=== PATIENT | female | born 1960 | race Caucasian/White ===

== ENCOUNTER 2016-09-07 12:30 | Observation (INO) | payer SELFPAY ==
[~2016-09-07] VITALS: Ht 170.2 cm; Wt 120.0 kg
[2016-09-07 12:31] VITALS: BP 150/74; PULSE 71; RESP 21; TEMP 97.9; O2SAT 95
--- NOTE | 2016-09-07 12:47 | PD ---
Physical Exam Time Seen by Provider: 12:46 Narrative 55yo F c/o running out of insulin 2 weeks ago. Nausea x 2 days. Has not checked sugars since ran out of insulin. BSG in triage 543. Patient seen in triage. VS reviewed. Patient awaiting bed placement. Data Data Last Documented VS Vital Signs Date Time Temp Pulse Resp B/P Pulse Ox O2 Delivery O2 Flow Rate FiO2 09/07/16 12:31 97.9 71 21 150/74 95 MDM Supervised Visit with TRINA: Sarai Uribe Sep 07, 2016 12:47
[2016-09-07] MEDS ORDERED: SODIUM CHLOR 0.9% 1000 ML INJ 1,000 ML IV ONE ×2 (14:09→14:39)
[2016-09-07 14:10] VITALS: RESP 18; O2SAT 98
--- NOTE | 2016-09-07 14:11 | PD ---
HPI Chief Complaint: Diabetic Time Seen by Provider: 14:11 Travel History International Travel<30 days: No Contact w/Intl Traveler<30days: No Traveled to known affect area: No History of Present Illness HPI 55-year-old female presents to the emergency department for evaluation of dizziness and nausea that started approximately 2-3 days ago. She denies any syncope. She states she feels lightheaded. She denies vomiting. Patient reports history of type 2 diabetes, history of [place] with bypass surgery, hyperlipidemia, neuropathy. She states that she takes Humalog and Lantus insulin and has been out for 2 weeks. She states she moved here from [place] approximately 1 month ago and does not have insurance has not followed up with her primary care physician. Patient denies any fevers or chills. She reports some mild shortness of breath, when she is sitting in her brawl pushes on her abdomen. She denies any chest pain. No abdominal pain. No vomiting, constipation, diarrhea. PFSH Past Medical History Cardiac Catheterization: Yes (2016) Cardiovascular Problems: Yes ([place], CABG) High Cholesterol: Yes Diabetes: Yes (TYPE 2 ) Patient Takes Glucophage: No Diminished Hearing: No Endocrine: Yes Thyroid Disease: Yes Tetanus Vaccination: > 5 Years Influenza Vaccination: Yes ?: Not : 4 Past Surgical History Cardiac Surgery: Yes (bypass ) Section: Yes (c- section x 4 ) Cholecystectomy: Yes Coronary Stent: Yes Tonsillectomy: Yes Social History Alcohol Use: Yes (ocassionally) Tobacco Use: No (pt quit 20 years ago) Substance Use: No Allergies-Medications (Allergen,Severity, Reaction): Coded Allergies: Penicillin (Verified Allergy, Severe, hives, 09/07/16) Dilaudid (Verified Adverse Reaction, Unknown, vomiting, 09/07/16) Reported Meds & Prescriptions Reported Meds & Active Scripts Active Reported Acidophilus Probiotic (Probiotic Product) 1 Tab Tab 1 Tab PO TID Ferrous Sulfate DR (Ferrous Sulfate) 325 Mg Tabdr 325 Mg PO BID Vitamin D3 400 (Cholecalciferol) 400 Unit Cap 400 Units PO HS Calcium (Calcium Carbonate) 600 Mg Tab 600 Mg PO BID Fish Oil 1000 mg ([place]-3 Fatty Acids) 1 Cap Cap 2,000 Mg PO HS Hm Cinnamon (Cinnamon) 500 Mg Cap Unknown Dose PO HS Lasix (Furosemide) 20 Mg Tab 10 Mg PO DAILY Atenolol 25 Mg Tab 25 Mg PO BID Aspirin DR (Aspirin) 81 Mg Tabdr 81 Mg PO HS Plavix (Clopidogrel Bisulfate) 75 Mg Tab 75 Mg PO HS Levothyroxine (Levothyroxine Sodium) 75 Mcg Tab 75 Mcg PO DAILY Levothyroxine (Levothyroxine Sodium) 200 Mcg Tab 200 Mcg PO DAILY Biotin 5 Mg Tab 5 Mg PO HS Zocor (Simvastatin) 40 Mg Tab 40 Mg PO HS Humalog Inj (Insulin Human Lispro) 1,000 Unit/10 Ml Vial 30 Units SQ TIDAC Lantus Inj (Insulin Glargine) 1,000 Unit/10 Ml Vial 80 Units SQ HS Gabapentin 600 Mg Tab 600 Mg PO TID Review of Systems Except as stated in HPI: all other systems reviewed are Neg Physical Exam Narrative GENERAL: Well-nourished, well-developed female patient, afebrile. SKIN: Focused skin assessment warm/dry. HEAD: Normocephalic. Atraumatic. EYES: No scleral icterus. No injection or drainage. NECK: Supple, trachea midline. No JVD or lymphadenopathy. CARDIOVASCULAR: Regular rate and rhythm without murmurs, gallops, or rubs. RESPIRATORY: Breath sounds equal bilaterally. No accessory muscle use. Lungs sounds are clear to auscultation. GASTROINTESTINAL: Abdomen soft and nondistended. Patient has epigastric tenderness to palpation. MUSCULOSKELETAL: No cyanosis, or edema. BACK: Nontender without obvious deformity. No CVA tenderness. Data Data Last Documented VS Vital Signs Date Time Temp Pulse Resp B/P Pulse Ox O2 Delivery O2 Flow Rate FiO2 09/07/16 16:02 97.8 62 17 112/59 98 Room Air Orders Electrocardiogram (09/07/16 14:09) Complete Blood Count With Diff (09/07/16 14:09) Comprehensive Metabolic Panel (09/07/16 14:09) Magnesium (Mg) (09/07/16 14:09) Beta Hydroxybutyrate (Acetone) (09/07/16 14:09) Urinalysis - C+S If Indicated (09/07/16 14:09) Chest, Single Ap (09/07/16 14:09) Ecg Monitoring (09/07/16 14:09) Iv Access Insert/Monitor (09/07/16 14:09) Oximetry (09/07/16 14:09) Sodium Chlor 0.9% 1000 Ml Inj (Ns 1000 M (09/07/16 14:09) Sodium Chlor 0.9% 1000 Ml Inj (Ns 1000 M (09/07/16 14:39) Sodium Chloride 0.9% Flush (Ns Flush) (09/07/16 14:15) Troponin I (09/07/16 14:09) Lipase (09/07/16 14:09) Creatine Kinase (Cpk) (09/07/16 14:09) Blood Gas Venous (Vbg) (09/07/16 14:09) Prothrombin Time / Inr (Pt) (09/07/16 14:13) Act Partial Throm Time (Ptt) (09/07/16 14:13) Urine Culture (09/07/16 14:00) Insulin Human Regular Inj (Novolin R Inj (09/07/16 16:15) Diet 1800 Ada Cons Carb (09/07/16 Dinner) Diet Heart Healthy (09/07/16 Dinner) Vital Signs (Adult) JOE.Q4H (09/07/16 16:24) Blood Glucose Goal (Criteria) (09/07/16 16:24) Hypoglycemia 70 Mg/Dl Or < (09/07/16 16:24) Notify Dr: Other (09/07/16 16:24) Dextrose 50% In Leticia (Vial) Inj (D50w (Vi (09/07/16 16:30) Glucagon Inj (Glucagon Inj) (09/07/16 16:30) Insulin Aspart Supplemtl Scale (Novolog (09/07/16 21:00) Sodium Chlor 0.9% 1000 Ml Inj (Ns 1000 M (09/07/16 16:30) Basic Metabolic Panel (Bmp) (09/08/16 06:00) Aspirin Ec (Ecotrin Ec) (09/07/16 21:00) Atenolol (Tenormin) (09/07/16 21:00) Clopidogrel (Plavix) (09/07/16 21:00) Gabapentin (Neurontin) (09/07/16 18:00) Levothyroxine (Synthroid) (09/08/16 06:00) Levothyroxine (Synthroid) (09/08/16 06:00) Pravastatin (Pravachol) (09/07/16 21:00) Admit Order (Ed Use Only) (09/07/16 16:27) Troponin I (09/07/16 20:00) Troponin I (09/08/16 02:00) Insulin Detemir Inj (Levemir Inj) (09/07/16 21:00) Labs Laboratory Tests Test 09/07/16 09/07/16 09/07/16 14:00 14:10 14:20 Urine Color YELLOW Urine Turbidity HAZY Urine pH 6.0 Urine Specific [place] 1.033 Urine Protein 100 mg/dL Urine Glucose (UA) 1000 mg/dL Urine Ketones TRACE mg/dL Urine Occult Blood SMALL Urine Nitrite NEG Urine Bilirubin NEG Urine Urobilinogen LESS THAN 2.0 MG/DL Urine Leukocyte Esterase MOD Urine RBC 9 /hpf Urine WBC 6 /hpf Urine Squamous Epithelial 2 /hpf Cells Urine Bacteria MOD /hpf Urine Hyaline Casts 2 /lpf Microscopic Urinalysis Comment CULTURE INDICATED White Blood Count 8.2 TH/MM3 Red Blood Count 4.62 MIL/MM3 Hemoglobin 14.8 GM/DL Hematocrit 43.0 % Mean Corpuscular Volume 93.1 FL Mean Corpuscular Hemoglobin 32.1 PG Mean Corpuscular Hemoglobin 34.5 % Concent Red Cell Distribution Width 13.5 % Platelet Count 203 TH/MM3 Mean Platelet Volume 7.8 FL Neutrophils (%) (Auto) 67.2 % Lymphocytes (%) (Auto) 24.1 % Monocytes (%) (Auto) 6.1 % Eosinophils (%) (Auto) 2.0 % Basophils (%) (Auto) 0.6 % Neutrophils # (Auto) 5.5 TH/MM3 Lymphocytes # (Auto) 2.0 TH/MM3 Monocytes # (Auto) 0.5 TH/MM3 Eosinophils # (Auto) 0.2 TH/MM3 Basophils # (Auto) 0.0 TH/MM3 CBC Comment DIFF FINAL Differential Comment Prothrombin Time 12.5 SEC Prothromb Time International 1.1 RATIO Ratio Activated Partial 28.0 SEC Thromboplast Time Sodium Level 128 MEQ/L Potassium Level 5.0 MEQ/L Chloride Level 94 MEQ/L Carbon Dioxide Level 18.8 MEQ/L Anion Gap 15 MEQ/L Blood Urea Nitrogen 25 MG/DL Creatinine 1.65 MG/DL Estimat Glomerular Filtration 32 ML/MIN Rate Random Glucose 511 MG/DL Calcium Level 9.6 MG/DL Magnesium Level 1.7 MG/DL Total Bilirubin 0.7 MG/DL Aspartate Amino Transf 135 U/L (AST/SGOT) Alanine Aminotransferase 121 U/L (ALT/SGPT) Alkaline Phosphatase 92 U/L Total Creatine Kinase 170 U/L Troponin I LESS THAN 0.02 NG/ML Total Protein 7.6 GM/DL Albumin 3.3 GM/DL Lipase 149 U/L B-Hydroxybutyrate 0.34 MMOL/L Blood Gas Puncture Site I.V. Blood Gas Patient Temperature 98.6 Venous Blood pH 7.47 Venous Blood Partial Pressure 32 mmHg CO2 Venous Blood Partial Pressure 38 mmHg O2 Venous Blood HCO3 23 mmol/L Venous Blood Oxygen Saturation 72 % Venous Blood Oxygen Content 13.7 Vol % Venous Blood Base Excess -0.5 mmol/L Oxygen Delivery Device ROOM AIR Blood Gas Inspired Oxygen 21 % [facility] Medical Decision Making Medical Screen Exam Complete: Yes Emergency Medical Condition: Yes Medical Record Reviewed: Yes Interpretation(s) Last Impressions Chest X-Ray 09/07/16 1409 Signed Impressions: Service Date/Time: Wednesday, September 07, 2016 14:48 - CONCLUSION: Compensated cardiomegaly without significant failure otherwise negative Jermaine Gutierres MD FACR Differential Diagnosis Hyperglycemia versus DKA versus electrolyte abnormality versus dehydration versus pancreatitis versus UTI versus ACS Narrative Course 55-year-old female presents to the emergency department for evaluation of dizziness and nausea for 2 weeks. She quit taking her insulin 2 weeks ago. EKG , CBC, CMP, magnesium, CK, troponin, PTT, PTT/INR, beta hydroxybutyrate, VBG, chest x-ray are ordered and pending. Patient given normal saline 1 L IV bolus 2. EKG shows sinus rhythm, no acute ST changes. CBC is unremarkable. CMP shows hyponatremia 128, BUN 25, creatinine 0.65, glucose 511, AST 135, ALT 121. Magnesium is 1.7. CK is 170. Troponin is less than 0.02. PTT is 28.0. PT/ INR is 12.5/1.1. Beta hydroxybutyrate is 0.34. UA shows moderate leukocyte esterase, 6 WBC, moderate bacteria. VBG shows pH 7.47, CO2 32. Chest x-ray shows Compensated cardiomegaly without significant failure otherwise negative. Patient is given 25 units regular insulin subcutaneous. Spoke to Dr. Candelaria who accepted admission to trend cardiac enzymes. The patient was discharged in stable condition with instructions, including return instructions and follow up instructions. Diagnosis Primary Impression: Poorly controlled diabetes mellitus Additional Impressions: Dizziness Coronary artery disease Qualified Code: I25.10 - Coronary artery disease involving [place] heart, angina presence unspecified, unspecified vessel or lesion type Admitting Information Admitting Physician Requests: Janeen Barbour Sep 07, 2016 14:11
[2016-09-07] MEDS ORDERED: SODIUM CHLORIDE 0.9% FLUSH 10 ML FLUSH IVF PRN (14:15)
[2016-09-07 14:30] LABS: BLOOD GAS VENOUS BASE EXCESS -0.5 mmol/L (-2-2); BLOOD GAS VENOUS HCO3 23 mmol/L (22-26); BLOOD GAS VENOUS O2 CONTENT 13.7 Vol % (9.0-17.0); BLOOD GAS VENOUS O2 HGB SAT 72 % (70-76); BLOOD GAS VENOUS PCO2 32 mmHg (44-48); BLOOD GAS VENOUS PO2 38 mmHg (35-40); BLOOD GAS VENOUS pH 7.47 (7.360-7.400); CRITICAL VALUE NO; DRAW SITE I.V.; FIO2 21 %; OXYGEN DEVICE ROOM AIR; STAT YES; TEMP CORR TO 98.6
[2016-09-07 14:58] LABS: AUTOMATED NEUTROPHIL # 5.5 TH/MM3 (1.8-7.7); BASOPHIL % 0.6 % (0.0-2.0); EOSINOPHIL # 0.2 TH/MM3 (0-0.4); HEMO FLAGS DIFF FINAL; LYMPH % 24.1 % (9.0-44.0); MEAN CELL VOLUME 93.1 FL (80.0-100.0); MEAN CORPUSCULAR HEMOGLOBIN 32.1 PG (27.0-34.0); MEAN CORPUSCULAR HGB CONC 34.5 % (32.0-36.0); MONO % 6.1 % (0.0-8.0); NEUT % 67.2 % (16.0-70.0); PLATELET COUNT 203 TH/MM3 (150-450); RED BLOOD COUNT 4.62 MIL/MM3 (4.00-5.30); RED CELL DISTRIBUTION WIDTH 13.5 % (11.6-17.2); WHITE BLOOD COUNT 8.2 TH/MM3 (4.0-11.0)
[2016-09-07 15:09] LABS: BACTERIA, URINE MOD /hpf; BLOOD, URINE SMALL (NEG); COMMENT (UR) CULTURE INDICATED; CULTURE IF INDICATED CULTURE INDICATED; GLUCOSE,URINE 1000 mg/dL (NEG); HYALINE CAST, URINE 2 /lpf (RARE); KETONE, URINE TRACE mg/dL (NEG); NITRITE,URINE NEG (NEG); SQUAMOUS EPITHELIAL CELL URINE 2 /hpf (0-5); URINE COLOR YELLOW (YELLW/STRAW)
[2016-09-07 15:20] LABS: ALKALINE PHOSPHATASE 92 U/L (45-117); ANION GAP 15 MEQ/L (5-15); BETA-HYDROXYBUTYRATE 0.34 MMOL/L (0.00-0.39); BICARBONATE 18.8 MEQ/L (21.0-32.0); BLOOD UREA NITROGEN 25 MG/DL (7-18); CHLORIDE 94 MEQ/L (98-107); CREATINE KINASE 170 U/L (26-192); GLOMERULAR FILTRATION RATE 32 ML/MIN (>89); MAGNESIUM 1.7 MG/DL (1.5-2.5); SODIUM (NA) 128 MEQ/L (136-145); TOTAL BILIRUBIN ADULT 0.7 MG/DL (0.2-1.0)
[2016-09-07] MEDS ORDERED: GABA600T PO (15:35)
[2016-09-07] MEDS ORDERED: LANTUS2P SQ (15:35)
[2016-09-07] MEDS ORDERED: HUMALOG SQ (15:35)
[2016-09-07] MEDS ORDERED: ZOCO40TA PO (15:36)
[2016-09-07] MEDS ORDERED: BIOT5TAB PO (15:36)
[2016-09-07 15:40] LABS: INTERNATIONAL NORMALIZED RATIO 1.1 RATIO; PROTHROMBIN TIME - PATIENT 12.5 SEC (9.8-11.6)
[2016-09-07 16:02] VITALS: BP 112/59; PULSE 62; RESP 17; TEMP 97.8; O2SAT 98
[2016-09-07] MEDS ORDERED: ASPI81TA5 PO (16:05)
[2016-09-07] MEDS ORDERED: PLAV75TA29 PO (16:05)
[2016-09-07] MEDS ORDERED: LEVO75TA3 PO (16:05)
[2016-09-07] MEDS ORDERED: LEVO200T4 PO (16:05)
[2016-09-07] MEDS ORDERED: CALC600T25 PO (16:10)
[2016-09-07] MEDS ORDERED: CINN500C12 PO (16:10)
[2016-09-07] MEDS ORDERED: FURO1TAB62 PO (16:10)
[2016-09-07] MEDS ORDERED: FISH100020 PO (16:10)
[2016-09-07] MEDS ORDERED: D400400C PO (16:10)
[2016-09-07] MEDS ORDERED: ATEN25TA PO (16:10)
[2016-09-07] MEDS ORDERED: FERR325T2 PO (16:12)
[2016-09-07] MEDS ORDERED: PROB1TAB4 PO (16:12)
[2016-09-07] MEDS ORDERED: INSULIN HUMAN REGULAR 1,000 UNITS/10 ML VIAL SQ ONE (16:15)
--- NOTE | 2016-09-07 16:17 | RADRPT ---
EXAM DATE/TIME: 09/07/2016 14:48 [facility] COMPARISON: No previous studies available for comparison. INDICATIONS : Shortness of breath. MEDICAL HISTORY : Diabetes mellitus type II. SURGICAL HISTORY : CABG. Coronary artery stent. ENCOUNTER: Initial ACUITY: 1 day PAIN SCORE: 0/10 LOCATION: chest FINDINGS: The lungs are clear. The heart is minimally enlarged. The pulmonary vascularity is normal. There is n o evidence for infiltrate or failure. Sternal wires from previous bypass are noted. Degenerative changes are present about both shoulders. CONCLUSION: Compensated cardiomegaly without significant failure otherwise negative Jermaine Gutierres MD FACR on September 07, 2016 at 16:14 Board Certified Radiologist. This report was verified electronically.
[2016-09-07] MEDS ORDERED: GLUCAGON 1 MG/ML VIAL OTHER PRN (16:30)
[2016-09-07] MEDS ORDERED: DEXTROSE 50% IN WATER 50 ML VIAL(D50) IV PRN (16:30)
[2016-09-07 16:34] LABS: ALT (GPT) 121 U/L (10-53); AST (GOT) 135 U/L (15-37)
--- NOTE | 2016-09-07 17:06 | PD ---
Physical Exam Narrative GENERAL: Well-nourished, well-developed patient. SKIN: Warm and dry. HEAD: Normocephalic and atraumatic. EYES: No injection or drainage. ENT: No nasal drainage noted. NECK: Supple, trachea midline. CARDIOVASCULAR: Regular rate and rhythm RESPIRATORY: No increased effort. No accessory muscle use. GASTROINTESTINAL: Abdomen soft, tender epigastric area, nondistended. NEUROLOGICAL: Awake and alert. Motor and sensory grossly within normal limits. Normal speech. Data Data Last Documented VS Vital Signs Date Time Temp Pulse Resp B/P Pulse Ox O2 Delivery O2 Flow Rate FiO2 09/07/16 16:02 97.8 62 17 112/59 98 Room Air Orders Electrocardiogram (09/07/16 14:09) Complete Blood Count With Diff (09/07/16 14:09) Comprehensive Metabolic Panel (09/07/16 14:09) Magnesium (Mg) (09/07/16 14:09) Beta Hydroxybutyrate (Acetone) (09/07/16 14:09) Urinalysis - C+S If Indicated (09/07/16 14:09) Chest, Single Ap (09/07/16 14:09) Ecg Monitoring (09/07/16 14:09) Iv Access Insert/Monitor (09/07/16 14:09) Oximetry (09/07/16 14:09) Sodium Chlor 0.9% 1000 Ml Inj (Ns 1000 M (09/07/16 14:09) Sodium Chlor 0.9% 1000 Ml Inj (Ns 1000 M (09/07/16 14:39) Sodium Chloride 0.9% Flush (Ns Flush) (09/07/16 14:15) Troponin I (09/07/16 14:09) Lipase (09/07/16 14:09) Creatine Kinase (Cpk) (09/07/16 14:09) Blood Gas Venous (Vbg) (09/07/16 14:09) Prothrombin Time / Inr (Pt) (09/07/16 14:13) Act Partial Throm Time (Ptt) (09/07/16 14:13) Urine Culture (09/07/16 14:00) Insulin Human Regular Inj (Novolin R Inj (09/07/16 16:15) Diet 1800 Ada Cons Carb (09/07/16 Dinner) Diet Heart Healthy (09/07/16 Dinner) Vital Signs (Adult) JOE.Q4H (09/07/16 16:24) Blood Glucose Goal (Criteria) (09/07/16 16:24) Hypoglycemia 70 Mg/Dl Or < (09/07/16 16:24) Notify Dr: Other (09/07/16 16:24) Dextrose 50% In Leticia (Vial) Inj (D50w (Vi (09/07/16 16:30) Glucagon Inj (Glucagon Inj) (09/07/16 16:30) Insulin Aspart Supplemtl Scale (Novolog (09/07/16 21:00) Sodium Chlor 0.9% 1000 Ml Inj (Ns 1000 M (09/07/16 16:30) Basic Metabolic Panel (Bmp) (09/08/16 06:00) Hemoglobin (Hgb) A1c (09/07/16 16:24) Aspirin Ec (Ecotrin Ec) (09/07/16 21:00) Atenolol (Tenormin) (09/07/16 21:00) Clopidogrel (Plavix) (09/07/16 21:00) Gabapentin (Neurontin) (09/07/16 18:00) Insulin Glargine Inj (Lantus Inj) (09/07/16 21:00) Levothyroxine (Synthroid) (09/08/16 09:00) Levothyroxine (Synthroid) (09/08/16 09:00) (Nf) Simvastatin (Zocor) (09/07/16 21:00) Admit Order (Ed Use Only) (09/07/16 16:27) Troponin I (09/07/16 20:00) Troponin I (09/08/16 02:00) Labs Laboratory Tests Test 09/07/16 09/07/16 09/07/16 14:00 14:10 14:20 Urine Color YELLOW Urine Turbidity HAZY Urine pH 6.0 Urine Specific [place] 1.033 Urine Protein 100 mg/dL Urine Glucose (UA) 1000 mg/dL Urine Ketones TRACE mg/dL Urine Occult Blood SMALL Urine Nitrite NEG Urine Bilirubin NEG Urine Urobilinogen LESS THAN 2.0 MG/DL Urine Leukocyte Esterase MOD Urine RBC 9 /hpf Urine WBC 6 /hpf Urine Squamous Epithelial 2 /hpf Cells Urine Bacteria MOD /hpf Urine Hyaline Casts 2 /lpf Microscopic Urinalysis Comment CULTURE INDICATED White Blood Count 8.2 TH/MM3 Red Blood Count 4.62 MIL/MM3 Hemoglobin 14.8 GM/DL Hematocrit 43.0 % Mean Corpuscular Volume 93.1 FL Mean Corpuscular Hemoglobin 32.1 PG Mean Corpuscular Hemoglobin 34.5 % Concent Red Cell Distribution Width 13.5 % Platelet Count 203 TH/MM3 Mean Platelet Volume 7.8 FL Neutrophils (%) (Auto) 67.2 % Lymphocytes (%) (Auto) 24.1 % Monocytes (%) (Auto) 6.1 % Eosinophils (%) (Auto) 2.0 % Basophils (%) (Auto) 0.6 % Neutrophils # (Auto) 5.5 TH/MM3 Lymphocytes # (Auto) 2.0 TH/MM3 Monocytes # (Auto) 0.5 TH/MM3 Eosinophils # (Auto) 0.2 TH/MM3 Basophils # (Auto) 0.0 TH/MM3 CBC Comment DIFF FINAL Differential Comment Prothrombin Time 12.5 SEC Prothromb Time International 1.1 RATIO Ratio Activated Partial 28.0 SEC Thromboplast Time Sodium Level 128 MEQ/L Potassium Level 5.0 MEQ/L Chloride Level 94 MEQ/L Carbon Dioxide Level 18.8 MEQ/L Anion Gap 15 MEQ/L Blood Urea Nitrogen 25 MG/DL Creatinine 1.65 MG/DL Estimat Glomerular Filtration 32 ML/MIN Rate Random Glucose 511 MG/DL Calcium Level 9.6 MG/DL Magnesium Level 1.7 MG/DL Total Bilirubin 0.7 MG/DL Aspartate Amino Transf 135 U/L (AST/SGOT) Alanine Aminotransferase 121 U/L (ALT/SGPT) Alkaline Phosphatase 92 U/L Total Creatine Kinase 170 U/L Troponin I LESS THAN 0.02 NG/ML Total Protein 7.6 GM/DL Albumin 3.3 GM/DL Lipase 149 U/L B-Hydroxybutyrate 0.34 MMOL/L Blood Gas Puncture Site I.V. Blood Gas Patient Temperature 98.6 Venous Blood pH 7.47 Venous Blood Partial Pressure 32 mmHg CO2 Venous Blood Partial Pressure 38 mmHg O2 Venous Blood HCO3 23 mmol/L Venous Blood Oxygen Saturation 72 % Venous Blood Oxygen Content 13.7 Vol % Venous Blood Base Excess -0.5 mmol/L Oxygen Delivery Device ROOM AIR Blood Gas Inspired Oxygen 21 % MDM Supervised Visit with TRINA: Yes Interpretation(s) CBC & BMP Diagram 09/07/16 14:10 Last 24 hours Impressions Chest X-Ray 8/2/17 1409 Signed Impressions: Service Date/Time: Wednesday, September 07, 2016 14:48 - CONCLUSION: Compensated cardiomegaly without significant failure otherwise negative Jermaine Gutierres MD FACR Narrative Course I, Dr. alfaro, have reviewed the advance practice practitioner's documentation and am in agreement, met with the patient face to face, made the diagnosis, and the medical decision making was done by me. *My assessment and Findings: 55 y/o female presents with nausea, dizziness and general ill feeling. Patient notes in July of this year she had stents placed in [place]. She states she has not been able to fill her insulin but has been taking her Plavix and knows the importance of this. Her initial testing is negative but given her significant cardiac history we'll place in the hospital for further monitoring and glucose control Diagnosis Primary Impression: Dizziness Additional Impressions: Poorly controlled diabetes mellitus Coronary artery disease Qualified Code: I25.10 - Coronary artery disease involving [place] heart, angina presence unspecified, unspecified vessel or lesion type Jyoti Alfaro MD Sep 07, 2016 17:06
[2016-09-07] MEDS: GABAPENTIN 300 MG CAP PO SCH (17:16)
[2016-09-07] MEDS: SODIUM CHLOR 0.9% 1000 ML INJ 1,000 ML IV SCH (17:16)
--- NOTE | 2016-09-07 17:51 | HHI.HP ---
[facility] No Primary Care Physician Admission Diagnosis hyperglycemia, dizziness, nausea Diagnoses: Chief Complaint: nausea, dizziness Travel History International Travel<30 Days: No Contact w/Intl Traveler <30 Da: No Traveled to Known Affected Are: No History of Present Illness Written by Kamini Fox, acting as scribe for Dr. Candelaria on 09/07/16 at 17: 25. Patient is a 55 year ol Female with PMHX of DM2, [place] s/p CABG, neuropathy, hypothyroidism who came in to the hospital for evaluation of dizziness and severe nausea. Patient states that she has not been feeling well for the past few days, c/o dizziness, and lightheadedness. She also states she has severe nausea and over all not feeling well. Patient reports she just moved to the area from [place] about a month ago. States she run out of her insulin Lantus and humolog supply. She was last seen bey her Seismic Observer about 6 months ago. Her last HgA1C was in July about results was about 10 or 11. States she has checked her BG and usually with medications she would be in 180s- 200's. She has lost weight when she moved here. Last she checked her BG it was in the 300's. She also states that she has been battling with urinary urgency and frequency, dysuria about 1 week. She started taking AZO and drinking cranberry juice and states she has some relief. Also complaints of mid abdominal pain, intermittent, increase with palpation, relieve with rest. Otherwise denies chest pain, palpitations, headaches. Denies fevers, chills, diarrhea, constipation, abdominal cramping. Denies hematuria. Review of Systems Except as stated in HPI: all other systems reviewed are Neg Past Family Social History Past Medical History DM2 Mi 2008 HLD Neuropathy Hypothyroidism HTN Past Surgical History CABG in 2008 C Section x4 Cholecystectomy Stent placement x2 2017 Cardiac Cath Tonsillectomy Reported Medications Reported Meds & Active Scripts Active Reported Acidophilus Probiotic (Probiotic Product) 1 Tab Tab 1 Tab PO TID Ferrous Sulfate DR (Ferrous Sulfate) 325 Mg Tabdr 325 Mg PO BID Vitamin D3 400 (Cholecalciferol) 400 Unit Cap 400 Units PO HS Calcium (Calcium Carbonate) 600 Mg Tab 600 Mg PO BID Fish Oil 1000 mg ([place]-3 Fatty Acids) 1 Cap Cap 2,000 Mg PO HS Hm Cinnamon (Cinnamon) 500 Mg Cap Unknown Dose PO HS Lasix (Furosemide) 20 Mg Tab 10 Mg PO DAILY Atenolol 25 Mg Tab 25 Mg PO BID Aspirin DR (Aspirin) 81 Mg Tabdr 81 Mg PO HS Plavix (Clopidogrel Bisulfate) 75 Mg Tab 75 Mg PO HS Levothyroxine (Levothyroxine Sodium) 75 Mcg Tab 75 Mcg PO DAILY Levothyroxine (Levothyroxine Sodium) 200 Mcg Tab 200 Mcg PO DAILY Biotin 5 Mg Tab 5 Mg PO HS Zocor (Simvastatin) 40 Mg Tab 40 Mg PO HS Humalog Inj (Insulin Human Lispro) 1,000 Unit/10 Ml Vial 30 Units SQ TIDAC Lantus Inj (Insulin Glargine) 1,000 Unit/10 Ml Vial 80 Units SQ HS Gabapentin 600 Mg Tab 600 Mg PO TID Allergies: Coded Allergies: Penicillin (Verified Allergy, Severe, hives, 09/07/16) Dilaudid (Verified Adverse Reaction, Unknown, vomiting, 09/07/16) Active Ordered Medications Current Medications Medications (Trade) Dose Ordered Sig/Guillaume Route Start Time Stop Time Status Last Admin (NS Flush) 2 ml UNSCH PRN IVF 09/07/16 14:15 09/07/16 14:28 (D50w (Vial) Inj) 50 ml UNSCH PRN IV 09/07/16 16:30 Glucagon 1 mg 1 mg UNSCH PRN OTHER 09/07/16 16:30 (NS 1000 ml Inj) 1,000 ml @ 125 mls/hr Q8H IV 09/07/16 16:30 09/07/16 17:16 (Ecotrin Ec) 81 mg HS PO 09/07/16 21:00 (Tenormin) 25 mg BID PO 09/07/16 21:00 (Plavix) 75 mg HS PO 09/07/16 21:00 (Neurontin) 600 mg TID PO 09/07/16 18:00 09/07/16 17:16 (Levemir Inj) 80 units HS SQ 09/07/16 21:00 (Synthroid) 75 mcg DAILY@06 PO 09/08/16 06:00 (Synthroid) 200 mcg DAILY@06 PO 09/08/16 06:00 (Pravachol) 80 mg HS PO 09/07/16 21:00 Non-Formulary Medication 30 units TIDAC SQ 09/08/16 08:00 UNV Family History Sister has Juvenile DM Social History Occasional Alcohol use Former smoker, quit 20 years ago (1996) Denies Illicit drug use Physical Exam Vital Signs Vital Signs Date Time Temp Pulse Resp B/P Pulse Ox O2 Delivery O2 Flow Rate FiO2 09/07/16 16:02 97.8 62 17 112/59 98 Room Air 09/07/16 14:10 18 98 Room Air 09/07/16 13:51 72 17 96 Room Air 09/07/16 12:31 97.9 71 21 150/74 95 Physical Exam GENERAL: This is an obese, well-developed patient, in no apparent distress. SKIN: No rashes, ecchymoses or lesions. Cool and dry. HEAD: Normocephalic. EYES: Pupils equal round and reactive. Extraocular motions intact. No scleral icterus. No injection or drainage. ENT: Nose without bleeding. Throat with mild erythema. Uvula midline. Airway patent. NECK: Trachea midline. Supple. CARDIOVASCULAR: Regular rate and rhythm without murmurs, gallops, or rubs. RESPIRATORY: Clear to auscultation. Breath sounds equal bilaterally. No wheezes , rales, or rhonchi. GASTROINTESTINAL: Abdomen soft, protuberant, mid epigastric region mild tenderness to palpate. BS Active x4. MUSCULOSKELETAL: Extremities without clubbing, cyanosis, or edema. NEUROLOGICAL: Awake and alert. Oriented to person, place, time. Motor and sensory grossly within normal limits. Normal speech. Laboratory Laboratory Tests Test 09/07/16 09/07/16 09/07/16 14:00 14:10 14:20 Urine Color YELLOW Urine Turbidity HAZY Urine pH 6.0 Urine Specific [place] 1.033 Urine Protein 100 Urine Glucose (UA) 1000 Urine Ketones TRACE Urine Occult Blood SMALL Urine Nitrite NEG Urine Bilirubin NEG Urine Urobilinogen LESS THAN 2.0 Urine Leukocyte Esterase MOD Urine RBC 9 Urine WBC 6 Urine Squamous Epithelial 2 Cells Urine Bacteria MOD Urine Hyaline Casts 2 Microscopic Urinalysis Comment CULTURE INDICATED White Blood Count 8.2 Red Blood Count 4.62 Hemoglobin 14.8 Hematocrit 43.0 Mean Corpuscular Volume 93.1 Mean Corpuscular Hemoglobin 32.1 Mean Corpuscular Hemoglobin 34.5 Concent Red Cell Distribution Width 13.5 Platelet Count 203 Mean Platelet Volume 7.8 Neutrophils (%) (Auto) 67.2 Lymphocytes (%) (Auto) 24.1 Monocytes (%) (Auto) 6.1 Eosinophils (%) (Auto) 2.0 Basophils (%) (Auto) 0.6 Neutrophils # (Auto) 5.5 Lymphocytes # (Auto) 2.0 Monocytes # (Auto) 0.5 Eosinophils # (Auto) 0.2 Basophils # (Auto) 0.0 CBC Comment DIFF FINAL Differential Comment Prothrombin Time 12.5 Prothromb Time International 1.1 Ratio Activated Partial 28.0 Thromboplast Time Sodium Level 128 Potassium Level 5.0 Chloride Level 94 Carbon Dioxide Level 18.8 Anion Gap 15 Blood Urea Nitrogen 25 Creatinine 1.65 Estimat Glomerular Filtration 32 Rate Random Glucose 511 Calcium Level 9.6 Magnesium Level 1.7 Total Bilirubin 0.7 Aspartate Amino Transf 135 (AST/SGOT) Alanine Aminotransferase 121 (ALT/SGPT) Alkaline Phosphatase 92 Total Creatine Kinase 170 Troponin I LESS THAN 0.02 Total Protein 7.6 Albumin 3.3 Lipase 149 B-Hydroxybutyrate 0.34 Blood Gas Puncture Site I.V. Blood Gas Patient Temperature 98.6 Venous Blood pH 7.47 Venous Blood Partial Pressure 32 CO2 Venous Blood Partial Pressure 38 O2 Venous Blood HCO3 23 Venous Blood Oxygen Saturation 72 Venous Blood Oxygen Content 13.7 Venous Blood Base Excess -0.5 Oxygen Delivery Device ROOM AIR Blood Gas Inspired Oxygen 21 Date/Time Procedure Status Source Growth 09/07/16 14:00 Urine Culture Received Urine Random Urine Pending Result Diagram: 09/07/16 1410 09/07/16 1410 Imaging Last Impressions Chest X-Ray 09/07/16 1409 Signed Impressions: Service Date/Time: Wednesday, September 07, 2016 14:48 - CONCLUSION: Compensated cardiomegaly without significant failure otherwise negative Jermaine Gutierres MD FACR Assessment and Plan Problem List: (1) Coronary artery disease ICD Code: I25.10 Status: Acute (2) Uncontrolled type 2 diabetes mellitus ICD Code: E11.65 Status: Acute Assessment and Plan Patient is a 55 year ol Female with PMHX of DM2, [place] s/p CABG, neuropathy, hypothyroidism who came in to the hospital for evaluation of dizziness and severe nausea. DM2, uncontrolled- due to noncompliance Nausea, lightheadedness neuropathy - Patient reports just recently moved in the area. No PCP secondary to no insurance coverage. Reports she has not had her insulin medications for 2 weeks. - Restart previous medications Lantus 80units QHS, Humalog 30units before meals - Monitor Accu checks - Check Hemoglobin A1C - Glucose 500, Urine glucose 1000, Trace urine ketones - Anion gap 15, Beta-hydroxybutyrate 0.34 - Patient received Insulin Regular 25 unit dose - Check labs in AM - Discuss with patient importance of PCP follow up and medication compliance. Will consult case management for PCP referral and patient assistance. Verbalized understanding. - [facility]er to [facility]. 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 I, Dr.Mohammadreza Candelaria, personally performed the physical exam , reviewed the clinical data and discussed the findings and the plan with the patient. Code Status Full Code Discussed Condition With Patient, Nursing, ED attending Problem Qualifiers (1) Coronary artery disease: Qualified Code: I25.10 - Coronary artery disease involving [place] heart, angina presence unspecified, unspecified vessel or lesion type (2) Uncontrolled type 2 diabetes mellitus: Qualified Code: E11.65 - Uncontrolled type 2 diabetes mellitus with hyperglycemia, with long-term current use of insulin Kamini Barrow Sep 07, 2016 17:51 Deondre Candelaria MD Sep 07, 2016 18:07
[2016-09-07] MEDS: cefTRIAXone INJ 1,000 MG in SODIUM CHLORIDE 0.9% INJ 100 ML IV SCH (18:10)
[2016-09-07 18:11] VITALS: BP 118/67; PULSE 69; RESP 17; TEMP 97.8; O2SAT 99
[2016-09-07] MEDS ORDERED: BUSP15TA PO (19:39)
[2016-09-07] MEDS ORDERED: ZOLO50TA PO (19:39)
[2016-09-07 19:43] VITALS: BP 106/58; PULSE 69; RESP 17; TEMP 97.3; O2SAT 97
[2016-09-07] MEDS ORDERED: busPIRone HCL 10 MG TAB PO ONE (20:45)
[2016-09-07] MEDS: SERTRALINE HCL 50 MG TAB PO SCH (21:00)
[2016-09-07] MEDS: INSULIN ASPART SUPPLEMENTAL SCALE SQ SCH (21:00)
[2016-09-07] MEDS: ASPIRIN EC 81 MG TABEC PO SCH (21:00)
[2016-09-07] MEDS ORDERED: INSULIN DETEMIR 100 UNITS/ML VIAL SQ SCH (21:00)
[2016-09-07] MEDS: PRAVASTATIN SOD 80 MG TAB PO SCH (21:00)
[2016-09-07] MEDS: ATENOLOL 25 MG TAB PO SCH (21:00)
[2016-09-07] MEDS: CLOPIDOGREL 75 MG TAB PO SCH (21:00)
[2016-09-07 22:17] LABS: HEMOGLOBIN A1a 1.2 %; HEMOGLOBIN A1b 1.2 %; HEMOGLOBIN Ao 73.2 %; HEMOGLOBIN LA1C 3.7 %
[2016-09-07 23:51] VITALS: BP 116/66; PULSE 68; RESP 17; TEMP 97.9; O2SAT 95
[2016-09-08] MEDS: SODIUM CHLOR 0.9% 1000 ML INJ 1,000 ML IV SCH ×2 (00:30→11:48)
[2016-09-08 03:58] VITALS: BP 122/74; PULSE 62; RESP 16; TEMP 97.9; O2SAT 99
[2016-09-08 03:59] LABS: ANION GAP 11 MEQ/L (5-15); BICARBONATE 22.7 MEQ/L (21.0-32.0); BLOOD UREA NITROGEN 21 MG/DL (7-18); CHLORIDE 104 MEQ/L (98-107); GLOMERULAR FILTRATION RATE 45 ML/MIN (>89); POTASSIUM 3.7 MEQ/L (3.5-5.1); SODIUM (NA) 138 MEQ/L (136-145)
[2016-09-08] MEDS: LEVOTHYROXINE SODIUM 200 MCG TAB PO SCH (06:11)
[2016-09-08] MEDS: LEVOTHYROXINE SODIUM 75 MCG TAB PO SCH (06:12)
[2016-09-08] MEDS: INSULIN ASPART SUPPLEMENTAL SCALE SQ SCH ×4 (06:15→22:02)
[2016-09-08] MEDS ORDERED: INSULIN ASPART 1,000 UNITS/10 ML VIAL SQ SCH ×3 (08:00→17:00)
[2016-09-08 08:01] VITALS: BP_SYST 128; BP_SYST 131; BP_SYST 135; BP_DIAS 65; BP_DIAS 69; BP_DIAS 74; PULSE 65; RESP 17; TEMP 97.7; O2SAT 95
[2016-09-08] MEDS: busPIRone HCL 5 MG TAB PO SCH ×3 (09:22→17:31)
[2016-09-08] MEDS: GABAPENTIN 300 MG CAP PO SCH ×3 (09:22→17:31)
[2016-09-08] MEDS: SERTRALINE HCL 50 MG TAB PO SCH ×2 (09:22→21:49)
[2016-09-08] MEDS: ATENOLOL 25 MG TAB PO SCH ×2 (09:22→21:50)
--- NOTE | 2016-09-08 10:26 | HHI.PR ---
Subjective Remarks Follow-up for hyperglycemia. The patient reports that nausea and dizziness have resolved. She's been tolerating diet. She denies any vomiting. She reports that she had dysuria and urinary frequency recently, but dysuria resolved after she started taking cranberry juice and AZO. Urinary frequency persisted until overnight, and now it is improved. She had previously been following with industrial sales representative over 6 months ago, but she has lost her insurance since then. She states that her blood glucose was normally [id number] on her current outpatient regimen of Lantus and Humalog. Objective Vitals Vital Signs Date Time Temp Pulse Resp B/P Pulse Ox O2 Delivery O2 Flow Rate FiO2 09/08/16 08:01 97.7 65 17 135/74 95 128/69 131/65 09/08/16 03:58 97.9 62 16 122/74 99 09/07/16 23:51 97.9 68 17 116/66 95 09/07/16 19:43 97.3 69 17 106/58 97 09/07/16 18:11 97.8 69 17 118/67 99 Room Air 09/07/16 16:02 97.8 62 17 112/59 98 Room Air 09/07/16 14:10 18 98 Room Air 09/07/16 13:51 72 17 96 Room Air 09/07/16 12:31 97.9 71 21 150/74 95 I/O 09/07/16 09/07/16 09/07/16 09/08/16 09/08/16 09/08/16 07:00 15:00 23:00 07:00 15:00 23:00 Intake Total 200 ml Balance 200 ml Intake Oral 200 ml # Voids 1 1 # Bowel Movements 0 Result Diagram: 09/07/16 1410 09/08/16 0321 Imaging Last Impressions Chest X-Ray 09/07/16 1409 Signed Impressions: Service Date/Time: Wednesday, September 07, 2016 14:48 - CONCLUSION: Compensated cardiomegaly without significant failure otherwise negative Jermaine Gutierres MD FACR Objective Remarks GENERAL: Well-developed well-nourished morbidly obese. In no acute distress. SKIN: Warm and dry. No lesions noted. HEENT: Normocephalic. Pupils equal and round. Mucous membranes pink and moist. CARDIOVASCULAR: Regular rate and rhythm. No murmur appreciated. RESPIRATORY: No accessory muscle use. Clear to auscultation. Breath sounds equal bilaterally. GASTROINTESTINAL: Abdomen soft, mild epigastric TTP, nondistended. Bowel sounds x4. MUSCULOSKELETAL: No obvious deformities. No clubbing or cyanosis. No edema. NEUROLOGICAL: Awake and alert. No focal neurological deficits. Moves upper and lower extremities spontaneously. Normal speech. PSYCHIATRIC: Appropriate mood and affect; insight and judgment normal. A/P Problem List: (1) Coronary artery disease ICD Code: I25.10 Status: Chronic (2) Uncontrolled type 2 diabetes mellitus ICD Code: E11.65 Status: Acute Assessment and Plan Patient is a 55 year ol Female with PMHX of DM2, [place] s/p CABG, neuropathy, hypothyroidism who came in to the hospital for evaluation of dizziness and severe nausea. DM2, uncontrolled with hyperglycemia - due to noncompliance, has been out of home insulin 2 weeks Nausea, lightheadedness - improved with treatment of hyperglycemia neuropathy Reviewed: On admission random glucose 511, anion gap 15, bicarbonate 18.8, venous blood gas pH 7.47, beta hydroxybutyrate within normal limits. Anion gap has closed and bicarbonate has returned to normal limits. Hemoglobin A1c 12.8. UA with glucosuria, proteinuria, ketonuria. Troponins within normal limits. Non-orthostatic. - Restared previous regimen with Levemir 80units QHS, Humalog 30units before meals - Monitor Accu checks and adjust regimen as indicated - Additional SSI coverage if needed - Consult case management, assistance with outpatient follow-up - Continue Gabapentin for neuropathy Urinary Tract Infection: UA with evidence of UTI. Recent complaints of dysuria and urinary frequency. - Ceftriaxone IV - Follow up urine culture HTN/CAD/CABG/HLD: Chronic, stable. - Continue with ASA, Plavix - Continue with Atenolol, Pravastatin - Monitor BP trend SHARA: Patient reported her last kidney function number was within normal range, no previous labs for comparison. Creatinine 1.65 admission, improved to 1.24 overnight with IVF. Likely secondary to hyperglycemia/dehydration. - Avoid nephrotoxins - IVF for hydration Hypothyroidism: Chronic. - Continue with levothyroxine Epigastric tenderness/GERD: - Start Pepcid DVT Prop SCDs Discharge Planning Discharge disposition pending further improvement in blood glucose control. Possible discharge later today vs tomorrow depending on blood glucose control. Problem Qualifiers (1) Coronary artery disease: Qualified Code: I25.10 - Coronary artery disease involving [place] heart, angina presence unspecified, unspecified vessel or lesion type (2) Uncontrolled type 2 diabetes mellitus: Qualified Code: E11.65 - Uncontrolled type 2 diabetes mellitus with hyperglycemia, with long-term current use of insulin Luis Nelson Sep 08, 2016 10:25
[2016-09-08] MEDS ORDERED: PILL SPLITTER OTHER PRN (10:30)
[2016-09-08 11:36] VITALS: BP 119/66; PULSE 65; RESP 23; TEMP 98.3; O2SAT 94
[2016-09-08] MEDS: FAMOTIDINE 20 MG TAB PO SCH ×2 (12:03→21:49)
--- NOTE | 2016-09-08 15:04 | EKG ---
Date Performed: 09/07/2016 Time Performed: 15:33:27 PTAGE: 55 years EKG: Sinus rhythm WITH FIRST DEGREE AV BLOCK ST DEVIATION AND MODERATE T-WAVE ABNORMALITY, CONSIDER ANTEROLATERAL ISCH EMIA ABNORMAL ECG NO PREVIOUS TRACING DOCTOR: Marium Duncan Interpretating Date/Time 09/08/2016 15:04:10
--- NOTE | 2016-09-08 15:05 | EKG ---
Date Performed: 09/07/2016 Time Performed: 20:58:54 PTAGE: 55 years EKG: Sinus rhythm WITH FIRST DEGREE AV BLOCK ST DEVIATION AND MODERATE T-WAVE ABNORMALITY, CONSIDER ANTEROLATERAL ISCH EMIA ABNORMAL ECG PREVIOUS TRACING 09/07/2016 15.33.27 Since previous tracing, no significant change noted DOCTOR: Marium Duncan Interpretating Date/Time 09/08/2016 15:04:43
--- NOTE | 2016-09-08 15:05 | EKG ---
Date Performed: 09/08/2016 Time Performed: 02:21:16 PTAGE: 55 years EKG: Sinus rhythm WITH FIRST DEGREE AV BLOCK ST DEVIATION AND MODERATE T-WAVE ABNORMALITY, CONSIDER ANTEROLATERAL ISCH EMIA ABNORMAL ECG PREVIOUS TRACING : 09/07/2016 20.58 Since previous tracing, no significant change noted DOCTOR: Marium Duncan Interpretating Date/Time 09/08/2016 15:04:55
[2016-09-08 15:55] VITALS: BP 105/65; PULSE 64; RESP 20; TEMP 98.6; O2SAT 95
[2016-09-08] MEDS: cefTRIAXone INJ 1,000 MG in SODIUM CHLORIDE 0.9% INJ 100 ML IV SCH (17:32)
[2016-09-08] MEDS: INSULIN ASPART 1,000 UNITS/10 ML VIAL SQ SCH (18:00)
[2016-09-08] MEDS ORDERED: INSULIN DETEMIR 100 UNITS/ML VIAL SQ SCH (21:00)
[2016-09-08 21:12] VITALS: BP_SYST 103; BP_SYST 110; BP_DIAS 51; BP_DIAS 58; BP_DIAS 64; PULSE 66; RESP 19; TEMP 98.2; O2SAT 94
[2016-09-08] MEDS: ASPIRIN EC 81 MG TABEC PO SCH (21:49)
[2016-09-08] MEDS: PRAVASTATIN SOD 80 MG TAB PO SCH (21:50)
[2016-09-08] MEDS: CLOPIDOGREL 75 MG TAB PO SCH (21:50)
[2016-09-08 23:42] VITALS: BP 126/65; PULSE 62; RESP 17; TEMP 98.3; O2SAT 93
[2016-09-09] MEDS: SODIUM CHLOR 0.9% 1000 ML INJ 1,000 ML IV SCH ×2 (00:30→08:12)
[2016-09-09 03:16] VITALS: BP 125/70; PULSE 60; RESP 17; TEMP 97.6; O2SAT 94
[2016-09-09] MEDS: LEVOTHYROXINE SODIUM 200 MCG TAB PO SCH (06:21)
[2016-09-09] MEDS: LEVOTHYROXINE SODIUM 75 MCG TAB PO SCH (06:21)
[2016-09-09] MEDS: INSULIN ASPART SUPPLEMENTAL SCALE SQ SCH (07:27)
--- NOTE | 2016-09-09 07:48 | HHI.PR ---
Subjective Remarks Follow-up for hyperglycemia. The patient's blood glucose is much better controlled overnight. She denies any nausea, vomiting, abdominal pain. Objective Vitals Vital Signs Date Time Temp Pulse Resp B/P Pulse Ox O2 Delivery O2 Flow Rate FiO2 09/09/16 03:16 97.6 60 17 125/70 94 09/08/16 23:42 98.3 62 17 126/65 93 09/08/16 21:12 98.2 66 19 103/51 94 103/58 110/64 09/08/16 15:55 98.6 64 20 105/65 95 09/08/16 11:36 98.3 65 23 119/66 94 09/08/16 08:01 97.7 65 17 135/74 95 128/69 131/65 I/O 09/08/16 09/08/16 09/08/16 09/09/16 09/09/16 09/09/16 07:00 15:00 23:00 07:00 15:00 23:00 Intake Total 200 ml 500 ml Balance 200 ml 500 ml Intake Oral 200 ml IV Total 500 ml # Voids 1 1 # Bowel Movements 1 Result Diagram: 09/07/16 1410 09/08/16 0321 Imaging Last Impressions Chest X-Ray 09/07/16 1409 Signed Impressions: Service Date/Time: Wednesday, September 07, 2016 14:48 - CONCLUSION: Compensated cardiomegaly without significant failure otherwise negative Jermaine Gutierres MD FACR Objective Remarks GENERAL: Well-developed well-nourished morbidly obese. In no acute distress. SKIN: Warm and dry. No lesions noted. HEENT: Normocephalic. Pupils equal and round. Mucous membranes pink and moist. CARDIOVASCULAR: Regular rate and rhythm. No murmur appreciated. RESPIRATORY: No accessory muscle use. Clear to auscultation. Breath sounds equal bilaterally. GASTROINTESTINAL: Abdomen soft, nontender, nondistended. Bowel sounds x4. MUSCULOSKELETAL: No obvious deformities. No clubbing or cyanosis. No edema. NEUROLOGICAL: Awake and alert. No focal neurological deficits. Moves upper and lower extremities spontaneously. Normal speech. PSYCHIATRIC: Appropriate mood and affect; insight and judgment normal. A/P Problem List: (1) Coronary artery disease ICD Code: I25.10 Status: Chronic (2) Uncontrolled type 2 diabetes mellitus ICD Code: E11.65 Status: Acute Assessment and Plan Patient is a 55 year ol Female with PMHX of DM2, [place] s/p CABG, neuropathy, hypothyroidism who came in to the hospital for evaluation of dizziness and severe nausea. DM2, uncontrolled with hyperglycemia - due to noncompliance, has been out of home insulin 2 weeks Nausea, lightheadedness - improved with treatment of hyperglycemia neuropathy Reviewed: On admission random glucose 511, anion gap 15, bicarbonate 18.8, venous blood gas pH 7.47, beta hydroxybutyrate within normal limits. Anion gap has closed and bicarbonate has returned to normal limits. Hemoglobin A1c 12.8. UA with glucosuria, proteinuria, ketonuria. Troponins within normal limits. Non-orthostatic. - Adjusted previous home regimen, now on Levemir 45 units twice a day, NovoLog 35 units three times a day, much better blood glucose control overnight. - Monitor Accu checks. Additional SSI coverage if needed - Consult case management, assistance with outpatient follow-up - Continue Gabapentin for neuropathy Urinary Tract Infection: UA with evidence of UTI. Recent complaints of dysuria and urinary frequency. - Received Ceftriaxone IV, urine culture with no growth today, complete course of Cipro. HTN/CAD/CABG/HLD: Chronic, stable. - Continue with ASA, Plavix - Continue with Atenolol, Pravastatin - Monitor BP trend SHARA: Patient reported her last kidney function number was within normal range, no previous labs for comparison. Creatinine 1.65 admission, improved to 1.24 overnight with IVF. Likely secondary to hyperglycemia/dehydration. - Creatinine improved with IV hydration Hypothyroidism: Chronic. - Continue with levothyroxine Epigastric tenderness/GERD: - Started Pepcid, tenderness improved DVT Prop SCDs Discharge Planning Case management to assist with filling insulin prescriptions prior to discharge Discharge patient to home Condition on discharge: Improved Heart healthy diabetic Diet as tolerated Regular activity Rx written: Levemir, NovoLog, Cipro, Pepcid Follow-up with primary care physician Problem Qualifiers (1) Coronary artery disease: Qualified Code: I25.10 - Coronary artery disease involving [place] heart, angina presence unspecified, unspecified vessel or lesion type (2) Uncontrolled type 2 diabetes mellitus: Qualified Code: E11.65 - Uncontrolled type 2 diabetes mellitus with hyperglycemia, with long-term current use of insulin Luis Nelson Sep 09, 2016 07:48
[2016-09-09] MEDS ORDERED: CIPR250T52 PO (07:55)
[2016-09-09] MEDS ORDERED: FAMO20TA2 PO (07:55)
[2016-09-09] MEDS ORDERED: LEVEMIR SQ (07:55)
[2016-09-09] MEDS ORDERED: NOVOLOGP2 SQ (07:55)
[2016-09-09] MEDS: INSULIN ASPART 1,000 UNITS/10 ML VIAL SQ SCH (08:11)
[2016-09-09 08:44] VITALS: BP_SYST 112; BP_SYST 143; BP_SYST 155; BP_DIAS 70; BP_DIAS 74; BP_DIAS 75; PULSE 58; RESP 18; TEMP 97.6; O2SAT 96
== END 2016-09-09 11:02 | disposition home or self-care (01) ==
LOC: NEPC 12:30 → NEDA 16:29 → NEPGCP 18:24
PROVIDERS: ADMIT Hospitalist; ATTEND Hospitalist
DX: E11.65 Type 2 diabetes mellitus with hyperglycemia (principal); I25.10 Atherosclerotic heart disease of native coronary artery without angina pectoris; I25.2 Old myocardial infarction; K21.9 Gastro-esophageal reflux disease without esophagitis; E78.5 Hyperlipidemia, unspecified; E11.40 Type 2 diabetes mellitus with diabetic neuropathy, unspecified; E11.22 Type 2 diabetes mellitus with diabetic chronic kidney disease; N39.0 Urinary tract infection, site not specified; N17.9 Acute kidney failure, unspecified; E78.00 Pure hypercholesterolemia, unspecified; I44.0 Atrioventricular block, first degree; I12.9 Hypertensive chronic kidney disease with stage 1 through stage 4 chronic kidney disease, or unspecified chronic kidney disease; N18.9 Chronic kidney disease, unspecified; E86.0 Dehydration; I51.7 Cardiomegaly; E87.1 Hypo-osmolality and hyponatremia; E03.9 Hypothyroidism, unspecified; Z95.1 Presence of aortocoronary bypass graft; Z87.891 Personal history of nicotine dependence; Z79.4 Long term (current) use of insulin; Z91.19 Patient's noncompliance with other medical treatment and regimen; Z79.82 Long term (current) use of aspirin; Z95.5 Presence of coronary angioplasty implant and graft; Z79.899 Other long term (current) drug therapy
CPT/HCPCS: 71010; 80048; 80053; 81001; 82010; 82550; 82805; 82948; 83036; 83690; 83735; 84484; 85025; 85610; 85730; 87086; 93005; 96361; 96365; 96372; 99285; G0378; J0696; J1815; J7030

== ENCOUNTER 2017-04-29 17:56 | Emergency (ER) | payer SELFPAY ==
[~2017-04-29] VITALS: Ht 170.2 cm; Wt 128.0 kg
[~2017-04-29 17:56] MED LIST: ATEN25TA PO; BIOT5TAB PO; BUSP15TA PO; CALC600T5 PO; CINN1CAP PO; CIPR250T52 PO; D400400C PO; ECASA81 PO; FAMO20TA2 PO; FERR325T2 PO; FISH100020 PO; FURO1TAB62 PO; GABA600T PO; LEVEMIR SQ; LEVO200T4 PO; LEVO75TA3 PO; NOVOLOGP2 SQ; PLAV75TA29 PO; PROB1TAB4 PO; ZOCO40TA PO; ZOLO50TA PO
[2017-04-29 18:42] VITALS: BP 96/56; PULSE 76; RESP 18; TEMP 98.9; O2SAT 96
[2017-04-29 19:32] LABS: AUTOMATED NEUTROPHIL # 8.1 TH/MM3 (1.8-7.7); BASOPHIL % 0.5 % (0.0-2.0); EOSINOPHIL # 0.2 TH/MM3 (0-0.4); HEMATOCRIT 37.9 % (35.0-46.0); HEMOGLOBIN 13.7 GM/DL (11.6-15.3); LYMPH % 15.5 % (9.0-44.0); LYMPHOCYTE # 1.6 TH/MM3 (1.0-4.8); MEAN CELL VOLUME 98.7 FL (80.0-100.0); MEAN CORPUSCULAR HEMOGLOBIN 35.8 PG (27.0-34.0); MEAN PLATELET VOLUME 8.2 FL (7.0-11.0); MONO % 5.5 % (0.0-8.0); MONOCYTE # 0.6 TH/MM3 (0-0.9); NEUT % 76.5 % (16.0-70.0); PLATELET COUNT 188 TH/MM3 (150-450); RED BLOOD COUNT 3.84 MIL/MM3 (4.00-5.30); RED CELL DISTRIBUTION WIDTH 13.3 % (11.6-17.2); WHITE BLOOD COUNT 10.5 TH/MM3 (4.0-11.0)
[2017-04-29 19:34] LABS: MEAN CORPUSCULAR HGB CONC 36.2 % (32.0-36.0)
[2017-04-29 19:55] LABS: ALT (GPT) 66 U/L (10-53)
[2017-04-29 19:58] LABS: ALKALINE PHOSPHATASE 71 U/L (45-117); TOTAL BILIRUBIN ADULT 0.7 MG/DL (0.2-1.0); TOTAL PROTEIN 7.6 GM/DL (6.4-8.2)
[2017-04-29 19:59] LABS: ALBUMIN 3.9 GM/DL (3.4-5.0); AST (GOT) 82 U/L (15-37); BICARBONATE 26.2 MEQ/L (21.0-32.0); BLOOD UREA NITROGEN 19 MG/DL (7-18); CHLORIDE 98 MEQ/L (98-107); CREATININE 2.06 MG/DL (0.50-1.00); GLOMERULAR FILTRATION RATE 25 ML/MIN (>89); GLUCOSE,RANDOM 329 MG/DL (74-106); SODIUM (NA) 136 MEQ/L (136-145)
[2017-04-29 20:59] VITALS: BP 105/52; PULSE 74; RESP 20; O2SAT 95
[2017-04-29] MEDS ORDERED: SODIUM CHLOR 0.9% 1000 ML INJ 1,000 ML IV ONE (21:00)
[2017-04-29] MEDS ORDERED: ACETAMINOPHEN 325 MG TAB PO ONE (21:00)
--- NOTE | 2017-04-29 21:03 | PD ---
HPI Chief Complaint: Complaint Time Seen by Provider: 20:52 Travel History International Travel<30 days: No Contact w/Intl Traveler<30days: No Traveled to known affect area: No History of Present Illness HPI The patient is a 56-year-old female who presents emergency department for symptoms of 2 weeks' duration. The patient complains of dysuria, frequency, and urgency of 2 weeks duration. She now complains of bilateral lower mid back pain. She does have a history of previous UTIs. The patient does have a history of diabetes, is currently out of her short acting insulin, and "forgot" to take her insulin the last 2 nights. The patient states she recently started a new job and has had increasing fatigue. The patient states she has been seen a physician at the local clinic, but does not have health insurance, has not followed up with a physician in the last 2 weeks. She has been taking [id number] Azo and drinking cranberry juice. She denies any fever, sats intermittent chills. She does complain of nausea without any vomiting, diarrhea, abdominal pain. Symptoms are moderate. PFSH Past Medical History Hx Anticoagulant Therapy: Yes (PLAVIX AND ASA) Asthma: Yes Blood Disorders: No Anxiety: Yes Depression: Yes Heart Rhythm Problems: No Cancer: No Cardiac Catheterization: Yes (2016) Cardiovascular Problems: Yes (PR, CABG) High Cholesterol: Yes Chemotherapy: No Chest Pain: Yes Congestive Heart Failure: Yes COPD: No Diabetes: Yes (TYPE 2 ) Patient Takes Glucophage: No Diminished Hearing: No Endocrine: Yes Gastrointestinal Disorders: Yes (HEARTBURN- USES OTC MEDS) Genitourinary: Yes (FREQUENCY, URGENCY) Hypertension: Yes (ONLY DURING ) Immune Disorder: No Implanted Vascular Access Dvce: Yes Musculoskeletal: Yes (L ANKLE TENDON TEAR) Neurologic: Yes (SZ A CHILD ) Psychiatric: Yes Reproductive: No Respiratory: Yes Radiation Therapy: No Sleep Apnea: No Thyroid Disease: Yes : 4 Past Surgical History Body Medical Devices: STENTS Cardiac Surgery: Yes (double bypass ) Section: Yes (c- section x 4 ) Cholecystectomy: Yes Coronary Stent: Yes Tonsillectomy: Yes Other Surgery: Yes (T & A, C-SECTIONS X 4, BYPASS, GB, CARDIAC CATH, STENTS) Social History Alcohol Use: Yes (ocassionally) Tobacco Use: No (pt quit 20 years ago) Substance Use: No Allergies-Medications (Allergen,Severity, Reaction): Coded Allergies: penicillin G (Unverified Allergy, Severe, hives, 04/29/17) hydromorphone (Unverified Adverse Reaction, Unknown, vomiting, 04/29/17) Reported Meds & Prescriptions Reported Meds & Active Scripts Active Novolog Inj (Insulin Aspart) 1,000 Unit/10 Ml Vial 0 SQ DIRECTED Sliding Scale as directed. Cipro (Ciprofloxacin HCl) 250 Mg Tab 250 Mg PO BID 7 Days Famotidine 20 Mg Tab 10 Mg PO BID Levemir Inj (Insulin Detemir) 1,000 unit/ 10 ML Vial 45 Units SQ BID 30 Days Novolog Inj (Insulin Aspart) 1,000 Unit/10 Ml Vial 35 Units SQ TIDAC 30 Days Reported Buspirone (Buspirone HCl) 15 Mg Tab 15 Mg PO TID Zoloft (Sertraline HCl) 50 Mg Tab 50 Mg PO BID Acidophilus Probiotic (Probiotic Product) 1 Tab Tab 1 Tab PO TID Ferrous Sulfate DR (Ferrous Sulfate) 325 Mg Tabdr 325 Mg PO BID Vitamin D3 400 (Cholecalciferol) 400 Unit Cap 400 Units PO HS Calcium (Calcium Carbonate) 600 Mg Tab 600 Mg PO BID Fish Oil 1000 mg ([place]-3 Fatty Acids) 1 Cap Cap 2,000 Mg PO HS Hm Cinnamon (Cinnamon) 500 Mg Cap Unknown Dose PO HS Lasix (Furosemide) 20 Mg Tab 10 Mg PO DAILY Atenolol 25 Mg Tab 25 Mg PO BID Aspirin DR (Aspirin) 81 Mg Tabdr 81 Mg PO HS Plavix (Clopidogrel Bisulfate) 75 Mg Tab 75 Mg PO HS Levothyroxine (Levothyroxine Sodium) 75 Mcg Tab 75 Mcg PO DAILY Levothyroxine (Levothyroxine Sodium) 200 Mcg Tab 200 Mcg PO DAILY Biotin 5 Mg Tab 5 Mg PO HS Zocor (Simvastatin) 40 Mg Tab 40 Mg PO HS Gabapentin 600 Mg Tab 600 Mg PO TID Review of Systems Except as stated in HPI: all other systems reviewed are Neg General / Constitutional: Positive: Chills, No: Fever Cardiovascular: No: Chest Pain or Discomfort Respiratory: No: Shortness of Breath Gastrointestinal: Positive: Nausea, No: Vomiting, Diarrhea, Abdominal Pain Genitourinary: Positive: Urgency, Frequency, Dysuria Musculoskeletal: Positive: Weakness Neurologic: Positive: Weakness Physical Exam Narrative GENERAL: Awake, alert, 56 year-old female who appears her stated age and is in no acute respiratory distress. SKIN: Focused skin assessment warm/dry. HEAD: Atraumatic. Normocephalic. EYES: Pupils equal and round. No scleral icterus. No injection or drainage. ENT: No nasal bleeding or discharge. Mucous membranes pink and moist. Hirsutism noted over the face. NECK: Trachea midline. No JVD. CARDIOVASCULAR: Regular rate and rhythm. No murmur appreciated. RESPIRATORY: No accessory muscle use. Clear to auscultation. Breath sounds equal bilaterally. GASTROINTESTINAL: Abdomen soft, morbidly obese, no rebound tenderness, guarding , rigidity. Back: No CVA tenderness. MUSCULOSKELETAL: No obvious deformities. No clubbing. No cyanosis. No edema. NEUROLOGICAL: Awake and alert. No obvious cranial nerve deficits. Motor grossly within normal limits. Normal speech. PSYCHIATRIC: Appropriate mood and affect; insight and judgment normal. Data Data Last Documented VS Vital Signs Date Time Temp Pulse Resp B/P (MAP) Pulse Ox O2 Delivery O2 Flow Rate FiO2 04/30/17 06:46 04/30/17 03:00 70 18 98 Room Air 04/29/17 18:42 98.9 Orders Orders Complete Blood Count With Diff (04/29/17 18:45) Comprehensive Metabolic Panel (04/29/17 18:45) Urinalysis - C+S If Indicated (04/29/17 18:45) Lactic Acid Sepsis Protocol (04/29/17 18:45) Sodium Chlor 0.9% 1000 Ml Inj (Ns 1000 M (04/29/17 21:00) Acetaminophen (Tylenol) (04/29/17 21:00) Ondansetron Inj (Zofran Inj) (04/29/17 21:15) Urine Culture (04/29/17 22:00) Ciprofloxacin 400 Mg Premix (Cipro 400 M (04/29/17 23:00) Insulin Aspart Inj (Novolog Inj) (04/30/17 00:00) Sodium Chlorid 0.9% 500 Ml Inj (Ns 500 M (04/30/17 00:00) Sodium Chlorid 0.9% 500 Ml Inj (Ns 500 M (04/30/17 02:45) Insulin Human Regular Inj (Novolin R Inj (04/30/17 02:45) Ed Discharge Order (04/30/17 04:44) Labs Laboratory Tests Test 04/29/17 19:00 04/29/17 22:00 White Blood Count 10.5 TH/MM3 Red Blood Count 3.84 MIL/MM3 Hemoglobin 13.7 GM/DL Hematocrit 37.9 % Mean Corpuscular Volume 98.7 FL Mean Corpuscular Hemoglobin 35.8 PG Mean Corpuscular Hemoglobin Concent 36.2 % Red Cell Distribution Width 13.3 % Platelet Count 188 TH/MM3 Mean Platelet Volume 8.2 FL Neutrophils (%) (Auto) 76.5 % Lymphocytes (%) (Auto) 15.5 % Monocytes (%) (Auto) 5.5 % Eosinophils (%) (Auto) 2.0 % Basophils (%) (Auto) 0.5 % Neutrophils # (Auto) 8.1 TH/MM3 Lymphocytes # (Auto) 1.6 TH/MM3 Monocytes # (Auto) 0.6 TH/MM3 Eosinophils # (Auto) 0.2 TH/MM3 Basophils # (Auto) 0.0 TH/MM3 CBC Comment DIFF FINAL Differential Comment Blood Urea Nitrogen 19 MG/DL Creatinine 2.06 MG/DL Random Glucose 329 MG/DL Total Protein 7.6 GM/DL Albumin 3.9 GM/DL Calcium Level 10.0 MG/DL Alkaline Phosphatase 71 U/L Aspartate Amino Transf (AST/SGOT) 82 U/L Alanine Aminotransferase (ALT/SGPT) 66 U/L Total Bilirubin 0.7 MG/DL Sodium Level 136 MEQ/L Potassium Level 3.6 MEQ/L Chloride Level 98 MEQ/L Carbon Dioxide Level 26.2 MEQ/L Anion Gap 12 MEQ/L Estimat Glomerular Filtration Rate 25 ML/MIN Lactic Acid Level 1.9 mmol/L Urine Color DARK-BROWN Urine Turbidity CLOUDY Urine pH 6.0 Urine Specific [place] 1.027 Urine Protein GREATER THAN 600 mg/dL Urine Glucose (UA) 150 mg/dL Urine Ketones NEG mg/dL Urine Occult Blood MOD Urine Nitrite POS Urine Bilirubin NEG Urine Urobilinogen 4.0 MG/DL Urine Leukocyte Esterase LARGE Urine RBC 35 /hpf Urine WBC /hpf Urine WBC Clumps OCC Urine Squamous Epithelial Cells 1 /hpf Urine Bacteria FEW /hpf Urine Hyaline Casts 27 /lpf Urine Mucus FEW /lpf Microscopic Urinalysis Comment CULTURE INDICATED MDM Medical Decision Making Medical Screen Exam Complete: Yes Emergency Medical Condition: Yes Medical Record Reviewed: Yes Interpretation(s) Laboratory Tests Test 3/24/18 19:00 04/29/17 22:00 White Blood Count 10.5 TH/MM3 Red Blood Count 3.84 MIL/MM3 Hemoglobin 13.7 GM/DL Hematocrit 37.9 % Mean Corpuscular Volume 98.7 FL Mean Corpuscular Hemoglobin 35.8 PG Mean Corpuscular Hemoglobin Concent 36.2 % Red Cell Distribution Width 13.3 % Platelet Count 188 TH/MM3 Mean Platelet Volume 8.2 FL Neutrophils (%) (Auto) 76.5 % Lymphocytes (%) (Auto) 15.5 % Monocytes (%) (Auto) 5.5 % Eosinophils (%) (Auto) 2.0 % Basophils (%) (Auto) 0.5 % Neutrophils # (Auto) 8.1 TH/MM3 Lymphocytes # (Auto) 1.6 TH/MM3 Monocytes # (Auto) 0.6 TH/MM3 Eosinophils # (Auto) 0.2 TH/MM3 Basophils # (Auto) 0.0 TH/MM3 CBC Comment DIFF FINAL Differential Comment Blood Urea Nitrogen 19 MG/DL Creatinine 2.06 MG/DL Random Glucose 329 MG/DL Total Protein 7.6 GM/DL Albumin 3.9 GM/DL Calcium Level 10.0 MG/DL Alkaline Phosphatase 71 U/L Aspartate Amino Transf (AST/SGOT) 82 U/L Alanine Aminotransferase (ALT/SGPT) 66 U/L Total Bilirubin 0.7 MG/DL Sodium Level 136 MEQ/L Potassium Level 3.6 MEQ/L Chloride Level 98 MEQ/L Carbon Dioxide Level 26.2 MEQ/L Anion Gap 12 MEQ/L Estimat Glomerular Filtration Rate 25 ML/MIN Lactic Acid Level 1.9 mmol/L Urine Color DARK-BROWN Urine Turbidity CLOUDY Urine pH 6.0 Urine Specific [place] 1.027 Urine Protein GREATER THAN 600 mg/dL Urine Glucose (UA) 150 mg/dL Urine Ketones NEG mg/dL Urine Occult Blood MOD Urine Nitrite POS Urine Bilirubin NEG Urine Urobilinogen 4.0 MG/DL Urine Leukocyte Esterase LARGE Urine RBC 35 /hpf Urine WBC /hpf Urine WBC Clumps OCC Urine Squamous Epithelial Cells 1 /hpf Urine Bacteria FEW /hpf Urine Hyaline Casts 27 /lpf Urine Mucus FEW /lpf Microscopic Urinalysis Comment CULTURE INDICATED Differential Diagnosis Differential diagnosis includes UTI, pyelonephritis, hyperglycemia, DKA, dehydration, will try to abnormality, deconditioning. Narrative Course IV was established, labs are drawn and sent, and the patient was placed on cardiac catheterization technician monitoring and continuous pulse oximetry monitoring. UA was sent to lab. White count is normal. Lactic acid is normal. 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 Patient's UA is positive for UTI, the patient was administered Cipro 400 mg intravenously. The patient is advised to monitor her blood sugars closely, take her insulin as directed, to follow-up with her primary physician. The patient was then administered insulin 6 units intravenously, repeat blood sugar at 4 AM was 265. We will contact case management to obtain the patient a ride home. She is advised to monitor blood sugars closely and follow-up with her primary physician. Diagnosis Primary Impression: UTI (urinary tract infection) Qualified Codes: N30.01 - Acute cystitis with hematuria Additional Impression: Poorly controlled diabetes mellitus Patient Instructions: General Instructions Additional Instructions: Take your insulin as previously directed. Follow-up with your primary physician. Cipro as directed. Monitor blood sugars. Med/Other Pt SpecificInfo: Prescription(s) given Scripts Insulin Aspart Inj (Novolog Inj) 1,000 Unit/10 Ml Vial 0 SQ DIRECTED for Blood Sugar Management, #10 ML 0 Refills Sliding Scale as directed. Prov: Saman Rousseau MD 04/29/17 Ciprofloxacin (Cipro) 250 Mg Tab 250 MG PO BID for Infection for 7 Days, #14 TAB 0 Refills Prov: Saman Rousseau MD 04/29/17 Disposition: DISCHARGE HOME Condition: Stable Saman Rousseau MD Apr 29, 2017 21:03
[2017-04-29] MEDS ORDERED: ONDANSETRON HCL 4 MG/2 ML VIAL IV PUSH ONE (21:15)
[2017-04-29 22:44] LABS: BACTERIA, URINE FEW /hpf; BLOOD, URINE MOD (NEG); GLUCOSE,URINE 150 mg/dL (NEG); HYALINE CAST, URINE 27 /lpf (RARE); KETONE, URINE NEG (NEG); MUCUS URINE FEW /lpf (OCC); NITRITE,URINE POS (NEG); SQUAMOUS EPITHELIAL CELL URINE 1 /hpf (0-5); URINE LEUKOCYTE ESTERASE LARGE (NEG); WHITE BLOOD CELL CLUMPS OCC
[2017-04-29 22:45] LABS: URINE COLOR DARK-BROWN (YELLW/STRAW)
[2017-04-29 22:48] LABS: BILIRUBIN, URINE NEG (NEG)
[2017-04-29] MEDS ORDERED: CIPROFLOXACIN 400 MG PREMIX 200 ML IV ONE (23:00)
[2017-04-29] MEDS ORDERED: NOVOLOGP2 SQ (23:51)
[2017-04-29] MEDS ORDERED: CIPR250T52 PO (23:51)
[2017-04-30] MEDS ORDERED: INSULIN ASPART 1,000 UNITS/10 ML VIAL SQ ONE
[2017-04-30] MEDS ORDERED: SODIUM CHLORID 0.9% 500 ML INJ 500 ML IV ONE ×2 (02:45)
[2017-04-30] MEDS ORDERED: INSULIN HUMAN REGULAR 1,000 UNITS/10 ML VIAL IV PUSH ONE (02:45)
[2017-04-30 03:00] VITALS: BP 108/51; PULSE 70; RESP 18; O2SAT 98
== END 2017-04-30 07:12 | disposition home or self-care (01) ==
LOC: NEPE 17:56
DX: N30.01 Acute cystitis with hematuria (principal); B96.89 Other specified bacterial agents as the cause of diseases classified elsewhere; E11.65 Type 2 diabetes mellitus with hyperglycemia; I25.2 Old myocardial infarction; I50.9 Heart failure, unspecified; J45.909 Unspecified asthma, uncomplicated; E78.00 Pure hypercholesterolemia, unspecified; F32.9 Major depressive disorder, single episode, unspecified; Z87.440 Personal history of urinary (tract) infections; Z87.891 Personal history of nicotine dependence; Z95.1 Presence of aortocoronary bypass graft; Z95.5 Presence of coronary angioplasty implant and graft; Z88.0 Allergy status to penicillin; Z88.5 Allergy status to narcotic agent; Z79.4 Long term (current) use of insulin; Z79.899 Other long term (current) drug therapy
CPT/HCPCS: 80053; 81001; 83605; 85025; 87077; 87086; 87186; 96361; 96365; 96372; 96375; 99284; J0744; J1815; J2405; J7030; J7040

== ENCOUNTER 2017-05-13 11:34 | Emergency (ER) | payer SELFPAY ==
[~2017-05-13] VITALS: Ht 170.2 cm; Wt 125.0 kg
[2017-05-13 11:51] VITALS: BP 135/79; PULSE 75; RESP 17; TEMP 98; O2SAT 96
[2017-05-13 13:00] LABS: BACTERIA, URINE RARE /hpf; BILIRUBIN, URINE NEG (NEG); BLOOD, URINE MOD (NEG); GLUCOSE,URINE 1000 mg/dL (NEG); HYALINE CAST, URINE 11 /lpf (RARE); KETONE, URINE 10 mg/dL (NEG); MUCUS URINE FEW /lpf (OCC); NITRITE,URINE NEG (NEG); PH, URINE 6.5 (5.0-8.5); SQUAMOUS EPITHELIAL CELL URINE 2 /hpf (0-5); URINE COLOR YELLOW (YELLW/STRAW); URINE LEUKOCYTE ESTERASE TRACE (NEG)
[2017-05-13] MEDS ORDERED: BACT800T5 PO (13:07)
[2017-05-13] MEDS ORDERED: PHEN0.4T PO (13:07)
[2017-05-13] MEDS ORDERED: LIDOCAINE HCL 1% 50 ML VIAL IM ONE (13:15)
--- NOTE | 2017-05-13 13:17 | PD ---
HPI Chief Complaint: Complaint Time Seen by Provider: 11:57 Travel History International Travel<30 days: No Contact w/Intl Traveler<30days: No Traveled to known affect area: No History of Present Illness HPI 56-year-old female presents to the emergency department with complaint of continued burning on urination, urinary urgency, urinary frequency since she was seen her last and treated for urinary tract infection. She said she took the entire course of antibiotics she was prescribed and her symptoms faded away but came back quickly. Denies hematuria. Denies fever, vomiting, abdominal pain. Reports nausea. Denies back pain. Has been taking Azo for symptom management. Is looking for a new primary care provider. Allergies to penicillin and Dilaudid. History of insulin-dependent diabetes, hypothyroidism , MS with double bypass and stents and takes Plavix. Has no other medical complaints. No other modifying factors or associated signs and symptoms. PFSH Past Medical History Hx Anticoagulant Therapy: Yes (PLAVIX AND ASA) Asthma: Yes Blood Disorders: No Anxiety: Yes Depression: Yes Heart Rhythm Problems: No Cancer: No Cardiac Catheterization: Yes (2016) Cardiovascular Problems: Yes (MS, CABG) High Cholesterol: Yes Chemotherapy: No Chest Pain: Yes Congestive Heart Failure: Yes COPD: No Diabetes: Yes (TYPE 2 ) Patient Takes Glucophage: No Diminished Hearing: No Endocrine: Yes Gastrointestinal Disorders: Yes (HEARTBURN- USES OTC MEDS) Genitourinary: Yes (FREQUENCY, URGENCY) Hypertension: Yes (ONLY DURING ) Immune Disorder: No Implanted Vascular Access Dvce: Yes Musculoskeletal: Yes (L ANKLE TENDON TEAR) Neurologic: Yes (SZ A CHILD ) Psychiatric: Yes Reproductive: No Respiratory: Yes Radiation Therapy: No Sleep Apnea: No Thyroid Disease: Yes : 4 Past Surgical History Body Medical Devices: STENTS Cardiac Surgery: Yes (double bypass ) Section: Yes (c- section x 4 ) Cholecystectomy: Yes Coronary Stent: Yes Tonsillectomy: Yes Other Surgery: Yes (T & A, C-SECTIONS X 4, BYPASS, GB, CARDIAC CATH, STENTS) Social History Alcohol Use: Yes (ocassionally) Tobacco Use: No (pt quit 20 years ago) Substance Use: No Allergies-Medications (Allergen,Severity, Reaction): Coded Allergies: penicillin G (Unverified Allergy, Severe, hives, 04/29/17) hydromorphone (Unverified Adverse Reaction, Unknown, vomiting, 3/24/18) Reported Meds & Prescriptions Reported Meds & Active Scripts Active Pyridium (Phenazopyridine HCl) 100 Mg Tab 100 Mg PO Q8H PRN 3 Days Bactrim DS (Sulfamethoxazole-Trimethoprim) 800-160 Mg Tab 1 Tab PO BID 7 Days Novolog Inj (Insulin Aspart) 1,000 Unit/10 Ml Vial 0 SQ DIRECTED Sliding Scale as directed. Cipro (Ciprofloxacin HCl) 250 Mg Tab 250 Mg PO BID 7 Days Famotidine 20 Mg Tab 10 Mg PO BID Levemir Inj (Insulin Detemir) 1,000 unit/ 10 ML Vial 45 Units SQ BID 30 Days Novolog Inj (Insulin Aspart) 1,000 Unit/10 Ml Vial 35 Units SQ TIDAC 30 Days Reported Buspirone (Buspirone HCl) 15 Mg Tab 15 Mg PO TID Zoloft (Sertraline HCl) 50 Mg Tab 50 Mg PO BID Acidophilus Probiotic (Probiotic Product) 1 Tab Tab 1 Tab PO TID Ferrous Sulfate DR (Ferrous Sulfate) 325 Mg Tabdr 325 Mg PO BID Vitamin D3 400 (Cholecalciferol) 400 Unit Cap 400 Units PO HS Calcium (Calcium Carbonate) 600 Mg Tab 600 Mg PO BID Fish Oil 1000 mg ([place]-3 Fatty Acids) 1 Cap Cap 2,000 Mg PO HS Hm Cinnamon (Cinnamon) 500 Mg Cap Unknown Dose PO HS Lasix (Furosemide) 20 Mg Tab 10 Mg PO DAILY Atenolol 25 Mg Tab 25 Mg PO BID Aspirin DR (Aspirin) 81 Mg Tabdr 81 Mg PO HS Plavix (Clopidogrel Bisulfate) 75 Mg Tab 75 Mg PO HS Levothyroxine (Levothyroxine Sodium) 75 Mcg Tab 75 Mcg PO DAILY Levothyroxine (Levothyroxine Sodium) 200 Mcg Tab 200 Mcg PO DAILY Biotin 5 Mg Tab 5 Mg PO HS Zocor (Simvastatin) 40 Mg Tab 40 Mg PO HS Gabapentin 600 Mg Tab 600 Mg PO TID Review of Systems Except as stated in HPI: all other systems reviewed are Neg Physical Exam Narrative GENERAL: Well-nourished, well-developed female patient, in no acute distress; afebrile, nontoxic-appearing SKIN: Warm and dry. No rash. HEAD: Atraumatic. Normocephalic. EYES: Pupils equal and round. No scleral icterus. No injection or drainage. ENT: Mucosa pink and moist. NECK: Trachea midline. CARDIOVASCULAR: Regular rate. RESPIRATORY: No accessory muscle use. GASTROINTESTINAL: Abdomen soft, non-tender, nondistended. Hepatic and splenic margins not palpable. Bowel sounds are active 4 quadrants. Bladder nontender and nondistended. MUSCULOSKELETAL: No obvious deformities. No clubbing. No cyanosis. No edema. BACK: Left CVA tenderness NEUROLOGICAL: Awake and alert. Oriented 3. No obvious cranial nerve deficits. Motor grossly within normal limits. Normal speech. Moves all extremities. 5/5 strength to all extremities. PSYCHIATRIC: Appropriate mood and affect; insight and judgment normal. Data Data Last Documented VS Vital Signs Date Time Temp Pulse Resp B/P (MAP) Pulse Ox O2 Delivery O2 Flow Rate FiO2 05/13/17 11:51 98.0 75 17 135/79 (97) 96 Orders Orders Urinalysis - C+S If Indicated (05/13/17 11:58) Urine Culture (05/13/17 12:34) Lidocaine 1% Inj (50 Ml) (Xylocaine 1% I (05/13/17 13:15) Ceftriaxone Inj (Rocephin Inj) (05/13/17 13:15) Ed Discharge Order (05/13/17 13:17) Lidocaine Pf 1% Inj (Xylocaine-Mpf 1% In (05/13/17 14:00) Labs Laboratory Tests Test 05/13/17 12:34 Urine Color YELLOW Urine Turbidity HAZY Urine pH 6.5 Urine Specific [place] 1.027 Urine Protein GREATER THAN 600 mg/dL Urine Glucose (UA) 1000 mg/dL Urine Ketones 10 mg/dL Urine Occult Blood MOD Urine Nitrite NEG Urine Bilirubin NEG Urine Urobilinogen 2.0 MG/DL Urine Leukocyte Esterase TRACE Urine RBC 15 /hpf Urine WBC 59 /hpf Urine Squamous Epithelial Cells 2 /hpf Urine Bacteria RARE /hpf Urine Hyaline Casts 11 /lpf Urine Mucus FEW /lpf Microscopic Urinalysis Comment CULTURE INDICATED MDM Medical Decision Making Medical Screen Exam Complete: Yes Emergency Medical Condition: Yes Medical Record Reviewed: Yes Differential Diagnosis UTI, cystitis, pyelonephritis Narrative Course 56-year-old female seen here April 29 and treated with Cipro for UTI. I reviewed the microbiology and Cipro was susceptible. Patient returns with continued urinary symptoms. Urinalysis ordered. 1310: Urinalysis with signs of infection. Reflex to culture. There is noted glucose in the urine. The patient says she does not check her blood sugars and when she does they tend to run high and she reports being noncompliant with her insulin. I instructed the patient to followup with PCP for diabetic and blood sugar management. Patient has left-sided CVA tenderness on exam. Rocephin 1 g IM administered in the ER. Bactrim, Pyridium prescribed for home. Instructed patient to follow-up with urology as needed. I offered the patient pain medication and she declined. Instructed patient to follow up with primary care provider. Patient verbalizes understanding and agreement with treatment plan. Patient is medically cleared and stable for discharge. Discussed reasons to return to the emergency department. Patient agrees with treatment plan. The patients vital signs are stable and the patient is stable for outpatient follow- up and treatment. Patient discharged home, stable and in no acute distress. Diagnosis Primary Impression: UTI (urinary tract infection) Qualified Codes: N39.0 - Urinary tract infection, site not specified; R31.9 - Hematuria, unspecified Referrals: Primary Care Physician Urologist Patient Instructions: General Instructions, Urinary Tract Infection in Women ( ED) Additional Instructions: Take antibiotics as prescribed and complete full course Take Pyridium for bladder spasms: Pyridium will turn your urine bright orange Drink plenty of fluids Maintain good personal hygiene Follow-up with primary care provider Return to the emergency department immediately with worsening of symptoms Med/Other Pt SpecificInfo: Prescription(s) given Scripts Phenazopyridine (Pyridium) 100 Mg Tab 100 MG PO Q8H Y for DYSURIA for 3 Days, #9 TAB 0 Refills Prov: Sarai Solomon 05/13/17 Sulfamethoxazole-Trimethoprim (Bactrim DS) 800-160 Mg Tab 1 TAB PO BID for Infection for 7 Days, #14 TAB 0 Refills Prov: Sarai Solomon 05/13/17 Disposition: 01 DISCHARGE HOME Condition: Stable Sarai Solomon May 13, 2017 13:17
[2017-05-13] MEDS ORDERED: LIDOCAINE HCL 1% PF 10 ML VIAL OTHER ONE (14:00)
== END 2017-05-13 14:50 | disposition home or self-care (01) ==
LOC: NEPD 11:34
DX: N39.0 Urinary tract infection, site not specified (principal); R11.0 Nausea; E11.9 Type 2 diabetes mellitus without complications; E03.9 Hypothyroidism, unspecified; I25.2 Old myocardial infarction; I11.0 Hypertensive heart disease with heart failure; I50.9 Heart failure, unspecified; J45.909 Unspecified asthma, uncomplicated; Z91.14 Patient's other noncompliance with medication regimen
CPT/HCPCS: 81001; 87086; 96372; 99283; J0696

== ENCOUNTER 2017-05-21 11:25 | Inpatient (IN) | payer SELFPAY ==
[~2017-05-21] VITALS: Ht 170.2 cm; Wt 102.1 kg
[~2017-05-21 11:25] MED LIST changes: +BACT800T5 PO; +PHEN0.4T PO
[2017-05-21 11:44] VITALS: BP 129/63; PULSE 72; RESP 18; TEMP 98.6; O2SAT 96
[2017-05-21] MEDS ORDERED: SODIUM CHLOR 0.9% 1000 ML INJ 1,000 ML IV SCH (13:45)
[2017-05-21] MEDS ORDERED: ONDANSETRON HCL 4 MG/2 ML VIAL IVP ONE (13:45)
[2017-05-21 14:05] LABS: AUTOMATED NEUTROPHIL # 5.6 TH/MM3 (1.8-7.7); BASOPHIL # 0.1 TH/MM3 (0-0.2); BASOPHIL % 0.7 % (0.0-2.0); EOSINOPHIL # 0.2 TH/MM3 (0-0.4); EOSINOPHIL % 1.9 % (0.0-4.0); HEMOGLOBIN 15.3 GM/DL (11.6-15.3); LYMPHOCYTE # 1.7 TH/MM3 (1.0-4.8); MEAN CELL VOLUME 97.9 FL (80.0-100.0); MEAN CORPUSCULAR HGB CONC 34.7 % (32.0-36.0); MEAN PLATELET VOLUME 7.9 FL (7.0-11.0); MONO % 4.4 % (0.0-8.0); MONOCYTE # 0.3 TH/MM3 (0-0.9); PLATELET COUNT 255 TH/MM3 (150-450); RED BLOOD COUNT 4.49 MIL/MM3 (4.00-5.30); RED CELL DISTRIBUTION WIDTH 13.5 % (11.6-17.2); WHITE BLOOD COUNT 7.8 TH/MM3 (4.0-11.0)
[2017-05-21 14:21] LABS: PROTHROMBIN TIME - PATIENT 10.6 SEC (9.8-11.6)
[2017-05-21 14:26] LABS: ALBUMIN 4.2 GM/DL (3.4-5.0); ALT (GPT) 59 U/L (10-53); AST (GOT) 89 U/L (15-37); BICARBONATE 27.4 MEQ/L (21.0-32.0); BLOOD UREA NITROGEN 22 MG/DL (7-18); CALCIUM 10.1 MG/DL (8.5-10.1); CHLORIDE 98 MEQ/L (98-107); GLOMERULAR FILTRATION RATE 22 ML/MIN (>89); GLUCOSE,RANDOM 222 MG/DL (74-106); MAGNESIUM 1.8 MG/DL (1.5-2.5); SODIUM (NA) 135 MEQ/L (136-145)
--- NOTE | 2017-05-21 14:42 | RADRPT ---
EXAM DATE/TIME: 05/21/2017 13:57 [facility] COMPARISON: CHEST SINGLE AP, September 07, 2016, 14:48. INDICATIONS : Chest pain MEDICAL HISTORY : Diabetes mellitus type II. SURGICAL HISTORY : CABG. Coronary artery stent ENCOUNTER: Initial ACUITY: 2 weeks PAIN SCORE: 3/10 LOCATION: Bilateral chest FINDINGS: A single view of the chest demonstrates the lungs to be symmetrically aerated without evidence of mas s, infiltrate or effusion. The cardiomediastinal contours are unremarkable. Sternotomy wires. CONCLUSION: No acute disease. Gurvinder Frazier MD on May 21, 2017 at 14:39 Board Certified Radiologist. This report was verified electronically.
[2017-05-21 14:44] LABS: ALKALINE PHOSPHATASE 75 U/L (45-117); TOTAL BILIRUBIN ADULT 0.7 MG/DL (0.2-1.0); TOTAL PROTEIN 8.5 GM/DL (6.4-8.2); TROPONIN I LESS THAN 0.02 NG/ML (0.02-0.05)
--- NOTE | 2017-05-21 14:58 | RADRPT ---
EXAM DATE/TIME: 05/21/2017 14:36 [facility] COMPARISON: CHEST SINGLE AP, May 21, 2017, 13:57. INDICATIONS : Lower abdomen pain for one week. ORAL CONTRAST: No oral contrast ingested. RADIATION DOSE: 21.52 CTDIvol (mGy) ; Combined studies MEDICAL HISTORY : Congestive heart failure. diabetes SURGICAL HISTORY : Cholecystectomy. ENCOUNTER: Initial ACUITY: 1 week PAIN SCALE: 8/10 LOCATION: Bilateral lower quadrant TECHNIQUE: Volumetric scanning of the abdomen and pelvis was performed. Using automated exposure control and ad justment of the mA and/or kV according to patient size, radiation dose was kept as low as reasonably achievable to obtain optimal diagnostic quality images. DICOM format image data is available electro nically for review and comparison. FINDINGS: LOWER LUNGS: Mild probable atelectasis in the lung bases. LIVER: Homogeneous density without lesion. There is no dilation of the biliary tree. Gallbladder surgically absent.. SPLEEN: Normal size without lesion. PANCREAS: Within normal limits. KIDNEYS: Normal in size and shape. There is no mass, stone, or hydronephrosis. ADRENAL GLANDS: Within normal limits. VASCULAR: There is no aortic aneurysm. BOWEL/MESENTERY: The stomach, small bowel, and colon demonstrate no acute abnormality. There is no free intraperitone al air or fluid. ABDOMINAL WALL: Within normal limits. RETROPERITONEUM: There is no lymphadenopathy. BLADDER: No wall thickening or mass. REPRODUCTIVE: Within normal limits. INGUINAL: There is no lymphadenopathy or hernia. MUSCULOSKELETAL: Within normal limits for patient age. CONCLUSION: No acute CT findings in the abdomen or pelvis. Gurvinder Frazier MD on May 21, 2017 at 14:53 Board Certified Radiologist. This report was verified electronically.
[2017-05-21] MEDS ORDERED: LEVOTHYROXINE SODIUM 200 MCG TAB PO ONE (15:00)
--- NOTE | 2017-05-21 15:21 | PD ---
HPI Chief Complaint: General Weakness Time Seen by Provider: 13:45 Travel History International Travel<30 days: No Contact w/Intl Traveler<30days: No Traveled to known affect area: No History of Present Illness HPI 56-year-old female that presents to the ED for evaluation of possible UTI and weakness to her legs. Per patient she has had this for about a month now. She has been here twice and per patient her symptoms are not improving. She has a history of hypothyroidism as well as diabetes type 1 and a history of heart disease in the past. She states that she has been having trouble urinating and she has been having left-sided abdominal pain as well as currently she has been more incontinent. Per patient she has had about 5 falls for the past 2 months and every time she fell she develops pain. She denies hitting her head recently but she states that the first fall about 2 months ago she did her head. Per patient her pain is minimal as 3 out of 10. She has also been having chest discomfort that comes and goes. Per patient comes with cough and when she stops coughing then the symptoms improve. She has not been able to see her primary care doctor for this. She has been put on 2 rounds of antibiotics with no improvement. She continues to have symptoms. Per patient she is also been noticing for the for the past 2 weeks she is becoming more weak and tired. The patient lives alone and she is concerned because she continues to fall. She denies any nausea or vomiting. No diarrhea or bowel movement issues at this time. No increased swelling. PFSH Past Medical History Hx Anticoagulant Therapy: Yes (PLAVIX AND ASA) Asthma: Yes Blood Disorders: No Anxiety: Yes Depression: Yes Heart Rhythm Problems: No Cancer: No Cardiac Catheterization: Yes (2016) Cardiovascular Problems: Yes (BYPASS, 2 STENTS) High Cholesterol: Yes Chemotherapy: No Chest Pain: Yes Congestive Heart Failure: Yes COPD: No Diabetes: Yes Patient Takes Glucophage: No Diminished Hearing: No Endocrine: Yes Gastrointestinal Disorders: Yes (HEARTBURN- USES OTC MEDS) Genitourinary: Yes (FREQUENCY, URGENCY) Hypertension: Yes (ONLY DURING ) Immune Disorder: No Implanted Vascular Access Dvce: Yes Musculoskeletal: Yes (L ANKLE TENDON TEAR) Neurologic: Yes (SZ A CHILD ) Psychiatric: Yes Reproductive: No Respiratory: Yes Radiation Therapy: No Sleep Apnea: No Thyroid Disease: Yes : 4 Past Surgical History Body Medical Devices: STENTS Cardiac Surgery: Yes (double bypass ) Section: Yes (c- section x 4 ) Cholecystectomy: Yes Coronary Stent: Yes Tonsillectomy: Yes Other Surgery: Yes (T & A, C-SECTIONS X 4, BYPASS, GB, CARDIAC CATH, STENTS) Social History Alcohol Use: Yes (ocassionally) Tobacco Use: No (pt quit 20 years ago) Substance Use: No Allergies-Medications (Allergen,Severity, Reaction): Coded Allergies: penicillin G (Unverified Allergy, Severe, hives, 04/29/17) hydromorphone (Unverified Adverse Reaction, Unknown, vomiting, 04/29/17) Reported Meds & Prescriptions Reported Meds & Active Scripts Active Famotidine 20 Mg Tab 10 Mg PO BID Reported Basaglar Kwikpen (Insulin Glargine) 100 Unit/Ml Pen 30 Units SQ BID IN THE AM & HS Novolin R Inj (Insulin Human Regular) 1,000 Unit/10 Ml Vial 0 SQ DIRECTED Sliding Scale As Directed. Buspirone (Buspirone HCl) 15 Mg Tab 15 Mg PO TID Zoloft (Sertraline HCl) 50 Mg Tab 50 Mg PO BID Acidophilus Probiotic (Probiotic Product) 1 Tab Tab 1 Tab PO TID Ferrous Sulfate DR (Ferrous Sulfate) 325 Mg Tabdr 325 Mg PO BID Vitamin D3 400 (Cholecalciferol) 400 Unit Cap 400 Units PO HS Calcium (Calcium Carbonate) 600 Mg Tab 600 Mg PO BID Fish Oil 1000 mg ([place]-3 Fatty Acids) 1 Cap Cap 2,000 Mg PO HS Hm Cinnamon (Cinnamon) Unknown Strength Cap 1 Cap PO HS Lasix (Furosemide) 20 Mg Tab 10 Mg PO DAILY Atenolol 25 Mg Tab 25 Mg PO BID Aspirin DR (Aspirin) 81 Mg Tabdr 81 Mg PO HS Plavix (Clopidogrel Bisulfate) 75 Mg Tab 75 Mg PO HS Levothyroxine (Levothyroxine Sodium) 75 Mcg Tab 275 Mcg PO DAILY Take 1 tablet (75mcg) with 200mcg tablet for a total dose of 275mcg Levothyroxine (Levothyroxine Sodium) 200 Mcg Tab 275 Mcg PO DAILY Take 1 tablet (200mcg) with 75mcg tablet for a total dose of 275mcg Biotin 5 Mg Tab 5 Mg PO HS Zocor (Simvastatin) 40 Mg Tab 40 Mg PO HS Gabapentin 600 Mg Tab 600 Mg PO TID Review of Systems Except as stated in HPI: all other systems reviewed are Neg Physical Exam Narrative GENERAL: SKIN: Warm and dry. HEAD: Atraumatic. Normocephalic. EYES: Pupils equal and round. No scleral icterus. No injection or drainage. ENT: No nasal bleeding or discharge. Mucous membranes pink and moist. Tongue is midline. No uvula deviation. NECK: Trachea midline. No JVD. CARDIOVASCULAR: Regular rate and rhythm. No murmurs, S3, S4. RESPIRATORY: No accessory muscle use. Clear to auscultation. Breath sounds equal bilaterally. GASTROINTESTINAL: Abdomen soft, non-tender, nondistended. Hepatic and splenic margins not palpable. MUSCULOSKELETAL: Extremities without clubbing, cyanosis, or edema. No obvious deformities. Full range of motion of the upper and lower extremities bilaterally. 2+ pulses bilaterally. NEUROLOGICAL: Awake and alert. No obvious cranial nerve deficits. Motor grossly within normal limits. Five out of 5 muscle strength in the arms and legs. Normal speech. PSYCHIATRIC: Appropriate mood and affect; insight and judgment normal. Data Data Last Documented VS Vital Signs Date Time Temp Pulse Resp B/P (MAP) Pulse Ox O2 Delivery O2 Flow Rate FiO2 05/21/17 15:48 68 18 138/75 (96) 95 Nasal Cannula 2.00 05/21/17 11:44 98.6 Orders Orders Electrocardiogram (05/21/17 13:45) Complete Blood Count With Diff (05/21/17 13:45) Comprehensive Metabolic Panel (05/21/17 13:45) Ckmb (Isoenzyme) Profile (05/21/17 13:45) Troponin I (05/21/17 13:45) Prothrombin Time / Inr (Pt) (05/21/17 13:45) Act Partial Throm Time (Ptt) (05/21/17 13:45) Blood Culture (05/21/17 13:45) Lipase (05/21/17 13:45) Urinalysis - C+S If Indicated (05/21/17 13:45) Magnesium (Mg) (05/21/17 13:45) Thyroid Stimulating Hormone (05/21/17 13:45) Chest, Single Ap (05/21/17 13:45) Ct Abd/Pel W/O Iv Contrast (05/21/17 13:45) Iv Access Insert/Monitor (05/21/17 13:45) Ecg Monitoring (05/21/17 13:45) Oximetry (05/21/17 13:45) Ondansetron Inj (Zofran Inj) (05/21/17 13:45) Sodium Chlor 0.9% 1000 Ml Inj (Ns 1000 M (05/21/17 13:45) Lactic Acid Sepsis Protocol (05/21/17 13:45) CKMB (05/21/17 13:55) CKMB% (05/21/17 13:55) Levothyroxine (Synthroid) (05/21/17 15:00) Cath For Specimen (05/21/17 15:11) Admit Order (Ed Use Only) (05/21/17 15:58) Labs Laboratory Tests Test 05/21/17 13:55 05/21/17 14:26 05/21/17 15:12 White Blood Count 7.8 TH/MM3 Red Blood Count 4.49 MIL/MM3 Hemoglobin 15.3 GM/DL Hematocrit 44.0 % Mean Corpuscular Volume 97.9 FL Mean Corpuscular Hemoglobin 34.0 PG Mean Corpuscular Hemoglobin Concent 34.7 % Red Cell Distribution Width 13.5 % Platelet Count 255 TH/MM3 Mean Platelet Volume 7.9 FL Neutrophils (%) (Auto) 71.0 % Lymphocytes (%) (Auto) 22.0 % Monocytes (%) (Auto) 4.4 % Eosinophils (%) (Auto) 1.9 % Basophils (%) (Auto) 0.7 % Neutrophils # (Auto) 5.6 TH/MM3 Lymphocytes # (Auto) 1.7 TH/MM3 Monocytes # (Auto) 0.3 TH/MM3 Eosinophils # (Auto) 0.2 TH/MM3 Basophils # (Auto) 0.1 TH/MM3 CBC Comment DIFF FINAL Differential Comment Prothrombin Time 10.6 SEC Prothromb Time International Ratio 1.0 RATIO Activated Partial Thromboplast Time 21.1 SEC Blood Urea Nitrogen 22 MG/DL Creatinine 2.30 MG/DL Random Glucose 222 MG/DL Total Protein 8.5 GM/DL Albumin 4.2 GM/DL Calcium Level 10.1 MG/DL Magnesium Level 1.8 MG/DL Alkaline Phosphatase 75 U/L Aspartate Amino Transf (AST/SGOT) 89 U/L Alanine Aminotransferase (ALT/SGPT) 59 U/L Total Bilirubin 0.7 MG/DL Sodium Level 135 MEQ/L Potassium Level 4.3 MEQ/L Chloride Level 98 MEQ/L Carbon Dioxide Level 27.4 MEQ/L Anion Gap 10 MEQ/L Estimat Glomerular Filtration Rate 22 ML/MIN Total Creatine Kinase 902 U/L Creatine Kinase MB 20.3 NG/ML Creatine Kinase MB % 2.3 % Troponin I LESS THAN 0.02 NG/ML Lipase 495 U/L Thyroid Stimulating Hormone 3rd Gen GREATER THAN 100.000 uIU/ML Lactic Acid Level 1.3 mmol/L Urine Color YELLOW Urine Turbidity CLEAR Urine pH 6.5 Urine Specific [place] 1.020 Urine Protein GREATER THAN 600 mg/dL Urine Glucose (UA) TRACE mg/dL Urine Ketones NEG mg/dL Urine Occult Blood SMALL Urine Nitrite NEG Urine Bilirubin NEG Urine Urobilinogen LESS THAN 2.0 MG/DL Urine Leukocyte Esterase NEG Urine RBC 8 /hpf Urine WBC 6 /hpf Urine Squamous Epithelial Cells 6 /hpf Urine Bacteria FEW /hpf Urine Hyaline Casts 2 /lpf Urine Mucus FEW /lpf Microscopic Urinalysis Comment CULT NOT INDICATED MDM Medical Decision Making Medical Screen Exam Complete: Yes Emergency Medical Condition: Yes Medical Record Reviewed: Yes Interpretation(s) CBC & BMP Diagram 05/21/17 13:55 Total Protein 8.5 H, Albumin 4.2, Calcium Level 10.1, Magnesium Level 1.8, Alkaline Phosphatase 75, Aspartate Amino Transf (AST/SGOT) 89 H, Alanine Aminotransferase (ALT/SGPT) 59 H, Total Bilirubin 0.7 Last Impressions Chest X-Ray 05/21/17 1345 Signed Impressions: Service Date/Time: Sunday, May 21, 2017 13:57 - CONCLUSION: No acute disease. Gurvinder Frazier MD Abdomen/Pelvis CT 05/21/17 1345 Signed Impressions: Service Date/Time: Sunday, May 21, 2017 14:36 - CONCLUSION: No acute CT findings in the abdomen or pelvis. Gurvinder Frazier MD UA negative TSH very high in the 100s troponin and CKMB negative Differential Diagnosis Chest pain versus ACS versus weakness versus UTI versus thyroid disease versus electrolyte abnormality versus sepsis Narrative Course 56-year-old female presents to the ED for evaluation of weakness and possible UTI. Patient was properly examined and was found to have signs and symptoms of unclear etiology. Appears to be urinary related. Labs and imaging order. Labs and imaging show what appears to be severe hypothyroidism and patient likely not taking her medications. To be symptomatic. Admission for further evaluate this. This discussed with the residents who agree with admission. 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
[2017-05-21 15:36] LABS: BACTERIA, URINE FEW /hpf; BILIRUBIN, URINE NEG (NEG); BLOOD, URINE SMALL (NEG); GLUCOSE,URINE TRACE mg/dL (NEG); HYALINE CAST, URINE 2 /lpf (RARE); KETONE, URINE NEG (NEG); MUCUS URINE FEW /lpf (OCC); NITRITE,URINE NEG (NEG); PH, URINE 6.5 (5.0-8.5); SQUAMOUS EPITHELIAL CELL URINE 6 /hpf (0-5); URINE COLOR YELLOW (YELLW/STRAW); URINE LEUKOCYTE ESTERASE NEG (NEG)
[2017-05-21 15:48] VITALS: BP 138/75; PULSE 68; RESP 18; O2SAT 95
[2017-05-21] MEDS ORDERED: INSU1INJ18 SQ (15:51)
[2017-05-21] MEDS ORDERED: NOVORP2 SQ (15:51)
--- NOTE | 2017-05-21 16:26 | HHI.HP ---
[facility] Service Family Medicine Primary Care Physician No Primary Care Physician Admission Diagnosis severe symptomatic hypothyroidism, weakness Diagnoses: International Travel<30 Days: No Contact w/Intl Traveler<30days: No Known Affected Area: No History of Present Illness The patient is a pleasant 56 year old woman being evaluated in the ED due to urinary complaints and multiple falls over the past 2-3 months. She states she had an episode of urinary incontinence earlier today that prompted her to call 911. Her mobility at home over the past several months has significantly decreased where she states she was not able to get up off her cough at home with this episode of urinary incontinence so she had to call 911 for help. She also cannot ambulate at home and uses a rolling chair to scoot around at home. She currently does not live with anyone apart from her dog. She has neighbors that sometimes help her out. She reports at least 5 falls over the past 2-3 months; she states the first fall about 2 months ago she did hit her head. She denies head trauma with her falls after that. She reports her more recent falls she tripped on the sidewalk , she was still able to ambulate at this point, and a more recent fall where her dog was running too fast and pulled her down. She endorses dysuria. Denies fevers or chills. She endorses back pain, she has a history of this and is unsure if that may have significantly worsened recently. She denies headache currently, no vision changes, denies abdominal pain. She reports some chest discomfort primarily when coughing sometimes in the afternoon. She otherwise denies having chest pain and currently is without chest pain. She admits to not having taken her thyroid medication over the past couple months since she has been out of this medication and has not asked for a refill from her PCP. She states she was about to move back up [place] so did not bother finding a new PCP or specialists down here. She states she had previously been taking levothyroxine 275 mcg po daily. She does endorse brief periods of confusion occurring a few times over the past several weeks; denies confusion at this time. (Eagle Hammond MD R2) Review of Systems Constitutional: DENIES: Fever, Chills Eyes: DENIES: Blurred vision, Diplopia Respiratory: DENIES: Cough, Wheezing, Sputum production, Shortness of breath Cardiovascular: DENIES: Chest pain, Palpitations Gastrointestinal: DENIES: Abdominal pain, Constipation, Diarrhea, Nausea, Vomiting Genitourinary: COMPLAINS OF: Urinary incontinence, Dysuria Integumentary: COMPLAINS OF: Rash Neurologic: COMPLAINS OF: Abnormal gait, Localized weakness (Eagle Hammond MD R2) Past Family Social History Past Medical History AR 2009 DM HLD Neuropathy Hypothyroidism HTN Past Surgical History CABG in 2009 C Section x4 Cholecystectomy Stent placement x2 2017 Cardiac Cath Tonsillectomy (Eagle Hammond MD R2) Allergies: Coded Allergies: penicillin G (Unverified Allergy, Severe, hives, 04/29/17) hydromorphone (Unverified Adverse Reaction, Unknown, vomiting, 04/29/17) Family History Sister: , juvenile DM Father: unknown Mother: heart issues, at age 53 Social History Lives alone with her dog Etoh: occasional Previous smoker, quit 20 years ago (~1996) Denies illicit drug use (Eagle Hammond MD R2) Physical Exam Vital Signs Vital Signs Date Time Temp Pulse Resp B/P (MAP) Pulse Ox O2 Delivery O2 Flow Rate FiO2 05/21/17 15:48 68 18 138/75 (96) 95 Nasal Cannula 2.00 05/21/17 15:48 18 95 Nasal Cannula 2.00 05/21/17 11:44 98.6 72 18 129/63 (85) 96 Physical Exam GENERAL: NAD, lying comfortably in bed NEURO: AOx3. Normal speech. 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 Loss of strength of lower extremities. SKIN: Warm and dry. Significant erythema and scaling along skin fold in the inguinal region. HEAD: Normocephalic. Atraumatic. EYES: EOMI. No scleral icterus. No injection or drainage. ENT: No nasal drainage. Moist mucous membranes. No oral ulcers or lesions. NECK: Supple, trachea midline. No JVD. No thyromegaly or nodules palpable. CARDIOVASCULAR: Regular rate and rhythm without murmurs, gallops, or rubs. Peripheral pulses 2+. RESPIRATORY: Breath sounds clear to auscultation and equal bilaterally, without wheezes, rales, or rhonchi. No accessory muscle use. GASTROINTESTINAL: Abdomen soft, non-tender, nondistended, normal BS. No organomegaly or masses appreciated. No guarding. EXTREMITIES: Very trace pretibial lower extremity edema. Laboratory Laboratory Tests Test 05/21/17 13:55 05/21/17 14:26 05/21/17 15:12 White Blood Count 7.8 Red Blood Count 4.49 Hemoglobin 15.3 Hematocrit 44.0 Mean Corpuscular Volume 97.9 Mean Corpuscular Hemoglobin 34.0 Mean Corpuscular Hemoglobin Concent 34.7 Red Cell Distribution Width 13.5 Platelet Count 255 Mean Platelet Volume 7.9 Neutrophils (%) (Auto) 71.0 Lymphocytes (%) (Auto) 22.0 Monocytes (%) (Auto) 4.4 Eosinophils (%) (Auto) 1.9 Basophils (%) (Auto) 0.7 Neutrophils # (Auto) 5.6 Lymphocytes # (Auto) 1.7 Monocytes # (Auto) 0.3 Eosinophils # (Auto) 0.2 Basophils # (Auto) 0.1 CBC Comment DIFF FINAL Differential Comment Prothrombin Time 10.6 Prothromb Time International Ratio 1.0 Activated Partial Thromboplast Time 21.1 Blood Urea Nitrogen 22 Creatinine 2.30 Random Glucose 222 Total Protein 8.5 Albumin 4.2 Calcium Level 10.1 Magnesium Level 1.8 Alkaline Phosphatase 75 Aspartate Amino Transf (AST/SGOT) 89 Alanine Aminotransferase (ALT/SGPT) 59 Total Bilirubin 0.7 Sodium Level 135 Potassium Level 4.3 Chloride Level 98 Carbon Dioxide Level 27.4 Anion Gap 10 Estimat Glomerular Filtration Rate 22 Total Creatine Kinase 902 Creatine Kinase MB 20.3 Creatine Kinase MB % 2.3 Troponin I LESS THAN 0.02 Lipase 495 Thyroid Stimulating Hormone 3rd Gen GREATER THAN 100.000 Lactic Acid Level 1.3 Urine Color YELLOW Urine Turbidity CLEAR Urine pH 6.5 Urine Specific Almo 1.020 Urine Protein GREATER THAN 600 Urine Glucose (UA) TRACE Urine Ketones NEG Urine Occult Blood SMALL Urine Nitrite NEG Urine Bilirubin NEG Urine Urobilinogen LESS THAN 2.0 Urine Leukocyte Esterase NEG Urine RBC 8 Urine WBC 6 Urine Squamous Epithelial Cells 6 Urine Bacteria FEW Urine Hyaline Casts 2 Urine Mucus FEW Microscopic Urinalysis Comment CULT NOT INDICATED Date/Time Source Procedure Growth Status 05/21/17 14:21 Blood Peripheral Aerobic Blood Culture Pending Received 05/21/17 14:21 Blood Peripheral Anaerobic Blood Culture Pending Received (Eagle Hammond MD R2) Result Diagram: 05/21/17 1355 05/21/17 1355 Imaging Last 72 hours Impressions Chest X-Ray 05/21/17 1345 Signed Impressions: Service Date/Time: Sunday, May 21, 2017 13:57 - CONCLUSION: No acute disease. Gurvinder Frazier MD Abdomen/Pelvis CT 05/21/17 1345 Signed Impressions: Service Date/Time: Sunday, May 21, 2017 14:36 - CONCLUSION: No acute CT findings in the abdomen or pelvis. Gurvinder Frazier MD (Eagle Hammond MD R2) Caprini VTE Risk Assessment Caprini VTE Risk Assessment: Mod/High Risk (score >= 2) Caprini Risk Assessment Model Point Value = 1 Point Value = 2 Point Value = 3 Point Value = 5 Age 41-60 Minor surgery BMI > 25 kg/m2 Swollen legs Varicose veins or History of unexplained or recurrent spontaneous Oral contraceptives or hormone replacement Sepsis (< 1 month) Serious lung disease, including pneumonia (< 1 month) Abnormal pulmonary function Acute myocardial infarction Congestive heart failure (< 1 month) History of inflammatory bowel disease Medical patient at bed rest Age 61-74 Arthroscopic surgery Major open surgery (> 45 min) Laparoscopic surgery (> 45 min) Malignancy Confined to bed (> 72 hours) Immobilizing plaster cast Central venous access Age >= 75 History of VTE Family history of VTE Factor V Leiden Prothrombin [id number] Lupus anticoagulant Anticardiolipin antibodies Elevated serum homocysteine Heparin-induced thrombocytopenia Other congenital or acquired thrombophilia Stroke (< 1 month) Elective arthroplasty Hip, pelvis, or leg fracture Acute spinal cord injury (< 1 month) Prophylaxis Regimen Total Risk Factor Score Risk Level Prophylaxis Regimen 0-1 Low Early ambulation 2 Moderate Order ONE of the following: *Sequential Compression Device (SCD) *Heparin 5000 units SQ BID 3-4 Higher Order ONE of the following medications: *Heparin 5000 units SQ TID *Enoxaparin/Lovenox 40 mg SQ daily (WT < 150 kg, CrCl > 30 mL/min) *Enoxaparin/Lovenox 30 mg SQ daily (WT < 150 kg, CrCl > 10-29 mL/min) *Enoxaparin/Lovenox 30 mg SQ BID (WT < 150 kg, CrCl > 30 mL/min) AND/OR *Sequential Compression Device (SCD) 5 or more Highest Order ONE of the following medications: *Heparin 5000 units SQ TID (Preferred with Epidurals) *Enoxaparin/Lovenox 40 mg SQ daily (WT < 150 kg, CrCl > 30 mL/min) *Enoxaparin/Lovenox 30 mg SQ daily (WT < 150 kg, CrCl > 10-29 mL/min) *Enoxaparin/Lovenox 30 mg SQ BID (WT < 150 kg, CrCl > 30 mL/min) AND *Sequential Compression Device (SCD) (Eagle Hammond MD R2) Assessment and Plan Assessment and Plan 56 year old female being admitted due to urinary incontinence, frequent falls at home, significant physical deconditioning, acute kidney injury, dehydration, and significantly elevated TSH with many of her recent medical problems likely related to her severe and uncontrolled hypothyroidism. Code Status Full code Discussed Condition With Dr. Beverley Manzanares (Eagle Hammond MD R2) Attending Attestation Patient seen and examined. Case reviewed and discussed with the resident team. Agree with plan of care as discussed with me and documented in the resident note. agree with hydration, PT and following labs to be sure her renal fxn, etc improves (Betty Lowery MD) Problem List: (1) Severe hypothyroidism ICD Codes: E03.8 - Other specified hypothyroidism Status: Acute Plan: TSH on admission greater than 100 Patient has not been taking her levothyroxine T4 supplementation over the past several months due to being out of this medication Patient does not appear to have myxedema coma at this time She has been given levothyroxine 200 mcg in the ED Will continue with levothyroxine 25 mcg once daily given her history of CAD (2) Dehydration ICD Codes: E86.0 - Dehydration Status: Acute Plan: CK on admission found to be 902, may be due to dehydration or contributed by myopathy due to hypothyroidism Ur specific gravity of 1.020 Start NS at 165 cc/hr Monitor I/Os and renal function (3) Urinary incontinence in female ICD Codes: R32 - Unspecified urinary incontinence Status: Acute Plan: Abdomen/pelvis CT without any acute findings Consider etiology due to detrusor overactivity causing urgency incontinence, UTI , NPH, medication adverse effect, constipation Vaginal atrophy may be contributing to her incontinence Obtain a renal and bladder ultrasound (4) Weakness ICD Codes: R53.1 - Weakness Status: Acute Plan: The patient may have significant myopathy due to her severe hypothyroidism causing her weakness Consult PT for activity Patient will need rehab or SNF placement on discharge once medically stable (5) Acute kidney injury ICD Codes: N17.9 - Acute kidney failure, unspecified Status: Acute Plan: Likely prerenal due to intravascular volume depletion from dehydration Baseline Cr may be around 1.2 IVF hydration as above Monitor I/Os and renal function Avoid nephrotoxins and further IV contrast if able Renal and bladder ultrasound as above (6) Diabetes mellitus ICD Codes: E11.9 - Type 2 diabetes mellitus without complications Status: Chronic Plan: Hold home insulin glargine Start levemir 10 units bid Accuchecks ACHS Low-dose ISS (7) Hypertension ICD Codes: I10 - Essential (primary) hypertension Status: Chronic Plan: Continue to monitor vitals q4h (8) Hyperlipidemia ICD Codes: E78.5 - Hyperlipidemia, unspecified Status: Chronic Plan: Hold home simvastatin (9) Elevated liver enzymes ICD Codes: R74.8 - Abnormal levels of other serum enzymes Status: Acute Plan: AST 89, ALT 59 Abdomen/pelvis CT per radiology read noting liver with homogeneous density without lesions Continue to trend (10) Elevated lipase ICD Codes: R74.8 - Abnormal levels of other serum enzymes Status: Acute Plan: Lipase 495 on admission May be elevated due to renal failure, pancreatitis although low suspicion at this time Pancreas noted on ct abd/pelvis to be within normal limits Continue to monitor abdominal exam (11) Candidal intertrigo ICD Codes: B37.2 - Candidiasis of skin and nail Status: Acute Plan: Apply clotrimazole 1% cream topically to affected areas twice daily Consider addition of low-potency topical steroid for symptomatic relief Add a topical drying agent as a preventive measure after treatment (12) Nutrition, metabolism, and development symptoms ICD Codes: R63.8 - Other symptoms and signs concerning food and fluid intake Status: Acute Plan: Fluids: NS at 165 cc/hr Electrolytes: Na 135, continue to monitor Nutrition: 1800 ADA GI ppx: Protonix 40 mg po daily DVT ppx: Heparin 5,000 units sq q12h Depression: continue home zoloft (Eagle Hammond MD R2) Physician Certification 2 Midnight Certification Type: Admission for Inpatient Services Order for Inpatient Services The services are ordered in accordance with Medicare regulations or non- Medicare payer requirements, as applicable. In the case of services not specified as inpatient-only, they are appropriately provided as inpatient services in accordance with the 2-midnight benchmark. Estimated LOS (days): 2 days is the estimated time the patient will need to remain in the hospital, assuming treatment plan goals are met and no additional complications. 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
[2017-05-21] MEDS ORDERED: NALOXONE HCL 0.4 MG/ML AMP IV PUSH PRN ×2 (17:30→23:30)
[2017-05-21] MEDS ORDERED: SODIUM CHLORIDE 0.9% FLUSH 10 ML FLUSH IV FLUSH PRN (17:30)
[2017-05-21] MEDS ORDERED: ACETAMINOPHEN 325 MG TAB PO PRN (17:30)
[2017-05-21] MEDS ORDERED: BISACODYL 10 MG SUPP RECTAL PRN (17:30)
[2017-05-21] MEDS ORDERED: LACTULOSE SYRUP 20 GM/30 ML CUP PO PRN (17:30)
[2017-05-21 18:01] VITALS: BP 132/69; PULSE 70; RESP 18; O2SAT 95
[2017-05-21] MEDS ORDERED: FLUCONAZOLE 100 MG TAB PO ONE (18:30)
[2017-05-21 20:00] VITALS: BP 132/67; PULSE 65; RESP 20; TEMP 98.2; O2SAT 94
[2017-05-21] MEDS: SODIUM CHLORIDE 0.9% FLUSH 10 ML FLUSH IV FLUSH SCH (21:00)
[2017-05-21] MEDS: ATENOLOL 25 MG TAB PO SCH (21:47)
[2017-05-21] MEDS: CALCIUM CARBONATE 500 MG CHEWABLE TAB PO SCH (21:47)
[2017-05-21] MEDS: CHOLECALCIFEROL (VIT D3) 400 UNIT TAB PO SCH (21:48)
[2017-05-21] MEDS: SERTRALINE HCL 50 MG TAB PO SCH (21:49)
[2017-05-21] MEDS: ASPIRIN EC 81 MG TABEC PO SCH (21:49)
[2017-05-21] MEDS: FERROUS SULFATE 325 MG (65 MG ELEMENTAL IRON) TAB PO SCH (21:49)
[2017-05-21] MEDS: DOCUSATE SODIUM 50 MG/SENNA 8.6 MG TAB PO SCH (21:49)
[2017-05-21] MEDS: CLOPIDOGREL 75 MG TAB PO SCH (21:50)
[2017-05-21] MEDS: HEPARIN SODIUM - SQ 10,000 UNITS/ML VIAL SQ SCH (21:50)
[2017-05-21] MEDS: INSULIN DETEMIR 100 UNITS/ML VIAL SQ SCH (21:51)
[2017-05-21] MEDS: INSULIN ASPART SUPPLEMENTAL SCALE SQ SCH (21:51)
[2017-05-21] MEDS: SODIUM CHLOR 0.9% 1000 ML INJ 1,000 ML IV SCH ×2 (21:52→22:03)
[2017-05-21] MEDS: CLOTRIMAZOLE 1% CREAM 15 GM TOPICAL SCH (21:54)
[2017-05-21] MEDS ORDERED: MORPHINE SULFATE 4 MG/ML INJ IV PUSH PRN (23:30)
[2017-05-21] MEDS: ACETAMINOPHEN/HYDROcodone 325 MG/10 MG TAB PO PRN (23:46)
[2017-05-21 23:58] VITALS: PULSE 60
[2017-05-22] VITALS (10 sets, daily range): BP systolic 102–130; BP diastolic 60–71; PULSE 54–67; RESP 20; TEMP 97.2–98.2; O2SAT 91–95
[2017-05-22] MEDS: SODIUM CHLOR 0.9% 1000 ML INJ 1,000 ML IV SCH ×3 (01:17→22:22)
[2017-05-22] MEDS: LEVOTHYROXINE SODIUM 25 MCG TAB PO SCH (05:02)
[2017-05-22] MEDS: ONDANSETRON HCL 4 MG/2 ML VIAL IVP PRN ×2 (05:45→12:55)
[2017-05-22] MEDS: ACETAMINOPHEN/HYDROcodone 325 MG/10 MG TAB PO PRN (06:24)
[2017-05-22] MEDS ORDERED: INFLUENZA VIRUS VACCINE (QUADRIVALENT) 0.5 ML SYR IM ONE (09:00)
[2017-05-22] MEDS: INSULIN DETEMIR 100 UNITS/ML VIAL SQ SCH ×2 (09:00→22:44)
[2017-05-22] MEDS: busPIRone HCL 5 MG TAB PO SCH ×3 (09:13→17:20)
[2017-05-22] MEDS: ATENOLOL 25 MG TAB PO SCH ×2 (09:13→22:18)
[2017-05-22] MEDS: CALCIUM CARBONATE 500 MG CHEWABLE TAB PO SCH ×2 (09:13→22:18)
[2017-05-22] MEDS: DOCUSATE SODIUM 50 MG/SENNA 8.6 MG TAB PO SCH ×2 (09:14→22:19)
[2017-05-22] MEDS: FERROUS SULFATE 325 MG (65 MG ELEMENTAL IRON) TAB PO SCH ×2 (09:14→22:18)
[2017-05-22] MEDS: PANTOPRAZOLE SOD 40 MG DELAYED RELEASE TAB PO SCH (09:14)
[2017-05-22] MEDS: SERTRALINE HCL 50 MG TAB PO SCH ×2 (09:14→22:18)
[2017-05-22] MEDS: INSULIN ASPART SUPPLEMENTAL SCALE SQ SCH ×4 (09:15→22:45)
[2017-05-22] MEDS: HEPARIN SODIUM - SQ 10,000 UNITS/ML VIAL SQ SCH ×2 (09:16→22:21)
[2017-05-22] MEDS: SODIUM CHLORIDE 0.9% FLUSH 10 ML FLUSH IV FLUSH SCH ×2 (09:16→22:23)
[2017-05-22 10:13] LABS: AUTOMATED NEUTROPHIL # 5.2 TH/MM3 (1.8-7.7); BASOPHIL # 0.1 TH/MM3 (0-0.2); BASOPHIL % 1.1 % (0.0-2.0); EOSINOPHIL # 0.3 TH/MM3 (0-0.4); EOSINOPHIL % 3.2 % (0.0-4.0); HEMATOCRIT 42.7 % (35.0-46.0); HEMOGLOBIN 14.6 GM/DL (11.6-15.3); LYMPH % 26.2 % (9.0-44.0); LYMPHOCYTE # 2.1 TH/MM3 (1.0-4.8); MEAN CELL VOLUME 100.4 FL (80.0-100.0); MEAN CORPUSCULAR HEMOGLOBIN 34.3 PG (27.0-34.0); MEAN CORPUSCULAR HGB CONC 34.1 % (32.0-36.0); MEAN PLATELET VOLUME 8.2 FL (7.0-11.0); MONO % 5.3 % (0.0-8.0); MONOCYTE # 0.4 TH/MM3 (0-0.9); NEUT % 64.2 % (16.0-70.0); PLATELET COUNT 199 TH/MM3 (150-450); RED BLOOD COUNT 4.25 MIL/MM3 (4.00-5.30); RED CELL DISTRIBUTION WIDTH 13.2 % (11.6-17.2); WHITE BLOOD COUNT 8.1 TH/MM3 (4.0-11.0)
[2017-05-22 10:22] LABS: ALBUMIN 3.4 GM/DL (3.4-5.0); ALKALINE PHOSPHATASE 63 U/L (45-117); ALT (GPT) 58 U/L (10-53); AST (GOT) 101 U/L (15-37); BICARBONATE 21.9 MEQ/L (21.0-32.0); BLOOD UREA NITROGEN 19 MG/DL (7-18); CALCIUM 9.5 MG/DL (8.5-10.1); CHLORIDE 104 MEQ/L (98-107); CREATININE 1.93 MG/DL (0.50-1.00); GLOMERULAR FILTRATION RATE 27 ML/MIN (>89); GLUCOSE,RANDOM 173 MG/DL (74-106); SODIUM (NA) 134 MEQ/L (136-145); TOTAL BILIRUBIN ADULT 0.6 MG/DL (0.2-1.0); TOTAL PROTEIN 7.5 GM/DL (6.4-8.2)
--- NOTE | 2017-05-22 10:30 | EKG ---
Date Performed: 05/21/2017 Time Performed: 15:23:30 PTAGE: 56 years EKG: Sinus rhythm WITH FIRST DEGREE AV BLOCK ST DEVIATION AND MODERATE T-WAVE ABNORMALITY, CONSIDER LATERAL ISCHEMIA A BNORMAL ECG Since the PREVIOUS TRACING , no significant change noted PREVIOUS TRACIN09/08/2016 02.21 DOCTOR: Juanito Almonte Interpretating Date/Time 05/22/2017 10:28:45
[2017-05-22] MEDS: CLOTRIMAZOLE 1% CREAM 15 GM TOPICAL SCH ×2 (11:53→22:45)
--- NOTE | 2017-05-22 12:09 | HHI.HP ---
[facility] Service Family Medicine Primary Care Physician No Primary Care Physician Admission Diagnosis severe symptomatic hypothyroidism, weakness Diagnoses: (1) Severe hypothyroidism Diagnosis: Principal (2) Dehydration Diagnosis: Principal (3) Urinary incontinence in female Diagnosis: Principal (4) Weakness Diagnosis: Principal (5) Acute kidney injury Diagnosis: Principal (6) Diabetes mellitus Diagnosis: Principal (7) Hypertension Diagnosis: Principal (8) Hyperlipidemia Diagnosis: Principal (9) Elevated liver enzymes Diagnosis: Principal (10) Elevated lipase Diagnosis: Principal (11) Candidal intertrigo Diagnosis: Principal (12) Nutrition, metabolism, and development symptoms Diagnosis: Principal International Travel<30 Days: No Contact w/Intl Traveler<30days: No Known Affected Area: No History of Present Illness Ms Vuong is a pleasant 56 year old woman evaluated in the ED due to urinary complaints and multiple falls over the past 2-3 months. She states she had an episode of urinary incontinence earlier that prompted her to call 911. Her mobility at home over the past several months has significantly decreased where she states she was not able to get up off her couch at home with this episode of urinary incontinence so she had to call 911 for help. She also cannot ambulate at home and uses a rolling chair to scoot around at home. She currently does not live with anyone apart from her dog. She has neighbors that sometimes help her out. She reports at least 5 falls over the past 2-3 months; she states the first fall about 2 months ago she did hit her head. She denies head trauma with her falls after that. She reports her more recent falls she tripped on the sidewalk , she was still able to ambulate at this point, and a more recent fall where her dog was running too fast and pulled her down. She endorses dysuria. Denies fevers or chills. She endorses back pain, she has a history of this and is unsure if that may have significantly worsened recently. She denies headache currently, no vision changes, denies abdominal pain. She reports some chest discomfort primarily when coughing sometimes in the afternoon. She otherwise denies having chest pain and currently is without chest pain. She admits to not having taken her thyroid medication over the past couple months since she has been out of this medication and has not obtained a refill from her PCP. She states [place] so did not bother finding a new PCP or specialists down here. She states she had previously been taking levothyroxine 275 mcg po daily but has not taken any meds in 2 months at least. She does endorse brief periods of confusion occurring a few times over the past several weeks; denies confusion at this time. This am she reports being excessively fatigued. she also complained about low back pain worsened by her multiple falls. she has had at least one episode of bowel incontinence probably because she could not make it to the bathroom in time as well as urinary incontinence. she has not been checking any glucoses at home for quite some time either. Review of Systems Other Constitutional: DENIES: Fever, Chills Eyes: DENIES: Blurred vision, Diplopia Respiratory: DENIES: Cough, Wheezing, Sputum production, Shortness of breath Cardiovascular: DENIES: Chest pain, Palpitations Gastrointestinal: DENIES: Abdominal pain, Constipation, Diarrhea, Nausea, Vomiting Genitourinary: COMPLAINS OF: Urinary incontinence, Dysuria Integumentary: COMPLAINS OF: Rash Neurologic: COMPLAINS OF: Abnormal gait, Localized weakness Past Family Social History Past Medical History DE 2009 DM HLD Neuropathy Hypothyroidism HTN Past Surgical History CABG in 2008 C Section x4 Cholecystectomy Stent placement x2 2017 Cardiac Cath Tonsillectomy Allergies: Coded Allergies: penicillin G (Unverified Allergy, Severe, hives, 04/29/17) hydromorphone (Unverified Adverse Reaction, Unknown, vomiting, 04/29/17) Family History Sister: , juvenile DM Father: unknown Mother: heart issues, at age 53 Social History Lives alone with her dog Etoh: occasional Previous smoker, quit 20 years ago (~1996) Denies illicit drug use plans on moving back to [place] with her son and his girlfriend driving her June 03 Physical Exam Vital Signs Vital Signs Date Time Temp Pulse Resp B/P (MAP) Pulse Ox O2 Delivery O2 Flow Rate FiO2 05/22/17 08:25 91 Nasal Cannula 2.00 05/22/17 08:00 97.7 56 20 119/71 (87) 92 05/22/17 04:10 67 05/22/17 04:00 98.2 57 20 122/68 (86) 95 05/22/17 00:58 95 Nasal Cannula 1.50 05/22/17 00:00 98.2 65 20 121/68 (85) 95 05/21/17 23:58 60 05/21/17 20:30 Nasal Cannula 2.00 05/21/17 20:00 98.2 65 20 132/67 (88) 94 05/21/17 18:01 70 18 132/69 (90) 95 Nasal Cannula 2.00 05/21/17 15:48 68 18 138/75 (96) 95 Nasal Cannula 2.00 05/21/17 15:48 18 95 Nasal Cannula 2.00 Physical Exam GENERAL: NAD, lying comfortably in bed. appears chronically ill NEURO: AOx3. Normal speech. 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 Loss of strength of lower extremities. difficult to get reflexes of lower extremities SKIN: Warm and very dry. Significant erythema and scaling along skin folds in the inguinal region. HEAD: Normocephalic. Atraumatic. EYES: EOMI. No scleral icterus. No injection or drainage. ENT: No nasal drainage. Moist mucous membranes. No oral ulcers or lesions. NECK: Supple, trachea midline. No JVD. No thyromegaly or nodules palpable. CARDIOVASCULAR: Regular rate and rhythm without murmurs, gallops, or rubs. Peripheral pulses 2+. RESPIRATORY: Breath sounds clear to auscultation and equal bilaterally, without wheezes, rales, or rhonchi. No accessory muscle use. GASTROINTESTINAL: Abdomen soft, non-tender, nondistended, normal BS. No organomegaly or masses appreciated. No guarding. EXTREMITIES: Very trace pretibial lower extremity edema. Laboratory Laboratory Tests Test 05/21/17 13:55 05/21/17 14:26 05/21/17 15:12 05/22/17 08:35 White Blood Count 7.8 8.1 Red Blood Count 4.49 4.25 Hemoglobin 15.3 14.6 Hematocrit 44.0 42.7 Mean Corpuscular Volume 97.9 100.4 Mean Corpuscular Hemoglobin 34.0 34.3 Mean Corpuscular Hemoglobin Concent 34.7 34.1 Red Cell Distribution Width 13.5 13.2 Platelet Count 255 199 Mean Platelet Volume 7.9 8.2 Neutrophils (%) (Auto) 71.0 64.2 Lymphocytes (%) (Auto) 22.0 26.2 Monocytes (%) (Auto) 4.4 5.3 Eosinophils (%) (Auto) 1.9 3.2 Basophils (%) (Auto) 0.7 1.1 Neutrophils # (Auto) 5.6 5.2 Lymphocytes # (Auto) 1.7 2.1 Monocytes # (Auto) 0.3 0.4 Eosinophils # (Auto) 0.2 0.3 Basophils # (Auto) 0.1 0.1 CBC Comment DIFF FINAL DIFF FINAL Differential Comment Prothrombin Time 10.6 Prothromb Time International Ratio 1.0 Activated Partial Thromboplast Time 21.1 Blood Urea Nitrogen 22 19 Creatinine 2.30 1.93 Random Glucose 222 173 Total Protein 8.5 7.5 Albumin 4.2 3.4 Calcium Level 10.1 9.5 Magnesium Level 1.8 Alkaline Phosphatase 75 63 Aspartate Amino Transf (AST/SGOT) 89 101 Alanine Aminotransferase (ALT/SGPT) 59 58 Total Bilirubin 0.7 0.6 Sodium Level 135 134 Potassium Level 4.3 4.9 Chloride Level 98 104 Carbon Dioxide Level 27.4 21.9 Anion Gap 10 8 Estimat Glomerular Filtration Rate 22 27 Total Creatine Kinase 902 Creatine Kinase MB 20.3 Creatine Kinase MB % 2.3 Troponin I LESS THAN 0.02 Lipase 495 Thyroid Stimulating Hormone 3rd Gen GREATER THAN 100.000 Lactic Acid Level 1.3 Urine Color YELLOW Urine Turbidity CLEAR Urine pH 6.5 Urine Specific [place] 1.020 Urine Protein GREATER THAN 600 Urine Glucose (UA) TRACE Urine Ketones NEG Urine Occult Blood SMALL Urine Nitrite NEG Urine Bilirubin NEG Urine Urobilinogen LESS THAN 2.0 Urine Leukocyte Esterase NEG Urine RBC 8 Urine WBC 6 Urine Squamous Epithelial Cells 6 Urine Bacteria FEW Urine Hyaline Casts 2 Urine Mucus FEW Microscopic Urinalysis Comment CULT NOT INDICATED Date/Time Source Procedure Growth Status 05/21/17 14:21 Blood Peripheral Aerobic Blood Culture - Preliminary NO GROWTH IN 1 DAY Resulted 05/21/17 14:21 Blood Peripheral Anaerobic Blood Culture - Preliminary NO GROWTH IN 1 DAY Resulted Result Diagram: 05/22/17 0835 05/22/17 0835 Imaging Last 72 hours Impressions Chest X-Ray 05/21/17 1345 Signed Impressions: Service Date/Time: Sunday, May 21, 2017 13:57 - CONCLUSION: No acute disease. Gurvinder Frazier MD Abdomen/Pelvis CT 05/21/17 1345 Signed Impressions: Service Date/Time: Sunday, May 21, 2017 14:36 - CONCLUSION: No acute CT findings in the abdomen or pelvis. MD Jaiden Rosarioi VTE Risk Assessment Caprini VTE Risk Assessment: Mod/High Risk (score >= 2) Caprini Risk Assessment Model Point Value = 1 Point Value = 2 Point Value = 3 Point Value = 5 Age 41-60 Minor surgery BMI > 25 kg/m2 Swollen legs Varicose veins or History of unexplained or recurrent spontaneous Oral contraceptives or hormone replacement Sepsis (< 1 month) Serious lung disease, including pneumonia (< 1 month) Abnormal pulmonary function Acute myocardial infarction Congestive heart failure (< 1 month) History of inflammatory bowel disease Medical patient at bed rest Age 61-74 Arthroscopic surgery Major open surgery (> 45 min) Laparoscopic surgery (> 45 min) Malignancy Confined to bed (> 72 hours) Immobilizing plaster cast Central venous access Age >= 75 History of VTE Family history of VTE Factor V Leiden Prothrombin [id number] Lupus anticoagulant Anticardiolipin antibodies Elevated serum homocysteine Heparin-induced thrombocytopenia Other congenital or acquired thrombophilia Stroke (< 1 month) Elective arthroplasty Hip, pelvis, or leg fracture Acute spinal cord injury (< 1 month) Prophylaxis Regimen Total Risk Factor Score Risk Level Prophylaxis Regimen 0-1 Low Early ambulation 2 Moderate Order ONE of the following: *Sequential Compression Device (SCD) *Heparin 5000 units SQ BID 3-4 Higher Order ONE of the following medications: *Heparin 5000 units SQ TID *Enoxaparin/Lovenox 40 mg SQ daily (WT < 150 kg, CrCl > 30 mL/min) *Enoxaparin/Lovenox 30 mg SQ daily (WT < 150 kg, CrCl > 10-29 mL/min) *Enoxaparin/Lovenox 30 mg SQ BID (WT < 150 kg, CrCl > 30 mL/min) AND/OR *Sequential Compression Device (SCD) 5 or more Highest Order ONE of the following medications: *Heparin 5000 units SQ TID (Preferred with Epidurals) *Enoxaparin/Lovenox 40 mg SQ daily (WT < 150 kg, CrCl > 30 mL/min) *Enoxaparin/Lovenox 30 mg SQ daily (WT < 150 kg, CrCl > 10-29 mL/min) *Enoxaparin/Lovenox 30 mg SQ BID (WT < 150 kg, CrCl > 30 mL/min) AND *Sequential Compression Device (SCD) Assessment and Plan Assessment and Plan 56 year old female being admitted due to urinary incontinence, frequent falls at home, significant physical deconditioning, acute kidney injury, dehydration, and significantly elevated TSH with many of her recent medical problems likely related to her severe and uncontrolled hypothyroidism. Problem List: (1) Severe hypothyroidism ICD Codes: E03.8 - Other specified hypothyroidism Status: Acute Plan: TSH on admission greater than 100 Patient has not been taking her levothyroxine T4 supplementation over the past several months due to being out of this medication Patient does not appear to have myxedema coma at this time She has been given levothyroxine 400 mcg in the ED Will continue with levothyroxine 25 mcg once daily given her history of CAD. will need to have this gradually increased over time (2) Dehydration ICD Codes: E86.0 - Dehydration Status: Acute Plan: CK on admission found to be 902, may be due to dehydration or contributed by myopathy due to hypothyroidism Ur specific gravity of 1.020 Start NS at 165 cc/hr Monitor I/Os and renal function (3) Urinary incontinence in female ICD Codes: R32 - Unspecified urinary incontinence Status: Acute Plan: Abdomen/pelvis CT without any acute findings Consider etiology due to detrusor overactivity causing urgency incontinence, UTI , NPH, medication adverse effect, constipation Vaginal atrophy may be contributing to her incontinence Obtain a renal and bladder ultrasound will also consider evaluation of lumbar spine as she may have some injury from her falls vs some preexisting compression (4) Weakness ICD Codes: R53.1 - Weakness Status: Acute Plan: The patient may have significant myopathy due to her severe hypothyroidism causing her weakness Consult PT for activity Patient will need rehab or SNF placement on discharge once medically stable (5) Acute kidney injury ICD Codes: N17.9 - Acute kidney failure, unspecified Status: Acute Plan: Likely prerenal due to intravascular volume depletion from dehydration Baseline Cr may be around 1.2 IVF hydration as above Monitor I/Os and renal function Avoid nephrotoxins and further IV contrast if able Renal and bladder ultrasound as above improved from admission (6) Diabetes mellitus ICD Codes: E11.9 - Type 2 diabetes mellitus without complications Status: Chronic Plan: Hold home insulin glargine Start levemir 10 units bid, will adjust as needed. she reported taking no short acting insulin at home for months only long acting Accuchecks ACHS Low-dose ISS (7) Hypertension ICD Codes: I10 - Essential (primary) hypertension Status: Chronic Plan: Continue to monitor vitals q4h (8) Hyperlipidemia ICD Codes: E78.5 - Hyperlipidemia, unspecified Status: Chronic Plan: Hold home simvastatin (9) Elevated liver enzymes ICD Codes: R74.8 - Abnormal levels of other serum enzymes Status: Acute Plan: AST 89, ALT 59 Abdomen/pelvis CT per radiology read noting liver with homogeneous density without lesions Continue to trend unsure why these are elevated. if they do not improve will work up further (10) Elevated lipase ICD Codes: R74.8 - Abnormal levels of other serum enzymes Status: Acute Plan: Lipase 495 on admission May be elevated due to renal failure, pancreatitis although low suspicion at this time Pancreas noted on ct abd/pelvis to be within normal limits Continue to monitor abdominal exam (11) Candidal intertrigo ICD Codes: B37.2 - Candidiasis of skin and nail Status: Acute Plan: Apply clotrimazole 1% cream topically to affected areas twice daily Consider addition of low-potency topical steroid for symptomatic relief Add a topical drying agent as a preventive measure after treatment (12) Nutrition, metabolism, and development symptoms ICD Codes: R63.8 - Other symptoms and signs concerning food and fluid intake Status: Acute Plan: Fluids: NS at 165 cc/hr Electrolytes: Na 135, continue to monitor Nutrition: 1800 ADA GI ppx: Protonix 40 mg po daily DVT ppx: Heparin 5,000 units sq q12h Depression: continue home zoloft Problem Qualifiers (1) Diabetes mellitus: Qualified Codes: E11.42 - Type 2 diabetes mellitus with diabetic polyneuropathy ; 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
--- NOTE | 2017-05-22 20:32 | RADRPT ---
EXAM DATE/TIME: 05/21/2017 14:36 [facility] COMPARISON: No previous studies available for comparison. INDICATIONS : Back pain RADIATION DOSE: CTDIvol (mGy) ; Reconstructed from previous dataset, no dose MEDICAL HISTORY : Cardiovascular disease. Hypertension. Diabetes SURGICAL HISTORY : Cholecystectomy. ENCOUNTER: Initial ACUITY: 1 day PAIN SCALE: 8/10 LOCATION: [facility] TECHNIQUE: Volumetric scanning of the lumbar spine was performed. Multiplanar reconstructions in the sagittal, coronal and oblique axial planes were performed. Using automated exposure control and adjustment of the mA and/or kV according to patient size, radiation dose was kept as low as reasonably achievable t o obtain optimal diagnostic quality images. DICOM format image data is available electronically for review and comparison. FINDINGS: VERTEBRAE: Normal vertebral body height. ALIGNMENT: There is minimal anterior subluxation of L4 on L5. T11-T12 : There is a moderate central disc protrusion with accompanying osteophytes causing a moderate impressi on on the thecal sac. T12-L1: The thecal sac has a normal diameter. No evidence of disc bulge or protrusion. The neural foramina are patent bilaterally. L1-L2: There is minimal diffuse disc bulge without significant stenosis. The neural foramina are patent bila terally. L2-L3: There is minimal diffuse disc bulge without significant stenosis. The neural foramina are patent bila terally. There is mild facet hypertrophy. L3-L4: The thecal sac has a normal diameter. No evidence of disc bulge or protrusion. The neural foramina are patent bilaterally. There is mild facet hypertrophy. L4-L5: Again noted is the mild anterior subluxation of L4 on L5 in the order of 3-4 mm. This is thought to b e secondary to facet hypertrophy. Pars defects are not present. There is mild diffuse disc bulge. The re is severe facet versus fistula in the left. The facet hypertrophy causes narrowing of the transver se dimension of the thecal sac especially on the right. Overall there is moderate narrowing of the th ecal sac. There is mild narrowing of the left neural foramina. The right neural foramen is patent. L5-S1: There is moderate diffuse disc bulge and osteophytic ridging. There is moderate facet hypertrophy. Th joyce changes lead to mild narrowing of the thecal sac. The neural foramina are patent bilaterally. CONCLUSION: 1. Moderate stenosis at the L4-L5 level caused by combination of anterior subluxation/spondylolisthes is, disc bulge, and severe facet hypertrophy. 2. Moderate stenosis at the T11-T12 level by a central disc protrusion with osteophytes. 3. Moderate disc bulge and mild stenosis at the L5-S1 level. 4. Minimal bulging at the L1-L2 and L2-L3 levels. 1. Gurvinder Steinberg MD on May 22, 2017 at 20:21 Board Certified Radiologist. This report was verified electronically.
[2017-05-22] MEDS: ASPIRIN EC 81 MG TABEC PO SCH (22:18)
[2017-05-22] MEDS: CLOPIDOGREL 75 MG TAB PO SCH (22:19)
[2017-05-22 22:26] LABS: HEMOGLOBIN A1C 12.5 % (4.3-6.0)
--- NOTE | 2017-05-22 22:32 | RADRPT ---
EXAM DATE/TIME: 05/21/2017 18:12 [facility] COMPARISON: No previous studies available for comparison. INDICATIONS : Increased BUN and Creatinine. MEDICAL HISTORY : Myocardial infarction. Hypercholesterolemia. Hypertension. Diabetes. Neuropathy. Hypothyroidism. SURGICAL HISTORY : CABG. section. Cholecystectomy. Cardiac Stent Placement. Tonsillectomy. ENCOUNTER: Initial ACUITY: 1 day PAIN SCORE: 0/10 LOCATION: Bilateral flank MEASUREMENTS: RIGHT KIDNEY: 12.1 x 5.8 x 4.5 cm LEFT KIDNEY: 11.5 x 5.8 x 5.7 cm FINDINGS: RIGHT KIDNEY: Renal cortex is normal in thickness and echotexture. No hydronephrosis, stone, or mass. LEFT KIDNEY: Renal cortex is normal in thickness and echotexture. No hydronephrosis, stone, or mass. BLADDER: Within normal limits given the degree of distension. CONCLUSION: No acute disease. Gurvinder Steinberg MD on May 22, 2017 at 22:29 Board Certified Radiologist. This report was verified electronically.
[2017-05-22] MEDS: CHOLECALCIFEROL (VIT D3) 400 UNIT TAB PO SCH (22:38)
[2017-05-22] MEDS: ACETAMINOPHEN/HYDROcodone 325 MG/5 MG TAB PO PRN (22:38)
[2017-05-23] VITALS (11 sets, daily range): BP systolic 102–144; BP diastolic 56–82; PULSE 52–56; RESP 18–20; TEMP 97.4–97.7; O2SAT 92–96
[2017-05-23] MEDS: SODIUM CHLOR 0.9% 1000 ML INJ 1,000 ML IV SCH ×2 (05:22→20:45)
[2017-05-23] MEDS: LEVOTHYROXINE SODIUM 25 MCG TAB PO SCH (05:22)
[2017-05-23] MEDS: ACETAMINOPHEN/HYDROcodone 325 MG/5 MG TAB PO PRN ×2 (05:24→23:39)
[2017-05-23] MEDS: INSULIN ASPART SUPPLEMENTAL SCALE SQ SCH ×4 (08:00→20:53)
[2017-05-23 08:06] LABS: AUTOMATED NEUTROPHIL # 5.6 TH/MM3 (1.8-7.7); BASOPHIL # 0.1 TH/MM3 (0-0.2); EOSINOPHIL # 0.3 TH/MM3 (0-0.4); EOSINOPHIL % 3.7 % (0.0-4.0); HEMATOCRIT 45.1 % (35.0-46.0); HEMOGLOBIN 15.4 GM/DL (11.6-15.3); LYMPH % 27.4 % (9.0-44.0); LYMPHOCYTE # 2.5 TH/MM3 (1.0-4.8); MEAN CELL VOLUME 100.6 FL (80.0-100.0); MEAN CORPUSCULAR HEMOGLOBIN 34.2 PG (27.0-34.0); MEAN PLATELET VOLUME 8.2 FL (7.0-11.0); MONO % 5.6 % (0.0-8.0); MONOCYTE # 0.5 TH/MM3 (0-0.9); NEUT % 62.3 % (16.0-70.0); PLATELET COUNT 199 TH/MM3 (150-450); RED BLOOD COUNT 4.49 MIL/MM3 (4.00-5.30); RED CELL DISTRIBUTION WIDTH 13.3 % (11.6-17.2)
[2017-05-23 08:13] LABS: ALBUMIN 3.3 GM/DL (3.4-5.0); ALKALINE PHOSPHATASE 67 U/L (45-117); ALT (GPT) 61 U/L (10-53); AST (GOT) 91 U/L (15-37); BICARBONATE 19.3 MEQ/L (21.0-32.0); BLOOD UREA NITROGEN 19 MG/DL (7-18); CALCIUM 9.7 MG/DL (8.5-10.1); CHLORIDE 105 MEQ/L (98-107); CREATININE 1.76 MG/DL (0.50-1.00); GLOMERULAR FILTRATION RATE 30 ML/MIN (>89); GLUCOSE,RANDOM 141 MG/DL (74-106); SODIUM (NA) 135 MEQ/L (136-145); TOTAL BILIRUBIN ADULT 0.5 MG/DL (0.2-1.0); TOTAL PROTEIN 7.2 GM/DL (6.4-8.2)
[2017-05-23] MEDS: INSULIN DETEMIR 100 UNITS/ML VIAL SQ SCH ×2 (09:00→20:52)
[2017-05-23] MEDS: CLOTRIMAZOLE 1% CREAM 15 GM TOPICAL SCH ×2 (09:00→20:47)
[2017-05-23] MEDS: DOCUSATE SODIUM 50 MG/SENNA 8.6 MG TAB PO SCH ×2 (09:01→20:46)
[2017-05-23] MEDS: busPIRone HCL 5 MG TAB PO SCH ×3 (09:01→18:38)
[2017-05-23] MEDS: CALCIUM CARBONATE 500 MG CHEWABLE TAB PO SCH ×2 (09:01→20:46)
[2017-05-23] MEDS: PANTOPRAZOLE SOD 40 MG DELAYED RELEASE TAB PO SCH (09:01)
[2017-05-23] MEDS: FERROUS SULFATE 325 MG (65 MG ELEMENTAL IRON) TAB PO SCH ×2 (09:01→20:46)
[2017-05-23] MEDS: SERTRALINE HCL 50 MG TAB PO SCH ×2 (09:01→20:46)
[2017-05-23] MEDS: HEPARIN SODIUM - SQ 10,000 UNITS/ML VIAL SQ SCH ×2 (09:02→20:46)
[2017-05-23] MEDS: ATENOLOL 25 MG TAB PO SCH ×2 (09:06→20:46)
--- NOTE | 2017-05-23 10:09 | HHI.FPPN ---
Subjective Remarks Patient seen and examined this morning. She does not have any complaints other than her IV having been accidentally pulled out. She needs help to ambulate to the bedside commode. No fevers or chills, no chest pain, no shortness of breath , no abdominal pain, no nausea vomiting, no trouble with urinating or stooling. (Kia Manzanares MD R1) Objective Vitals Vital Signs Date Time Temp Pulse Resp B/P (MAP) Pulse Ox O2 Delivery O2 Flow Rate FiO2 05/23/17 08:00 Nasal Cannula 2.00 05/23/17 04:57 97.4 56 18 131/78 (95) 93 05/23/17 03:45 54 05/23/17 00:16 Nasal Cannula 2.00 05/23/17 00:16 97.7 53 18 144/82 (102) 94 05/22/17 20:00 97.7 58 20 130/60 (83) 95 05/22/17 20:00 Nasal Cannula 2.00 05/22/17 16:28 93 Nasal Cannula 2.00 05/22/17 16:00 97.7 56 20 124/62 (82) 94 05/22/17 12:00 97.2 54 20 102/61 (75) 94 I/O 05/22/17 05/22/17 05/22/17 05/23/17 05/23/17 05/23/17 07:00 15:00 23:00 07:00 15:00 23:00 Intake Total 1360 ml 720 ml Output Total 550 ml 1000 ml Balance 810 ml 720 ml -1000 ml Intake Oral 360 ml 720 ml IV Total 1000 ml Output Urine Total 550 ml 1000 ml # Voids 2 # Bowel Movements 0 0 (Kia Manzanares MD R1) Result Diagram: 05/23/17 0605 05/23/17 0605 Imaging Last Impressions Lumbar Spine CT 05/22/17 0000 Signed Impressions: Service Date/Time: Sunday, May 21, 2017 14:36 - CONCLUSION: 1. Moderate stenosis at the L4-L5 level caused by combination of anterior subluxation/spondylolisthesis, disc bulge, and severe facet hypertrophy. 2. Moderate stenosis at the T11-T12 level by a central disc protrusion with osteophytes. 3. Moderate disc bulge and mild stenosis at the L5-S1 level. 4. Minimal bulging at the L1-L2 and L2-L3 levels. 1. Gurvinder Steinberg MD Chest X-Ray 05/21/17 1345 Signed Impressions: Service Date/Time: Sunday, May 21, 2017 13:57 - CONCLUSION: No acute disease. Gurvinder Frazier MD Abdomen/Pelvis CT 05/21/17 1345 Signed Impressions: Service Date/Time: Sunday, May 21, 2017 14:36 - CONCLUSION: No acute CT findings in the abdomen or pelvis. Gurvinder Frazier MD Renal Ultrasound 05/21/17 0000 Signed Impressions: Service Date/Time: Sunday, May 21, 2017 18:12 - CONCLUSION: No acute disease. Gurvinder Steinberg MD Objective Remarks GENERAL: Well-nourished, morbidly obese white female patient, laying in bed, NAD. SKIN: Warm and dry/flaky. HEAD: Normocephalic. EYES: No scleral icterus. No injection or drainage. NECK: Supple, trachea midline. No JVD or lymphadenopathy. CARDIOVASCULAR: Heart sounds distant. Regular rate and rhythm without murmurs, gallops, or rubs. RESPIRATORY: Breath sounds equal bilaterally. No accessory muscle use. GASTROINTESTINAL: Abdomen soft, non-tender, obese, nondistended. EXTREMITIES: No cyanosis, or edema. NEUROLOGICAL: Awake, alert, and oriented x 3. Non-focal. (Kia Manzanares MD R1) A/P Assessment and Plan 56 year old female being admitted due to urinary incontinence, frequent falls at home, significant physical deconditioning, acute kidney injury, dehydration, and significantly elevated TSH with many of her recent medical problems likely related to her severe and uncontrolled hypothyroidism. (Kia Manzanares MD R1) Attending Attestation Patient seen and examined. Case reviewed and discussed with the resident team. Agree with plan of care as discussed with me and documented in the resident note. for her discharge plan, she is going to be moved physically by her son and his girlfriend to [place] on the of this Month. she is so hypothyroid that it is contributing to her weakness and other problems. myopathies and so many other problems are common in severe hypothyroidism. unfortunately, she has a history of coronary disease and thyroid medicine needs to be started slowly and titrated up slowly so people don't get tachycardia or increasing angina. (eBtty Lowery MD) Problem List: (1) Severe hypothyroidism ICD Codes: E03.8 - Other specified hypothyroidism Status: Acute Plan: TSH on admission greater than 100 Patient has not been taking her levothyroxine T4 supplementation over the past several months due to being out of this medication Patient does not appear to have myxedema coma at this time -Given levothyroxine 400 mcg in the ED -Will continue with levothyroxine 25 mcg once daily given her history of CAD. will need to have this gradually increased over time (2) Dehydration ICD Codes: E86.0 - Dehydration Status: Acute Plan: CK on admission found to be 902, may be due to dehydration or contributed by myopathy due to hypothyroidism Ur specific gravity of 1.020 Start NS at 165 cc/hr Monitor I/Os and renal function (3) Urinary incontinence in female ICD Codes: R32 - Unspecified urinary incontinence Status: Acute Plan: Abdomen/pelvis CT without any acute findings Consider etiology due to detrusor overactivity causing urgency incontinence, UTI , NPH, medication adverse effect, constipation Vaginal atrophy and the inability to get up and go to the bathroom quickly may be contributing to her incontinence Renal and bladder ultrasound on 05/22 showed no acute disease Could not obtain an MRI of the lumbar spine due to patient's claustrophobia and refusal, therefore lumbar CT without contrast (due to SHARA) was obtained. Findings detailed above in imaging section. Patient has disc herniation and spinal stenosis at multiple levels. These findings plus incontinence could point to a possible conus medullaris versus cauda equina syndromes. However, the patient has many other factors that could be causing incontinence. (4) Weakness ICD Codes: R53.1 - Weakness Status: Acute Plan: The patient may have significant myopathy due to her severe hypothyroidism causing her weakness Consult PT for activity -Upon assessment stated that falls likely due to a combination of weakness, but also poor lower extremity sensation. -Will need to use a walker for safe ambulation -Recommends rehab Patient will need rehab or SNF placement on discharge once medically stable. This might prove to be difficult due to her self-pay status. (5) Acute kidney injury ICD Codes: N17.9 - Acute kidney failure, unspecified Status: Acute Plan: Likely prerenal due to intravascular volume depletion from dehydration Baseline Cr may be around 1.2 IVF hydration as above Monitor I/Os and renal function Avoid nephrotoxins and further IV contrast if able Renal and bladder ultrasound as above improved from admission (6) Diabetes mellitus ICD Codes: E11.9 - Type 2 diabetes mellitus without complications Status: Chronic Plan: Hold home insulin glargine Start levemir 10 units bid, will adjust as needed. she reported taking no short acting insulin at home for months only long acting Accuchecks ACHS Low-dose ISS (7) Hypertension ICD Codes: I10 - Essential (primary) hypertension Status: Chronic Plan: Continue to monitor vitals q4h (8) Hyperlipidemia ICD Codes: E78.5 - Hyperlipidemia, unspecified Status: Chronic Plan: Hold home simvastatin (9) Elevated liver enzymes ICD Codes: R74.8 - Abnormal levels of other serum enzymes Status: Acute Plan: AST 89, ALT 59 Abdomen/pelvis CT per radiology read noting liver with homogeneous density without lesions Continue to trend unsure why these are elevated. if they do not improve will work up further (10) Elevated lipase ICD Codes: R74.8 - Abnormal levels of other serum enzymes Status: Acute Plan: Lipase 495 on admission May be elevated due to renal failure, pancreatitis although low suspicion at this time Pancreas noted on ct abd/pelvis to be within normal limits Continue to monitor abdominal exam (11) Candidal intertrigo ICD Codes: B37.2 - Candidiasis of skin and nail Status: Acute Plan: Apply clotrimazole 1% cream topically to affected areas twice daily Consider addition of low-potency topical steroid for symptomatic relief Add a topical drying agent as a preventive measure after treatment (12) Nutrition, metabolism, and development symptoms ICD Codes: R63.8 - Other symptoms and signs concerning food and fluid intake Status: Acute Plan: Fluids: NS at 165 cc/hr Electrolytes: Na 135, continue to monitor Nutrition: 1800 ADA GI ppx: Protonix 40 mg po daily DVT ppx: Heparin 5,000 units sq q12h Depression: continue home zoloft (Kia Manzanares MD R1) Problem Qualifiers (1) Diabetes mellitus: Qualified Codes: E11.42 - Type 2 diabetes mellitus with diabetic polyneuropathy ; Z79.4 - USP (current) use of insulin (2) Hypertension: Qualified Codes: I10 - Essential (primary) hypertension (3) Hyperlipidemia: Qualified Codes: E78.00 - Pure hypercholesterolemia, unspecified Kia Manzanares MD R1 May 23, 2017 10:09 Betty Lowery MD May 24, 2017 12:33
[2017-05-23] MEDS: ACETAMINOPHEN/HYDROcodone 325 MG/10 MG TAB PO PRN ×2 (10:18→18:46)
[2017-05-23] MEDS: SODIUM CHLORIDE 0.9% FLUSH 10 ML FLUSH IV FLUSH SCH ×2 (12:00→20:47)
--- NOTE | 2017-05-23 15:37 | EKG ---
Date Performed: 05/22/2017 Time Performed: 14:01:36 PTAGE: 56 years EKG: SINUS BRADYCARDIA WITH FIRST DEGREE AV BLOCK ANTEROSEPTAL MYOCARDIAL INFARCTION , OF INDETE RMINATE AGE MODERATE T-WAVE ABNORMALITY, CONSIDER LATERAL ISCHEMIA ABNORMAL ECG Since the PREVIOUS TRACING , no significant change noted PREVIOUS TRACIN05/21/2017 15.23 DOCTOR: Dhruv Estrada Interpretating Date/Time 05/23/2017 15:25:29
[2017-05-23] MEDS: ASPIRIN EC 81 MG TABEC PO SCH (20:46)
[2017-05-23] MEDS: CHOLECALCIFEROL (VIT D3) 400 UNIT TAB PO SCH (20:46)
[2017-05-23] MEDS: CLOPIDOGREL 75 MG TAB PO SCH (20:47)
[2017-05-24] VITALS (12 sets, daily range): BP systolic 110–143; BP diastolic 51–67; PULSE 51–58; RESP 16–21; TEMP 95.9–97.8; O2SAT 75–96
[2017-05-24] MEDS: SODIUM CHLOR 0.9% 1000 ML INJ 1,000 ML IV SCH ×5 (01:41→23:32)
[2017-05-24 05:16] LABS: HEMATOCRIT 42.3 % (35.0-46.0); HEMOGLOBIN 14.5 GM/DL (11.6-15.3); MEAN CORPUSCULAR HEMOGLOBIN 34.7 PG (27.0-34.0); MEAN CORPUSCULAR HGB CONC 34.3 % (32.0-36.0); PLATELET COUNT 193 TH/MM3 (150-450); RED BLOOD COUNT 4.19 MIL/MM3 (4.00-5.30); RED CELL DISTRIBUTION WIDTH 13.3 % (11.6-17.2); WHITE BLOOD COUNT 8.7 TH/MM3 (4.0-11.0)
[2017-05-24 05:49] LABS: ALBUMIN 2.9 GM/DL (3.4-5.0); ALKALINE PHOSPHATASE 64 U/L (45-117); AST (GOT) 100 U/L (15-37); BICARBONATE 20.6 MEQ/L (21.0-32.0); BLOOD UREA NITROGEN 19 MG/DL (7-18); CALCIUM 8.5 MG/DL (8.5-10.1); CHLORIDE 106 MEQ/L (98-107); CREATININE 1.75 MG/DL (0.50-1.00); GLOMERULAR FILTRATION RATE 30 ML/MIN (>89); GLUCOSE,RANDOM 169 MG/DL (74-106); SODIUM (NA) 137 MEQ/L (136-145); TOTAL BILIRUBIN ADULT 0.4 MG/DL (0.2-1.0); TOTAL PROTEIN 6.7 GM/DL (6.4-8.2)
[2017-05-24] MEDS ORDERED: LEVOTHYROXINE SODIUM 50 MCG TAB PO SCH (06:00)
[2017-05-24] MEDS: LEVOTHYROXINE SODIUM 25 MCG TAB PO SCH (06:16)
[2017-05-24] MEDS: ACETAMINOPHEN/HYDROcodone 325 MG/5 MG TAB PO PRN (06:17)
[2017-05-24 06:39] LABS: ALT (GPT) 64 U/L (10-53)
[2017-05-24] MEDS: INSULIN ASPART SUPPLEMENTAL SCALE SQ SCH ×4 (08:00→21:03)
[2017-05-24] MEDS: DOCUSATE SODIUM 50 MG/SENNA 8.6 MG TAB PO SCH ×2 (09:00→21:01)
[2017-05-24] MEDS: PANTOPRAZOLE SOD 40 MG DELAYED RELEASE TAB PO SCH (10:23)
[2017-05-24] MEDS: CLOTRIMAZOLE 1% CREAM 15 GM TOPICAL SCH ×2 (10:23→21:04)
[2017-05-24] MEDS: busPIRone HCL 5 MG TAB PO SCH ×3 (10:23→17:21)
[2017-05-24] MEDS: SERTRALINE HCL 50 MG TAB PO SCH ×2 (10:24→21:01)
[2017-05-24] MEDS: HEPARIN SODIUM - SQ 10,000 UNITS/ML VIAL SQ SCH ×2 (10:24→21:00)
[2017-05-24] MEDS: CALCIUM CARBONATE 500 MG CHEWABLE TAB PO SCH ×2 (10:24→21:02)
[2017-05-24] MEDS: FERROUS SULFATE 325 MG (65 MG ELEMENTAL IRON) TAB PO SCH ×2 (10:24→21:01)
[2017-05-24] MEDS: ATENOLOL 25 MG TAB PO SCH ×2 (10:24→21:03)
[2017-05-24] MEDS: SODIUM CHLORIDE 0.9% FLUSH 10 ML FLUSH IV FLUSH SCH ×2 (10:25→21:02)
[2017-05-24] MEDS: INSULIN DETEMIR 100 UNITS/ML VIAL SQ SCH ×2 (10:25→21:00)
[2017-05-24] MEDS: ACETAMINOPHEN/HYDROcodone 325 MG/10 MG TAB PO PRN ×2 (13:41→18:52)
[2017-05-24] MEDS ORDERED: LEVOTHYROXINE SODIUM 25 MCG TAB PO ONE (14:00)
--- NOTE | 2017-05-24 14:19 | HHI.FPPN ---
Subjective Remarks No acute events overnight. Afebrile, vitals stable. HR in the 50s bpm. Patient lying in bed this morning. She has complaints of recurrence of burning with urination. She also reports she had an episode of urinary incontinence last night. She denies fevers or chills. Denies worsening back pain. She states overall she actually feels stronger since coming into the hospital. She reports she is able to stand with assistance and transfer with assistance to her bedside commode which is more than what she was able to do at home. (Eagle Hammond MD R2) Objective Vitals Vital Signs Date Time Temp Pulse Resp B/P (MAP) Pulse Ox O2 Delivery O2 Flow Rate FiO2 05/24/17 09:00 96 Nasal Cannula 2.00 05/24/17 08:00 97.8 56 17 133/67 (89) 93 05/24/17 08:00 Nasal Cannula 2.00 05/24/17 06:29 97.5 52 19 123/63 (83) 92 05/24/17 03:39 52 05/24/17 00:00 Nasal Cannula 2.00 05/24/17 00:00 97.5 54 21 143/65 (91) 93 05/23/17 23:42 54 05/23/17 20:00 Nasal Cannula 2.00 05/23/17 20:00 97.7 54 18 119/58 (78) 93 05/23/17 19:52 52 05/23/17 17:54 93 Nasal Cannula 2.00 05/23/17 16:00 53 05/23/17 16:00 97.7 52 20 109/58 (75) 92 I/O 05/23/17 05/23/17 05/23/17 05/24/17 05/24/17 05/24/17 07:00 15:00 23:00 07:00 15:00 23:00 Intake Total 720 ml Output Total 1000 ml Balance -1000 ml 720 ml Intake Oral 720 ml Output Urine Total 1000 ml # Voids 3 2 # Bowel Movements 0 0 (Eagle Hammond MD R2) Result Diagram: 05/24/1742405/24/17 0420 Objective Remarks GENERAL: Well-nourished, morbidly obese white female patient, laying in bed, NAD. SKIN: Warm and dry/flaky. HEAD: Normocephalic. Atraumatic. EYES: EOMI. No scleral icterus. No injection or drainage. NECK: Supple, trachea midline. No JVD or lymphadenopathy. CARDIOVASCULAR: Heart sounds distant. Regular rate and rhythm without murmurs, gallops, or rubs. RESPIRATORY: Breath sounds equal bilaterally and clear. No accessory muscle use. GASTROINTESTINAL: Abdomen soft, non-tender, obese, nondistended. EXTREMITIES: No cyanosis. Trace lower extremity edema bilaterally. NEUROLOGICAL: Awake, alert, and oriented x 3. Non-focal. (Eagle Hammond MD R2) A/P Assessment and Plan 56 year old female admitted due to urinary incontinence, frequent falls at home , significant physical deconditioning, acute kidney injury, dehydration, and significantly elevated TSH with many of her recent medical problems likely related to her severe and uncontrolled hypothyroidism. Discharge Planning Patient is self pay Lives alone Patient needs SNF level of care Patient plans to move to [place] next weekend and would be able to get help with transportation up there from her son and daughter in law (Eagle Hammond MD R2) Attending Attestation Patient seen and examined. Case reviewed and discussed with the resident team. Agree with plan of care as discussed with me and documented in the resident note. very weak but gaining some strength with PT. she is planning on moving to [place] on the with her son and his girlfriend (Betty Lowery MD) Problem List: (1) Severe hypothyroidism ICD Codes: E03.8 - Other specified hypothyroidism Status: Acute Plan: TSH on admission greater than 100 Patient has not been taking her levothyroxine T4 supplementation over the past several months due to being out of this medication Patient does not appear to have myxedema coma at this time -Given levothyroxine 400 mcg in the ED - Increase levothyroxine to 50 mcg once daily and will plan to titrate up slowly given her history of CAD (2) Dehydration ICD Codes: E86.0 - Dehydration Status: Acute Plan: CK on admission found to be 902, may be due to dehydration or contributed by myopathy due to hypothyroidism Ur specific gravity of 1.020 Start NS at 165 cc/hr Monitor I/Os and renal function (3) Urinary incontinence in female ICD Codes: R32 - Unspecified urinary incontinence Status: Acute Plan: Abdomen/pelvis CT without any acute findings Consider etiology due to detrusor overactivity causing urgency incontinence, UTI , NPH, medication adverse effect, constipation Vaginal atrophy and the inability to get up and go to the bathroom quickly may be contributing to her incontinence Renal and bladder ultrasound on 05/22 showed no acute disease Could not obtain an MRI of the lumbar spine due to patient's claustrophobia and refusal, therefore lumbar CT without contrast (due to SHARA) was obtained. Findings detailed above in imaging section. Patient has disc herniation and spinal stenosis at multiple levels. These findings plus incontinence could point to a possible conus medullaris versus cauda equina syndromes. However, the patient has many other factors that could be causing incontinence. (4) Weakness ICD Codes: R53.1 - Weakness Status: Acute Plan: The patient may have significant myopathy due to her severe hypothyroidism causing her weakness Consult PT for activity -Upon assessment stated that falls likely due to a combination of weakness, but also poor lower extremity sensation. -Will need to use a wheeled walker for safe ambulation -Recommends PT at rehab Patient will need rehab or SNF placement on discharge once medically stable. This might prove to be difficult due to her self-pay status. (5) Acute kidney injury ICD Codes: N17.9 - Acute kidney failure, unspecified Status: Resolved Plan: Likely prerenal due to intravascular volume depletion from dehydration Baseline Cr may be around 1.2 IVF hydration as above Monitor I/Os and renal function Avoid nephrotoxins and further IV contrast if able Renal and bladder ultrasound as above improved from admission but seems to have stabilized around 1.75 Consider nephrology consult if this does not further improve given her significant proteinuria as well (6) Diabetes mellitus ICD Codes: E11.9 - Type 2 diabetes mellitus without complications Status: Chronic Plan: Hold home insulin glargine Increase levemir to 15 units bid, will adjust as needed. she reported taking no short acting insulin at home for months only long acting Accuchecks ACHS Low-dose ISS Bedside glucoses over past 24 hours ranging 145-251 (7) Hypertension ICD Codes: I10 - Essential (primary) hypertension Status: Chronic Plan: Continue to monitor vitals q4h (8) Hyperlipidemia ICD Codes: E78.5 - Hyperlipidemia, unspecified Status: Chronic Plan: Hold home simvastatin (9) Elevated liver enzymes ICD Codes: R74.8 - Abnormal levels of other serum enzymes Status: Chronic Plan: AST 89, ALT 59 on admission Abdomen/pelvis CT per radiology read noting liver with homogeneous density without lesions Continue to trend unsure why these are elevated. if they do not improve will work up further (10) Elevated lipase ICD Codes: R74.8 - Abnormal levels of other serum enzymes Status: Resolved Plan: Lipase 495 on admission May be elevated due to renal failure, pancreatitis although low suspicion at this time Pancreas noted on ct abd/pelvis to be within normal limits Continue to monitor abdominal exam (11) Candidal intertrigo ICD Codes: B37.2 - Candidiasis of skin and nail Status: Acute Plan: Apply clotrimazole 1% cream topically to affected areas twice daily Consider addition of low-potency topical steroid for symptomatic relief Add a topical drying agent as a preventive measure after treatment (12) Nutrition, metabolism, and development symptoms ICD Codes: R63.8 - Other symptoms and signs concerning food and fluid intake Status: Acute Plan: Fluids: NS at 165 cc/hr Electrolytes: continue to monitor Nutrition: 1800 ADA GI ppx: Protonix 40 mg po daily DVT ppx: Heparin 5,000 units sq q12h Depression: continue home zoloft (Eagle Hammond MD R2) Problem Qualifiers (1) Diabetes mellitus: Qualified Codes: E11.42 - Type 2 diabetes mellitus with diabetic polyneuropathy ; 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
[2017-05-24 19:19] LABS: BACTERIA, URINE RARE /hpf; BILIRUBIN, URINE NEG (NEG); BLOOD, URINE TRACE (NEG); GLUCOSE,URINE NEG (NEG); KETONE, URINE NEG (NEG); MUCUS URINE FEW /lpf (OCC); NITRITE,URINE NEG (NEG); SQUAMOUS EPITHELIAL CELL URINE 2 /hpf (0-5); URINE COLOR LIGHT-YELLOW (YELLW/STRAW); URINE LEUKOCYTE ESTERASE NEG (NEG)
[2017-05-24] MEDS: CHOLECALCIFEROL (VIT D3) 400 UNIT TAB PO SCH (21:00)
[2017-05-24] MEDS: CLOPIDOGREL 75 MG TAB PO SCH (21:01)
[2017-05-24] MEDS: ASPIRIN EC 81 MG TABEC PO SCH (21:02)
[2017-05-25] VITALS (13 sets, daily range): BP systolic 90–141; BP diastolic 50–63; PULSE 51–58; RESP 18–20; TEMP 97.4–97.8; O2SAT 92–97
[2017-05-25] MEDS: ACETAMINOPHEN/HYDROcodone 325 MG/10 MG TAB PO PRN ×2 (00:05→20:59)
[2017-05-25] MEDS: ONDANSETRON HCL 4 MG/2 ML VIAL IVP PRN (02:30)
[2017-05-25] MEDS: SODIUM CHLOR 0.9% 1000 ML INJ 1,000 ML IV SCH ×4 (03:57→23:05)
[2017-05-25] MEDS ORDERED: LEVOTHYROXINE SODIUM 50 MCG TAB PO SCH (06:00)
[2017-05-25] MEDS: PANTOPRAZOLE SOD 40 MG DELAYED RELEASE TAB PO SCH (08:59)
[2017-05-25] MEDS: FERROUS SULFATE 325 MG (65 MG ELEMENTAL IRON) TAB PO SCH ×2 (08:59→20:57)
[2017-05-25] MEDS: busPIRone HCL 5 MG TAB PO SCH ×3 (08:59→17:26)
[2017-05-25] MEDS: SERTRALINE HCL 50 MG TAB PO SCH ×2 (08:59→20:57)
[2017-05-25] MEDS: ATENOLOL 25 MG TAB PO SCH ×2 (09:00→21:00)
[2017-05-25] MEDS: DOCUSATE SODIUM 50 MG/SENNA 8.6 MG TAB PO SCH ×2 (09:00→20:57)
[2017-05-25] MEDS: CALCIUM CARBONATE 500 MG CHEWABLE TAB PO SCH ×2 (09:01→20:57)
[2017-05-25] MEDS: HEPARIN SODIUM - SQ 10,000 UNITS/ML VIAL SQ SCH ×2 (09:02→17:25)
[2017-05-25] MEDS: INSULIN DETEMIR 100 UNITS/ML VIAL SQ SCH ×2 (09:02→21:00)
[2017-05-25] MEDS: INSULIN ASPART SUPPLEMENTAL SCALE SQ SCH ×4 (09:02→21:00)
[2017-05-25] MEDS: SODIUM CHLORIDE 0.9% FLUSH 10 ML FLUSH IV FLUSH SCH ×2 (09:03→20:59)
[2017-05-25] MEDS: CLOTRIMAZOLE 1% CREAM 15 GM TOPICAL SCH ×2 (09:03→21:00)
--- NOTE | 2017-05-25 10:29 | HHI.FPPN ---
Subjective Remarks Patient seen and examined this morning. She states that she had a rough night. After receiving her morphine overnight she felt like she had a panic attack. She felt like her heart was racing and she was unable to catch her breath. She stated that she needed someone to come sit with her and "hold her hand." She also feels like her incontinence has worsened. Overnight she felt a sudden urge to go urinate, but was unable to get to the bedside commode on time. This is usually the feeling she gets when she has her incontinence, even at home. She also states that it hurts to hold her urine in order to get to the commode. She does endorse dysuria, but no blood or pus in her urine. No fevers or chills. No chest pain, no shortness of breath, no abdominal pain, no nausea vomiting. Still has not had a bowel movement. Her oldest son and his girlfriend will be arriving next week and to take her to [place] with them. They are unable to arrive any sooner than that. (Kia Manzanares MD R1) Objective Vitals Vital Signs Date Time Temp Pulse Resp B/P (MAP) Pulse Ox O2 Delivery O2 Flow Rate FiO2 05/25/17 09:13 97 Nasal Cannula 2.00 05/25/17 08:15 Nasal Cannula 2.00 05/25/17 08:00 97.4 51 20 98/54 (69) 97 05/25/17 04:00 54 05/25/17 04:00 97.6 51 19 124/58 (80) 96 05/25/17 02:35 14 05/25/17 01:05 18 05/25/17 00:00 52 05/25/17 00:00 97.8 51 19 114/57 (76) 95 05/24/17 21:28 95 Nasal Cannula 2.00 05/24/17 21:00 97.7 05/24/17 20:45 Nasal Cannula 2.00 05/24/17 20:45 52 05/24/17 20:00 95.9 52 16 110/58 (75) 95 05/24/17 16:00 97.5 54 16 110/51 (70) 75 05/24/17 16:00 Nasal Cannula 2.00 05/24/17 16:00 51 05/24/17 12:00 Nasal Cannula 2.00 05/24/17 12:00 97.3 58 16 123/62 (82) 91 I/O 05/24/17 05/24/17 05/24/17 05/25/17 05/25/17 05/25/17 07:00 15:00 23:00 07:00 15:00 23:00 Intake Total 960 ml 690 ml Balance 960 ml 690 ml Intake Oral 960 ml 690 ml # Voids 2 4 6 # Bowel Movements 0 (Kia Manzanares MD R1) Result Diagram: 05/24/17 0425 05/24/17 0420 Other Results Laboratory Tests Test 05/24/17 18:50 Urine Color LIGHT-YELLOW Urine Turbidity CLEAR Urine pH 6.0 Urine Specific [place] 1.009 Urine Protein 100 mg/dL Urine Glucose (UA) NEG mg/dL Urine Ketones NEG mg/dL Urine Occult Blood TRACE Urine Nitrite NEG Urine Bilirubin NEG Urine Urobilinogen LESS THAN 2.0 MG/DL Urine Leukocyte Esterase NEG Urine RBC 1 /hpf Urine WBC 22 /hpf Urine Squamous Epithelial Cells 2 /hpf Urine Bacteria RARE /hpf Urine Mucus FEW /lpf Microscopic Urinalysis Comment CULTURE INDICATED Microbiology Date/Time Source Procedure Growth Status 05/21/17 14:21 Blood Peripheral Aerobic Blood Culture - Preliminary NO GROWTH IN 3 DAYS Resulted 05/21/17 14:21 Blood Peripheral Anaerobic Blood Culture - Preliminary NO GROWTH IN 3 DAYS Resulted 05/24/17 18:50 Urine Clean Catch Urine Culture Pending Received Objective Remarks GENERAL: Well-nourished, morbidly obese white female patient, laying in bed, NAD. SKIN: Warm and dry/flaky. HEAD: Normocephalic. Atraumatic. EYES: EOMI. No scleral icterus. No injection or drainage. NECK: Supple, trachea midline. No JVD or lymphadenopathy. CARDIOVASCULAR: Heart sounds distant. Regular rate and rhythm without murmurs, gallops, or rubs. RESPIRATORY: Breath sounds equal bilaterally and clear. No accessory muscle use. GASTROINTESTINAL: Abdomen soft, obese, nondistended. Suprapubic tenderness EXTREMITIES: No cyanosis. Trace lower extremity edema bilaterally. NEUROLOGICAL: Awake, alert, and oriented x 3. Non-focal. (Kia Manzanares MD R1) A/P Assessment and Plan 56 year old female admitted due to urinary incontinence, frequent falls at home , significant physical deconditioning, acute kidney injury, dehydration, and significantly elevated TSH with many of her recent medical problems likely related to her severe and uncontrolled hypothyroidism. Discharge Planning Patient is self pay Lives alone Patient needs SNF level of care Patient plans to move to [place] next weekend and would be able to get help with transportation up there from her son and daughter in law (Kia Manzanares MD R1) Attending Attestation Patient seen and examined. Case reviewed and discussed Agree with plan of care as discussed with me and documented in the resident note. (Palak Jefferson MD) Problem List: (1) Severe hypothyroidism ICD Codes: E03.8 - Other specified hypothyroidism Status: Acute Plan: TSH on admission greater than 100, Both free T4 and T3 are low on 05/25 Patient has not been taking her levothyroxine T4 supplementation over the past several months due to being out of this medication Patient does not appear to have myxedema coma at this time -Given levothyroxine 400 mcg in the ED -Started on levothyroxine 25mcg then titrated up to 50mcg on 05/24 -Will start levothyroxine 100mcg IV once on 05/25, then 50mcg IV qD (2) Elevated CK ICD Codes: R74.8 - Abnormal levels of other serum enzymes Status: Acute Plan: CK on admission found to be 902, may be contributed by myopathy due to hypothyroidism or due to dehydration Continue NS at 185 cc/hr Monitor I/Os and renal function (3) Urinary incontinence in female ICD Codes: R32 - Unspecified urinary incontinence Status: Acute Plan: Abdomen/pelvis CT without any acute findings Consider etiology due to detrusor overactivity causing urgency incontinence, UTI , NPH, medication adverse effect, constipation Vaginal atrophy and the inability to get up and go to the bathroom quickly may be contributing to her incontinence Renal and bladder ultrasound on 05/22 showed no acute disease Could not obtain an MRI of the lumbar spine due to patient's claustrophobia and refusal, therefore lumbar CT without contrast (due to SHARA) was obtained. Findings detailed above in imaging section. Patient has disc herniation and spinal stenosis at multiple levels. These findings plus incontinence could point to a possible conus medullaris versus cauda equina syndromes. However, the patient has many other factors that could be causing incontinence. -Bladder scan on 05/25 showed post void residual of 12ml. WNL (4) Weakness ICD Codes: R53.1 - Weakness Status: Acute Plan: The patient may have significant myopathy due to her severe hypothyroidism causing her weakness Consult PT for activity -Upon assessment stated that falls likely due to a combination of weakness, but also poor lower extremity sensation. -Will need to use a wheeled walker for safe ambulation -Recommends PT at rehab -7 days a week Patient will need rehab or SNF placement on discharge once medically stable. This might prove to be difficult due to her self-pay status. (5) Acute kidney injury ICD Codes: N17.9 - Acute kidney failure, unspecified Status: Acute Plan: Likely prerenal due to intravascular volume depletion from dehydration Baseline Cr may be around 1.2 IVF hydration as above Monitor I/Os and renal function Avoid nephrotoxins and further IV contrast if able Renal and bladder ultrasound as above Improved from admission Consider nephrology consult if this does not further improve given her significant proteinuria as well (6) Diabetes mellitus ICD Codes: E11.9 - Type 2 diabetes mellitus without complications Status: Chronic Plan: Hold home insulin glargine. She reported taking no short acting insulin at home for months only long acting HbA1c is 12.5 Increase levemir to 15 units bid, will adjust as needed. Accuchecks ACHS Low-dose ISS Bedside glucoses over past 24 hours ranging 145-170 (7) Hypertension ICD Codes: I10 - Essential (primary) hypertension Status: Chronic Plan: Continue to monitor vitals q4h (8) Hyperlipidemia ICD Codes: E78.5 - Hyperlipidemia, unspecified Status: Chronic Plan: Hold home simvastatin (9) Elevated liver enzymes ICD Codes: R74.8 - Abnormal levels of other serum enzymes Status: Chronic Plan: AST 89, ALT 59 on admission, upon chart review this is been a chronic problem for her since 09/2016 Abdomen/pelvis CT per radiology read noting liver with homogeneous density without lesions Continue to trend likely due to fatty liver from morbid obesity (10) Elevated lipase ICD Codes: R74.8 - Abnormal levels of other serum enzymes Status: Acute Plan: Lipase 495 on admission May be elevated due to renal failure, pancreatitis although low suspicion at this time Pancreas noted on ct abd/pelvis to be within normal limits Continue to monitor abdominal exam (11) Candidal intertrigo ICD Codes: B37.2 - Candidiasis of skin and nail Status: Acute Plan: Apply clotrimazole 1% cream topically to affected areas twice daily Consider addition of low-potency topical steroid for symptomatic relief Add a topical drying agent as a preventive measure after treatment (12) Nutrition, metabolism, and development symptoms ICD Codes: R63.8 - Other symptoms and signs concerning food and fluid intake Status: Acute Plan: Fluids: NS at 185 cc/hr Electrolytes: continue to monitor Nutrition: 1800 ADA GI ppx: Protonix 40 mg po daily DVT ppx: Heparin 5,000 units sq q12h Depression: continue home zoloft (Kia Manzanares MD R1) Problem Qualifiers (1) Diabetes mellitus: Qualified Codes: E11.42 - Type 2 diabetes mellitus with diabetic polyneuropathy ; Z79.4 - long term care administrator (current) use of insulin (2) Hypertension: Qualified Codes: I10 - Essential (primary) hypertension (3) Hyperlipidemia: Qualified Codes: E78.00 - Pure hypercholesterolemia, unspecified Kia Manzanares MD R1 May 25, 2017 10:29 Palak Jefferson MD May 26, 2017 16:30
[2017-05-25 12:40] LABS: ALBUMIN 2.9 GM/DL (3.4-5.0); ALKALINE PHOSPHATASE 66 U/L (45-117); AST (GOT) 102 U/L (15-37); BICARBONATE 17.4 MEQ/L (21.0-32.0); CALCIUM 8.5 MG/DL (8.5-10.1); CHLORIDE 106 MEQ/L (98-107); CREATININE 1.68 MG/DL (0.50-1.00); GLOMERULAR FILTRATION RATE 31 ML/MIN (>89); GLUCOSE,RANDOM 219 MG/DL (74-106); SODIUM (NA) 136 MEQ/L (136-145); TOTAL BILIRUBIN ADULT 0.4 MG/DL (0.2-1.0); TOTAL PROTEIN 6.5 GM/DL (6.4-8.2)
[2017-05-25 12:43] LABS: BLOOD UREA NITROGEN 14 MG/DL (7-18)
[2017-05-25 13:25] LABS: ALT (GPT) 60 U/L (10-53)
[2017-05-25 15:57] LABS: FOLATE 8.5 NG/ML (3.1-17.5); FREE T3 LESS THAN 0.50 PG/ML (2.18-3.98); FREE T4 0.17 NG/DL (0.76-1.46)
[2017-05-25] MEDS ORDERED: LEVOTHYROXINE SODIUM 100 MCG VIAL IV PUSH ONE (17:00)
--- NOTE | 2017-05-25 17:27 | RADRPT ---
EXAM DATE/TIME: 05/25/2017 16:28 [facility] COMPARISON: No previous studies available for comparison. INDICATIONS : Elevated labs. MEDICAL HISTORY : Hypercholesterolemia. Hypertension. Gastroesophageal reflux disease. Seizures. PR. Asthma. Arthritis. Heartburn. Thyroid disease. SURGICAL HISTORY : Tonsillectomy. Cholecystectomy. section. Adenoidectomy. Cardiac cath stents. Double bypass. ENCOUNTER: Initial ACUITY: 1 day PAIN SCORE: 0/10 LOCATION: Abdomen. MEASUREMENTS: LIVER: 19.1 cm length COMMON DUCT: 7 mm RIGHT KIDNEY: 12.1 x 4.6 x 5.1 cm SPLEEN: 11.3 cm length FINDINGS: LIVER: Liver is mildly enlarged but otherwise demonstrates a normal echotexture without focal lesion or duct al dilatation. COMMON DUCT: No intraluminal mass or stone visualized. Normal in diameter post cholecystectomy. GALLBLADDER: Status post cholecystectomy. PANCREAS: The visualized portions are within normal limits. RIGHT KIDNEY: No hydronephrosis, stone or mass. SPLEEN: No focal lesion. Focal calcification is noted. CONCLUSION: 1. Mild hepatomegaly. 2. Status post cholecystectomy. 3. No evidence of acute process or biliary obstructive disease. 4. Calcified granuloma in the spleen. Valerio Salcedo MD on May 25, 2017 at 17:22 Board Certified Radiologist. This report was verified electronically.
[2017-05-25] MEDS: ASPIRIN EC 81 MG TABEC PO SCH (20:57)
[2017-05-25] MEDS: CLOPIDOGREL 75 MG TAB PO SCH (20:57)
[2017-05-25] MEDS: CHOLECALCIFEROL (VIT D3) 400 UNIT TAB PO SCH (20:59)
[2017-05-26] VITALS (9 sets, daily range): BP systolic 109–134; BP diastolic 55–68; PULSE 54–92; RESP 18–20; TEMP 97.2–97.7; O2SAT 91–96
[2017-05-26] MEDS: ACETAMINOPHEN/HYDROcodone 325 MG/10 MG TAB PO PRN ×2 (01:23→23:09)
[2017-05-26] MEDS: HEPARIN SODIUM - SQ 10,000 UNITS/ML VIAL SQ SCH ×3 (01:23→17:46)
[2017-05-26] MEDS: SODIUM CHLOR 0.9% 1000 ML INJ 1,000 ML IV SCH ×2 (04:10→09:42)
[2017-05-26] MEDS: LEVOTHYROXINE SODIUM 100 MCG VIAL IV PUSH SCH (05:57)
[2017-05-26] MEDS: SODIUM CHLORIDE 0.9% FLUSH 10 ML FLUSH IV FLUSH SCH ×2 (09:00→20:39)
[2017-05-26] MEDS: ATENOLOL 25 MG TAB PO SCH ×2 (09:00→20:39)
[2017-05-26] MEDS: INSULIN ASPART SUPPLEMENTAL SCALE SQ SCH ×4 (09:25→20:40)
[2017-05-26] MEDS: INSULIN DETEMIR 100 UNITS/ML VIAL SQ SCH ×2 (09:25→20:40)
[2017-05-26] MEDS: CALCIUM CARBONATE 500 MG CHEWABLE TAB PO SCH ×2 (09:26→20:39)
[2017-05-26] MEDS: busPIRone HCL 5 MG TAB PO SCH ×3 (09:27→17:46)
[2017-05-26] MEDS: DOCUSATE SODIUM 50 MG/SENNA 8.6 MG TAB PO SCH ×2 (09:28→20:39)
[2017-05-26] MEDS: ACETAMINOPHEN/HYDROcodone 325 MG/5 MG TAB PO PRN ×3 (09:28→17:44)
[2017-05-26] MEDS: SERTRALINE HCL 50 MG TAB PO SCH ×2 (09:28→20:38)
[2017-05-26] MEDS: PANTOPRAZOLE SOD 40 MG DELAYED RELEASE TAB PO SCH (09:28)
[2017-05-26] MEDS: FERROUS SULFATE 325 MG (65 MG ELEMENTAL IRON) TAB PO SCH ×2 (09:28→20:39)
[2017-05-26] MEDS: CLOTRIMAZOLE 1% CREAM 15 GM TOPICAL SCH ×2 (09:42→20:40)
--- NOTE | 2017-05-26 14:56 | HHI.FPPN ---
Subjective Remarks Patient seen and examined this morning. He states that she is still having difficulties with getting up to urinate in time. She states that she usually tries to call for her first when she feels the urge to urinate but is not able to make it to the bedside commode. She has been having back pain while laying in bed. 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 Her goal for today is to sit in the chair. No fevers or chills, no chest pain, no shortness of breath, no abdominal pain, no nausea or vomiting. She is still experiencing constipation. (Kia Manzanares MD R1) Objective Vitals Vital Signs Date Time Temp Pulse Resp B/P (MAP) Pulse Ox O2 Delivery O2 Flow Rate FiO2 05/26/17 12:00 97.5 54 18 120/58 (78) 92 05/26/17 08:00 Nasal Cannula 2.00 05/26/17 07:59 92 05/26/17 07:45 97.5 54 18 128/62 (84) 96 05/26/17 04:50 97.4 54 18 122/58 (79) 95 05/26/17 04:05 56 05/26/17 04:00 Nasal Cannula 2.00 05/26/17 02:46 18 05/26/17 00:05 60 05/26/17 00:00 Nasal Cannula 2.00 05/25/17 23:20 97.5 58 18 136/63 (87) 93 05/25/17 20:17 97.6 55 18 90/50 (63) 92 05/25/17 20:09 56 05/25/17 16:00 97.5 53 20 141/63 (89) 96 05/25/17 15:48 53 05/25/17 15:45 96 Nasal Cannula 2.00 I/O 05/25/17 05/25/17 05/25/17 05/26/17 05/26/17 05/26/17 07:00 15:00 23:00 07:00 15:00 23:00 Intake Total 690 ml 1000 ml 1000 ml 2240 ml 1400 ml Output Total 700 ml Balance 690 ml 1000 ml 1000 ml 1540 ml 1400 ml Intake Oral 690 ml 240 ml IV Total 1000 ml 1000 ml 2000 ml 1400 ml Output Urine Total 700 ml Bladder Scan Volume Amount 382 ml # Voids 6 1 # Bowel Movements 0 (Kia Manzanares MD R1) Result Diagram: 05/24/17 0425 05/25/17 1146 Imaging Last Impressions Hip X-Ray 05/26/17 0000 Signed Impressions: Service Date/Time: Friday, May 26, 2017 15:13 - CONCLUSION: Degenerative changes, no fracture Jermaine Gutierres MD FACR Liver Ultrasound 05/25/17 0000 Signed Impressions: Service Date/Time: May 16:28 - CONCLUSION: 1. Mild hepatomegaly. 2. Status post cholecystectomy. 3. No evidence of acute process or biliary obstructive disease. 4. Calcified granuloma in the spleen. Valerio Salcedo MD Lumbar Spine CT 05/22/17 0000 Signed Impressions: Service Date/Time: Sunday, May 21, 2017 14:36 - CONCLUSION: 1. Moderate stenosis at the L4-L5 level caused by combination of anterior subluxation/spondylolisthesis, disc bulge, and severe facet hypertrophy. 2. Moderate stenosis at the T11-T12 level by a central disc protrusion with osteophytes. 3. Moderate disc bulge and mild stenosis at the L5-S1 level. 4. Minimal bulging at the L1-L2 and L2-L3 levels. 1. Gurvinder Steinberg MD Chest X-Ray 05/21/17 1345 Signed Impressions: Service Date/Time: Sunday, May 21, 2017 13:57 - CONCLUSION: No acute disease. Gurvinder Frazier MD Abdomen/Pelvis CT 05/21/17 1345 Signed Impressions: Service Date/Time: Sunday, May 21, 2017 14:36 - CONCLUSION: No acute CT findings in the abdomen or pelvis. Gurvinder Frazier MD Renal Ultrasound 05/21/17 0000 Signed Impressions: Service Date/Time: Sunday, May 21, 2017 18:12 - CONCLUSION: No acute disease. Gurvinder Steinberg MD Objective Remarks GENERAL: Well-nourished, morbidly obese white female patient, laying in bed, NAD. SKIN: Warm and dry/flaky. HEAD: Normocephalic. Atraumatic. EYES: EOMI. No scleral icterus. No injection or drainage. NECK: Supple, trachea midline. No JVD or lymphadenopathy. CARDIOVASCULAR: Heart sounds distant. Regular rate and rhythm without murmurs, gallops, or rubs. RESPIRATORY: Breath sounds equal bilaterally and clear. No accessory muscle use. GASTROINTESTINAL: Abdomen soft, obese, nondistended. Suprapubic tenderness EXTREMITIES: No cyanosis. Trace lower extremity edema bilaterally. NEUROLOGICAL: Awake, alert, and oriented x 3. Non-focal. (Kia Manzanares MD R1) A/P Assessment and Plan 56 year old female admitted due to urinary incontinence, frequent falls at home , significant physical deconditioning, acute kidney injury, dehydration, and significantly elevated TSH with many of her recent medical problems likely related to her severe and uncontrolled hypothyroidism. Discharge Planning Patient is self pay Lives alone Patient needs SNF level of care Patient plans to move to [place] next weekend and would be able to get help with transportation up there from her son and daughter in law (Kia Manzanares MD R1) Attending Attestation Patient seen and examined. Case reviewed and discussed Agree with plan of care as discussed with me and documented in the resident note. (Palak Jefferson MD) Problem List: (1) Severe hypothyroidism ICD Codes: E03.8 - Other specified hypothyroidism Status: Acute Plan: TSH on admission greater than 100, Both free T4 and T3 are low on 05/25 Patient has not been taking her levothyroxine T4 supplementation over the past several months due to being out of this medication Patient does not appear to have myxedema coma at this time -Given levothyroxine 400 mcg in the ED -Started on levothyroxine 25mcg then titrated up to 50mcg on 05/24 -Will start levothyroxine 100mcg IV once on 05/25, then 50mcg IV qD -Recheck TSH in the morning (2) Elevated CK ICD Codes: R74.8 - Abnormal levels of other serum enzymes Status: Acute Plan: CK on admission found to be 902, may be contributed by myopathy due to hypothyroidism or due to dehydration Continue NS at 185 cc/hr Monitor I/Os and renal function (3) Urinary incontinence in female ICD Codes: R32 - Unspecified urinary incontinence Status: Acute Plan: Abdomen/pelvis CT without any acute findings Consider etiology due to detrusor overactivity causing urgency incontinence, UTI , NPH, medication adverse effect, constipation Vaginal atrophy and the inability to get up and go to the bathroom quickly may be contributing to her incontinence Renal and bladder ultrasound on 05/22 showed no acute disease Could not obtain an MRI of the lumbar spine due to patient's claustrophobia and refusal, therefore lumbar CT without contrast (due to SHARA) was obtained. Findings detailed above in imaging section. Patient has disc herniation and spinal stenosis at multiple levels. These findings plus incontinence could point to a possible conus medullaris versus cauda equina syndromes. However, the patient has many other factors that could be causing incontinence. -Bladder scan on 05/25 showed post void residual of 12ml. WNL -Advised patient to routinely urinate/empty her bladder when she receives her pain medications about every 4 hours (4) Weakness ICD Codes: R53.1 - Weakness Status: Acute Plan: The patient may have significant myopathy due to her severe hypothyroidism causing her weakness Consult PT for activity -Upon assessment stated that falls likely due to a combination of weakness, but also poor lower extremity sensation. -Will need to use a wheeled walker for safe ambulation -Recommends PT at rehab -7 days a week Patient will need rehab or SNF placement on discharge once medically stable. This might prove to be difficult due to her self-pay status. (5) Acute kidney injury ICD Codes: N17.9 - Acute kidney failure, unspecified Status: Resolved Plan: Likely prerenal due to intravascular volume depletion from dehydration Baseline Cr may be around 1.2 IVF hydration as above Monitor I/Os and renal function Avoid nephrotoxins and further IV contrast if able Renal and bladder ultrasound as above Improved from admission Consider nephrology consult if this does not further improve given her significant proteinuria as well (6) Diabetes mellitus ICD Codes: E11.9 - Type 2 diabetes mellitus without complications Status: Chronic Plan: Hold home insulin glargine. She reported taking no short acting insulin at home for months only long acting HbA1c is 12.5 Increase levemir to 15 units bid, will adjust as needed. Accuchecks ACHS Low-dose ISS Bedside glucoses over past 24 hours ranging 145-170 (7) Hypertension ICD Codes: I10 - Essential (primary) hypertension Status: Chronic Plan: Continue to monitor vitals q4h (8) Hyperlipidemia ICD Codes: E78.5 - Hyperlipidemia, unspecified Status: Chronic Plan: Hold home simvastatin (9) Elevated liver enzymes ICD Codes: R74.8 - Abnormal levels of other serum enzymes Status: Chronic Plan: AST 89, ALT 59 on admission, upon chart review this is been a chronic problem for her since 09/2016 Abdomen/pelvis CT per radiology read noting liver with homogeneous density without lesions Continue to trend likely due to fatty liver from morbid obesity (10) Elevated lipase ICD Codes: R74.8 - Abnormal levels of other serum enzymes Status: Resolved Plan: Lipase 495 on admission May be elevated due to renal failure, pancreatitis although low suspicion at this time Pancreas noted on ct abd/pelvis to be within normal limits Continue to monitor abdominal exam (11) Candidal intertrigo ICD Codes: B37.2 - Candidiasis of skin and nail Status: Acute Plan: Apply clotrimazole 1% cream topically to affected areas twice daily Consider addition of low-potency topical steroid for symptomatic relief Add a topical drying agent as a preventive measure after treatment (12) Nutrition, metabolism, and development symptoms ICD Codes: R63.8 - Other symptoms and signs concerning food and fluid intake Status: Acute Plan: Fluids: NS at 185 cc/hr Electrolytes: continue to monitor Nutrition: 1800 ADA GI ppx: Protonix 40 mg po daily DVT ppx: Heparin 5,000 units sq q12h Depression: continue home zoloft (Kia Manzanares MD R1) Problem Qualifiers (1) Diabetes mellitus: Qualified Codes: E11.42 - Type 2 diabetes mellitus with diabetic polyneuropathy ; Z79.4 - alf (current) use of insulin (2) Hypertension: Qualified Codes: I10 - Essential (primary) hypertension (3) Hyperlipidemia: Qualified Codes: E78.00 - Pure hypercholesterolemia, unspecified Kia Manzanares MD R1 May 26, 2017 14:56 Palak Jefferson MD May 29, 2017 08:54
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
[2017-05-26 17:31] LABS: ALBUMIN 2.8 GM/DL (3.4-5.0); ALT (GPT) 57 U/L (10-53); AST (GOT) 73 U/L (15-37); BICARBONATE 18.9 MEQ/L (21.0-32.0); BLOOD UREA NITROGEN 11 MG/DL (7-18); CALCIUM 8.4 MG/DL (8.5-10.1); CHLORIDE 109 MEQ/L (98-107); CREATININE 1.51 MG/DL (0.50-1.00); GLOMERULAR FILTRATION RATE 36 ML/MIN (>89); GLUCOSE,RANDOM 228 MG/DL (74-106); SODIUM (NA) 138 MEQ/L (136-145)
[2017-05-26 17:38] LABS: ALKALINE PHOSPHATASE 65 U/L (45-117); TOTAL BILIRUBIN ADULT 0.4 MG/DL (0.2-1.0); TOTAL PROTEIN 6.4 GM/DL (6.4-8.2)
[2017-05-26] MEDS: CLOPIDOGREL 75 MG TAB PO SCH (20:38)
[2017-05-26] MEDS: CHOLECALCIFEROL (VIT D3) 400 UNIT TAB PO SCH (20:38)
[2017-05-26] MEDS: ASPIRIN EC 81 MG TABEC PO SCH (20:39)
[2017-05-27] MEDS: HEPARIN SODIUM - SQ 10,000 UNITS/ML VIAL SQ SCH ×3 (01:16→18:49)
[2017-05-27 03:50] VITALS: BP 136/81; PULSE 60; RESP 20; TEMP 97.5; O2SAT 94
[2017-05-27] MEDS: LEVOTHYROXINE SODIUM 100 MCG VIAL IV PUSH SCH (05:46)
[2017-05-27 08:00] VITALS: BP 133/69; PULSE 62; RESP 18; TEMP 97.4; O2SAT 92
[2017-05-27] MEDS: SODIUM CHLORIDE 0.9% FLUSH 10 ML FLUSH IV FLUSH SCH ×2 (09:00→20:37)
[2017-05-27] MEDS: CLOTRIMAZOLE 1% CREAM 15 GM TOPICAL SCH ×2 (09:00→20:37)
[2017-05-27] MEDS: INSULIN DETEMIR 100 UNITS/ML VIAL SQ SCH ×2 (09:00→20:36)
[2017-05-27] MEDS: ATENOLOL 25 MG TAB PO SCH ×2 (09:00→20:35)
[2017-05-27] MEDS: INSULIN ASPART SUPPLEMENTAL SCALE SQ SCH ×4 (09:00→20:36)
[2017-05-27] MEDS: busPIRone HCL 5 MG TAB PO SCH ×3 (09:01→18:00)
[2017-05-27] MEDS: FERROUS SULFATE 325 MG (65 MG ELEMENTAL IRON) TAB PO SCH ×2 (09:01→20:36)
[2017-05-27] MEDS: CALCIUM CARBONATE 500 MG CHEWABLE TAB PO SCH ×2 (09:01→20:36)
[2017-05-27] MEDS: SERTRALINE HCL 50 MG TAB PO SCH ×2 (09:01→20:36)
[2017-05-27] MEDS: PANTOPRAZOLE SOD 40 MG DELAYED RELEASE TAB PO SCH (09:01)
[2017-05-27] MEDS: DOCUSATE SODIUM 50 MG/SENNA 8.6 MG TAB PO SCH ×2 (09:02→20:36)
[2017-05-27 09:43] LABS: BASOPHIL # 0.1 TH/MM3 (0-0.2); BASOPHIL % 1.1 % (0.0-2.0); EOSINOPHIL # 0.4 TH/MM3 (0-0.4); EOSINOPHIL % 5.2 % (0.0-4.0); HEMATOCRIT 43.7 % (35.0-46.0); HEMOGLOBIN 15.2 GM/DL (11.6-15.3); LYMPHOCYTE # 1.5 TH/MM3 (1.0-4.8); MEAN CELL VOLUME 99.4 FL (80.0-100.0); MEAN CORPUSCULAR HEMOGLOBIN 34.6 PG (27.0-34.0); MEAN CORPUSCULAR HGB CONC 34.8 % (32.0-36.0); MEAN PLATELET VOLUME 7.9 FL (7.0-11.0); MONO % 5.1 % (0.0-8.0); MONOCYTE # 0.4 TH/MM3 (0-0.9); NEUT % 68.6 % (16.0-70.0); PLATELET COUNT 214 TH/MM3 (150-450); RED BLOOD COUNT 4.39 MIL/MM3 (4.00-5.30); RED CELL DISTRIBUTION WIDTH 13.2 % (11.6-17.2); WHITE BLOOD COUNT 7.3 TH/MM3 (4.0-11.0)
[2017-05-27 10:40] LABS: ALBUMIN 3.4 GM/DL (3.4-5.0); ALKALINE PHOSPHATASE 73 U/L (45-117); ALT (GPT) 59 U/L (10-53); AST (GOT) 62 U/L (15-37); BICARBONATE 18.9 MEQ/L (21.0-32.0); BLOOD UREA NITROGEN 11 MG/DL (7-18); CALCIUM 9.5 MG/DL (8.5-10.1); CHLORIDE 105 MEQ/L (98-107); CREATININE 1.39 MG/DL (0.50-1.00); GLOMERULAR FILTRATION RATE 39 ML/MIN (>89); GLUCOSE,RANDOM 181 MG/DL (74-106); SODIUM (NA) 137 MEQ/L (136-145); TOTAL BILIRUBIN ADULT 0.4 MG/DL (0.2-1.0); TOTAL PROTEIN 7.4 GM/DL (6.4-8.2)
--- NOTE | 2017-05-27 11:10 | HHI.FPPN ---
Subjective Remarks Patient seen and examined this morning. She states that she has been up to the chair twice since this morning. She is unable to tolerate it due to back pain. She has also been on the commode regularly to urinate. Still no bowel movement as of yet. Documentation noted that she had 2 bowel movements yesterday, but she stated that she did not, she just felt like she had to go. No fevers or chills, no chest pain, had some shortness of breath last night when laying on her side, but with adjustment in positioning she was able to do better with her breathing. No abdominal pain, no nausea or vomiting. (Kia Manzanares MD R1) Objective Vitals Vital Signs Date Time Temp Pulse Resp B/P (MAP) Pulse Ox O2 Delivery O2 Flow Rate FiO2 05/27/17 08:00 97.4 62 18 133/69 (90) 92 05/27/17 07:00 Room Air 05/27/17 04:00 Nasal Cannula 2.00 05/27/17 03:50 97.5 60 20 136/81 (99) 94 05/27/17 01:16 18 05/27/17 00:00 Nasal Cannula 2.00 05/26/17 23:30 97.6 61 20 114/55 (74) 91 05/26/17 20:40 Room Air 05/26/17 19:55 97.2 58 20 109/57 (74) 93 05/26/17 16:00 97.7 56 18 134/68 (90) 95 05/26/17 12:00 97.5 54 18 120/58 (78) 92 I/O 05/26/17 05/26/17 05/26/17 05/27/17 05/27/17 05/27/17 07:00 15:00 23:00 07:00 15:00 23:00 Intake Total 2240 ml 1400 ml 480 ml 240 ml Output Total 700 ml 1300 ml Balance 1540 ml 1400 ml -820 ml 240 ml Intake Oral 240 ml 480 ml 240 ml IV Total 2000 ml 1400 ml Output Urine Total 700 ml 1300 ml # Voids 1 4 4 # Bowel Movements 0 2 0 (Kia Manzanares MD R1) Result Diagram: 05/27/17 0915 05/27/17 0915 Imaging Last Impressions Hip X-Ray 05/26/17 0000 Signed Impressions: Service Date/Time: Friday, May 26, 2017 15:13 - CONCLUSION: Degenerative changes, no fracture Jermaine Gutierres MD FACR Liver Ultrasound 05/25/17 0000 Signed Impressions: Service Date/Time: May 16:28 - CONCLUSION: 1. Mild hepatomegaly. 2. Status post cholecystectomy. 3. No evidence of acute process or biliary obstructive disease. 4. Calcified granuloma in the spleen. Valerio Salcedo MD Lumbar Spine CT 05/22/17 0000 Signed Impressions: Service Date/Time: Sunday, May 21, 2017 14:36 - CONCLUSION: 1. Moderate stenosis at the L4-L5 level caused by combination of anterior subluxation/spondylolisthesis, disc bulge, and severe facet hypertrophy. 2. Moderate stenosis at the T11-T12 level by a central disc protrusion with osteophytes. 3. Moderate disc bulge and mild stenosis at the L5-S1 level. 4. Minimal bulging at the L1-L2 and L2-L3 levels. 1. Gurvinder Steinberg MD Chest X-Ray 05/21/17 1345 Signed Impressions: Service Date/Time: Sunday, May 21, 2017 13:57 - CONCLUSION: No acute disease. Gurvinder Frazier MD Abdomen/Pelvis CT 05/21/17 1345 Signed Impressions: Service Date/Time: Sunday, May 21, 2017 14:36 - CONCLUSION: No acute CT findings in the abdomen or pelvis. Gurvinder Frazier MD Renal Ultrasound 05/21/17 0000 Signed Impressions: Service Date/Time: Sunday, May 21, 2017 18:12 - CONCLUSION: No acute disease. Gurvinder Steinberg MD Objective Remarks GENERAL: Well-nourished, morbidly obese white female patient, sitting in chair, NAD. SKIN: Warm and dry/flaky. HEAD: Normocephalic. Atraumatic. EYES: EOMI. No scleral icterus. No injection or drainage. NECK: Supple, trachea midline. No JVD or lymphadenopathy. CARDIOVASCULAR: Heart sounds distant. Regular rate and rhythm without murmurs, gallops, or rubs. RESPIRATORY: Breath sounds equal bilaterally and clear. No accessory muscle use. GASTROINTESTINAL: Abdomen soft, obese, nondistended. Nontender. EXTREMITIES: No cyanosis. Trace lower extremity edema bilaterally. NEUROLOGICAL: Awake, alert, and oriented x 3. Non-focal. (Kia Manzanares MD R1) A/P Assessment and Plan 56 year old female admitted due to urinary incontinence, frequent falls at home , significant physical deconditioning, acute kidney injury, dehydration, and significantly elevated TSH with many of her recent medical problems likely related to her severe and uncontrolled hypothyroidism. Discharge Planning Patient is self pay Lives alone Patient needs [facility] level of care Patient plans to move to [place] on 06/03 and would be able to get help with transportation up there from her son and daughter in law (Kia Manzanares MD R1) Attending Attestation Patient seen and examined. Case reviewed and discussed Agree with plan of care as discussed with me and documented in the resident note. (Palak Jefferson MD) Problem List: (1) Severe hypothyroidism ICD Codes: E03.8 - Other specified hypothyroidism Status: Acute Plan: TSH on admission greater than 100, Both free T4 and T3 are low on 05/25 Patient has not been taking her levothyroxine T4 supplementation over the past several months due to being out of this medication Patient does not appear to have myxedema coma at this time -Given levothyroxine 400 mcg in the ED -Started on levothyroxine 25mcg then titrated up to 50mcg on 05/24 -Will start levothyroxine 100mcg IV once on 05/25, then 50mcg IV qD (stopped on ) -Given 50mcg IV this morning and will give another 50mcg po today for a total of 100 mcg, will start 100 mcg po qD starting tomorrow -TSH recheck on 05/27 was shown as greater than 100, will recheck in a few days to see if value is detectable. (2) Elevated CK ICD Codes: R74.8 - Abnormal levels of other serum enzymes Status: Acute Plan: CK on admission found to be 902, may be contributed by myopathy due to severe hypothyroidism Continue NS at 185 cc/hr Monitor I/Os and renal function CK is decreasing, 659 on 05/27 (3) Urinary incontinence in female ICD Codes: R32 - Unspecified urinary incontinence Status: Acute Plan: Abdomen/pelvis CT without any acute findings Consider etiology due to detrusor overactivity causing urgency incontinence, UTI , NPH, medication adverse effect, constipation Vaginal atrophy and the inability to get up and go to the bathroom quickly may be contributing to her incontinence Renal and bladder ultrasound on 05/22 showed no acute disease Could not obtain an MRI of the lumbar spine due to patient's claustrophobia and refusal, therefore lumbar CT without contrast (due to SHARA) was obtained. Findings detailed above in imaging section. Patient has disc herniation and spinal stenosis at multiple levels. These findings plus incontinence could point to a possible conus medullaris versus cauda equina syndromes. However, the patient has many other factors that could be causing incontinence. -Bladder scan on 05/25 showed post void residual of 12ml. WNL -Advised patient to routinely urinate/empty her bladder when she receives her pain medications about every 4 hours (4) Weakness ICD Codes: R53.1 - Weakness Status: Acute Plan: The patient may have significant myopathy due to her severe hypothyroidism causing her weakness Consult PT for activity -Upon assessment stated that falls likely due to a combination of weakness, but also poor lower extremity sensation. -Will need to use a bariatric wheeled walker for safe ambulation -Recommends PT at rehab -7 days a week Patient will need rehab or SNF placement on discharge once medically stable. This might prove to be difficult due to her self-pay status. Son is due on 06/03 to pick her up and move to [place] to live with him. This is a viable option at this moment due to her likely being unsafe to return home with her multiple fall hx. (5) Acute kidney injury ICD Codes: N17.9 - Acute kidney failure, unspecified Status: Resolved Plan: Likely prerenal due to intravascular volume depletion from dehydration Baseline Cr may be around 1.2 IVF hydration as above Monitor I/Os and renal function Avoid nephrotoxins and further IV contrast if able Renal and bladder ultrasound as above Improved from admission Consider nephrology consult if this does not further improve given her significant proteinuria as well (6) Diabetes mellitus ICD Codes: E11.9 - Type 2 diabetes mellitus without complications Status: Chronic Plan: Hold home insulin glargine. She reported taking no short acting insulin at home for months only long acting HbA1c is 12.5 Increase levemir to 15 units bid, will adjust as needed. Accuchecks ACHS Low-dose ISS Bedside glucoses over past 24 hours ranging 145-170 (7) Hypertension ICD Codes: I10 - Essential (primary) hypertension Status: Chronic Plan: Continue to monitor vitals q4h (8) Hyperlipidemia ICD Codes: E78.5 - Hyperlipidemia, unspecified Status: Chronic Plan: Hold home simvastatin (9) Elevated liver enzymes ICD Codes: R74.8 - Abnormal levels of other serum enzymes Status: Chronic Plan: AST 89, ALT 59 on admission Upon chart review, this is been a chronic problem for her since 09/2016 Abdomen/pelvis CT per radiology read noting liver with homogeneous density without lesions Likely due to fatty liver from morbid obesity. Counseled patient on prognosis of this disease. -Hepatitis panel is negative (10) Candidal intertrigo ICD Codes: B37.2 - Candidiasis of skin and nail Status: Acute Plan: Apply clotrimazole 1% cream topically to affected areas twice daily Consider addition of low-potency topical steroid for symptomatic relief Add a topical drying agent as a preventive measure after treatment (11) Elevated lipase ICD Codes: R74.8 - Abnormal levels of other serum enzymes Status: Resolved Plan: Lipase 495 on admission May be elevated due to renal failure, pancreatitis although low suspicion at this time Pancreas noted on ct abd/pelvis to be within normal limits Continue to monitor abdominal exam Has resolved on 05/26 (12) Nutrition, metabolism, and development symptoms ICD Codes: R63.8 - Other symptoms and signs concerning food and fluid intake Status: Acute Plan: Fluids: tolerating po Electrolytes: continue to monitor Nutrition: 1800 ADA GI ppx: Protonix 40 mg po daily DVT ppx: Heparin 5,000 units sq q12h Depression: continue home zoloft (Kia Manzanares MD R1) Problem Qualifiers (1) Diabetes mellitus: Qualified Codes: E11.42 - Type 2 diabetes mellitus with diabetic polyneuropathy ; Z79.4 - residential (current) use of insulin (2) Hypertension: Qualified Codes: I10 - Essential (primary) hypertension (3) Hyperlipidemia: Qualified Codes: E78.00 - Pure hypercholesterolemia, unspecified Kia Manzanares MD R1 May 27, 2017 11:10 Palak Jefferson MD May 29, 2017 08:52
[2017-05-27 12:00] VITALS: BP 128/59; PULSE 60; RESP 20; TEMP 97.5; O2SAT 95
[2017-05-27] MEDS ORDERED: LEVOTHYROXINE SODIUM 50 MCG TAB PO ONE (12:15)
[2017-05-27] MEDS: LACTULOSE SYRUP 20 GM/30 ML CUP PO PRN ×2 (12:47→20:35)
[2017-05-27 16:00] VITALS: BP 135/68; PULSE 59; RESP 20; TEMP 98.5; O2SAT 91
[2017-05-27 20:00] VITALS: BP 129/63; PULSE 67; RESP 19; TEMP 97.4; O2SAT 92
[2017-05-27 20:35] VITALS: O2SAT 93
[2017-05-27] MEDS: CLOPIDOGREL 75 MG TAB PO SCH (20:35)
[2017-05-27] MEDS: ASPIRIN EC 81 MG TABEC PO SCH (20:35)
[2017-05-27] MEDS: CHOLECALCIFEROL (VIT D3) 400 UNIT TAB PO SCH (22:00)
[2017-05-28] VITALS: BP 142/65; PULSE 58; RESP 19; TEMP 97.6; O2SAT 93
[2017-05-28] MEDS: HEPARIN SODIUM - SQ 10,000 UNITS/ML VIAL SQ SCH ×3 (00:18→18:24)
[2017-05-28 04:00] VITALS: BP 117/59; PULSE 58; RESP 19; TEMP 97.4; O2SAT 91
[2017-05-28] MEDS ORDERED: LEVOTHYROXINE SODIUM 75 MCG TAB PO SCH (06:00)
[2017-05-28] MEDS ORDERED: LEVOTHYROXINE SODIUM 100 MCG TAB PO SCH (06:00)
--- NOTE | 2017-05-28 07:36 | HHI.FPPN ---
Subjective Remarks No acute events overnight. Afebrile. BPs ranging 110s-140s/50s-60s. 1800 cc UOP noted. Patient has complaints of constipation this morning. She reports having 2 BMs yesterday however these were very small and described as pebble-like. She endorses abdominal cramping pain. She specifically denies fevers, chest pain, dyspnea, cough. She states she feels stronger on her feet since admission and is able to ambulate within her room with assistance. She otherwise does not have specific complaints or concerns. (Eagle Hammond MD R2) Objective Vitals Vital Signs Date Time Temp Pulse Resp B/P (MAP) Pulse Ox O2 Delivery O2 Flow Rate FiO2 05/28/17 07:00 Room Air 05/28/17 04:00 97.4 58 19 117/59 (78) 91 05/28/17 00:00 97.6 58 19 142/65 (90) 93 05/27/17 20:35 93 21 05/27/17 20:00 Room Air 05/27/17 20:00 97.4 67 19 129/63 (85) 92 05/27/17 16:00 98.5 59 20 135/68 (90) 91 05/27/17 12:00 97.5 60 20 128/59 (82) 95 05/27/17 08:00 97.4 62 18 133/69 (90) 92 I/O 05/27/17 05/27/17 05/27/17 05/28/17 05/28/17 05/28/17 07:00 15:00 23:00 07:00 15:00 23:00 Intake Total 240 ml 840 ml 240 ml Output Total 1800 ml 2 ml Balance 240 ml -960 ml 238 ml Intake Oral 240 ml 840 ml 240 ml Output Urine Total 1800 ml Stool Total 2 ml # Voids 4 3 # Bowel Movements 0 0 (Eagle Hammond MD R2) Result Diagram: 05/27/1791405/27/17914 Objective Remarks GENERAL: Well-nourished, morbidly obese white female patient, sitting in chair, NAD. SKIN: Warm and dry/flaky. HEAD: Normocephalic. Atraumatic. EYES: EOMI. No scleral icterus. No injection or drainage. NECK: Supple, trachea midline. No JVD or lymphadenopathy. CARDIOVASCULAR: Heart sounds distant. Regular rate and rhythm without murmurs, gallops, or rubs. RESPIRATORY: Breath sounds equal bilaterally and clear. No accessory muscle use. GASTROINTESTINAL: Abdomen soft, obese, nondistended. Nontender. EXTREMITIES: No cyanosis. Trace lower extremity edema bilaterally. NEUROLOGICAL: Awake, alert, and oriented x 3. Non-focal. (Eagle Hammond MD R2) A/P Assessment and Plan 56 year old female admitted due to urinary incontinence, frequent falls at home , significant physical deconditioning, acute kidney injury, dehydration, and significantly elevated TSH with many of her recent medical problems likely related to her severe and uncontrolled hypothyroidism. Discharge Planning Patient is self pay Lives alone Patient needs [facility] level of care Patient plans to move to [place] on 06/03 and would be able to get help with transportation up there from her son and daughter in law (Eagle Hammond MD R2) Attending Attestation Patient seen and examined. Case reviewed and discussed Agree with plan of care as discussed with me and documented in the resident note. (Palak Jefferson MD) Problem List: (1) Severe hypothyroidism ICD Codes: E03.8 - Other specified hypothyroidism Status: Acute Plan: TSH on admission greater than 100, Both free T4 and T3 are low on 05/25 Patient has not been taking her levothyroxine T4 supplementation over the past several months due to being out of this medication Patient does not appear to have myxedema coma at this time -Given levothyroxine 400 mcg in the ED -Started on levothyroxine 25mcg then titrated up to 50mcg on 05/24 -Will start levothyroxine 100mcg IV once on 05/25, then 50mcg IV qD (stopped on ) -05/27: Given 50mcg IV in AM and another 50mcg po for a total of 100 mcg -05/28: Levothyroxine 100 mcg po daily -TSH recheck on 05/27 was shown as greater than 100, will recheck in a few days to see if value is detectable. -Increase to levothyroxine 125 mcg PO for 05/29 (2) Elevated CK ICD Codes: R74.8 - Abnormal levels of other serum enzymes Status: Acute Plan: CK on admission found to be 902, may be contributed by myopathy due to severe hypothyroidism Continue NS at 185 cc/hr Monitor I/Os and renal function CK continuing to decrease, 605 05/28 (3) Urinary incontinence in female ICD Codes: R32 - Unspecified urinary incontinence Status: Acute Plan: Abdomen/pelvis CT without any acute findings Consider etiology due to detrusor overactivity causing urgency incontinence, UTI , NPH, medication adverse effect, constipation Vaginal atrophy and the inability to get up and go to the bathroom quickly may be contributing to her incontinence Renal and bladder ultrasound on 05/22 showed no acute disease Could not obtain an MRI of the lumbar spine due to patient's claustrophobia and refusal, therefore lumbar CT without contrast (due to SHARA) was obtained. Findings detailed above in imaging section. Patient has disc herniation and spinal stenosis at multiple levels. These findings plus incontinence could point to a possible conus medullaris versus cauda equina syndromes. However, the patient has many other factors that could be causing incontinence. -Bladder scan on 05/25 showed post void residual of 12ml. WNL -Advised patient to routinely urinate/empty her bladder when she receives her pain medications about every 4 hours (4) Weakness ICD Codes: R53.1 - Weakness Status: Acute Plan: The patient may have significant myopathy due to her severe hypothyroidism causing her weakness Consult PT for activity -Upon assessment stated that falls likely due to a combination of weakness, but also poor lower extremity sensation. -Will need to use a bariatric wheeled walker for safe ambulation -Recommends PT at rehab -7 days a week Patient will need rehab or SNF placement on discharge once medically stable. This might prove to be difficult due to her self-pay status. Son is due on 06/03 to pick her up and move to [place] to live with him. This is a viable option at this moment due to her likely being unsafe to return home with her multiple fall hx. (5) Acute kidney injury ICD Codes: N17.9 - Acute kidney failure, unspecified Status: Resolved Plan: Likely prerenal due to intravascular volume depletion from dehydration New baseline Cr may be around 1.4 IVF hydration as above Monitor I/Os and renal function Avoid nephrotoxins and further IV contrast if able Renal and bladder ultrasound as above Improved from admission (6) Diabetes mellitus ICD Codes: E11.9 - Type 2 diabetes mellitus without complications Status: Chronic Plan: Hold home insulin glargine. She reported taking no short acting insulin at home for months only long acting HbA1c is 12.5 Increase levemir to 20 units bid, will adjust as needed. Accuchecks ACHS Low-dose ISS Bedside glucoses over past 24 hours ranging 186-239 (7) Hypertension ICD Codes: I10 - Essential (primary) hypertension Status: Chronic Plan: Continue to monitor vitals q4h (8) Chronic kidney disease ICD Codes: N18.9 - Chronic kidney disease, unspecified Status: Chronic Plan: Plan as above under SHARA (9) Hyperlipidemia ICD Codes: E78.5 - Hyperlipidemia, unspecified Status: Chronic Plan: Hold home simvastatin (10) Elevated liver enzymes ICD Codes: R74.8 - Abnormal levels of other serum enzymes Status: Chronic Plan: AST 89, ALT 59 on admission Upon chart review, this is been a chronic problem for her since 09/2016 Abdomen/pelvis CT per radiology read noting liver with homogeneous density without lesions Likely due to fatty liver from morbid obesity. Counseled patient on prognosis of this disease. The primary medical team has also discussed with the patient PALMER cirrhosis vs NAFL and the need for her to have continued follow up with a primary care physician as an outpatient for monitoring of her LFTs Hepatitis panel is negative Liver US showing mild hepatomegaly. S/p cholecystectomy. No evidence for an acute process. (11) Candidal intertrigo ICD Codes: B37.2 - Candidiasis of skin and nail Status: Acute Plan: Apply clotrimazole 1% cream topically to affected areas twice daily Consider addition of low-potency topical steroid for symptomatic relief Add a topical drying agent as a preventive measure after treatment (12) Elevated lipase ICD Codes: R74.8 - Abnormal levels of other serum enzymes Status: Resolved Plan: Lipase 495 on admission May be elevated due to renal failure, pancreatitis although low suspicion at this time Pancreas noted on ct abd/pelvis to be within normal limits Continue to monitor abdominal exam Has resolved on 05/26 (13) Constipation ICD Codes: K59.00 - Constipation, unspecified Status: Acute Plan: The patient is having constipation likely due to her severe hypothyroidism Will give Miralax 17gm x1 today as well as fleets enema Continue constipation protocol if needed Abdomen benign, patient having abdominal cramps Continue to monitor (14) Nutrition, metabolism, and development symptoms ICD Codes: R63.8 - Other symptoms and signs concerning food and fluid intake Status: Acute Plan: Fluids: tolerating po Electrolytes: continue to monitor Nutrition: 1800 ADA GI ppx: Protonix 40 mg po daily DVT ppx: Heparin 5,000 units sq q8h Depression: continue home zoloft (Eagle Hammond MD R2) Problem Qualifiers (1) Diabetes mellitus: Qualified Codes: E11.42 - Type 2 diabetes mellitus with diabetic polyneuropathy ; Z79.4 - meterman (current) use of insulin (2) Hypertension: Qualified Codes: I10 - Essential (primary) hypertension (3) Hyperlipidemia: Qualified Codes: E78.00 - Pure hypercholesterolemia, unspecified Eagle Hammond MD R2 May 28, 2017 07:36 Palak Jefferson MD May 29, 2017 08:51
[2017-05-28 08:00] VITALS: BP 130/62; PULSE 61; RESP 24; TEMP 97.7; O2SAT 93
[2017-05-28] MEDS: INSULIN ASPART SUPPLEMENTAL SCALE SQ SCH ×4 (08:00→20:58)
[2017-05-28] MEDS: CLOTRIMAZOLE 1% CREAM 15 GM TOPICAL SCH ×2 (09:00→20:59)
[2017-05-28] MEDS: INSULIN DETEMIR 100 UNITS/ML VIAL SQ SCH ×2 (09:00→20:58)
[2017-05-28 09:16] LABS: HEMATOCRIT 39.1 % (35.0-46.0); HEMOGLOBIN 13.6 GM/DL (11.6-15.3); MEAN CORPUSCULAR HEMOGLOBIN 34.4 PG (27.0-34.0); MEAN CORPUSCULAR HGB CONC 34.8 % (32.0-36.0); MEAN PLATELET VOLUME 8.4 FL (7.0-11.0); PLATELET COUNT 198 TH/MM3 (150-450); RED BLOOD COUNT 3.96 MIL/MM3 (4.00-5.30); RED CELL DISTRIBUTION WIDTH 13.4 % (11.6-17.2)
[2017-05-28 09:45] LABS: ALT (GPT) 51 U/L (10-53)
[2017-05-28 09:53] LABS: ALBUMIN 3.2 GM/DL (3.4-5.0); ALKALINE PHOSPHATASE 71 U/L (45-117); AST (GOT) 66 U/L (15-37); BLOOD UREA NITROGEN 11 MG/DL (7-18); CALCIUM 9.7 MG/DL (8.5-10.1); CHLORIDE 105 MEQ/L (98-107); CREATININE 1.46 MG/DL (0.50-1.00); GLOMERULAR FILTRATION RATE 37 ML/MIN (>89); GLUCOSE,RANDOM 160 MG/DL (74-106); SODIUM (NA) 139 MEQ/L (136-145); TOTAL BILIRUBIN ADULT 0.5 MG/DL (0.2-1.0)
[2017-05-28] MEDS ORDERED: SOD PHOSPHATE/SOD BIPHOSPHATE (ADULT) ENEMA 133ML RECTAL ONE (10:00)
[2017-05-28] MEDS: busPIRone HCL 5 MG TAB PO SCH ×3 (10:00→18:22)
[2017-05-28] MEDS: CALCIUM CARBONATE 500 MG CHEWABLE TAB PO SCH ×2 (10:00→20:56)
[2017-05-28] MEDS: POLYETHYLENE GLYCOL 17 GM PKG PO SCH (10:00)
[2017-05-28] MEDS: SERTRALINE HCL 50 MG TAB PO SCH ×2 (10:01→20:56)
[2017-05-28] MEDS: DOCUSATE SODIUM 50 MG/SENNA 8.6 MG TAB PO SCH ×2 (10:01→20:57)
[2017-05-28] MEDS: ATENOLOL 25 MG TAB PO SCH ×2 (10:01→20:56)
[2017-05-28] MEDS: PANTOPRAZOLE SOD 40 MG DELAYED RELEASE TAB PO SCH (10:01)
[2017-05-28] MEDS: SODIUM CHLORIDE 0.9% FLUSH 10 ML FLUSH IV FLUSH SCH ×2 (10:02→20:57)
[2017-05-28 12:00] VITALS: BP 139/67; PULSE 60; RESP 20; TEMP 97.9; O2SAT 93
[2017-05-28 16:00] VITALS: BP 121/74; PULSE 59; RESP 20; TEMP 97.6; O2SAT 93
[2017-05-28 20:00] VITALS: BP 100/59; PULSE 61; RESP 17; TEMP 97.6; O2SAT 93
[2017-05-28] MEDS: ASPIRIN EC 81 MG TABEC PO SCH (20:56)
[2017-05-28] MEDS: CLOPIDOGREL 75 MG TAB PO SCH (20:57)
[2017-05-28] MEDS: CHOLECALCIFEROL (VIT D3) 400 UNIT TAB PO SCH (22:02)
[2017-05-29] VITALS: BP 101/60; PULSE 66; RESP 18; TEMP 98.1; O2SAT 93
[2017-05-29] MEDS: HEPARIN SODIUM - SQ 10,000 UNITS/ML VIAL SQ SCH ×3 (00:12→18:12)
[2017-05-29 04:46] VITALS: BP 116/58; PULSE 59; RESP 20; TEMP 97.7; O2SAT 90
[2017-05-29] MEDS: LEVOTHYROXINE SODIUM 125 MCG TAB PO SCH (04:47)
[2017-05-29 05:02] LABS: HEMATOCRIT 38.5 % (35.0-46.0); HEMOGLOBIN 13.7 GM/DL (11.6-15.3); MEAN CORPUSCULAR HEMOGLOBIN 34.9 PG (27.0-34.0); MEAN CORPUSCULAR HGB CONC 35.6 % (32.0-36.0); MEAN PLATELET VOLUME 8.1 FL (7.0-11.0); PLATELET COUNT 211 TH/MM3 (150-450); RED BLOOD COUNT 3.93 MIL/MM3 (4.00-5.30); RED CELL DISTRIBUTION WIDTH 13.9 % (11.6-17.2); WHITE BLOOD COUNT 7.5 TH/MM3 (4.0-11.0)
[2017-05-29 05:32] LABS: ALKALINE PHOSPHATASE 70 U/L (45-117); TOTAL BILIRUBIN ADULT 0.5 MG/DL (0.2-1.0)
[2017-05-29 05:35] LABS: ALBUMIN 3.1 GM/DL (3.4-5.0); ALT (GPT) 51 U/L (10-53); AST (GOT) 67 U/L (15-37); BICARBONATE 23.9 MEQ/L (21.0-32.0); BLOOD UREA NITROGEN 11 MG/DL (7-18); CALCIUM 9.8 MG/DL (8.5-10.1); CHLORIDE 106 MEQ/L (98-107); CREATININE 1.44 MG/DL (0.50-1.00); GLOMERULAR FILTRATION RATE 38 ML/MIN (>89); GLUCOSE,RANDOM 150 MG/DL (74-106); SODIUM (NA) 141 MEQ/L (136-145)
[2017-05-29 08:00] VITALS: BP 116/70; PULSE 60; RESP 20; TEMP 97.7; O2SAT 94
[2017-05-29] MEDS: CALCIUM CARBONATE 500 MG CHEWABLE TAB PO SCH ×2 (09:33→20:31)
[2017-05-29] MEDS: DOCUSATE SODIUM 50 MG/SENNA 8.6 MG TAB PO SCH ×2 (09:33→20:33)
[2017-05-29] MEDS: busPIRone HCL 5 MG TAB PO SCH ×3 (09:33→18:12)
[2017-05-29] MEDS: PANTOPRAZOLE SOD 40 MG DELAYED RELEASE TAB PO SCH (09:33)
[2017-05-29] MEDS: SERTRALINE HCL 50 MG TAB PO SCH ×2 (09:33→20:31)
[2017-05-29] MEDS: ATENOLOL 25 MG TAB PO SCH (09:34)
[2017-05-29] MEDS: POLYETHYLENE GLYCOL 17 GM PKG PO SCH (09:34)
[2017-05-29] MEDS: INSULIN ASPART SUPPLEMENTAL SCALE SQ SCH ×4 (09:34→20:30)
[2017-05-29] MEDS: INSULIN DETEMIR 100 UNITS/ML VIAL SQ SCH ×2 (09:35→20:31)
[2017-05-29] MEDS: SODIUM CHLORIDE 0.9% FLUSH 10 ML FLUSH IV FLUSH SCH ×2 (09:36→20:32)
[2017-05-29 12:00] VITALS: BP 113/51; PULSE 59; RESP 20; TEMP 97.8; O2SAT 93
--- NOTE | 2017-05-29 12:26 | HHI.FPPN ---
Subjective Remarks No acute events overnight. AFVSS. Has not moved much this . Denies CP/ SOB. (Satish Rojas MD R2) Objective Vitals Vital Signs Date Time Temp Pulse Resp B/P (MAP) Pulse Ox O2 Delivery O2 Flow Rate FiO2 05/29/17 08:00 97.7 60 20 116/70 (85) 94 05/29/17 04:46 97.7 59 20 116/58 (77) 90 05/29/17 00:00 98.1 66 18 101/60 (74) 93 05/28/17 20:00 Room Air 05/28/17 20:00 97.6 61 17 100/59 (73) 93 05/28/17 16:00 97.6 59 20 121/74 (90) 93 I/O 05/28/17 05/28/17 05/28/17 05/29/17 05/29/17 05/29/17 07:00 15:00 23:00 07:00 15:00 23:00 Intake Total 240 ml 480 ml 800 ml Output Total 2 ml Balance 238 ml 480 ml 800 ml Intake Oral 240 ml 480 ml 800 ml Stool Total 2 ml # Voids 3 6 4 # Bowel Movements 6 0 (Satish Rojas MD R2) Result Diagram: 05/29/17 0430 05/29/17 0450 Imaging Last Impressions Hip X-Ray 05/26/17 0000 Signed Impressions: Service Date/Time: Friday, May 26, 2017 15:13 - CONCLUSION: Degenerative changes, no fracture Jermaine Gutierres MD FACR Liver Ultrasound 05/25/17 0000 Signed Impressions: Service Date/Time: May 16:28 - CONCLUSION: 1. Mild hepatomegaly. 2. Status post cholecystectomy. 3. No evidence of acute process or biliary obstructive disease. 4. Calcified granuloma in the spleen. Valerio Salcedo MD Lumbar Spine CT 05/22/17 0000 Signed Impressions: Service Date/Time: Sunday, May 21, 2017 14:36 - CONCLUSION: 1. Moderate stenosis at the L4-L5 level caused by combination of anterior subluxation/spondylolisthesis, disc bulge, and severe facet hypertrophy. 2. Moderate stenosis at the T11-T12 level by a central disc protrusion with osteophytes. 3. Moderate disc bulge and mild stenosis at the L5-S1 level. 4. Minimal bulging at the L1-L2 and L2-L3 levels. 1. Gurvinder Steinberg MD Chest X-Ray 05/21/175 Signed Impressions: Service Date/Time: Sunday, May 21, 2017 13:57 - CONCLUSION: No acute disease. Gurvinder Frazier MD Abdomen/Pelvis CT 05/21/17 1345 Signed Impressions: Service Date/Time: Sunday, May 21, 2017 14:36 - CONCLUSION: No acute CT findings in the abdomen or pelvis. Gurvinder Frazier MD Renal Ultrasound 05/21/17 0000 Signed Impressions: Service Date/Time: Sunday, May 21, 2017 18:12 - CONCLUSION: No acute disease. Gurvinder Steinberg MD Objective Remarks GENERAL: Well-nourished, morbidly obese white female patient, sitting in bed, NAD. SKIN: Warm and dry/flaky. HEAD: Normocephalic. Atraumatic. CARDIOVASCULAR: Heart sounds distant. Regular rate and rhythm without murmurs, gallops, or rubs. RESPIRATORY: Breath sounds equal bilaterally and clear. No accessory muscle use. No crackles or wheezes. GASTROINTESTINAL: Abdomen soft, obese, nondistended. Nontender. EXTREMITIES: No cyanosis or edema. NEUROLOGICAL: Grossly non-focal. Medications and IVs Current Medications Medications (Trade) Dose Ordered Sig/Guillaume Route Start Time Stop Time Status Last Admin (NS Flush) 2 ml UNSCH PRN IV FLUSH 05/21/17 17:30 (NS Flush) 2 ml BID IV FLUSH 05/21/17 21:00 05/29/17 09:36 (Tylenol) 650 mg Q4H PRN PO 05/21/17 17:30 (Zofran Inj) 4 mg Q6H PRN IVP 05/21/17 17:30 05/25/17 02:30 (Milk Of Magnesia Liq) 30 ml Q12H PRN PO 05/21/17 17:30 (Dulcolax Supp) 10 mg DAILY PRN RECTAL 05/21/17 17:30 (Lotrimin 1% Cream) 1 applic BID TOPICAL 05/21/17 17:30 05/28/17 20:59 (Ecotrin Ec) 81 mg HS PO 05/21/17 21:00 05/28/17 20:56 (Tenormin) 25 mg BID PO 05/21/17 21:00 05/29/17 09:34 (Buspar) 15 mg TID PO 05/22/17 09:00 05/29/17 09:33 (Plavix) 75 mg HS PO 05/21/17 21:00 05/28/17 20:57 (Zoloft) 50 mg BID PO 05/21/17 21:00 05/29/17 09:33 (Tums Chew) 500 mg BID PO 05/21/17 21:00 05/29/17 09:33 (Vitamin D3) 400 units HS PO 05/21/17 21:00 05/28/17 22:02 (Ferrous Sulfate) 325 mg BID PO 05/21/17 21:00 Future Hold 05/27/17 20:36 (NovoLOG SUPPLEMENTAL SCALE) 1 ACHS SLIDING SCALE SQ 05/21/17 21:00 05/29/17 09:34 (Protonix) 40 mg DAILY PO 05/22/17 09:00 05/29/17 09:33 (Tylenol) 650 mg Q6H PRN PO 05/21/17 23:30 ([place] 5-325 Mg) 1 tab Q4H PRN PO 05/21/17 23:30 05/26/17 17:44 ([place] 10-325 Mg) 1 tab Q4H PRN PO 05/21/17 23:30 05/26/17 23:09 (Narcan Inj) 0.4 mg UNSCH PRN IV PUSH 05/21/17 23:30 Sodium Chloride 1,000 ml @ 185 mls/hr Q5H25M IV 05/23/17 09:00 Future Hold 05/26/17 09:42 (My-Colace) 2 tab BID PO 05/24/17 21:00 05/29/17 09:33 (Heparin Inj) 5,000 units Q8H SQ 05/25/17 17:00 05/30/17 16:59 05/29/17 09:35 (Lactulose Liq) 30 ml BID PRN PO 05/27/17 12:30 05/27/17 20:35 (Miralax) 17 gm DAILY PO 05/28/17 10:00 05/29/17 09:34 (Levemir Inj) 20 units Q12HR SQ 05/28/17 21:00 05/29/17 09:35 (Synthroid) 125 mcg DAILY@0600 PO 05/29/17 06:00 05/29/17 04:47 (Satish Rojas MD R2) A/P Assessment and Plan 56 year old female presenting with: (Satish Rojas MD R2) Attending Attestation Patient seen and examined. Case reviewed and discussed Agree with plan of care as discussed with me and documented in the resident note. (Palak Jefferson MD) Problem List: (1) Severe hypothyroidism ICD Codes: E03.8 - Other specified hypothyroidism Status: Acute Plan: TSH on admission greater than 100, Both free T4 and T3 are low on 05/25 Patient had not been taking her levothyroxine T4 supplementation over the past several months due to being out of this medication -Given levothyroxine bolus then titrated up to current dose of 125 mcg daily -Will check free T4 and T3 tomorrow to assess response to treatment (2) Elevated CK ICD Codes: R74.8 - Abnormal levels of other serum enzymes Status: Resolved Plan: CK on admission found to be 902, may be secondary to myopathy due to severe hypothyroidism Improved after IV hydration - Encourage movement, PO fluids - Repeat CK tomorrow to confirm continued improvement (3) Urinary incontinence in female ICD Codes: R32 - Unspecified urinary incontinence Status: Acute Plan: Abdomen/pelvis CT without any acute findings Consider etiology due to detrusor overactivity causing urgency incontinence, hypothyroid, NPH, medication adverse effect, constipation Vaginal atrophy and deconditioning causing the inability to get up and go to the bathroom quickly may be contributing to her incontinence Renal and bladder ultrasound on 05/22 showed no acute disease Bladder scan on 05/25 showed post void residual of 12ml. WNL -Advised patient to routinely urinate/empty her bladder when she receives her pain medications about every 4 hours -Treat hypothyroidism as above (4) Weakness ICD Codes: R53.1 - Weakness Status: Chronic Plan: The patient may have significant myopathy due to her severe hypothyroidism causing her weakness Consult PT for activity -Upon assessment stated that falls likely due to a combination of weakness, but also poor lower extremity sensation. -Will need to use a bariatric wheeled walker for safe ambulation -Recommends PT at rehab -7 days a week Patient will need rehab or SNF placement on discharge. This might prove to be difficult due to her self-pay status. Son is due on 06/03 to pick her up and move to [place] to live with him. This is a viable option at this moment due to her likely being unsafe to return home with her multiple fall hx. (5) Diabetes mellitus ICD Codes: E11.9 - Type 2 diabetes mellitus without complications Status: Chronic Plan: Hold home insulin glargine. She reported taking no short acting insulin at home for months only long acting HbA1c is 12.5 Increase levemir to 20 units bid, will adjust as needed. Accuchecks ACHS Low-dose ISS Bedside glucoses over past 24 hours ranging 145-181 (6) Hypertension ICD Codes: I10 - Essential (primary) hypertension Status: Chronic Plan: Continue to monitor vitals q4h (7) Chronic kidney disease ICD Codes: N18.9 - Chronic kidney disease, unspecified Status: Chronic Plan: Plan as above under SHARA (8) Hyperlipidemia ICD Codes: E78.5 - Hyperlipidemia, unspecified Status: Chronic Plan: Hold home simvastatin (9) Elevated liver enzymes ICD Codes: R74.8 - Abnormal levels of other serum enzymes Status: Resolved Plan: AST 89, ALT 59 on admission Upon chart review, this is been a chronic problem for her since 09/2016 Abdomen/pelvis CT per radiology read noting liver with homogeneous density without lesions Likely due to fatty liver from morbid obesity. Counseled patient on prognosis of this disease. The primary medical team has also discussed with the patient PALMER cirrhosis vs NAFL and the need for her to have continued follow up with a primary care physician as an outpatient for monitoring of her LFTs Hepatitis panel is negative Liver US showing mild hepatomegaly. S/p cholecystectomy. No evidence for an acute process. (10) Candidal intertrigo ICD Codes: B37.2 - Candidiasis of skin and nail Status: Acute Plan: Apply clotrimazole 1% cream topically to affected areas twice daily Consider addition of low-potency topical steroid for symptomatic relief Add a topical drying agent as a preventive measure after treatment (11) Constipation ICD Codes: K59.00 - Constipation, unspecified Status: Resolved Plan: The patient is having constipation likely due to her severe hypothyroidism Had BM after fleets enema 05/28 Continue constipation protocol if needed Abdominal exam benign, continue to monitor (12) Nutrition, metabolism, and development symptoms ICD Codes: R63.8 - Other symptoms and signs concerning food and fluid intake Status: Acute Plan: Fluids: tolerating po Electrolytes: continue to monitor Nutrition: 1800 ADA GI ppx: Protonix 40 mg po daily DVT ppx: Heparin 5,000 units sq q8h Depression: continue home zoloft DISPO: Plan D/C on 06/03 when patient will move to [place] with her son. Ideally can go to SNF in meantime if placement can be arranged. (Satish Rojas MD R2) Problem Qualifiers (1) Diabetes mellitus: Qualified Codes: E11.42 - Type 2 diabetes mellitus with diabetic polyneuropathy ; Z79.4 - jail (current) use of insulin (2) Hypertension: Qualified Codes: I10 - Essential (primary) hypertension (3) Hyperlipidemia: Qualified Codes: E78.00 - Pure hypercholesterolemia, unspecified Satish Rojas MD R2 May 29, 2017 12:26 Palak Jefferson MD Jun 04, 2017 10:07
[2017-05-29] MEDS: CLOTRIMAZOLE 1% CREAM 15 GM TOPICAL SCH ×2 (13:28→20:33)
[2017-05-29 15:40] VITALS: BP 129/65; PULSE 58; RESP 20; TEMP 97.7; O2SAT 92
[2017-05-29] MEDS ORDERED: WALKER/EXTENDED1 MIS (15:51)
[2017-05-29] MEDS: ONDANSETRON HCL 4 MG/2 ML VIAL IVP PRN (18:11)
[2017-05-29 20:00] VITALS: BP 141/66; PULSE 65; RESP 20; TEMP 97.5; O2SAT 94
[2017-05-29] MEDS: CLOPIDOGREL 75 MG TAB PO SCH (20:31)
[2017-05-29] MEDS: ASPIRIN EC 81 MG TABEC PO SCH (20:31)
[2017-05-29] MEDS: CHOLECALCIFEROL (VIT D3) 400 UNIT TAB PO SCH (20:31)
[2017-05-29] MEDS: ACETAMINOPHEN/HYDROcodone 325 MG/10 MG TAB PO PRN (22:35)
[2017-05-30] VITALS: BP 131/67; PULSE 60; RESP 19; TEMP 97.6; O2SAT 93
[2017-05-30] MEDS: HEPARIN SODIUM - SQ 10,000 UNITS/ML VIAL SQ SCH ×2 (00:27→09:28)
[2017-05-30] MEDS: ACETAMINOPHEN/HYDROcodone 325 MG/10 MG TAB PO PRN ×2 (03:13→07:00)
[2017-05-30 04:00] VITALS: BP 134/63; PULSE 57; RESP 18; TEMP 97.6; O2SAT 94
[2017-05-30] MEDS: LEVOTHYROXINE SODIUM 125 MCG TAB PO SCH (05:23)
[2017-05-30 06:57] LABS: FREE T3 0.77 PG/ML (2.18-3.98); FREE T4 0.33 NG/DL (0.76-1.46)
[2017-05-30 08:00] VITALS: BP 113/69; PULSE 60; RESP 18; TEMP 97.8; O2SAT 95
[2017-05-30] MEDS: POLYETHYLENE GLYCOL 17 GM PKG PO SCH (09:00)
[2017-05-30] MEDS: DOCUSATE SODIUM 50 MG/SENNA 8.6 MG TAB PO SCH ×2 (09:00→21:00)
[2017-05-30] MEDS: INSULIN ASPART SUPPLEMENTAL SCALE SQ SCH ×4 (09:27→22:12)
[2017-05-30] MEDS: PANTOPRAZOLE SOD 40 MG DELAYED RELEASE TAB PO SCH (09:27)
[2017-05-30] MEDS: busPIRone HCL 5 MG TAB PO SCH ×3 (09:27→18:21)
[2017-05-30] MEDS: CALCIUM CARBONATE 500 MG CHEWABLE TAB PO SCH ×2 (09:28→22:14)
[2017-05-30] MEDS: SODIUM CHLORIDE 0.9% FLUSH 10 ML FLUSH IV FLUSH SCH ×2 (09:28→22:14)
[2017-05-30] MEDS: ATENOLOL 25 MG TAB PO SCH (09:28)
[2017-05-30] MEDS: INSULIN DETEMIR 100 UNITS/ML VIAL SQ SCH ×2 (09:28→22:12)
[2017-05-30] MEDS: SERTRALINE HCL 50 MG TAB PO SCH ×2 (09:28→22:14)
[2017-05-30] MEDS: CLOTRIMAZOLE 1% CREAM 15 GM TOPICAL SCH ×2 (09:29→22:19)
[2017-05-30] MEDS: ACETAMINOPHEN/HYDROcodone 325 MG/5 MG TAB PO PRN (11:14)
[2017-05-30 12:00] VITALS: BP 100/57; PULSE 58; RESP 18; TEMP 97.7; O2SAT 96
[2017-05-30] MEDS ORDERED: LEVOTHYROXINE SODIUM 75 MCG TAB PO ONE (14:00)
--- NOTE | 2017-05-30 15:02 | HHI.FPPN ---
Subjective Remarks No acute events overnight. Feels well this morning, just a little tired. Moved much better and felt better after moving yesterday. Denies CP/SOB. Notes some numbness of her feet consistent with her prior neuropathy. (Satish Rojas MD R2) Objective Vitals Vital Signs Date Time Temp Pulse Resp B/P (MAP) Pulse Ox O2 Delivery O2 Flow Rate FiO2 05/30/17 12:00 97.7 58 18 100/57 (71) 96 05/30/17 08:00 Room Air 05/30/17 08:00 97.8 60 18 113/69 (84) 95 05/30/17 04:00 97.6 57 18 134/63 (86) 94 05/30/17 00:00 97.6 60 19 131/67 (88) 93 05/29/17 20:00 97.5 65 20 141/66 (91) 94 05/29/17 19:30 Room Air 05/29/17 15:40 97.7 58 20 129/65 (86) 92 I/O 05/29/17 05/29/17 05/29/17 05/30/17 05/30/17 05/30/17 07:00 15:00 23:00 07:00 15:00 23:00 Intake Total 800 ml 320 ml Output Total 1000 ml Balance 800 ml -680 ml Intake Oral 800 ml 320 ml Output Urine Total 1000 ml # Voids 4 2 # Bowel Movements 0 1 2 2 (Satish Rojas MD R2) Result Diagram: 05/29/17 0430 05/29/17 0450 Imaging Last Impressions Hip X-Ray 05/26/17 0000 Signed Impressions: Service Date/Time: Friday, May 26, 2017 15:13 - CONCLUSION: Degenerative changes, no fracture Jermaine Gutierres MD FACR Liver Ultrasound 05/25/17 0000 Signed Impressions: Service Date/Time: May 16:28 - CONCLUSION: 1. Mild hepatomegaly. 2. Status post cholecystectomy. 3. No evidence of acute process or biliary obstructive disease. 4. Calcified granuloma in the spleen. Valerio Salcedo MD Lumbar Spine CT 05/22/17 0000 Signed Impressions: Service Date/Time: Sunday, May 21, 2017 14:36 - CONCLUSION: 1. Moderate stenosis at the L4-L5 level caused by combination of anterior subluxation/spondylolisthesis, disc bulge, and severe facet hypertrophy. 2. Moderate stenosis at the T11-T12 level by a central disc protrusion with osteophytes. 3. Moderate disc bulge and mild stenosis at the L5-S1 level. 4. Minimal bulging at the L1-L2 and L2-L3 levels. 1. Gurvinder Steinberg MD Chest X-Ray 05/21/17 1345 Signed Impressions: Service Date/Time: Sunday, May 21, 2017 13:57 - CONCLUSION: No acute disease. Gurvinder Frazier MD Abdomen/Pelvis CT 05/21/17 1345 Signed Impressions: Service Date/Time: Sunday, May 21, 2017 14:36 - CONCLUSION: No acute CT findings in the abdomen or pelvis. Gurvinder Frazier MD Renal Ultrasound 05/21/17 0000 Signed Impressions: Service Date/Time: Sunday, May 21, 2017 18:12 - CONCLUSION: No acute disease. Gurvinder Steinberg MD Objective Remarks GENERAL: Well-nourished, morbidly obese white female patient, sitting in bed, NAD. SKIN: Warm and dry/flaky. HEAD: Normocephalic. Atraumatic. CARDIOVASCULAR: Heart sounds distant. Regular rate and rhythm without murmurs, gallops, or rubs. RESPIRATORY: Breath sounds equal bilaterally and clear. No accessory muscle use. No crackles or wheezes. GASTROINTESTINAL: Abdomen soft, obese, nondistended. Nontender. EXTREMITIES: No cyanosis or edema. NEUROLOGICAL: Grossly non-focal. Medications and IVs Current Medications Medications (Trade) Dose Ordered Sig/Guillaume Route Start Time Stop Time Status Last Admin (NS Flush) 2 ml UNSCH PRN IV FLUSH 05/21/17 17:30 (NS Flush) 2 ml BID IV FLUSH 05/21/17 21:00 05/30/17 09:28 (Tylenol) 650 mg Q4H PRN PO 05/21/17 17:30 (Zofran Inj) 4 mg Q6H PRN IVP 05/21/17 17:30 05/29/17 18:11 (Milk Of Magnesia Liq) 30 ml Q12H PRN PO 05/21/17 17:30 (Dulcolax Supp) 10 mg DAILY PRN RECTAL 05/21/17 17:30 (Lotrimin 1% Cream) 1 applic BID TOPICAL 05/21/17 17:30 05/30/17 09:29 (Ecotrin Ec) 81 mg HS PO 05/21/17 21:00 05/29/17 20:31 (Buspar) 15 mg TID PO 05/22/17 09:00 05/30/17 13:59 (Plavix) 75 mg HS PO 05/21/17 21:00 05/29/17 20:31 (Zoloft) 50 mg BID PO 05/21/17 21:00 05/30/17 09:28 (Tums Chew) 500 mg BID PO 05/21/17 21:00 05/30/17 09:28 (Vitamin D3) 400 units HS PO 05/21/17 21:00 05/29/17 20:31 (Ferrous Sulfate) 325 mg BID PO 05/21/17 21:00 Future Hold 05/27/17 20:36 (NovoLOG SUPPLEMENTAL SCALE) 1 ACHS SLIDING SCALE SQ 05/21/17 21:00 05/30/17 13:58 (Protonix) 40 mg DAILY PO 05/22/17 09:00 05/30/17 09:27 (Tylenol) 650 mg Q6H PRN PO 05/21/17 23:30 ([place] 5-325 Mg) 1 tab Q4H PRN PO 05/21/17 23:30 05/30/17 11:14 ([place] 10-325 Mg) 1 tab Q4H PRN PO 05/21/17 23:30 05/30/17 07:00 (Narcan Inj) 0.4 mg UNSCH PRN IV PUSH 05/21/17 23:30 Sodium Chloride 1,000 ml @ 185 mls/hr Q5H25M IV 05/23/17 09:00 Future Hold 05/26/17 09:42 (My-Colace) 2 tab BID PO 05/24/17 21:00 05/29/17 09:33 (Heparin Inj) 5,000 units Q8H SQ 05/25/17 17:00 05/30/17 16:59 05/30/17 09:28 (Lactulose Liq) 30 ml BID PRN PO 05/27/17 12:30 05/27/17 20:35 (Miralax) 17 gm DAILY PO 05/28/17 10:00 05/29/17 09:34 (Levemir Inj) 20 units Q12HR SQ 05/28/17 21:00 05/30/17 09:28 (Tenormin) 25 mg DAILY PO 05/30/17 09:00 05/30/17 09:28 (Synthroid) 200 mcg DAILY@0600 PO 05/31/17 06:00 (Lyrica) 50 mg Q12HR PO 05/30/17 21:00 (Satish Rojas MD R2) A/P Assessment and Plan 56 year old female presenting with: (Satish Rojas MD R2) Attending Attestation Patient seen and examined. Case reviewed and discussed Agree with plan of care as discussed with me and documented in the resident note. (Palak Jefferson MD) Problem List: (1) Severe hypothyroidism ICD Codes: E03.8 - Other specified hypothyroidism Status: Acute Plan: TSH on admission greater than 100, Both free T4 and T3 are low on 05/25 Patient had not been taking her levothyroxine T4 supplementation over the past several months due to being out of this medication 05/30 T4 - 0.33 05/30 T3 - 0.77 -Given levothyroxine bolus then titrated up to current dose of 125 mcg daily -Increase to 200 mcg daily (previously was on 250 mcg daily for over a year, prior to running out) (2) Elevated CK ICD Codes: R74.8 - Abnormal levels of other serum enzymes Status: Resolved Plan: CK on admission found to be 902, may be secondary to myopathy due to severe hypothyroidism Improved after IV hydration CK now ~340 (i.e. continuing to trend downward) - Encourage movement, PO fluids (3) Urinary incontinence in female ICD Codes: R32 - Unspecified urinary incontinence Status: Acute Plan: Abdomen/pelvis CT without any acute findings Consider etiology due to detrusor overactivity causing urgency incontinence, hypothyroid, NPH, medication adverse effect, constipation Vaginal atrophy and deconditioning causing the inability to get up and go to the bathroom quickly may be contributing to her incontinence Renal and bladder ultrasound on 05/22 showed no acute disease Bladder scan on 05/25 showed post void residual of 12ml. WNL -Advised patient to routinely urinate/empty her bladder when she receives her pain medications about every 4 hours -Treat hypothyroidism as above (4) Weakness ICD Codes: R53.1 - Weakness Status: Chronic Plan: The patient may have significant myopathy due to her severe hypothyroidism causing her weakness Consult PT for activity -Upon assessment stated that falls likely due to a combination of weakness, but also poor lower extremity sensation. -Will need to use a bariatric wheeled walker for safe ambulation -Recommends PT at rehab -7 days a week Patient will need rehab or SNF placement on discharge. This might prove to be difficult due to her self-pay status. Son is due on 06/03 to pick her up and move to [place] to live with him. This is a viable option at this moment due to her likely being unsafe to return home with her multiple fall hx. (5) Diabetes mellitus ICD Codes: E11.9 - Type 2 diabetes mellitus without complications Status: Chronic Plan: Hold home insulin glargine. She reported taking no short acting insulin at home for months only long acting HbA1c is 12.5 Continue levemir to 20 units bid, will adjust as needed. Accuchecks ACHS Low-dose ISS Bedside glucoses over past 24 hours ranging 176-212 (6) Hypertension ICD Codes: I10 - Essential (primary) hypertension Status: Chronic Plan: Stable, continue atenolol 25 mg daily (7) Chronic kidney disease ICD Codes: N18.9 - Chronic kidney disease, unspecified Status: Chronic Plan: Likely Cr now at baseline of 1.4 (8) Hyperlipidemia ICD Codes: E78.5 - Hyperlipidemia, unspecified Status: Chronic Plan: Hold home simvastatin (9) Elevated liver enzymes ICD Codes: R74.8 - Abnormal levels of other serum enzymes Status: Resolved Plan: AST 89, ALT 59 on admission Upon chart review, this is been a chronic problem for her since 09/2016 Abdomen/pelvis CT per radiology read noting liver with homogeneous density without lesions Likely due to fatty liver from morbid obesity. Counseled patient on prognosis of this disease. The primary medical team has also discussed with the patient PALMER cirrhosis vs NAFL and the need for her to have continued follow up with a primary care physician as an outpatient for monitoring of her LFTs Hepatitis panel is negative Liver US showing mild hepatomegaly. S/p cholecystectomy. No evidence for an acute process. - Hold home statin - LFT elevation now resolved, may have been due to rhabdomyolysis (10) Candidal intertrigo ICD Codes: B37.2 - Candidiasis of skin and nail Status: Acute Plan: Apply clotrimazole 1% cream topically to affected areas twice daily Consider addition of low-potency topical steroid for symptomatic relief Add a topical drying agent as a preventive measure after treatment (11) Constipation ICD Codes: K59.00 - Constipation, unspecified Status: Resolved Plan: The patient is having constipation likely due to her severe hypothyroidism Had BM after fleets enema 05/28 Continue constipation protocol if needed Abdominal exam benign, continue to monitor (12) Nutrition, metabolism, and development symptoms ICD Codes: R63.8 - Other symptoms and signs concerning food and fluid intake Status: Acute Plan: Fluids: tolerating po Electrolytes: continue to monitor Nutrition: 1800 ADA GI ppx: Protonix 40 mg po daily DVT ppx: Heparin 5,000 units sq q8h Depression: continue home zoloft DISPO: Plan D/C on 06/03 when patient will move to [place] with her son. Ideally can go to SNF in meantime if placement can be arranged. (Satish Rojas MD R2) Problem Qualifiers (1) Diabetes mellitus: Qualified Codes: E11.42 - Type 2 diabetes mellitus with diabetic polyneuropathy ; Z79.4 - terminal system operator (current) use of insulin (2) Hypertension: Qualified Codes: I10 - Essential (primary) hypertension (3) Hyperlipidemia: Qualified Codes: E78.00 - Pure hypercholesterolemia, unspecified Satish Rojas MD R2 May 30, 2017 15:02 Palak Jefferson MD Jun 04, 2017 10:06
[2017-05-30 16:16] VITALS: BP 110/55; PULSE 58; RESP 20; TEMP 98.2; O2SAT 94
[2017-05-30 20:00] VITALS: BP 123/64; PULSE 58; RESP 17; TEMP 98.7; O2SAT 92
[2017-05-30] MEDS: PREGABALIN 25 MG CAP PO SCH (22:12)
[2017-05-30] MEDS: ASPIRIN EC 81 MG TABEC PO SCH (22:13)
[2017-05-30] MEDS: CLOPIDOGREL 75 MG TAB PO SCH (22:13)
[2017-05-30] MEDS: CHOLECALCIFEROL (VIT D3) 400 UNIT TAB PO SCH (22:14)
[2017-05-31] VITALS (7 sets, daily range): BP systolic 86–147; BP diastolic 47–74; PULSE 57–62; RESP 18–19; TEMP 97.6–98.2; O2SAT 92–96
[2017-05-31] MEDS: ACETAMINOPHEN/HYDROcodone 325 MG/10 MG TAB PO PRN (01:25)
[2017-05-31] MEDS: LEVOTHYROXINE SODIUM 200 MCG TAB PO SCH (05:32)
[2017-05-31 08:24] LABS: BICARBONATE 25.7 MEQ/L (21.0-32.0); CALCIUM 9.1 MG/DL (8.5-10.1); CREATININE 1.56 MG/DL (0.50-1.00)
[2017-05-31] MEDS: INSULIN DETEMIR 100 UNITS/ML VIAL SQ SCH ×2 (08:52→22:19)
[2017-05-31] MEDS: INSULIN ASPART SUPPLEMENTAL SCALE SQ SCH ×4 (08:53→22:19)
[2017-05-31] MEDS: ATENOLOL 25 MG TAB PO SCH (08:54)
[2017-05-31] MEDS: DOCUSATE SODIUM 50 MG/SENNA 8.6 MG TAB PO SCH ×2 (08:54→22:18)
[2017-05-31] MEDS: PREGABALIN 25 MG CAP PO SCH ×2 (08:54→22:18)
[2017-05-31] MEDS: CALCIUM CARBONATE 500 MG CHEWABLE TAB PO SCH ×2 (08:54→22:17)
[2017-05-31] MEDS: SERTRALINE HCL 50 MG TAB PO SCH ×2 (08:54→22:18)
[2017-05-31] MEDS: PANTOPRAZOLE SOD 40 MG DELAYED RELEASE TAB PO SCH (08:54)
[2017-05-31] MEDS: busPIRone HCL 5 MG TAB PO SCH ×3 (08:54→17:45)
[2017-05-31] MEDS: SODIUM CHLORIDE 0.9% FLUSH 10 ML FLUSH IV FLUSH SCH ×2 (08:55→22:17)
[2017-05-31] MEDS: CLOTRIMAZOLE 1% CREAM 15 GM TOPICAL SCH ×2 (08:55→22:19)
[2017-05-31] MEDS: POLYETHYLENE GLYCOL 17 GM PKG PO SCH (08:55)
--- NOTE | 2017-05-31 11:43 | HHI.FPPN ---
Objective Vitals Vital Signs Date Time Temp Pulse Resp B/P (MAP) Pulse Ox O2 Delivery O2 Flow Rate FiO2 05/31/17 08:09 97.6 62 18 147/74 (98) 93 05/31/17 04:00 97.9 60 18 137/72 (93) 92 05/31/17 00:00 97.7 60 19 111/54 (73) 94 05/30/17 20:45 Room Air 05/30/17 20:00 98.7 58 17 123/64 (83) 92 05/30/17 16:16 98.2 58 20 110/55 (73) 94 05/30/17 12:00 97.7 58 18 100/57 (71) 96 I/O 05/30/17 05/30/17 05/30/17 05/31/17 05/31/17 05/31/17 07:00 15:00 23:00 07:00 15:00 23:00 Intake Total 320 ml 200 ml Output Total 1000 ml 600 ml Balance -680 ml -400 ml Intake Oral 320 ml 200 ml Output Urine Total 1000 ml 600 ml # Bowel Movements 2 0 Result Diagram: 05/29/17 0430 05/31/17 0435 Objective Remarks GENERAL: Well-nourished, morbidly obese white female patient, sitting in bed, NAD. SKIN: Warm and dry/flaky. HEAD: Normocephalic. Atraumatic. CARDIOVASCULAR: Heart sounds distant. Regular rate and rhythm without murmurs, gallops, or rubs. RESPIRATORY: Breath sounds equal bilaterally and clear. No accessory muscle use. No crackles or wheezes. GASTROINTESTINAL: Abdomen soft, obese, nondistended. Nontender. EXTREMITIES: No cyanosis or edema. NEUROLOGICAL: Grossly non-focal. A/P Assessment and Plan 56 year old female presenting with: Problem List: (1) Severe hypothyroidism ICD Codes: E03.8 - Other specified hypothyroidism Status: Acute Plan: TSH on admission greater than 100, Both free T4 and T3 are low on 05/25 Patient had not been taking her levothyroxine T4 supplementation over the past several months due to being out of this medication 05/30 T4 - 0.33 05/30 T3 - 0.77 -Given levothyroxine bolus then titrated up to current dose of 125 mcg daily -Increase to 200 mcg daily (previously was on 250 mcg daily for over a year, prior to running out) (2) Elevated CK ICD Codes: R74.8 - Abnormal levels of other serum enzymes Status: Resolved Plan: CK on admission found to be 902, may be secondary to myopathy due to severe hypothyroidism Improved after IV hydration CK now ~340 (i.e. continuing to trend downward) - Encourage movement, PO fluids (3) Urinary incontinence in female ICD Codes: R32 - Unspecified urinary incontinence Status: Acute Plan: Abdomen/pelvis CT without any acute findings Consider etiology due to detrusor overactivity causing urgency incontinence, hypothyroid, NPH, medication adverse effect, constipation Vaginal atrophy and deconditioning causing the inability to get up and go to the bathroom quickly may be contributing to her incontinence Renal and bladder ultrasound on 05/22 showed no acute disease Bladder scan on 05/25 showed post void residual of 12ml. WNL -Advised patient to routinely urinate/empty her bladder when she receives her pain medications about every 4 hours -Treat hypothyroidism as above (4) Weakness ICD Codes: R53.1 - Weakness Status: Chronic Plan: The patient may have significant myopathy due to her severe hypothyroidism causing her weakness Consult PT for activity -Upon assessment stated that falls likely due to a combination of weakness, but also poor lower extremity sensation. -Will need to use a bariatric wheeled walker for safe ambulation -Recommends PT at rehab -7 days a week Patient will need rehab or SNF placement on discharge. This might prove to be difficult due to her self-pay status. Son is due on 06/03 to pick her up and move to [place] to live with him. This is a viable option at this moment due to her likely being unsafe to return home with her multiple fall hx. (5) Diabetes mellitus ICD Codes: E11.9 - Type 2 diabetes mellitus without complications Status: Chronic Plan: Hold home insulin glargine. She reported taking no short acting insulin at home for months only long acting HbA1c is 12.5 Continue levemir to 20 units bid, will adjust as needed. Accuchecks ACHS Low-dose ISS Bedside glucoses over past 24 hours ranging 176-212 (6) Hypertension ICD Codes: I10 - Essential (primary) hypertension Status: Chronic Plan: Stable, continue atenolol 25 mg daily (7) Chronic kidney disease ICD Codes: N18.9 - Chronic kidney disease, unspecified Status: Chronic Plan: Likely Cr now at baseline of 1.4 (8) Hyperlipidemia ICD Codes: E78.5 - Hyperlipidemia, unspecified Status: Chronic Plan: Hold home simvastatin (9) Elevated liver enzymes ICD Codes: R74.8 - Abnormal levels of other serum enzymes Status: Resolved Plan: AST 89, ALT 59 on admission Upon chart review, this is been a chronic problem for her since 09/2016 Abdomen/pelvis CT per radiology read noting liver with homogeneous density without lesions Likely due to fatty liver from morbid obesity. Counseled patient on prognosis of this disease. The primary medical team has also discussed with the patient PALMER cirrhosis vs NAFL and the need for her to have continued follow up with a primary care physician as an outpatient for monitoring of her LFTs Hepatitis panel is negative Liver US showing mild hepatomegaly. S/p cholecystectomy. No evidence for an acute process. - Hold home statin - LFT elevation now resolved, may have been due to rhabdomyolysis (10) Candidal intertrigo ICD Codes: B37.2 - Candidiasis of skin and nail Status: Acute Plan: Apply clotrimazole 1% cream topically to affected areas twice daily Consider addition of low-potency topical steroid for symptomatic relief Add a topical drying agent as a preventive measure after treatment (11) Constipation ICD Codes: K59.00 - Constipation, unspecified Status: Resolved Plan: The patient is having constipation likely due to her severe hypothyroidism Had BM after fleets enema 05/28 Continue constipation protocol if needed Abdominal exam benign, continue to monitor (12) Nutrition, metabolism, and development symptoms ICD Codes: R63.8 - Other symptoms and signs concerning food and fluid intake Status: Acute Plan: Fluids: tolerating po Electrolytes: continue to monitor Nutrition: 1800 ADA GI ppx: Protonix 40 mg po daily DVT ppx: Heparin 5,000 units sq q8h Depression: continue home zoloft DISPO: Plan D/C on 06/03 when patient will move to [place] with her son. Ideally can go to SNF in meantime if placement can be arranged. Problem Qualifiers (1) Diabetes mellitus: Qualified Codes: E11.42 - Type 2 diabetes mellitus with diabetic polyneuropathy ; Z79.4 - [facility] (current) use of insulin (2) Hypertension: Qualified Codes: I10 - Essential (primary) hypertension (3) Hyperlipidemia: Qualified Codes: E78.00 - Pure hypercholesterolemia, unspecified Maude Harkins MD, R1 May 31, 2017 11:43
--- NOTE | 2017-05-31 14:26 | HHI.FPPN ---
Subjective Remarks Patient seen and examined before 1200. Feels well today, still noting fatigue. No CP/SOB. Numbness of extremities a bit better after Lyrica. Has been working with PT. (Satish Rojas MD R2) Objective Vitals Vital Signs Date Time Temp Pulse Resp B/P (MAP) Pulse Ox O2 Delivery O2 Flow Rate FiO2 05/31/17 13:07 134/66 (88) 05/31/17 12:12 97.8 59 18 86/47 (60) 96 05/31/17 08:09 97.6 62 18 147/74 (98) 93 05/31/17 07:00 Room Air 05/31/17 04:00 97.9 60 18 137/72 (93) 92 05/31/17 00:00 97.7 60 19 111/54 (73) 94 05/30/17 20:45 Room Air 05/30/17 20:00 98.7 58 17 123/64 (83) 92 05/30/17 16:16 98.2 58 20 110/55 (73) 94 I/O 05/30/17 05/30/17 05/30/17 05/31/17 05/31/17 05/31/17 07:00 15:00 23:00 07:00 15:00 23:00 Intake Total 320 ml 200 ml Output Total 1000 ml 600 ml Balance -680 ml -400 ml Intake Oral 320 ml 200 ml Output Urine Total 1000 ml 600 ml # Bowel Movements 2 0 (Satish Rojas MD R2) Result Diagram: 05/29/17 0430 05/31/17 0435 Imaging Last Impressions Hip X-Ray 05/26/17 0000 Signed Impressions: Service Date/Time: Friday, May 26, 2017 15:13 - CONCLUSION: Degenerative changes, no fracture Jermaine Gutierres MD FACR Liver Ultrasound 05/25/17 0000 Signed Impressions: Service Date/Time: May 16:28 - CONCLUSION: 1. Mild hepatomegaly. 2. Status post cholecystectomy. 3. No evidence of acute process or biliary obstructive disease. 4. Calcified granuloma in the spleen. Valerio Salcedo MD Lumbar Spine CT 05/22/17 0000 Signed Impressions: Service Date/Time: Sunday, May 21, 2017 14:36 - CONCLUSION: 1. Moderate stenosis at the L4-L5 level caused by combination of anterior subluxation/spondylolisthesis, disc bulge, and severe facet hypertrophy. 2. Moderate stenosis at the T11-T12 level by a central disc protrusion with osteophytes. 3. Moderate disc bulge and mild stenosis at the L5-S1 level. 4. Minimal bulging at the L1-L2 and L2-L3 levels. 1. Gurvinder Steinberg MD Chest X-Ray 05/21/17 1345 Signed Impressions: Service Date/Time: Sunday, May 21, 2017 13:57 - CONCLUSION: No acute disease. Gurvinder Frazier MD Abdomen/Pelvis CT 05/21/17 1345 Signed Impressions: Service Date/Time: Sunday, May 21, 2017 14:36 - CONCLUSION: No acute CT findings in the abdomen or pelvis. Gurvinder Frazier MD Renal Ultrasound 05/21/17 0000 Signed Impressions: Service Date/Time: Sunday, May 21, 2017 18:12 - CONCLUSION: No acute disease. Gurvinder Steinberg MD Objective Remarks GENERAL: Well-nourished, morbidly obese white female patient, sitting in bed, NAD. SKIN: Warm and dry/flaky. CARDIOVASCULAR: Heart sounds distant. Regular rate and rhythm without murmurs, gallops, or rubs. RESPIRATORY: Breath sounds equal bilaterally and clear. No accessory muscle use. No crackles or wheezes. GASTROINTESTINAL: Abdomen soft, obese, nondistended. Nontender. EXTREMITIES: Trace edema of BLE. NEUROLOGICAL: Grossly non-focal. Medications and IVs Current Medications Medications (Trade) Dose Ordered Sig/Guillaume Route Start Time Stop Time Status Last Admin (NS Flush) 2 ml UNSCH PRN IV FLUSH 05/21/17 17:30 (NS Flush) 2 ml BID IV FLUSH 05/21/17 21:00 05/31/17 08:55 (Tylenol) 650 mg Q4H PRN PO 05/21/17 17:30 (Zofran Inj) 4 mg Q6H PRN IVP 05/21/17 17:30 05/29/17 18:11 (Milk Of Magnesia Liq) 30 ml Q12H PRN PO 05/21/17 17:30 (Dulcolax Supp) 10 mg DAILY PRN RECTAL 05/21/17 17:30 (Lotrimin 1% Cream) 1 applic BID TOPICAL 05/21/17 17:30 05/31/17 08:55 (Ecotrin Ec) 81 mg HS PO 05/21/17 21:00 05/30/17 22:13 (Buspar) 15 mg TID PO 05/22/17 09:00 05/31/17 13:06 (Plavix) 75 mg HS PO 05/21/17 21:00 05/30/17 22:13 (Zoloft) 50 mg BID PO 05/21/17 21:00 05/31/17 08:54 (Tums Chew) 500 mg BID PO 05/21/17 21:00 05/31/17 08:54 (Vitamin D3) 400 units HS PO 05/21/17 21:00 05/30/17 22:14 (Ferrous Sulfate) 325 mg BID PO 05/21/17 21:00 Future Hold 05/27/17 20:36 (NovoLOG SUPPLEMENTAL SCALE) 1 ACHS SLIDING SCALE SQ 05/21/17 21:00 05/31/17 13:06 (Protonix) 40 mg DAILY PO 05/22/17 09:00 05/31/17 08:54 (Tylenol) 650 mg Q6H PRN PO 05/21/17 23:30 (Anthony 5-325 Mg) 1 tab Q4H PRN PO 05/21/17 23:30 05/30/17 11:14 (Anthony 10-325 Mg) 1 tab Q4H PRN PO 05/21/17 23:30 05/31/17 01:25 (Narcan Inj) 0.4 mg UNSCH PRN IV PUSH 05/21/17 23:30 Sodium Chloride 1,000 ml @ 185 mls/hr Q5H25M IV 05/23/17 09:00 Future Hold 05/26/17 09:42 (Ym-Colace) 2 tab BID PO 05/24/17 21:00 05/31/17 08:54 (Lactulose Liq) 30 ml BID PRN PO 05/27/17 12:30 05/27/17 20:35 (Miralax) 17 gm DAILY PO 05/28/17 10:00 05/31/17 08:55 (Levemir Inj) 20 units Q12HR SQ 05/28/17 21:00 05/31/17 08:52 (Tenormin) 25 mg DAILY PO 05/30/17 09:00 05/31/17 08:54 (Synthroid) 200 mcg DAILY@0600 PO 05/31/17 06:00 05/31/17 05:32 (Lyrica) 50 mg Q12HR PO 05/30/17 21:00 05/31/17 08:54 (Satish Rojas MD R2) A/P Assessment and Plan 56 year old female presenting with: (Satish Rojas MD R2) Attending Attestation Patient seen and examined. Case reviewed and discussed Agree with plan of care as discussed with me and documented in the resident note. (Palak Jefferson MD) Problem List: (1) Severe hypothyroidism ICD Codes: E03.8 - Other specified hypothyroidism Status: Acute Plan: TSH on admission greater than 100, Both free T4 and T3 are low on 05/25 Patient had not been taking her levothyroxine T4 supplementation over the past several months due to being out of this medication 05/30 T4 - 0.33 05/30 T3 - 0.77 -Given levothyroxine bolus then titrated up to current dose of 125 mcg daily -Continue levothyroxine 200 mcg daily (2) Urinary incontinence in female ICD Codes: R32 - Unspecified urinary incontinence Status: Acute Plan: Abdomen/pelvis CT without any acute findings Consider etiology due to detrusor overactivity causing urgency incontinence, hypothyroid, NPH, medication adverse effect, constipation Vaginal atrophy and deconditioning causing the inability to get up and go to the bathroom quickly may be contributing to her incontinence Renal and bladder ultrasound on 05/22 showed no acute disease Bladder scan on 05/25 showed post void residual of 12ml. WNL -Advised patient to routinely urinate/empty her bladder when she receives her pain medications about every 4 hours -Treat hypothyroidism as above (3) Weakness ICD Codes: R53.1 - Weakness Status: Chronic Plan: The patient may have significant myopathy due to her severe hypothyroidism causing her weakness Consult PT for activity -Upon assessment stated that falls likely due to a combination of weakness, but also poor lower extremity sensation. -Will need to use a bariatric wheeled walker for safe ambulation -Recommends PT at rehab -7 days a week Patient will need rehab or SNF placement on discharge. This might prove to be difficult due to her self-pay status. Son is due on 06/03 to pick her up and move to [place] to live with him. This is a viable option at this moment due to her likely being unsafe to return home with her multiple fall hx. (4) Diabetes mellitus ICD Codes: E11.9 - Type 2 diabetes mellitus without complications Status: Chronic Plan: Hold home insulin glargine. She reported taking no short acting insulin at home for months only long acting HbA1c is 12.5 Accuchecks ACHS Low-dose ISS Bedside glucoses over past 24 hours ranging 193-267 Increase levemir to 24 units BID (5) Hypertension ICD Codes: I10 - Essential (primary) hypertension Status: Chronic Plan: Stable, continue atenolol 25 mg daily (6) Chronic kidney disease ICD Codes: N18.9 - Chronic kidney disease, unspecified Status: Chronic Plan: Likely Cr now at baseline of 1.4 (7) Hyperlipidemia ICD Codes: E78.5 - Hyperlipidemia, unspecified Status: Chronic Plan: Hold home simvastatin (8) Candidal intertrigo ICD Codes: B37.2 - Candidiasis of skin and nail Status: Acute Plan: Apply clotrimazole 1% cream topically to affected areas twice daily Consider addition of low-potency topical steroid for symptomatic relief Add a topical drying agent as a preventive measure after treatment (9) Nutrition, metabolism, and development symptoms ICD Codes: R63.8 - Other symptoms and signs concerning food and fluid intake Status: Acute Plan: Fluids: tolerating po Electrolytes: continue to monitor Nutrition: 1800 ADA GI ppx: Protonix 40 mg po daily DVT ppx: Heparin 5,000 units sq q8h Depression: continue home zoloft DISPO: Plan D/C on 06/03 when patient will move to [place] with her son. Ideally can go to SNF in meantime if placement can be arranged. (Satish Rojas MD R2) Problem Qualifiers (1) Diabetes mellitus: Qualified Codes: E11.42 - Type 2 diabetes mellitus with diabetic polyneuropathy ; Z79.4 - shelter (current) use of insulin (2) Hypertension: Qualified Codes: I10 - Essential (primary) hypertension (3) Hyperlipidemia: Qualified Codes: E78.00 - Pure hypercholesterolemia, unspecified Satish Rjoas MD R2 May 31, 2017 14:25 Palak Jefferson MD Jun 04, 2017 10:06
[2017-05-31] MEDS ORDERED: POTASSIUM CHLORIDE 25 MEQ EFFERVESCENT TAB PO ONE (15:00)
[2017-05-31] MEDS: CHOLECALCIFEROL (VIT D3) 400 UNIT TAB PO SCH (22:18)
[2017-05-31] MEDS: ASPIRIN EC 81 MG TABEC PO SCH (22:18)
[2017-05-31] MEDS: CLOPIDOGREL 75 MG TAB PO SCH (22:18)
[2017-06-01] VITALS: BP 107/56; PULSE 59; RESP 18; TEMP 97.9; O2SAT 92
[2017-06-01 04:00] VITALS: BP 116/60; PULSE 58; RESP 18; TEMP 97.7; O2SAT 92
[2017-06-01] MEDS: LEVOTHYROXINE SODIUM 200 MCG TAB PO SCH (05:51)
[2017-06-01 06:28] LABS: BICARBONATE 26.8 MEQ/L (21.0-32.0); CREATININE 1.54 MG/DL (0.50-1.00)
[2017-06-01 08:09] VITALS: BP 160/80; PULSE 63; RESP 18; TEMP 97.5; O2SAT 91
[2017-06-01] MEDS: SODIUM CHLORIDE 0.9% FLUSH 10 ML FLUSH IV FLUSH SCH ×2 (08:54→20:31)
[2017-06-01] MEDS: busPIRone HCL 5 MG TAB PO SCH ×3 (08:54→17:53)
[2017-06-01] MEDS: INSULIN ASPART SUPPLEMENTAL SCALE SQ SCH ×4 (08:54→20:32)
[2017-06-01] MEDS: PANTOPRAZOLE SOD 40 MG DELAYED RELEASE TAB PO SCH (08:55)
[2017-06-01] MEDS: PREGABALIN 25 MG CAP PO SCH ×2 (08:55→20:30)
[2017-06-01] MEDS: ATENOLOL 25 MG TAB PO SCH (08:55)
[2017-06-01] MEDS: DOCUSATE SODIUM 50 MG/SENNA 8.6 MG TAB PO SCH ×2 (08:55→20:30)
[2017-06-01] MEDS: CALCIUM CARBONATE 500 MG CHEWABLE TAB PO SCH ×2 (08:55→20:30)
[2017-06-01] MEDS: SERTRALINE HCL 50 MG TAB PO SCH ×2 (08:55→20:30)
[2017-06-01] MEDS: INSULIN DETEMIR 100 UNITS/ML VIAL SQ SCH ×2 (08:56→20:31)
[2017-06-01] MEDS: POLYETHYLENE GLYCOL 17 GM PKG PO SCH (08:56)
[2017-06-01] MEDS: CLOTRIMAZOLE 1% CREAM 15 GM TOPICAL SCH ×2 (08:56→20:32)
[2017-06-01 12:08] VITALS: BP 99/51; PULSE 61; RESP 18; TEMP 97.4; O2SAT 94
--- NOTE | 2017-06-01 15:23 | HHI.FPPN ---
Subjective Remarks Patient seen and examined this morning. No acute events overnight. Patient says she felt sleepy. No other complaints. Patient with plan to arrange flight to [place] for this weekend as she will be moving in with her son. (Maude Harkins MD, R1) Objective Vitals Vital Signs Date Time Temp Pulse Resp B/P (MAP) Pulse Ox O2 Delivery O2 Flow Rate FiO2 06/01/17 14:18 Room Air 06/01/17 12:08 97.4 61 18 99/51 (67) 94 06/01/17 09:00 Room Air 06/01/17 08:09 97.5 63 18 160/80 (106) 91 06/01/17 04:00 97.7 58 18 116/60 (78) 92 06/01/17 00:00 97.9 59 18 107/56 (73) 92 05/31/17 20:00 98.1 60 18 114/55 (74) 92 05/31/17 20:00 92 Room Air 05/31/17 16:09 98.2 57 18 131/58 (82) 92 I/O 05/31/17 05/31/17 05/31/17 06/01/17 06/01/17 06/01/17 07:00 15:00 23:00 07:00 15:00 23:00 Intake Total 200 ml 480 ml Output Total 600 ml 450 ml 450 ml Balance -400 ml 30 ml -450 ml Intake Oral 200 ml 480 ml Output Urine Total 600 ml 450 ml 450 ml # Bowel Movements 0 0 (Maude Harkins MD, R1) Result Diagram: 05/29/17 0430 06/01/17 0525 Objective Remarks GENERAL: Well-nourished, morbidly obese white female patient, sitting in bed, NAD. SKIN: Warm and dry/flaky. CARDIOVASCULAR: Heart sounds distant. Regular rate and rhythm without murmurs, gallops, or rubs. RESPIRATORY: Breath sounds equal bilaterally and clear. No accessory muscle use. No crackles or wheezes. GASTROINTESTINAL: Abdomen soft, obese, nondistended. Nontender. EXTREMITIES: Trace edema of BLE. NEUROLOGICAL: Grossly non-focal. (Maude Harkins MD, R1) A/P Assessment and Plan 56 year old female presenting with: (Maude Harkins MD, R1) Attending Attestation Patient seen and examined. Case reviewed and discussed Agree with plan of care as discussed with me and documented in the resident note. (Palak Jefferson MD) Problem List: (1) Severe hypothyroidism ICD Codes: E03.8 - Other specified hypothyroidism Status: Acute Plan: TSH on admission greater than 100, Both free T4 and T3 are low on 05/25 Patient had not been taking her levothyroxine T4 supplementation over the past several months due to being out of this medication 05/30 T4 - 0.33 05/30 T3 - 0.77 Follow-up repeat thyroid studies -Given levothyroxine bolus then titrated up to current dose of 200 mcg daily -Continue levothyroxine 200 mcg daily (2) Urinary incontinence in female ICD Codes: R32 - Unspecified urinary incontinence Status: Acute Plan: Abdomen/pelvis CT without any acute findings Consider etiology due to detrusor overactivity causing urgency incontinence, hypothyroid, NPH, medication adverse effect, constipation Vaginal atrophy and deconditioning causing the inability to get up and go to the bathroom quickly may be contributing to her incontinence Renal and bladder ultrasound on 05/22 showed no acute disease Bladder scan on 05/25 showed post void residual of 12ml. WNL -Advised patient to routinely urinate/empty her bladder when she receives her pain medications about every 4 hours -Treat hypothyroidism as above (3) Weakness ICD Codes: R53.1 - Weakness Status: Chronic Plan: The patient may have significant myopathy due to her severe hypothyroidism causing her weakness Consult PT for activity -Upon assessment stated that falls likely due to a combination of weakness, but also poor lower extremity sensation. -Will need to use a bariatric wheeled walker for safe ambulation -Recommends PT at rehab -7 days a week Patient will need rehab or SNF placement on discharge. This might prove to be difficult due to her self-pay status. Son is due on 06/03 to pick her up and move to [place] to live with him. This is a viable option at this moment due to her likely being unsafe to return home with her multiple fall hx. -Patient was not approved for short-term CIR due to no available [facility] beds. (4) Diabetes mellitus ICD Codes: E11.9 - Type 2 diabetes mellitus without complications Status: Chronic Plan: Hold home insulin glargine. She reported taking no short acting insulin at home for months only long acting HbA1c is 12.5 Accuchecks ACHS Low-dose ISS Bedside glucoses over past 24 hours ranging 185-252 Increase levemir to 24 units BID (5) Hypertension ICD Codes: I10 - Essential (primary) hypertension Status: Chronic Plan: Stable, continue atenolol 25 mg daily (6) Chronic kidney disease ICD Codes: N18.9 - Chronic kidney disease, unspecified Status: Chronic Plan: Likely Cr now at baseline of 1.4 (7) Hyperlipidemia ICD Codes: E78.5 - Hyperlipidemia, unspecified Status: Chronic Plan: Hold home simvastatin (8) Candidal intertrigo ICD Codes: B37.2 - Candidiasis of skin and nail Status: Acute Plan: Apply clotrimazole 1% cream topically to affected areas twice daily Consider addition of low-potency topical steroid for symptomatic relief Add a topical drying agent as a preventive measure after treatment (9) Nutrition, metabolism, and development symptoms ICD Codes: R63.8 - Other symptoms and signs concerning food and fluid intake Status: Acute Plan: Fluids: tolerating po Electrolytes: continue to monitor Nutrition: 1800 ADA GI ppx: Protonix 40 mg po daily DVT ppx: Heparin 5,000 units sq q8h Depression: continue home zoloft DISPO: Plan D/C on 06/03 when patient will move to [place] with her son. (Maude Harkins MD, R1) Problem Qualifiers (1) Diabetes mellitus: Qualified Codes: E11.42 - Type 2 diabetes mellitus with diabetic polyneuropathy ; Z79.4 - correction (current) use of insulin (2) Hypertension: Qualified Codes: I10 - Essential (primary) hypertension (3) Hyperlipidemia: Qualified Codes: E78.00 - Pure hypercholesterolemia, unspecified Maude Harkins MD, R1 Jun 01, 2017 15:23 Palak Jefferson MD Jun 04, 2017 10:06
[2017-06-01 16:09] VITALS: BP 117/57; PULSE 61; RESP 17; TEMP 98.1; O2SAT 94
[2017-06-01 19:44] VITALS: BP 152/80; PULSE 64; RESP 18; TEMP 97.3; O2SAT 94
[2017-06-01] MEDS: CHOLECALCIFEROL (VIT D3) 400 UNIT TAB PO SCH (20:30)
[2017-06-01] MEDS: CLOPIDOGREL 75 MG TAB PO SCH (20:30)
[2017-06-01] MEDS: ASPIRIN EC 81 MG TABEC PO SCH (20:31)
[2017-06-02] VITALS: BP 136/63; PULSE 56; RESP 18; TEMP 97.7; O2SAT 95
[2017-06-02] MEDS: ACETAMINOPHEN/HYDROcodone 325 MG/10 MG TAB PO PRN ×2 (00:14→10:03)
[2017-06-02 04:00] VITALS: BP 123/58; PULSE 60; RESP 17; TEMP 97.7; O2SAT 93
[2017-06-02] MEDS: LEVOTHYROXINE SODIUM 200 MCG TAB PO SCH (06:05)
[2017-06-02 06:16] LABS: ALKALINE PHOSPHATASE 67 U/L (45-117); ALT (GPT) 34 U/L (10-53); AST (GOT) 34 U/L (15-37); BICARBONATE 28.3 MEQ/L (21.0-32.0); BLOOD UREA NITROGEN 21 MG/DL (7-18); CALCIUM 9.2 MG/DL (8.5-10.1); CHLORIDE 101 MEQ/L (98-107); FREE T3 0.91 PG/ML (2.18-3.98); FREE T4 0.45 NG/DL (0.76-1.46); GLOMERULAR FILTRATION RATE 39 ML/MIN (>89); GLUCOSE,RANDOM 230 MG/DL (74-106); SODIUM (NA) 139 MEQ/L (136-145); TOTAL BILIRUBIN ADULT 0.4 MG/DL (0.2-1.0); TOTAL PROTEIN 6.9 GM/DL (6.4-8.2)
[2017-06-02 08:00] VITALS: BP 166/71; PULSE 64; RESP 18; TEMP 97.9; O2SAT 93
[2017-06-02] MEDS: SODIUM CHLORIDE 0.9% FLUSH 10 ML FLUSH IV FLUSH SCH ×2 (08:00→21:03)
[2017-06-02] MEDS: ATENOLOL 25 MG TAB PO SCH (08:41)
[2017-06-02] MEDS: INSULIN ASPART SUPPLEMENTAL SCALE SQ SCH ×4 (08:41→21:02)
[2017-06-02] MEDS: PREGABALIN 25 MG CAP PO SCH (08:41)
[2017-06-02] MEDS: POLYETHYLENE GLYCOL 17 GM PKG PO SCH (08:41)
[2017-06-02] MEDS: busPIRone HCL 5 MG TAB PO SCH ×3 (08:42→17:24)
[2017-06-02] MEDS: SERTRALINE HCL 50 MG TAB PO SCH ×2 (08:42→21:01)
[2017-06-02] MEDS: DOCUSATE SODIUM 50 MG/SENNA 8.6 MG TAB PO SCH ×2 (08:42→21:02)
[2017-06-02] MEDS: PANTOPRAZOLE SOD 40 MG DELAYED RELEASE TAB PO SCH (08:42)
[2017-06-02] MEDS: CALCIUM CARBONATE 500 MG CHEWABLE TAB PO SCH ×2 (08:42→21:02)
[2017-06-02] MEDS: INSULIN DETEMIR 100 UNITS/ML VIAL SQ SCH ×2 (08:43→21:02)
[2017-06-02] MEDS: CLOTRIMAZOLE 1% CREAM 15 GM TOPICAL SCH ×2 (08:43→21:03)
--- NOTE | 2017-06-02 11:20 | HHI.FPPN ---
Subjective Remarks Chest and examined this morning. No acute events overnight. Patient expressed concerned about her ability to ambulate, she was not able to work with physical therapy this morning because her legs "were not able to support her". patient says she had a bowel movement this morning. Denies chest pain, shortness of breath, abdominal pain, nausea or vomiting. (Maude Harkins MD, R1) Objective Vitals Vital Signs Date Time Temp Pulse Resp B/P (MAP) Pulse Ox O2 Delivery O2 Flow Rate FiO2 06/02/17 08:00 97.9 64 18 166/71 (102) 93 06/02/17 04:00 Room Air 06/02/17 04:00 97.7 60 17 123/58 (79) 93 06/02/17 00:09 Room Air 06/02/17 00:00 97.7 56 18 136/63 (87) 95 06/01/17 20:30 Room Air 06/01/17 19:44 97.3 64 18 152/80 (104) 94 06/01/17 16:09 98.1 61 17 117/57 (77) 94 06/01/17 14:18 Room Air 06/01/17 12:08 97.4 61 18 99/51 (67) 94 I/O 06/01/17 06/01/17 06/01/17 06/02/17 06/02/17 06/02/17 07:00 15:00 23:00 07:00 15:00 23:00 Intake Total 600 ml 120 ml Output Total 450 ml 200 ml Balance -450 ml 400 ml 120 ml Intake Oral 600 ml 120 ml Output Urine Total 450 ml 200 ml # Voids 2 2 # Bowel Movements 0 0 (Maude Harkins MD, R1) Result Diagram: 05/29/17 0430 06/02/17 0450 Objective Remarks GENERAL: Well-nourished, morbidly obese white female patient, sitting in bed, NAD. SKIN: Warm and dry/flaky. CARDIOVASCULAR: Heart sounds distant. Regular rate and rhythm without murmurs, gallops, or rubs. RESPIRATORY: Breath sounds equal bilaterally and clear. No accessory muscle use. No crackles or wheezes. GASTROINTESTINAL: Abdomen soft, obese, nondistended. Mild tenderness on right upper quadrant. EXTREMITIES: Trace edema of BLE. NEUROLOGICAL: Grossly non-focal. (Maude Harkins MD, R1) A/P Assessment and Plan 56 year old female presenting with: Discharge Planning From medical team standpoint patient is not safe for discharge due to her significant requirement of assistance for transfers. Physical therapy evaluation: Very high fall risk (Maude Harkins MD, R1) Attending Attestation Patient seen and examined. Case reviewed and discussed Agree with plan of care as discussed with me and documented in the resident note. (Palak Jefferson MD) Problem List: (1) Severe hypothyroidism ICD Codes: E03.8 - Other specified hypothyroidism Status: Acute Plan: TSH on admission greater than 100, Both free T4 and T3 are low on 05/25 Patient had not been taking her levothyroxine T4 supplementation over the past several months due to being out of this medication 05/30 T4 - 0.33-->0.45 05/30 T3 - 0.77-->0.91 -Given levothyroxine bolus then titrated up to current dose of 225 mcg daily -Continue levothyroxine 225 mcg daily -Endocrine consulted, appreciate recommendations (2) Urinary incontinence in female ICD Codes: R32 - Unspecified urinary incontinence Status: Acute Plan: Abdomen/pelvis CT without any acute findings Consider etiology due to detrusor overactivity causing urgency incontinence, hypothyroid, NPH, medication adverse effect, constipation Vaginal atrophy and deconditioning causing the inability to get up and go to the bathroom quickly may be contributing to her incontinence Renal and bladder ultrasound on 05/22 showed no acute disease Bladder scan on 05/25 showed post void residual of 12ml. WNL -Advised patient to routinely urinate/empty her bladder when she receives her pain medications about every 4 hours -Treat hypothyroidism as above (3) Weakness ICD Codes: R53.1 - Weakness Status: Chronic Plan: The patient may have significant myopathy due to her severe hypothyroidism causing her weakness Consult PT for activity -Upon assessment stated that falls likely due to a combination of weakness, but also poor lower extremity sensation. -Will need to use a bariatric wheeled walker for safe ambulation -Recommends PT at rehab -C/w PT BID while in the hospital for 7 days a week -Patient remain a high fall risk. Not safe for discharge due to her significant requirement of assistance for transfers. Patient is self-pay status thus placement in rehab not possible. Patient was not approved for short-term CIR due to no available [facility] beds. Patient scheduled to fly to [place] this weekend however case management has been consulted to assist patient in rescheduling flight due to her high fall risk state. We will speak with son about medical plan and concern for pt's ability to ambulate or transfer if she were to go on the flight this weekend. (4) Diabetes mellitus ICD Codes: E11.9 - Type 2 diabetes mellitus without complications Status: Chronic Plan: Hold home insulin glargine. She reported taking no short acting insulin at home for months only long acting HbA1c is 12.5 Accuchecks ACHS Low-dose ISS Bedside glucoses over past 24 hours ranging 185-252 c/w levemir to 24 units BID add novolog 5 units before lunch and dinner (5) Hypertension ICD Codes: I10 - Essential (primary) hypertension Status: Chronic Plan: Stable, continue atenolol 25 mg daily (6) Chronic kidney disease ICD Codes: N18.9 - Chronic kidney disease, unspecified Status: Chronic Plan: Likely Cr now at baseline of 1.4 (7) Hyperlipidemia ICD Codes: E78.5 - Hyperlipidemia, unspecified Status: Chronic Plan: Hold home simvastatin (8) Nutrition, metabolism, and development symptoms ICD Codes: R63.8 - Other symptoms and signs concerning food and fluid intake Status: Acute Plan: Fluids: tolerating po Electrolytes: continue to monitor Nutrition: 1800 ADA GI ppx: Protonix 40 mg po daily DVT ppx: Heparin 5,000 units sq q8h Depression: continue home zoloft (Maude Harkins MD, R1) Problem Qualifiers (1) Diabetes mellitus: Qualified Codes: E11.42 - Type 2 diabetes mellitus with diabetic polyneuropathy ; Z79.4 - care home (current) use of insulin (2) Hypertension: Qualified Codes: I10 - Essential (primary) hypertension (3) Hyperlipidemia: Qualified Codes: E78.00 - Pure hypercholesterolemia, unspecified Maude Harkins MD, R1 Jun 02, 2017 11:20 Palak Jefferson MD Jun 04, 2017 10:04
[2017-06-02 12:00] VITALS: BP 133/61; PULSE 60; RESP 18; TEMP 98.6; O2SAT 93
[2017-06-02] MEDS ORDERED: LEVOTHYROXINE SODIUM 25 MCG TAB PO ONE (13:15)
[2017-06-02 16:14] VITALS: BP 128/67; PULSE 64; RESP 18; TEMP 97.8; O2SAT 92
--- NOTE | 2017-06-02 16:49 | PD.CONS ---
History of Present Illness Service Endocrinology Consult Requested By Dr. Oswaldo Rojas Reason for Consult Severe hypothyroidism causing functional impairment improving slowly Primary Care Physician No Primary Care Physician Diagnoses: History of Present Illness This is a 56 year old woman of [place] and [place] decent with a very strong family history of autoimmune disease including hypothyroidism, hyperthyroidism, type 1 diabetes and vitiligo who presented to the ER for evaluation of falling and was also found to be profoundly hypothyroid. She was diagnosed with hypothyroidism about over 25 years ago. Currently she does not recall her presentation but was on 225 mcg of Levothyroxine till several months ago when she ran out of the medication, was not able to refill it and had been going without it. Her TSH on admission was > 100 and remains so while her Free T4 has been increasing very slowly. Currently she is feeling tired. She has a history of depression which she feels is mainly related to her history of primary anxiety disorder. Otherwise she admits to loosing her hair, longstanding dry hair, longstanding obesity and longstanding intermittent constipation alternating with diarrhea. Otherwise of significance in her case in particular is a history of CAD status post CABG in 2008 and 2 stent placements last year. She denies chest pain at the moment or palpitations. The rest of her ROS is significant for intermittent cold intolerance and loss of her eye brows. Review of Systems Constitutional: COMPLAINS OF: Fatigue, Weight gain, DENIES: Diaphoretic episodes, Fever, Weight loss, Chills, Dizziness, Change in appetite, Night Sweats Endocrine: DENIES: Abnorml menstrual pattern, Polydipsia, Polyuria, Polyphagia Eyes: COMPLAINS OF: Blurred vision, Diplopia (mainly in her right eye which is not new), DENIES: Eye inflammation, Eye pain, Vision loss, Photosensitivity, Double Vision Ears, nose, mouth, throat: COMPLAINS OF: Tinnitus, Hearing loss (her right ear predominantly), Vertigo (when exposed to Dilaudid), DENIES: Nasal discharge, Oral lesions, Throat pain, Hoarseness, Ear Pain, Running Nose, Epistaxis, Sinus Pain, Toothache, Odynophagia Respiratory: DENIES: Apneas, Cough, Snoring, Wheezing, Hemoptysis, Sputum production, Shortness of breath Cardiovascular: COMPLAINS OF: Palpitations (see above), Lower Extremity Edema ( longstanding), DENIES: Syncope, Dyspnea on Exertion, PND, Orthopnea, Claudication Gastrointestinal: COMPLAINS OF: Constipation, Diarrhea, DENIES: Abdominal pain , Black stools, Bloody stools, Nausea, Vomiting, Difficulty Swallowing Genitourinary: COMPLAINS OF: Nocturia (2 - 3 times per night) Integumentary: DENIES: Abnormal pigmentation, Pruritus, Rash, Nail changes, Breast masses, Breast skin changes, Nipple discharge Hematologic/lymphatic: DENIES: Bruising, Lymphadenopathy Immunologic/allergic: DENIES: Eczema, Urticaria Neurologic: COMPLAINS OF: Paresthesias (PNP both feet and tip of fingers) Psychiatric: COMPLAINS OF: Anxiety, Depression Past Family Social History Allergies: Coded Allergies: penicillin G (Unverified Allergy, Severe, hives, 04/29/17) hydromorphone (Unverified Adverse Reaction, Unknown, vomiting, 04/29/17) Past Medical History DM, hyperlipdiemia, hypothyroidism, CAD, depression, anxiety Past Surgical History C-sections x 4, CABG 04/08/2008, Stent placement 2017, tonsillectomy and gall bladder surgery Active Ordered Medications Current Medications Medications (Trade) Dose Ordered Sig/Guillaume Route Start Time Stop Time Status Last Admin (NS Flush) 2 ml UNSCH PRN IV FLUSH 05/21/17 17:30 (NS Flush) 2 ml BID IV FLUSH 05/21/17 21:00 06/02/17 08:00 (Tylenol) 650 mg Q4H PRN PO 05/21/17 17:30 (Zofran Inj) 4 mg Q6H PRN IVP 05/21/17 17:30 05/29/17 18:11 (Milk Of Magnesia Liq) 30 ml Q12H PRN PO 05/21/17 17:30 (Dulcolax Supp) 10 mg DAILY PRN RECTAL 05/21/17 17:30 (Lotrimin 1% Cream) 1 applic BID TOPICAL 05/21/17 17:30 06/02/17 08:43 (Ecotrin Ec) 81 mg HS PO 05/21/17 21:00 06/01/17 20:31 (Buspar) 15 mg TID PO 05/22/17 09:00 06/02/17 12:12 (Plavix) 75 mg HS PO 05/21/17 21:00 06/01/17 20:30 (Zoloft) 50 mg BID PO 05/21/17 21:00 06/02/17 08:42 (Tums Chew) 500 mg BID PO 05/21/17 21:00 06/02/17 08:42 (Vitamin D3) 400 units HS PO 05/21/17 21:00 06/01/17 20:30 (Ferrous Sulfate) 325 mg BID PO 05/21/17 21:00 Future Hold 05/27/17 20:36 (NovoLOG SUPPLEMENTAL SCALE) 1 ACHS SLIDING SCALE SQ 05/21/17 21:00 06/02/17 13:50 (Protonix) 40 mg DAILY PO 05/22/17 09:00 06/02/17 08:42 (Tylenol) 650 mg Q6H PRN PO 05/21/17 23:30 (Sproul 5-325 Mg) 1 tab Q4H PRN PO 05/21/17 23:30 05/30/17 11:14 (Sproul 10-325 Mg) 1 tab Q4H PRN PO 05/21/17 23:30 06/02/17 10:03 (Narcan Inj) 0.4 mg UNSCH PRN IV PUSH 05/21/17 23:30 Sodium Chloride 1,000 ml @ 185 mls/hr Q5H25M IV 05/23/17 09:00 Future Hold 05/26/17 09:42 (My-Colace) 2 tab BID PO 05/24/17 21:00 06/02/17 08:42 (Lactulose Liq) 30 ml BID PRN PO 05/27/17 12:30 05/27/17 20:35 (Miralax) 17 gm DAILY PO 05/28/17 10:00 06/02/17 08:41 (Tenormin) 25 mg DAILY PO 05/30/17 09:00 06/02/17 08:41 (Levemir Inj) 24 units Q12HR SQ 05/31/17 21:00 06/02/17 08:43 (Synthroid) 200 mcg DAILY@0600 PO 06/03/17 06:00 (NovoLOG INJ) 5 units AC DINNER SQ 06/02/17 16:00 (NovoLOG INJ) 5 units AC LUNCH SQ 06/03/17 11:00 (Synthroid) 25 mcg DAILY@0600 PO 4/28/18 06:00 Family History the pateint is the eldest of 4 girls all of whom have hypothyroidism, She had anotehr sister who and had type 1 diabetes, she has another sister with type 2 diabetes and has a family history of vitiligo , blood dyscrasia in her mother and a history of CAD. 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 She is currently and lives with her dog Bayron. Physical Exam Vital Signs Vital Signs Date Time Temp Pulse Resp B/P (MAP) Pulse Ox O2 Delivery O2 Flow Rate FiO2 06/02/17 12:00 98.6 60 18 133/61 (85) 93 06/02/17 08:00 97.9 64 18 166/71 (102) 93 06/02/17 04:00 Room Air 06/02/17 04:00 97.7 60 17 123/58 (79) 93 06/02/17 00:09 Room Air 06/02/17 00:00 97.7 56 18 136/63 (87) 95 06/01/17 20:30 Room Air 06/01/17 19:44 97.3 64 18 152/80 (104) 94 Physical Exam GENERAL: This is an obese lady who in no apparent distress who is awake and alert but can fall asleep easily when given the opportunity. SKIN: No rashes, ecchymoses or lesions. Very dry skin. HEAD: Atraumatic. Normocephalic. No temporal or scalp tenderness. EYES: Extraocular motions intact. No scleral icterus. No injection or drainage. ENT: Nose without bleeding, purulent drainage or septal hematoma. . NECK: Trachea midline. No JVD or lymphadenopathy. Supple, nontender, no meningeal signs. Thyroid is not palpable CARDIOVASCULAR: Regular rate and rhythm without murmurs, gallops, or rubs. Heart rate of 60 BPM RESPIRATORY: Clear to auscultation. Breath sounds equal bilaterally. No wheezes , rales, or rhonchi. GASTROINTESTINAL: Abdomen soft, non-tender, nondistended. No hepato-splenomegaly , or palpable masses. No guarding. MUSCULOSKELETAL: Extremities without clubbing, cyanosis, or edema. No joint tenderness, effusion, or edema noted. No calf tenderness. NEUROLOGICAL: Awake and alert. Cranial nerves II through XII intact. Motor and sensory grossly within normal limits. Delayed relaxation of her DTR's in her upper extremities. Laboratory Laboratory Tests Test 06/02/17 04:50 Blood Urea Nitrogen 21 Creatinine 1.40 Random Glucose 230 Total Protein 6.9 Albumin 3.0 Calcium Level 9.2 Alkaline Phosphatase 67 Aspartate Amino Transf (AST/SGOT) 34 Alanine Aminotransferase (ALT/SGPT) 34 Total Bilirubin 0.4 Sodium Level 139 Potassium Level 3.7 Chloride Level 101 Carbon Dioxide Level 28.3 Anion Gap 10 Estimat Glomerular Filtration Rate 39 Free Thyroxine 0.45 Free Triiodothyronine (T3) pg/dL 0.91 Thyroid Stimulating Hormone 3rd Gen GREATER THAN 100.000 Date/Time Source Procedure Growth Status 05/21/17 14:21 Blood Peripheral Aerobic Blood Culture - Final NO GROWTH IN 5 DAYS Complete 05/21/17 14:21 Blood Peripheral Anaerobic Blood Culture - Final NO GROWTH IN 5 DAYS Complete 05/24/17 18:50 Urine Clean Catch Urine Culture - Final 10-50,000 CFU/ML MIXED GRAM POSITIVE ... Complete Result Diagram: 05/29/17 0430 06/02/17 0450 Assessment and Plan Problem List: (1) Severe hypothyroidism ICD Codes: E03.8 - Other specified hypothyroidism Status: Acute (2) Poorly controlled diabetes mellitus ICD Codes: E11.65 - Type 2 diabetes mellitus with hyperglycemia Status: Acute (3) Coronary artery disease ICD Codes: I25.10 - Atherosclerotic heart disease of [place] coronary artery without angina pectoris Status: Chronic (4) Hyperlipidemia ICD Codes: E78.5 - Hyperlipidemia, unspecified Status: Chronic (5) Hypertension ICD Codes: I10 - Essential (primary) hypertension Status: Chronic Assessment and Plan Severe Primary Hypothyroidism due to medication non-adherence due to socio- economic issues CAD s/p CABG and Stent placement Poorly Controlled Diabetes Hyperlipidemia HTN I have discussed the severity of this profound hypothyroidism with the patient and have advised her of the possible fatal outcomes if she was to have contracted a systemic infectioius disease while in this state and have counseled her to avoid this in the future. At this point I will recommend a dose of 250 mcg of IV levothyroxine and repeat her Free T4 in the morning before deciding to increase her dose. In view of her history of CAD will abstain from a 500 mcg dose. In the unlikely case that she was to become symptomatic I will recommend furhter Beta blockade. Otherwise recommend liberal adjustments of her insulin dosages as her levels are increased seen this will decrease the current insulin half life. Thank you for allowing me to participate in the medical management of this very interesting and nice woman. Will follow with you. Problem Qualifiers (1) Hyperlipidemia: Qualified Codes: E78.00 - Pure hypercholesterolemia, unspecified (2) Hypertension: Qualified Codes: I10 - Essential (primary) hypertension Jabari Odonnell MD Jun 02, 2017 16:49
[2017-06-02] MEDS ORDERED: LEVOTHYROXINE SODIUM 100 MCG VIAL IV PUSH ONE (17:00)
[2017-06-02] MEDS: INSULIN ASPART 1,000 UNITS/10 ML VIAL SQ SCH (17:24)
[2017-06-02 20:00] VITALS: BP 120/60; PULSE 59; RESP 14; TEMP 97.9; O2SAT 93
[2017-06-02] MEDS: CLOPIDOGREL 75 MG TAB PO SCH (21:01)
[2017-06-02] MEDS: CHOLECALCIFEROL (VIT D3) 400 UNIT TAB PO SCH (21:02)
[2017-06-02] MEDS: ASPIRIN EC 81 MG TABEC PO SCH (21:02)
[2017-06-03] VITALS: BP 117/57; PULSE 59; RESP 18; TEMP 97.8; O2SAT 94
[2017-06-03] MEDS: ACETAMINOPHEN/HYDROcodone 325 MG/10 MG TAB PO PRN (00:48)
[2017-06-03 04:00] VITALS: BP 130/62; PULSE 62; RESP 16; TEMP 97.8; O2SAT 94
[2017-06-03] MEDS: LEVOTHYROXINE SODIUM 200 MCG TAB PO SCH (05:34)
[2017-06-03] MEDS: LEVOTHYROXINE SODIUM 25 MCG TAB PO SCH (05:34)
[2017-06-03 06:42] LABS: ALBUMIN 3.1 GM/DL (3.4-5.0); AST (GOT) 31 U/L (15-37); BLOOD UREA NITROGEN 24 MG/DL (7-18); CALCIUM 9.6 MG/DL (8.5-10.1); CHLORIDE 100 MEQ/L (98-107); CREATININE 1.59 MG/DL (0.50-1.00); GLOMERULAR FILTRATION RATE 33 ML/MIN (>89); GLUCOSE,RANDOM 209 MG/DL (74-106); SODIUM (NA) 138 MEQ/L (136-145)
[2017-06-03 06:52] LABS: ALKALINE PHOSPHATASE 69 U/L (45-117); ALT (GPT) 33 U/L (10-53); FREE T4 0.71 NG/DL (0.76-1.46); TOTAL BILIRUBIN ADULT 0.3 MG/DL (0.2-1.0); TOTAL PROTEIN 7.3 GM/DL (6.4-8.2)
[2017-06-03] MEDS: SODIUM CHLORIDE 0.9% FLUSH 10 ML FLUSH IV FLUSH SCH ×2 (07:20→21:00)
[2017-06-03 08:00] VITALS: BP 127/66; PULSE 61; RESP 17; TEMP 98.2; O2SAT 93
[2017-06-03] MEDS: ATENOLOL 25 MG TAB PO SCH (08:09)
[2017-06-03] MEDS: CALCIUM CARBONATE 500 MG CHEWABLE TAB PO SCH ×2 (08:09→21:11)
[2017-06-03] MEDS: POLYETHYLENE GLYCOL 17 GM PKG PO SCH (08:09)
[2017-06-03] MEDS: busPIRone HCL 5 MG TAB PO SCH ×3 (08:09→17:05)
[2017-06-03] MEDS: PANTOPRAZOLE SOD 40 MG DELAYED RELEASE TAB PO SCH (08:09)
[2017-06-03] MEDS: DOCUSATE SODIUM 50 MG/SENNA 8.6 MG TAB PO SCH ×2 (08:09→21:11)
[2017-06-03] MEDS: SERTRALINE HCL 50 MG TAB PO SCH ×2 (08:09→21:11)
[2017-06-03] MEDS: CLOTRIMAZOLE 1% CREAM 15 GM TOPICAL SCH ×2 (08:10→21:12)
[2017-06-03] MEDS: INSULIN DETEMIR 100 UNITS/ML VIAL SQ SCH ×2 (08:10→21:25)
[2017-06-03] MEDS: INSULIN ASPART SUPPLEMENTAL SCALE SQ SCH ×4 (08:10→21:26)
[2017-06-03 12:00] VITALS: BP 105/54; PULSE 60; RESP 17; TEMP 98.3; O2SAT 92
[2017-06-03] MEDS: INSULIN ASPART 1,000 UNITS/10 ML VIAL SQ SCH ×2 (13:14→17:06)
--- NOTE | 2017-06-03 14:34 | HHI.FPPN ---
Subjective Remarks Patient is doing well overall this morning. She does states she is restless today. Nursing reports that patient requires 2 people to assist in transfers. Nursing states that patient has had a Carlson in, and they have been instructed for this to be removed at this time. Patient understands that due requiring multiple trained therapist to move her, she would be unsafe for discharge at this time. She denies fever, chest pain, nausea, vomiting, shortness of breath. (Escobar Rosales MD R3) Objective Vitals Vital Signs Date Time Temp Pulse Resp B/P (MAP) Pulse Ox O2 Delivery O2 Flow Rate FiO2 06/03/17 12:00 98.3 60 17 105/54 (71) 92 06/03/17 08:00 98.2 61 17 127/66 (86) 93 06/03/17 04:00 97.8 62 16 130/62 (84) 94 06/03/17 00:50 Room Air 06/03/17 00:00 97.8 59 18 117/57 (77) 94 06/02/17 20:00 97.9 59 14 120/60 (80) 93 06/02/17 20:00 Room Air 06/02/17 16:14 97.8 64 18 128/67 (87) 92 I/O 06/02/17 06/02/17 06/02/17 06/03/17 06/03/17 06/03/17 07:00 15:00 23:00 07:00 15:00 23:00 Intake Total 120 ml 720 ml 480 ml Output Total 800 ml Balance 120 ml -80 ml 480 ml Intake Oral 120 ml 720 ml 480 ml Output Urine Total 800 ml # Voids 2 3 2 # Bowel Movements 0 0 (Escobar Rosales MD R3) Result Diagram: 06/03/17 0550 Objective Remarks GENERAL: Well-nourished, morbidly obese white female patient, sitting in bed, NAD. SKIN: Warm and dry/flaky. CARDIOVASCULAR: Heart sounds distant. Regular rate and rhythm without murmurs, gallops, or rubs. RESPIRATORY: Breath sounds equal bilaterally and clear. No accessory muscle use. No crackles or wheezes. GASTROINTESTINAL: Abdomen soft, obese, nondistended. Mild tenderness on right upper quadrant. EXTREMITIES: Trace edema of BLE. NEUROLOGICAL: Grossly non-focal. (Escobar Rosales MD R3) A/P Assessment and Plan 56 year old female presenting with: Discharge Planning From medical team standpoint patient is not safe for discharge due to her significant requirement of assistance for transfers. Physical therapy evaluation: Very high fall risk (Escobar Rosales MD R3) Attending Attestation Patient seen and examined with the resident team. Case reviewed and discussed Agree with plan of care as discussed with me and documented in the resident note. (Palak Jefferson MD) Problem List: (1) Severe hypothyroidism ICD Codes: E03.8 - Other specified hypothyroidism Status: Acute Plan: TSH on admission greater than 100, Both free T4 and T3 are low on 05/25 Patient had not been taking her levothyroxine T4 supplementation over the past several months due to being out of this medication 05/30 T4 - 0.33-->0.45 05/30 T3 - 0.77-->0.91 -Given levothyroxine bolus then titrated up to current dose of 225 mcg daily -Continue levothyroxine 225 mcg daily -Endocrine consulted, appreciate recommendations (2) Urinary incontinence in female ICD Codes: R32 - Unspecified urinary incontinence Status: Acute Plan: Abdomen/pelvis CT without any acute findings Consider etiology due to detrusor overactivity causing urgency incontinence, hypothyroid, NPH, medication adverse effect, constipation Vaginal atrophy and deconditioning causing the inability to get up and go to the bathroom quickly may be contributing to her incontinence Renal and bladder ultrasound on 05/22 showed no acute disease Bladder scan on 05/25 showed post void residual of 12ml. WNL -Advised patient to routinely urinate/empty her bladder when she receives her pain medications about every 4 hours -Treat hypothyroidism as above (3) Weakness ICD Codes: R53.1 - Weakness Status: Chronic Plan: The patient may have significant myopathy due to her severe hypothyroidism causing her weakness Consult PT for activity -Upon assessment stated that falls likely due to a combination of weakness, but also poor lower extremity sensation. -Will need to use a bariatric wheeled walker for safe ambulation -Recommends PT at rehab -C/w PT BID while in the hospital for 7 days a week -Patient remain a high fall risk. Not safe for discharge due to her significant requirement of assistance for transfers. Patient is self-pay status thus placement in rehab not possible. Patient was not approved for short-term CIR due to no available [facility] beds. Patient scheduled to fly to [place] this weekend however case management has been consulted to assist patient in rescheduling flight due to her high fall risk state. Patient understands. (4) Diabetes mellitus ICD Codes: E11.9 - Type 2 diabetes mellitus without complications Status: Chronic Plan: Hold home insulin glargine. She reported taking no short acting insulin at home for months only long acting HbA1c is 12.5 Accuchecks ACHS Low-dose ISS Bedside glucoses over past 24 hours ranging 185-252 c/w levemir to 24 units BID add novolog 5 units before lunch and dinner (5) Hypertension ICD Codes: I10 - Essential (primary) hypertension Status: Chronic Plan: Stable, continue atenolol 25 mg daily (6) Chronic kidney disease ICD Codes: N18.9 - Chronic kidney disease, unspecified Status: Chronic Plan: Likely Cr now at baseline (7) Hyperlipidemia ICD Codes: E78.5 - Hyperlipidemia, unspecified Status: Chronic Plan: Hold home simvastatin (8) Nutrition, metabolism, and development symptoms ICD Codes: R63.8 - Other symptoms and signs concerning food and fluid intake Status: Acute Plan: Fluids: tolerating po Electrolytes: continue to monitor Nutrition: 1800 ADA GI ppx: Protonix 40 mg po daily DVT ppx: Heparin 5,000 units sq q8h Depression: continue home zoloft (Escobar Rosales MD R3) Problem Qualifiers (1) Diabetes mellitus: Qualified Codes: E11.42 - Type 2 diabetes mellitus with diabetic polyneuropathy ; Z79.4 - intermediate (current) use of insulin (2) Hypertension: Qualified Codes: I10 - Essential (primary) hypertension (3) Hyperlipidemia: Qualified Codes: E78.00 - Pure hypercholesterolemia, unspecified Escobar Rosales MD R3 Jun 03, 2017 14:33 Palak Jefferson MD Jun 04, 2017 10:04
--- NOTE | 2017-06-03 18:30 | HHI.PR ---
Subjective Remarks Patient was given 250 mcg IV bolus last evening. This morning her free T4 is better but still low. Chaitanya reports she has been feeling better in the sense that she can hold a conversation and not feel so somnolent anymore. Otherwise she denies symptoms suggestive of consistent with angina. Her heart rate taken by myself today is 60 - 61 BPM as compared to 60 BPM yesterday. Otherwise the rest of her symptoms are unchanged. Objective Vital Signs Date Time Temp Pulse Resp B/P (MAP) Pulse Ox O2 Delivery O2 Flow Rate FiO2 06/03/17 12:00 98.3 60 17 105/54 (71) 92 06/03/17 08:00 98.2 61 17 127/66 (86) 93 06/03/17 04:00 97.8 62 16 130/62 (84) 94 06/03/17 00:50 Room Air 06/03/17 00:00 97.8 59 18 117/57 (77) 94 06/02/17 20:00 97.9 59 14 120/60 (80) 93 06/02/17 20:00 Room Air I/O 06/02/17 06/02/17 06/02/17 06/03/17 06/03/17 06/03/17 07:00 15:00 23:00 07:00 15:00 23:00 Intake Total 120 ml 720 ml 480 ml Output Total 800 ml Balance 120 ml -80 ml 480 ml Intake Oral 120 ml 720 ml 480 ml Output Urine Total 800 ml # Voids 2 3 2 # Bowel Movements 0 0 Result Diagram: 06/03/17 0550 Other Results Otherwise labs results reviewed including the TSH which is still greater than 100 and her Free T4 which is now 0.71. Assessment and Plan Problem List: (1) Severe hypothyroidism ICD Codes: E03.8 - Other specified hypothyroidism Status: Acute (2) Poorly controlled diabetes mellitus ICD Codes: E11.65 - Type 2 diabetes mellitus with hyperglycemia Status: Acute (3) Coronary artery disease ICD Codes: I25.10 - Atherosclerotic heart disease of [place] coronary artery without angina pectoris Status: Chronic (4) Hyperlipidemia ICD Codes: E78.5 - Hyperlipidemia, unspecified Status: Chronic (5) Hypertension ICD Codes: I10 - Essential (primary) hypertension Status: Chronic Assessment and Plan Severe Primary Hypothyroidism due to medication non-adherence due to socio- economic issues CAD s/p CABG and Stent placement Poorly Controlled Diabetes Hyperlipidemia HTN At this point will give the patient another IV bolus of Levothyroxine 300 mcg and continue with her oral medication. I have discussed the management plan with her. We have agreed she is going to let us know in case of palpitations. Beta-blockade can be adjusted as needed in the unlikely case of this. Otherwise will repeat TSH and Free 4 tomorrow. The plan is to titrate her to a submaximal level that is more tolerable while continuing wtih the oral dose of medication. Robertson taken to write orders. Thank you for allowing me to participate in the medical management of this very interesting and nice woman. Will follow with you. Problem Qualifiers (1) Hyperlipidemia: Qualified Codes: E78.00 - Pure hypercholesterolemia, unspecified (2) Hypertension: Qualified Codes: I10 - Essential (primary) hypertension Jabari Odonnell MD Jun 03, 2017 18:30
[2017-06-03] MEDS ORDERED: LEVOTHYROXINE SODIUM 100 MCG VIAL IV PUSH ONE (18:45)
[2017-06-03 20:00] VITALS: BP 129/61; PULSE 63; RESP 18; TEMP 98.3; O2SAT 91
[2017-06-03] MEDS: LACTOBACILLUS ACIDOPHILUS TAB PO SCH (21:00)
[2017-06-03] MEDS: CHOLECALCIFEROL (VIT D3) 400 UNIT TAB PO SCH (21:11)
[2017-06-03] MEDS: ASPIRIN EC 81 MG TABEC PO SCH (21:11)
[2017-06-03] MEDS: CLOPIDOGREL 75 MG TAB PO SCH (21:11)
[2017-06-03] MEDS: ACETAMINOPHEN/HYDROcodone 325 MG/5 MG TAB PO PRN (21:26)
[2017-06-04] VITALS: BP 127/69; PULSE 61; RESP 18; TEMP 97.2; O2SAT 93
[2017-06-04] MEDS: ONDANSETRON HCL 4 MG/2 ML VIAL IVP PRN (01:55)
[2017-06-04] MEDS: ACETAMINOPHEN/HYDROcodone 325 MG/5 MG TAB PO PRN ×2 (01:55→06:34)
[2017-06-04 04:00] VITALS: BP 116/59; PULSE 60; RESP 19; TEMP 97.6; O2SAT 92
[2017-06-04] MEDS: LEVOTHYROXINE SODIUM 25 MCG TAB PO SCH (05:27)
[2017-06-04] MEDS: LEVOTHYROXINE SODIUM 200 MCG TAB PO SCH (05:28)
[2017-06-04 06:17] LABS: BASOPHIL % 0.5 % (0.0-2.0); EOSINOPHIL # 0.2 TH/MM3 (0-0.4); EOSINOPHIL % 2.6 % (0.0-4.0); HEMATOCRIT 35.9 % (35.0-46.0); HEMOGLOBIN 12.5 GM/DL (11.6-15.3); LYMPH % 19.3 % (9.0-44.0); LYMPHOCYTE # 1.4 TH/MM3 (1.0-4.8); MEAN CELL VOLUME 98.5 FL (80.0-100.0); MEAN CORPUSCULAR HEMOGLOBIN 34.1 PG (27.0-34.0); MEAN CORPUSCULAR HGB CONC 34.7 % (32.0-36.0); MEAN PLATELET VOLUME 8.2 FL (7.0-11.0); MONO % 7.3 % (0.0-8.0); MONOCYTE # 0.5 TH/MM3 (0-0.9); NEUT % 70.3 % (16.0-70.0); PLATELET COUNT 183 TH/MM3 (150-450); RED BLOOD COUNT 3.65 MIL/MM3 (4.00-5.30); RED CELL DISTRIBUTION WIDTH 13.3 % (11.6-17.2); WHITE BLOOD COUNT 7.1 TH/MM3 (4.0-11.0)
[2017-06-04 06:42] LABS: ALT (GPT) 29 U/L (10-53); AST (GOT) 28 U/L (15-37); BICARBONATE 27.4 MEQ/L (21.0-32.0); BLOOD UREA NITROGEN 25 MG/DL (7-18); CALCIUM 8.9 MG/DL (8.5-10.1); CHLORIDE 101 MEQ/L (98-107); CREATININE 1.44 MG/DL (0.50-1.00); GLOMERULAR FILTRATION RATE 38 ML/MIN (>89); GLUCOSE,RANDOM 188 MG/DL (74-106); SODIUM (NA) 138 MEQ/L (136-145)
[2017-06-04 06:52] LABS: ALKALINE PHOSPHATASE 70 U/L (45-117); FREE T4 0.89 NG/DL (0.76-1.46); TOTAL BILIRUBIN ADULT 0.3 MG/DL (0.2-1.0); TOTAL PROTEIN 7.2 GM/DL (6.4-8.2)
[2017-06-04 08:00] VITALS: BP 130/64; PULSE 65; RESP 20; TEMP 97.7; O2SAT 92
[2017-06-04] MEDS: INSULIN DETEMIR 100 UNITS/ML VIAL SQ SCH ×2 (09:31→20:31)
[2017-06-04] MEDS: DOCUSATE SODIUM 50 MG/SENNA 8.6 MG TAB PO SCH ×2 (09:32→20:08)
[2017-06-04] MEDS: INSULIN ASPART SUPPLEMENTAL SCALE SQ SCH ×4 (09:32→20:32)
[2017-06-04] MEDS: SODIUM CHLORIDE 0.9% FLUSH 10 ML FLUSH IV FLUSH SCH ×2 (09:32→20:09)
[2017-06-04] MEDS: PANTOPRAZOLE SOD 40 MG DELAYED RELEASE TAB PO SCH (09:33)
[2017-06-04] MEDS: busPIRone HCL 5 MG TAB PO SCH ×3 (09:33→17:16)
[2017-06-04] MEDS: LACTOBACILLUS ACIDOPHILUS TAB PO SCH ×2 (09:33→20:08)
[2017-06-04] MEDS: SERTRALINE HCL 50 MG TAB PO SCH ×2 (09:34→20:08)
[2017-06-04] MEDS: ATENOLOL 25 MG TAB PO SCH (09:34)
[2017-06-04] MEDS: CALCIUM CARBONATE 500 MG CHEWABLE TAB PO SCH ×2 (09:34→20:08)
[2017-06-04] MEDS: POLYETHYLENE GLYCOL 17 GM PKG PO SCH (09:34)
[2017-06-04] MEDS: CLOTRIMAZOLE 1% CREAM 15 GM TOPICAL SCH ×2 (09:34→20:32)
[2017-06-04] MEDS: INSULIN ASPART 1,000 UNITS/10 ML VIAL SQ SCH ×2 (11:00→16:00)
[2017-06-04 12:00] VITALS: BP 129/64; PULSE 65; RESP 20; TEMP 98.6; O2SAT 93
--- NOTE | 2017-06-04 12:36 | HHI.FPPN ---
Subjective Remarks No acute events overnight. Fatigued but improving. No CP/SOB. (Satish Rojas MD R2) Objective Vitals Vital Signs Date Time Temp Pulse Resp B/P (MAP) Pulse Ox O2 Delivery O2 Flow Rate FiO2 06/04/17 08:00 92 Room Air 06/04/17 08:00 97.7 65 20 130/64 (86) 92 06/04/17 04:00 97.6 60 19 116/59 (78) 92 06/04/17 00:00 97.2 61 18 127/69 (88) 93 06/03/17 23:40 Room Air 06/03/17 20:00 98.3 63 18 129/61 (83) 91 I/O 06/03/17 06/03/17 06/03/17 06/04/17 06/04/17 06/04/17 07:00 15:00 23:00 07:00 15:00 23:00 Intake Total 480 ml 222 ml Output Total 250 ml Balance 480 ml 222 ml -250 ml Intake Oral 480 ml 222 ml Output Urine Total 250 ml # Voids 2 5 3 # Bowel Movements 0 0 (Satish Rojas MD R2) Result Diagram: 06/04/1743406/04/17 043 Objective Remarks GENERAL: Well-nourished, morbidly obese white female patient, sitting in bed, NAD. SKIN: Warm and dry/flaky. CARDIOVASCULAR: Heart sounds distant. Regular rate and rhythm without murmurs, gallops, or rubs. RESPIRATORY: Breath sounds equal bilaterally and clear. No accessory muscle use. No crackles or wheezes. GASTROINTESTINAL: Abdomen soft, obese, nondistended. Non-tender. EXTREMITIES: Trace edema of BLE. NEUROLOGICAL: Grossly non-focal. (Satish Rojas MD R2) A/P Assessment and Plan 56 year old female presenting with: (Satish Rojas MD R2) Attending Attestation Patient seen and examined. Case reviewed and discussed Agree with plan of care as discussed with me and documented in the resident note. (Palak Jefferson MD) Problem List: (1) Severe hypothyroidism ICD Codes: E03.8 - Other specified hypothyroidism Status: Acute Plan: Improving symptomatically, T4 today lower end of normal TSH on admission greater than 100, Both free T4 and T3 were low Patient had not been taking her levothyroxine T4 supplementation over the past several months due to being out of this medication -Endocrinology consulted, appreciate recommendations -Continue levothyroxine 225 mcg daily -Bolus synthroid IV 400 mcg today -Repeat T4 in AM -Plan to titrate to submaximal dose prior to discharge (2) Weakness ICD Codes: R53.1 - Weakness Status: Chronic Plan: The patient may have significant myopathy due to her severe hypothyroidism causing her weakness Continue PT -Upon assessment stated that falls likely due to a combination of weakness, but also poor lower extremity sensation. -Will need to use a bariatric wheeled walker for safe ambulation -Recommends PT at rehab -C/w PT BID while in the hospital for 7 days a week -Patient remain a high fall risk. Working on safe discharge plan once medically cleared. (3) Urinary incontinence in female ICD Codes: R32 - Unspecified urinary incontinence Status: Resolved Plan: Abdomen/pelvis CT without any acute findings Consider etiology due to detrusor overactivity causing urgency incontinence, hypothyroid, NPH, medication adverse effect, constipation Vaginal atrophy and deconditioning causing the inability to get up and go to the bathroom quickly may be contributing to her incontinence Renal and bladder ultrasound on 05/22 showed no acute disease Bladder scan on 05/25 showed post void residual of 12ml. WNL -Advised patient to routinely urinate/empty her bladder when she receives her pain medications about every 4 hours -Treat hypothyroidism as above (4) Diabetes mellitus ICD Codes: E11.9 - Type 2 diabetes mellitus without complications Status: Chronic Plan: BSG 198-210 Hold home insulin glargine. She reported taking no short acting insulin at home for months only long acting HbA1c is 12.5 Accuchecks ACHS Low-dose ISS Increase levemir to 28 units BID add novolog 5 units before lunch and dinner (5) Hypertension ICD Codes: I10 - Essential (primary) hypertension Status: Chronic Plan: Stable, continue atenolol 25 mg daily (6) Chronic kidney disease ICD Codes: N18.9 - Chronic kidney disease, unspecified Status: Chronic Plan: Likely Cr now at baseline (7) Hyperlipidemia ICD Codes: E78.5 - Hyperlipidemia, unspecified Status: Chronic Plan: Hold home simvastatin (8) Nutrition, metabolism, and development symptoms ICD Codes: R63.8 - Other symptoms and signs concerning food and fluid intake Status: Acute Plan: Fluids: tolerating po Electrolytes: continue to monitor Nutrition: 1800 ADA GI ppx: Protonix 40 mg po daily DVT ppx: Heparin 5,000 units sq q8h Depression: continue home zoloft Dispo: Complicated due to self-pay status and risk of falls. Once hypothyroidism medically stable, will plan to go to SNF/Rehab in [place]. Patient and CM working to arrange. Will need transport to flight on discharge. (Satish Rojas MD R2) Problem Qualifiers (1) Diabetes mellitus: Qualified Codes: E11.42 - Type 2 diabetes mellitus with diabetic polyneuropathy ; Z79.4 - correction (current) use of insulin (2) Hypertension: Qualified Codes: I10 - Essential (primary) hypertension (3) Hyperlipidemia: Qualified Codes: E78.00 - Pure hypercholesterolemia, unspecified Satish Rojas MD R2 Jun 04, 2017 12:36 Palak Jefferson MD June 26, 2017 10:14
--- NOTE | 2017-06-04 14:09 | HHI.PR ---
Subjective Remarks From an endocrine perspective the patient has been doing better. Today her Free T4 is in the lower range of the reference range and she has been able to stay awake the whole day. She denies angina, anxiety, palpitations or other syptoms of hyperthyroidism. Her heart rate has remained in the low 60's. Her TSH is still over 100 at this point. Objective Vital Signs Date Time Temp Pulse Resp B/P (MAP) Pulse Ox O2 Delivery O2 Flow Rate FiO2 06/04/17 12:00 98.6 65 20 129/64 (85) 93 06/04/17 08:00 92 Room Air 06/04/17 08:00 97.7 65 20 130/64 (86) 92 06/04/17 04:00 97.6 60 19 116/59 (78) 92 06/04/17 00:00 97.2 61 18 127/69 (88) 93 06/03/17 23:40 Room Air 06/03/17 20:00 98.3 63 18 129/61 (83) 91 I/O 06/03/17 06/03/17 06/03/17 06/04/17 06/04/17 06/04/17 07:00 15:00 23:00 07:00 15:00 23:00 Intake Total 480 ml 222 ml Output Total 250 ml Balance 480 ml 222 ml -250 ml Intake Oral 480 ml 222 ml Output Urine Total 250 ml # Voids 2 5 3 # Bowel Movements 0 0 Result Diagram: 06/04/17 0435 06/04/17 0435 Other Results Reviewed her Thyroid related and other labs. Objective Remarks Patient is sitting in chair next to bed is AAOx3. She is looking more awake and is able to talk without dosing off to sleep. Assessment and Plan Problem List: (1) Severe hypothyroidism ICD Codes: E03.8 - Other specified hypothyroidism Status: Acute (2) Poorly controlled diabetes mellitus ICD Codes: E11.65 - Type 2 diabetes mellitus with hyperglycemia Status: Acute (3) Coronary artery disease ICD Codes: I25.10 - Atherosclerotic heart disease of [place] coronary artery without angina pectoris Status: Chronic (4) Hyperlipidemia ICD Codes: E78.5 - Hyperlipidemia, unspecified Status: Chronic (5) Hypertension ICD Codes: I10 - Essential (primary) hypertension Status: Chronic Assessment and Plan Severe Primary Hypothyroidism due to medication non-adherence due to socio- economic issues CAD s/p CABG and Stent placement Poorly Controlled Diabetes Hyperlipidemia HTN At this point will repeat another IV bolus of Levothyroxine 400 mcg while continuing with her regular 225 mcg of oral Levothyroxine. She continues to tolerate this well. and her heart rate continues to be controlled in the 60's. In case needed Beta-blockade can be used to control her heart rate as her thyroid levels continue to increase. She reports frustration with her not been able to advance as fast as she would like to muscle strength ngo. I have advised her that just this severe hypothyroidism will affect her muscle composition as well and that she will have to give this some time to reverse. She is advised to continue with her physial therapy program as deemed necessary from her primary in-hospital care team and her physical therapist. Otherwise will repeat her free T4 in the morning and titrate her based on this for now. The plan still is to titrate her to a submaximal level that is more tolerable while continuing with the oral dose of 225 mcg per day. . [place] taken to write orders. Thank you for allowing me to participate in the medical management of this very interesting and nice woman. Will follow with you. Problem Qualifiers (1) Hyperlipidemia: Qualified Codes: E78.00 - Pure hypercholesterolemia, unspecified (2) Hypertension: Qualified Codes: I10 - Essential (primary) hypertension Jabari Odonnell MD Jun 04, 2017 14:09
[2017-06-04] MEDS ORDERED: LEVOTHYROXINE SODIUM 100 MCG VIAL IV PUSH ONE (15:00)
[2017-06-04] MEDS ORDERED: GLUCAGON 1 MG/ML VIAL OTHER PRN (15:15)
[2017-06-04] MEDS ORDERED: DEXTROSE 50% IN WATER 50 ML VIAL(D50) IV PUSH PRN (15:15)
[2017-06-04 16:00] VITALS: BP 106/55; PULSE 63; RESP 20; TEMP 97; O2SAT 92
[2017-06-04] MEDS: CLOPIDOGREL 75 MG TAB PO SCH (20:08)
[2017-06-04] MEDS: ASPIRIN EC 81 MG TABEC PO SCH (20:08)
[2017-06-04] MEDS: CHOLECALCIFEROL (VIT D3) 400 UNIT TAB PO SCH (20:08)
[2017-06-04 21:27] VITALS: BP 114/56; PULSE 69; RESP 17; TEMP 98.6; O2SAT 95
[2017-06-05 00:52] VITALS: BP 115/55; PULSE 66; RESP 17; TEMP 98.4; O2SAT 95
[2017-06-05 03:49] VITALS: BP 129/65; PULSE 67; RESP 17; TEMP 98.4; O2SAT 93
[2017-06-05] MEDS: LEVOTHYROXINE SODIUM 200 MCG TAB PO SCH (05:12)
[2017-06-05] MEDS: LEVOTHYROXINE SODIUM 25 MCG TAB PO SCH (05:12)
[2017-06-05 08:00] VITALS: BP 115/55; PULSE 67; RESP 20; TEMP 98; O2SAT 92
[2017-06-05] MEDS: CALCIUM CARBONATE 500 MG CHEWABLE TAB PO SCH ×2 (08:34→21:23)
[2017-06-05] MEDS: DOCUSATE SODIUM 50 MG/SENNA 8.6 MG TAB PO SCH ×2 (08:35→21:23)
[2017-06-05] MEDS: PANTOPRAZOLE SOD 40 MG DELAYED RELEASE TAB PO SCH (08:35)
[2017-06-05] MEDS: busPIRone HCL 5 MG TAB PO SCH ×3 (08:35→18:20)
[2017-06-05] MEDS: SERTRALINE HCL 50 MG TAB PO SCH ×2 (08:35→21:23)
[2017-06-05] MEDS: LACTOBACILLUS ACIDOPHILUS TAB PO SCH ×2 (08:35→21:23)
[2017-06-05] MEDS: ATENOLOL 25 MG TAB PO SCH (08:35)
[2017-06-05] MEDS: POLYETHYLENE GLYCOL 17 GM PKG PO SCH (08:36)
[2017-06-05] MEDS: CLOTRIMAZOLE 1% CREAM 15 GM TOPICAL SCH ×2 (08:36→21:25)
[2017-06-05] MEDS: INSULIN DETEMIR 100 UNITS/ML VIAL SQ SCH ×2 (08:37→22:41)
[2017-06-05] MEDS: INSULIN ASPART SUPPLEMENTAL SCALE SQ SCH ×4 (08:37→22:41)
[2017-06-05] MEDS: SODIUM CHLORIDE 0.9% FLUSH 10 ML FLUSH IV FLUSH SCH ×2 (08:38→21:22)
[2017-06-05 09:21] LABS: CREATININE 1.42 MG/DL (0.50-1.00)
[2017-06-05 09:29] LABS: FREE T4 1.1 NG/DL (0.76-1.46)
--- NOTE | 2017-06-05 10:39 | HHI.FPPN ---
Objective Vitals Vital Signs Date Time Temp Pulse Resp B/P (MAP) Pulse Ox O2 Delivery O2 Flow Rate FiO2 06/05/17 08:00 98.0 67 20 115/55 (75) 92 06/05/17 08:00 Room Air 06/05/17 03:49 98.4 67 17 129/65 (86) 93 06/05/17 00:52 98.4 66 17 115/55 (75) 95 06/04/17 22:13 Room Air 06/04/17 21:27 98.6 69 17 114/56 (75) 95 06/04/17 16:00 97.0 63 20 106/55 (72) 92 06/04/17 12:00 98.6 65 20 129/64 (85) 93 I/O 06/04/17 06/04/17 06/04/17 06/05/17 06/05/17 06/05/17 07:00 15:00 23:00 07:00 15:00 23:00 Intake Total 222 ml 720 ml Output Total 250 ml Balance 222 ml 470 ml Intake Oral 222 ml 720 ml Output Urine Total 250 ml # Voids 3 3 1 3 # Bowel Movements 0 1 Result Diagram: 06/04/17 0435 06/05/17 0740 Objective Remarks GENERAL: Well-nourished, morbidly obese white female patient, sitting up in wheelchair, NAD. SKIN: Warm and dry/flaky. CARDIOVASCULAR: Heart sounds distant. Regular rate and rhythm without murmurs, gallops, or rubs. RESPIRATORY: Breath sounds equal bilaterally and clear. No accessory muscle use. No crackles or wheezes. GASTROINTESTINAL: Abdomen soft, obese, NDNT EXTREMITIES: 1+ edema of BLE. NEUROLOGICAL: Grossly non-focal. Medications and IVs Current Medications Medications (Trade) Dose Ordered Sig/Guillaume Route Start Time Stop Time Status Last Admin (NS Flush) 2 ml UNSCH PRN IV FLUSH 05/21/17 17:30 (NS Flush) 2 ml BID IV FLUSH 05/21/17 21:00 06/05/17 08:38 (Tylenol) 650 mg Q4H PRN PO 05/21/17 17:30 (Zofran Inj) 4 mg Q6H PRN IVP 05/21/17 17:30 06/04/17 01:55 (Milk Of Magnesia Liq) 30 ml Q12H PRN PO 05/21/17 17:30 (Dulcolax Supp) 10 mg DAILY PRN RECTAL 05/21/17 17:30 (Lotrimin 1% Cream) 1 applic BID TOPICAL 05/21/17 17:30 06/05/17 08:36 (Ecotrin Ec) 81 mg HS PO 05/21/17 21:00 06/04/17 20:08 (Buspar) 15 mg TID PO 05/22/17 09:00 06/05/17 08:35 (Plavix) 75 mg HS PO 05/21/17 21:00 06/04/17 20:08 (Zoloft) 50 mg BID PO 05/21/17 21:00 06/05/17 08:35 (Tums Chew) 500 mg BID PO 05/21/17 21:00 06/05/17 08:34 (Vitamin D3) 400 units HS PO 05/21/17 21:00 06/04/17 20:08 (Ferrous Sulfate) 325 mg BID PO 05/21/17 21:00 Future Hold 05/27/17 20:36 (NovoLOG SUPPLEMENTAL SCALE) 1 ACHS SLIDING SCALE SQ 05/21/17 21:00 06/05/17 08:37 (Protonix) 40 mg DAILY PO 05/22/17 09:00 06/05/17 08:35 (Tylenol) 650 mg Q6H PRN PO 05/21/17 23:30 ([place] 5-325 Mg) 1 tab Q4H PRN PO 05/21/17 23:30 06/04/17 06:34 ([place] 10-325 Mg) 1 tab Q4H PRN PO 05/21/17 23:30 06/03/17 00:48 (Narcan Inj) 0.4 mg UNSCH PRN IV PUSH 05/21/17 23:30 Sodium Chloride 1,000 ml @ 185 mls/hr Q5H25M IV 05/23/17 09:00 Future Hold 05/26/17 09:42 (My-Colace) 2 tab BID PO 05/24/17 21:00 06/05/17 08:35 (Lactulose Liq) 30 ml BID PRN PO 05/27/17 12:30 05/27/17 20:35 (Miralax) 17 gm DAILY PO 05/28/17 10:00 06/05/17 08:36 (Tenormin) 25 mg DAILY PO 05/30/17 09:00 06/05/17 08:35 (Synthroid) 200 mcg DAILY@0600 PO 06/03/17 06:00 06/05/17 05:12 (NovoLOG INJ) 5 units AC DINNER SQ 06/02/17 16:00 06/04/17 16:00 (NovoLOG INJ) 5 units AC LUNCH SQ 06/03/17 11:00 06/04/17 11:00 (Synthroid) 25 mcg DAILY@0600 PO 06/03/17 06:00 06/05/17 05:12 (Lactinex) 1 tab Q12HR PO 06/03/17 21:00 06/05/17 08:35 (Levemir Inj) 28 units Q12HR SQ 06/04/17 21:00 06/05/17 08:37 (D50w (Vial) Inj) 50 ml UNSCH PRN IV PUSH 06/04/17 15:15 (Glucagon Inj) 1 mg UNSCH PRN OTHER 06/04/17 15:15 A/P Assessment and Plan 56 year old female presenting with: Problem List: (1) Severe hypothyroidism ICD Codes: E03.8 - Other specified hypothyroidism Status: Acute Plan: Improving symptomatically, T4 today lower end of normal TSH on admission greater than 100, Both free T4 and T3 were low Patient had not been taking her levothyroxine T4 supplementation over the past several months due to being out of this medication -Endocrinology consulted, appreciate recommendations -Continue levothyroxine 225 mcg daily -Bolus synthroid IV 400 mcg today -Repeat T4 in AM -Plan to titrate to submaximal dose prior to discharge (2) Weakness ICD Codes: R53.1 - Weakness Status: Chronic Plan: The patient may have significant myopathy due to her severe hypothyroidism causing her weakness Continue PT -Upon assessment stated that falls likely due to a combination of weakness, but also poor lower extremity sensation. -Will need to use a bariatric wheeled walker for safe ambulation -Recommends PT at rehab -C/w PT BID while in the hospital for 7 days a week -Patient remain a high fall risk. Working on safe discharge plan once medically cleared. (3) Urinary incontinence in female ICD Codes: R32 - Unspecified urinary incontinence Status: Acute Plan: Abdomen/pelvis CT without any acute findings Consider etiology due to detrusor overactivity causing urgency incontinence, hypothyroid, NPH, medication adverse effect, constipation Vaginal atrophy and deconditioning causing the inability to get up and go to the bathroom quickly may be contributing to her incontinence Renal and bladder ultrasound on 05/22 showed no acute disease Bladder scan on 05/25 showed post void residual of 12ml. WNL -Advised patient to routinely urinate/empty her bladder when she receives her pain medications about every 4 hours -Treat hypothyroidism as above (4) Diabetes mellitus ICD Codes: E11.9 - Type 2 diabetes mellitus without complications Status: Chronic Plan: BSG 198-210 Hold home insulin glargine. She reported taking no short acting insulin at home for months only long acting HbA1c is 12.5 Accuchecks ACHS Low-dose ISS Increase levemir to 28 units BID add novolog 5 units before lunch and dinner (5) Hypertension ICD Codes: I10 - Essential (primary) hypertension Status: Chronic Plan: Stable, continue atenolol 25 mg daily (6) Chronic kidney disease ICD Codes: N18.9 - Chronic kidney disease, unspecified Status: Chronic Plan: Likely Cr now at baseline (7) Hyperlipidemia ICD Codes: E78.5 - Hyperlipidemia, unspecified Status: Chronic Plan: Hold home simvastatin (8) Nutrition, metabolism, and development symptoms ICD Codes: R63.8 - Other symptoms and signs concerning food and fluid intake Status: Acute Plan: Fluids: tolerating po Electrolytes: continue to monitor Nutrition: 1800 ADA GI ppx: Protonix 40 mg po daily DVT ppx: Heparin 5,000 units sq q8h Depression: continue home zoloft Dispo: Complicated due to self-pay status and risk of falls. Once hypothyroidism medically stable, will plan to go to SNF/Rehab in [place]. Patient and CM working to arrange. Will need transport to flight on discharge. Problem Qualifiers (1) Diabetes mellitus: Qualified Codes: E11.42 - Type 2 diabetes mellitus with diabetic polyneuropathy ; Z79.4 - halfway (current) use of insulin (2) Hypertension: Qualified Codes: I10 - Essential (primary) hypertension (3) Hyperlipidemia: Qualified Codes: E78.00 - Pure hypercholesterolemia, unspecified Satish Rojas MD R2 Jun 05, 2017 10:39 am
--- NOTE | 2017-06-05 10:41 | HHI.PR ---
Subjective Remarks From a thyroid perspective the patient has been doing better. Earlier this morning she did have an episode of what she describes as internal feeling of panic including palpitations which has subsided briefly. She is not having chest pain nor other symptoms suggestive of Angina. She reports her mental status to be far better although she is not at her baseline as yet. The main issues she complains about are related to her muscle weakness and progress. otherwise she is feeling better. her Free T4 this morning has increased to 1.10 which is well within the reference range. I have not ordered a TSH on her yesterday. Her pulse rate is now in the mid to upper 60's. Objective Vital Signs Date Time Temp Pulse Resp B/P (MAP) Pulse Ox O2 Delivery O2 Flow Rate FiO2 06/05/17 08:00 98.0 67 20 115/55 (75) 92 06/05/17 08:00 Room Air 06/05/17 03:49 98.4 67 17 129/65 (86) 93 06/05/17 00:52 98.4 66 17 115/55 (75) 95 06/04/17 22:13 Room Air 06/04/17 21:27 98.6 69 17 114/56 (75) 95 06/04/17 16:00 97.0 63 20 106/55 (72) 92 06/04/17 12:00 98.6 65 20 129/64 (85) 93 I/O 06/04/17 06/04/17 06/04/17 06/05/17 06/05/17 06/05/17 07:00 15:00 23:00 07:00 15:00 23:00 Intake Total 222 ml 720 ml Output Total 250 ml Balance 222 ml 470 ml Intake Oral 222 ml 720 ml Output Urine Total 250 ml # Voids 3 3 1 3 # Bowel Movements 0 1 Result Diagram: 06/04/17 0435 06/05/17 0740 Objective Remarks Patient is sitting in wheelchair next to the window in the hallway. AAOx3. She is looking more awake and is able to talk without dosing off to sleep. She still has very dry skin. Assessment and Plan Problem List: (1) Severe hypothyroidism ICD Codes: E03.8 - Other specified hypothyroidism Status: Acute (2) Poorly controlled diabetes mellitus ICD Codes: E11.65 - Type 2 diabetes mellitus with hyperglycemia Status: Acute (3) Coronary artery disease ICD Codes: I25.10 - Atherosclerotic heart disease of [place] coronary artery without angina pectoris Status: Chronic (4) Hyperlipidemia ICD Codes: E78.5 - Hyperlipidemia, unspecified Status: Chronic (5) Hypertension ICD Codes: I10 - Essential (primary) hypertension Status: Chronic Assessment and Plan Severe Primary Hypothyroidism due to medication non-adherence due to socio- economic issues CAD s/p CABG and Stent placement Poorly Controlled Diabetes Hyperlipidemia HTN At this point I do recommend to continue with the 225 mcg of Levothyroxine PO QD and to have her repeat her TSH and her Free T4 in 2 weeks. She is currently doing better and since she did have an episode of palpitations I have advised her against more IV boluses. She is currently not sure whichi institution she is going to be transferred to to continue with Physical Therapy and seems to be discharged shortly. From an endocrine perspective the rest of her thyroid management can be pursued as an outpatient. I have counseled her on the proper way to take the thyroid medication. Since patient will be transferred it seems to another facility for inpatient rehab will sign off. Please call if more input is needed. Thank you for allowing me to participate in the medical management of this very interesting and nice woman. May you have any questions and/or concerns please do not hesitate to contact me. Problem Qualifiers (1) Hyperlipidemia: Qualified Codes: E78.00 - Pure hypercholesterolemia, unspecified (2) Hypertension: Qualified Codes: I10 - Essential (primary) hypertension Jabari Odonnell MD Jun 05, 2017 10:41
[2017-06-05 12:00] VITALS: BP 117/54; PULSE 66; RESP 20; TEMP 98.3; O2SAT 92
[2017-06-05] MEDS: INSULIN ASPART 1,000 UNITS/10 ML VIAL SQ SCH ×2 (12:53→18:18)
--- NOTE | 2017-06-05 15:04 | HHI.FPPN ---
Subjective Remarks No acute events overnight. Feels more energetic today and rested. NO CP/SOB. Objective Vitals Vital Signs Date Time Temp Pulse Resp B/P (MAP) Pulse Ox O2 Delivery O2 Flow Rate FiO2 06/05/17 08:00 98.0 67 20 115/55 (75) 92 06/05/17 08:00 Room Air 06/05/17 03:49 98.4 67 17 129/65 (86) 93 06/05/17 00:52 98.4 66 17 115/55 (75) 95 06/04/17 22:13 Room Air 06/04/17 21:27 98.6 69 17 114/56 (75) 95 06/04/17 16:00 97.0 63 20 106/55 (72) 92 I/O 06/04/17 06/04/17 06/04/17 06/05/17 06/05/17 06/05/17 07:00 15:00 23:00 07:00 15:00 23:00 Intake Total 222 ml 720 ml Output Total 250 ml Balance 222 ml 470 ml Intake Oral 222 ml 720 ml Output Urine Total 250 ml # Voids 3 3 1 3 # Bowel Movements 0 1 Result Diagram: 06/04/17 0435 06/05/17 0740 Imaging Last Impressions Hip X-Ray 05/26/17 0000 Signed Impressions: Service Date/Time: Friday, May 26, 2017 15:13 - CONCLUSION: Degenerative changes, no fracture Jermaine Gutierres MD FACR Liver Ultrasound 05/25/17 0000 Signed Impressions: Service Date/Time: May 16:28 - CONCLUSION: 1. Mild hepatomegaly. 2. Status post cholecystectomy. 3. No evidence of acute process or biliary obstructive disease. 4. Calcified granuloma in the spleen. Valerio Salcedo MD Lumbar Spine CT 05/22/17 0000 Signed Impressions: Service Date/Time: Sunday, May 21, 2017 14:36 - CONCLUSION: 1. Moderate stenosis at the L4-L5 level caused by combination of anterior subluxation/spondylolisthesis, disc bulge, and severe facet hypertrophy. 2. Moderate stenosis at the T11-T12 level by a central disc protrusion with osteophytes. 3. Moderate disc bulge and mild stenosis at the L5-S1 level. 4. Minimal bulging at the L1-L2 and L2-L3 levels. 1. Gurvinder Steinberg MD Chest X-Ray 05/21/17 1345 Signed Impressions: Service Date/Time: Sunday, May 21, 2017 13:57 - CONCLUSION: No acute disease. Gurvinder Frazier MD Abdomen/Pelvis CT 05/21/17 1345 Signed Impressions: Service Date/Time: Sunday, May 21, 2017 14:36 - CONCLUSION: No acute CT findings in the abdomen or pelvis. Gurvinder Frazier MD Renal Ultrasound 05/21/17 0000 Signed Impressions: Service Date/Time: Sunday, May 21, 2017 18:12 - CONCLUSION: No acute disease. Gurvinder Steinberg MD Objective Remarks GENERAL: Well-nourished, morbidly obese white female patient, sitting up in wheelchair, NAD. SKIN: Warm and dry/flaky. CARDIOVASCULAR: Heart sounds distant. Regular rate and rhythm without murmurs, gallops, or rubs. RESPIRATORY: Breath sounds equal bilaterally and clear. No accessory muscle use. No crackles or wheezes. GASTROINTESTINAL: Abdomen soft, obese, NDNT EXTREMITIES: 1+ edema of BLE. NEUROLOGICAL: Grossly non-focal. Medications and IVs Current Medications Medications (Trade) Dose Ordered Sig/Guillaume Route Start Time Stop Time Status Last Admin (NS Flush) 2 ml UNSCH PRN IV FLUSH 05/21/17 17:30 (NS Flush) 2 ml BID IV FLUSH 05/21/17 21:00 06/05/17 08:38 (Tylenol) 650 mg Q4H PRN PO 05/21/17 17:30 (Zofran Inj) 4 mg Q6H PRN IVP 05/21/17 17:30 06/04/17 01:55 (Milk Of Magnesia Liq) 30 ml Q12H PRN PO 05/21/17 17:30 (Dulcolax Supp) 10 mg DAILY PRN RECTAL 05/21/17 17:30 (Lotrimin 1% Cream) 1 applic BID TOPICAL 05/21/17 17:30 06/05/17 08:36 (Ecotrin Ec) 81 mg HS PO 05/21/17 21:00 06/04/17 20:08 (Buspar) 15 mg TID PO 05/22/17 09:00 06/05/17 12:52 (Plavix) 75 mg HS PO 05/21/17 21:00 06/04/17 20:08 (Zoloft) 50 mg BID PO 05/21/17 21:00 06/05/17 08:35 (Tums Chew) 500 mg BID PO 05/21/17 21:00 06/05/17 08:34 (Vitamin D3) 400 units HS PO 05/21/17 21:00 06/04/17 20:08 (Ferrous Sulfate) 325 mg BID PO 05/21/17 21:00 Future Hold 05/27/17 20:36 (Protonix) 40 mg DAILY PO 05/22/17 09:00 06/05/17 08:35 (Tylenol) 650 mg Q6H PRN PO 05/21/17 23:30 (Wyatt 5-325 Mg) 1 tab Q4H PRN PO 05/21/17 23:30 06/04/17 06:34 (Wyatt 10-325 Mg) 1 tab Q4H PRN PO 05/21/17 23:30 06/03/17 00:48 (Narcan Inj) 0.4 mg UNSCH PRN IV PUSH 05/21/17 23:30 Sodium Chloride 1,000 ml @ 185 mls/hr Q5H25M IV 05/23/17 09:00 Future Hold 05/26/17 09:42 (My-Colace) 2 tab BID PO 05/24/17 21:00 06/05/17 08:35 (Lactulose Liq) 30 ml BID PRN PO 05/27/17 12:30 05/27/17 20:35 (Miralax) 17 gm DAILY PO 05/28/17 10:00 06/05/17 08:36 (Tenormin) 25 mg DAILY PO 05/30/17 09:00 06/05/17 08:35 (Synthroid) 200 mcg DAILY@0600 PO 06/03/17 06:00 06/05/17 05:12 (Synthroid) 25 mcg DAILY@0600 PO 06/03/17 06:00 06/05/17 05:12 (Lactinex) 1 tab Q12HR PO 06/03/17 21:00 06/05/17 08:35 (D50w (Vial) Inj) 50 ml UNSCH PRN IV PUSH 4/29/18 15:15 (Glucagon Inj) 1 mg UNSCH PRN OTHER 06/04/17 15:15 (NovoLOG INJ) 5 units TIDAC SQ 06/05/17 17:00 (Levemir Inj) 30 units Q12HR SQ 06/05/17 21:00 (NovoLOG SUPPLEMENTAL SCALE) 1 ACHS SLIDING SCALE SQ 06/05/17 17:00 Urinary Catheter: No A/P Assessment and Plan 56 year old female presenting with: Problem List: (1) Severe hypothyroidism ICD Codes: E03.8 - Other specified hypothyroidism Status: Acute Plan: Improving symptomatically, T4 today lower end of normal TSH on admission greater than 100, Both free T4 and T3 were low Patient had not been taking her levothyroxine T4 supplementation over the past several months due to being out of this medication -Endocrinology consulted, appreciate recommendations -Continue levothyroxine 225 mcg daily -Recheck T4, TSH in 2 weeks -Signed off due to patient anticipated to be transferred this week, available as needed for continued input (2) Weakness ICD Codes: R53.1 - Weakness Status: Chronic Plan: The patient may have significant myopathy due to her severe hypothyroidism causing her weakness Continue PT -Upon assessment stated that falls likely due to a combination of weakness, but also poor lower extremity sensation. -Will need to use a bariatric wheeled walker for safe ambulation -Recommends PT at rehab -C/w PT BID while in the hospital for 7 days a week -Patient remain a high fall risk. Working on safe discharge plan which will require ability to transfer. (3) Urinary incontinence in female ICD Codes: R32 - Unspecified urinary incontinence Status: Acute Plan: Abdomen/pelvis CT without any acute findings Consider etiology due to detrusor overactivity causing urgency incontinence, hypothyroid, NPH, medication adverse effect, constipation Vaginal atrophy and deconditioning causing the inability to get up and go to the bathroom quickly may be contributing to her incontinence Renal and bladder ultrasound on 05/22 showed no acute disease Bladder scan on 05/25 showed post void residual of 12ml. WNL -Advised patient to routinely urinate/empty her bladder when she receives her pain medications about every 4 hours -Treat hypothyroidism as above (4) Diabetes mellitus ICD Codes: E11.9 - Type 2 diabetes mellitus without complications Status: Chronic Plan: BSG 198-210 Hold home insulin glargine. She reported taking no short acting insulin at home for months only long acting HbA1c is 12.5 Accuchecks ACHS Low-dose ISS Increase levemir to 28 units BID add novolog 5 units before lunch and dinner (5) Hypertension ICD Codes: I10 - Essential (primary) hypertension Status: Chronic Plan: Stable, continue atenolol 25 mg daily (6) Chronic kidney disease ICD Codes: N18.9 - Chronic kidney disease, unspecified Status: Chronic Plan: Likely Cr now at baseline (7) Hyperlipidemia ICD Codes: E78.5 - Hyperlipidemia, unspecified Status: Chronic Plan: Hold home simvastatin (8) Nutrition, metabolism, and development symptoms ICD Codes: R63.8 - Other symptoms and signs concerning food and fluid intake Status: Acute Plan: Fluids: tolerating po Electrolytes: continue to monitor Nutrition: 1800 ADA GI ppx: Protonix 40 mg po daily DVT ppx: Heparin 5,000 units sq q8h Depression: continue home zoloft Dispo: Complicated due to self-pay status and risk of falls. Once hypothyroidism medically stable, will ideally plan to go to SNF/Rehab in [place]. Patient and CM working to arrange. Will need transport to flight on discharge. Prior to DC will need documentation by PT that patient is safe to make it through flight with assistance. 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
[2017-06-05 16:00] VITALS: BP 107/55; PULSE 67; RESP 20; TEMP 98; O2SAT 93
[2017-06-05 20:00] VITALS: BP 128/65; PULSE 66; RESP 16; TEMP 97.6; O2SAT 94
[2017-06-05] MEDS: CLOPIDOGREL 75 MG TAB PO SCH (21:23)
[2017-06-05] MEDS: CHOLECALCIFEROL (VIT D3) 400 UNIT TAB PO SCH (21:23)
[2017-06-05] MEDS: ASPIRIN EC 81 MG TABEC PO SCH (21:25)
[2017-06-06] VITALS: BP 119/65; PULSE 69; RESP 18; TEMP 98.1; O2SAT 96
[2017-06-06] MEDS: ACETAMINOPHEN/HYDROcodone 325 MG/5 MG TAB PO PRN ×2 (00:28→05:36)
[2017-06-06 04:00] VITALS: BP 136/65; PULSE 67; RESP 18; TEMP 97.6; O2SAT 91
[2017-06-06] MEDS: LEVOTHYROXINE SODIUM 200 MCG TAB PO SCH (05:35)
[2017-06-06] MEDS: LEVOTHYROXINE SODIUM 25 MCG TAB PO SCH (05:35)
[2017-06-06 07:02] LABS: BLOOD UREA NITROGEN 24 MG/DL (7-18); CREATININE 1.56 MG/DL (0.50-1.00); GLOMERULAR FILTRATION RATE 34 ML/MIN (>89)
[2017-06-06 07:13] LABS: FREE T4 0.99 NG/DL (0.76-1.46)
[2017-06-06 08:00] VITALS: BP 153/74; PULSE 67; RESP 20; TEMP 97.8; O2SAT 93
[2017-06-06] MEDS: POLYETHYLENE GLYCOL 17 GM PKG PO SCH (09:00)
[2017-06-06] MEDS: SODIUM CHLORIDE 0.9% FLUSH 10 ML FLUSH IV FLUSH SCH ×2 (09:00→21:03)
[2017-06-06] MEDS: CLOTRIMAZOLE 1% CREAM 15 GM TOPICAL SCH ×2 (09:00→21:03)
--- NOTE | 2017-06-06 09:20 | HHI.FPPN ---
Subjective Remarks Patient seen and examined this am. No acute events overnight. Patient reports that she required the assistance of 2 nurses yesterday to be try and use the bathroom, her legs still feel very weak and she was not able to use her legs to support her weight. mild Left lower back pain since last night due to the strain of trying to ambulate to the restroom, however pain is well controlled with medication. Endorses BM. No other issues, denies CP, SOB, N/V. (Maude Harkins MD, R1) Objective Vitals Vital Signs Date Time Temp Pulse Resp B/P (MAP) Pulse Ox O2 Delivery O2 Flow Rate FiO2 06/06/17 04:00 97.6 67 18 136/65 (88) 91 06/06/17 00:00 98.1 69 18 119/65 (83) 96 06/05/17 20:00 Room Air 06/05/17 20:00 97.6 66 16 128/65 (86) 94 06/05/17 16:00 98.0 67 20 107/55 (72) 93 06/05/17 12:00 98.3 66 20 117/54 (75) 92 I/O 06/05/17 06/05/17 06/05/17 06/06/17 06/06/17 06/06/17 07:00 15:00 23:00 07:00 15:00 23:00 Intake Total 480 ml Output Total 550 ml Balance -70 ml Intake Oral 480 ml Output Urine Total 550 ml # Voids 3 # Bowel Movements 1 1 (Maude Harkins MD, R1) Result Diagram: 06/04/17 0435 06/06/17 0520 Objective Remarks GENERAL: Well-nourished, morbidly obese white female patient, sitting up in bed , NAD. SKIN: Warm and dry/flaky. CARDIOVASCULAR: Normal s1 and s2. Regular rate and rhythm without murmurs, gallops, or rubs. RESPIRATORY: Breath sounds equal bilaterally and clear. No accessory muscle use. No crackles or wheezes. GASTROINTESTINAL: Abdomen soft, obese, NDNT EXTREMITIES: 1+ edema of BLE. NEUROLOGICAL: Grossly non-focal. (Maude Harkins MD, R1) A/P Assessment and Plan 56 year old female presenting with: (Maude Harkins MD, R1) Attending Attestation Patient seen and examined. Case reviewed and discussed Agree with plan of care as discussed with me and documented in the resident note. (Palak Jefferson MD) Problem List: (1) Severe hypothyroidism ICD Codes: E03.8 - Other specified hypothyroidism Status: Acute Plan: Improving symptomatically, T4 today 0.99 uptrending TSH on admission greater than 100, Both free T4 and T3 were low Patient had not been taking her levothyroxine T4 supplementation over the past several months due to being out of this medication -Endocrinology consulted, appreciate recommendations -Continue levothyroxine 225 mcg daily -Recheck T4, TSH in 2 weeks -Signed off due to patient anticipated to be transferred this week, available as needed for continued input (2) Weakness ICD Codes: R53.1 - Weakness Status: Chronic Plan: The patient may have significant myopathy due to her severe hypothyroidism causing her weakness Continue PT -Upon assessment stated that falls likely due to a combination of weakness, but also poor lower extremity sensation. -Will need to use a bariatric wheeled walker for safe ambulation -Recommends PT at rehab -C/w PT BID while in the hospital for 7 days a week -Patient remain a high fall risk. Working on safe discharge plan which will require ability to transfer. (3) Urinary incontinence in female ICD Codes: R32 - Unspecified urinary incontinence Status: Resolved Plan: Abdomen/pelvis CT without any acute findings Consider etiology due to detrusor overactivity causing urgency incontinence, hypothyroid, NPH, medication adverse effect, constipation Vaginal atrophy and deconditioning causing the inability to get up and go to the bathroom quickly may be contributing to her incontinence Renal and bladder ultrasound on 05/22 showed no acute disease Bladder scan on 05/25 showed post void residual of 12ml. WNL -Advised patient to routinely urinate/empty her bladder when she receives her pain medications about every 4 hours -Treat hypothyroidism as above (4) Diabetes mellitus ICD Codes: E11.9 - Type 2 diabetes mellitus without complications Status: Chronic Plan: BSG 279-222 Hold home insulin glargine. She reported taking no short acting insulin at home for months only long acting HbA1c is 12.5 Accuchecks ACHS changed to medium-dose ISS Increase levemir to 30 units BID add novolog 5 units ACTID (5) Hypertension ICD Codes: I10 - Essential (primary) hypertension Status: Chronic Plan: Stable, continue atenolol 25 mg daily (6) Chronic kidney disease ICD Codes: N18.9 - Chronic kidney disease, unspecified Status: Chronic Plan: Likely Cr now at baseline Cr 1.56, today slightly increased from 06/05 Cr 1.42 (7) Hyperlipidemia ICD Codes: E78.5 - Hyperlipidemia, unspecified Status: Chronic Plan: Hold home simvastatin (8) Nutrition, metabolism, and development symptoms ICD Codes: R63.8 - Other symptoms and signs concerning food and fluid intake Status: Acute Plan: Fluids: tolerating po Electrolytes: continue to monitor Nutrition: 1800 ADA GI ppx: Protonix 40 mg po daily DVT ppx: Heparin 5,000 units sq q8h Depression: continue home zoloft Dispo: Complicated due to self-pay status and risk of falls. Once hypothyroidism medically stable, will ideally plan to go to SNF/Rehab in [place]. Patient and CM working to arrange. Will need transport to flight on discharge. Prior to DC will need documentation by PT that patient is safe to make it through flight with assistance. 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
[2017-06-06] MEDS: busPIRone HCL 5 MG TAB PO SCH ×3 (09:31→18:12)
[2017-06-06] MEDS: PANTOPRAZOLE SOD 40 MG DELAYED RELEASE TAB PO SCH (09:31)
[2017-06-06] MEDS: SERTRALINE HCL 50 MG TAB PO SCH ×2 (09:31→21:01)
[2017-06-06] MEDS: ATENOLOL 25 MG TAB PO SCH (09:31)
[2017-06-06] MEDS: DOCUSATE SODIUM 50 MG/SENNA 8.6 MG TAB PO SCH ×2 (09:31→21:01)
[2017-06-06] MEDS: CALCIUM CARBONATE 500 MG CHEWABLE TAB PO SCH ×2 (09:31→21:01)
[2017-06-06] MEDS: LACTOBACILLUS ACIDOPHILUS TAB PO SCH ×2 (09:31→21:02)
[2017-06-06] MEDS: INSULIN DETEMIR 100 UNITS/ML VIAL SQ SCH ×2 (09:32→21:02)
[2017-06-06] MEDS: INSULIN ASPART 1,000 UNITS/10 ML VIAL SQ SCH ×3 (09:32→18:11)
[2017-06-06] MEDS: INSULIN ASPART SUPPLEMENTAL SCALE SQ SCH ×4 (09:33→21:02)
[2017-06-06 12:00] VITALS: BP 116/59; PULSE 63; RESP 20; TEMP 98.1; O2SAT 93
[2017-06-06] MEDS: ACETAMINOPHEN/HYDROcodone 325 MG/10 MG TAB PO PRN (15:26)
[2017-06-06 16:00] VITALS: BP 123/61; PULSE 62; RESP 20; TEMP 97.8; O2SAT 93
[2017-06-06 20:00] VITALS: BP 107/55; PULSE 68; RESP 20; TEMP 98.1; O2SAT 92
[2017-06-06] MEDS: CLOPIDOGREL 75 MG TAB PO SCH (21:01)
[2017-06-06] MEDS: CHOLECALCIFEROL (VIT D3) 400 UNIT TAB PO SCH (21:01)
[2017-06-06] MEDS: ASPIRIN EC 81 MG TABEC PO SCH (21:02)
[2017-06-07] VITALS: BP 132/73; PULSE 69; RESP 20; TEMP 97.9; O2SAT 94
[2017-06-07 04:00] VITALS: BP 105/59; PULSE 64; RESP 20; TEMP 97.9; O2SAT 93
[2017-06-07] MEDS: LEVOTHYROXINE SODIUM 25 MCG TAB PO SCH (06:54)
[2017-06-07] MEDS: LEVOTHYROXINE SODIUM 200 MCG TAB PO SCH (06:54)
[2017-06-07 07:36] LABS: CREATININE 1.4 MG/DL (0.50-1.00)
[2017-06-07 07:39] LABS: FREE T4 1.04 NG/DL (0.76-1.46)
[2017-06-07 08:06] VITALS: BP 122/69; PULSE 68; RESP 18; TEMP 98.4; O2SAT 94
[2017-06-07] MEDS: INSULIN ASPART 1,000 UNITS/10 ML VIAL SQ SCH ×2 (08:49→12:21)
[2017-06-07] MEDS: busPIRone HCL 5 MG TAB PO SCH ×3 (08:50→18:18)
[2017-06-07] MEDS: POLYETHYLENE GLYCOL 17 GM PKG PO SCH (08:50)
[2017-06-07] MEDS: SERTRALINE HCL 50 MG TAB PO SCH ×2 (08:50→22:38)
[2017-06-07] MEDS: PANTOPRAZOLE SOD 40 MG DELAYED RELEASE TAB PO SCH (08:50)
[2017-06-07] MEDS: DOCUSATE SODIUM 50 MG/SENNA 8.6 MG TAB PO SCH ×2 (08:50→21:00)
[2017-06-07] MEDS: SODIUM CHLORIDE 0.9% FLUSH 10 ML FLUSH IV FLUSH SCH ×2 (08:50→22:39)
[2017-06-07] MEDS: ATENOLOL 25 MG TAB PO SCH (08:50)
[2017-06-07] MEDS: LACTOBACILLUS ACIDOPHILUS TAB PO SCH ×2 (08:50→22:38)
[2017-06-07] MEDS: INSULIN ASPART SUPPLEMENTAL SCALE SQ SCH ×4 (08:50→22:40)
[2017-06-07] MEDS: CALCIUM CARBONATE 500 MG CHEWABLE TAB PO SCH ×2 (08:50→22:39)
[2017-06-07] MEDS: ACETAMINOPHEN/HYDROcodone 325 MG/10 MG TAB PO PRN (08:50)
[2017-06-07] MEDS: CLOTRIMAZOLE 1% CREAM 15 GM TOPICAL SCH ×2 (08:51→22:42)
[2017-06-07] MEDS: INSULIN DETEMIR 100 UNITS/ML VIAL SQ SCH ×2 (08:51→22:39)
[2017-06-07 12:06] VITALS: BP 105/56; PULSE 79; RESP 18; TEMP 98.4; O2SAT 94
--- NOTE | 2017-06-07 14:51 | HHI.FPPN ---
Subjective Remarks Patient seen and examined at bedside this morning. Patient sitting up in bed. She had began to work with physical therapy. Patient stated she feels fine frustrated due to her lack of progress with ambulation. Patient also stated she was unable to sleep due to anxiety and concern about her condition. (Maude Harkins MD, R1) Objective Vitals Vital Signs Date Time Temp Pulse Resp B/P (MAP) Pulse Ox O2 Delivery O2 Flow Rate FiO2 06/07/17 12:06 98.4 79 18 105/56 (72) 94 06/07/17 10:12 Room Air 06/07/17 08:06 98.4 68 18 122/69 (86) 94 06/07/17 04:00 97.9 64 20 105/59 (74) 93 06/07/17 04:00 Room Air 06/07/17 00:00 97.9 69 20 132/73 (92) 94 06/07/17 00:00 Room Air 06/06/17 20:30 Room Air 06/06/17 20:00 98.1 68 20 107/55 (72) 92 06/06/17 16:36 20 06/06/17 16:00 97.8 62 20 123/61 (81) 93 I/O 06/06/17 06/06/17 06/06/17 06/07/17 06/07/17 06/07/17 07:00 15:00 23:00 07:00 15:00 23:00 Intake Total 720 ml 680 ml Balance 720 ml 680 ml Intake Oral 720 ml 680 ml # Voids 4 4 # Bowel Movements 1 1 (Maude Harkins MD, R1) Result Diagram: 06/04/17 0435 06/07/17 0643 Objective Remarks GENERAL: Well-nourished, morbidly obese white female patient, sitting up in bed , NAD. SKIN: Warm and dry/flaky. CARDIOVASCULAR: Normal s1 and s2. Regular rate and rhythm without murmurs, gallops, or rubs. RESPIRATORY: Breath sounds equal bilaterally and clear. No accessory muscle use. No crackles or wheezes. GASTROINTESTINAL: Abdomen soft, obese, NDNT EXTREMITIES: 1+ edema of BLE. NEUROLOGICAL: Grossly non-focal. (Maude Harkins MD, R1) A/P Assessment and Plan 56 year old female presenting with: (Maude Harkins MD, R1) Attending Attestation Patient seen and examined. Case reviewed and discussed. Agree with plan of care as discussed with me and documented in the resident note. (Palak Jefferson MD) Problem List: (1) Severe hypothyroidism ICD Codes: E03.8 - Other specified hypothyroidism Status: Acute Plan: Improving symptomatically, T4 today 1.04 uptrending TSH on admission greater than 100, Both free T4 and T3 were low Patient had not been taking her levothyroxine T4 supplementation over the past several months due to being out of this medication -Endocrinology consulted, appreciate recommendations -Continue levothyroxine 225 mcg daily -Recheck T4, TSH in 2 weeks -Signed off due to patient anticipated to be transferred this week, available as needed for continued input (2) Weakness ICD Codes: R53.1 - Weakness Status: Chronic Plan: The patient may have significant myopathy due to her severe hypothyroidism causing her weakness Continue PT -Upon assessment stated that falls likely due to a combination of weakness, but also poor lower extremity sensation. -Will need to use a bariatric wheeled walker for safe ambulation -Recommends PT at rehab -C/w PT BID while in the hospital for 7 days a week -Patient remain a high fall risk. Working on safe discharge plan which will require ability to transfer. (3) Urinary incontinence in female ICD Codes: R32 - Unspecified urinary incontinence Status: Resolved Plan: Abdomen/pelvis CT without any acute findings Consider etiology due to detrusor overactivity causing urgency incontinence, hypothyroid, NPH, medication adverse effect, constipation Vaginal atrophy and deconditioning causing the inability to get up and go to the bathroom quickly may be contributing to her incontinence Renal and bladder ultrasound on 05/22 showed no acute disease Bladder scan on 05/25 showed post void residual of 12ml. WNL -Advised patient to routinely urinate/empty her bladder when she receives her pain medications about every 4 hours -Treat hypothyroidism as above (4) Diabetes mellitus ICD Codes: E11.9 - Type 2 diabetes mellitus without complications Status: Chronic Plan: BSG 201-265 Hold home insulin glargine. She reported taking no short acting insulin at home for months only long acting HbA1c is 12.5 Accuchecks ACHS changed to medium-dose ISS Increase levemir to 30 units BID add novolog 5 units ACTID (5) Hypertension ICD Codes: I10 - Essential (primary) hypertension Status: Chronic Plan: Stable, continue atenolol 25 mg daily (6) Chronic kidney disease ICD Codes: N18.9 - Chronic kidney disease, unspecified Status: Chronic Plan: Likely Cr now at baseline Cr 1.4 today (7) Hyperlipidemia ICD Codes: E78.5 - Hyperlipidemia, unspecified Status: Chronic Plan: Hold home simvastatin (8) Depression ICD Codes: F32.9 - Major depressive disorder, single episode, unspecified Status: Chronic Plan: Depression: continue home zoloft, consider adding ativan prn for anxiety (9) Nutrition, metabolism, and development symptoms ICD Codes: R63.8 - Other symptoms and signs concerning food and fluid intake Status: Acute Plan: Fluids: tolerating po Electrolytes: continue to monitor Nutrition: 1800 ADA GI ppx: Protonix 40 mg po daily DVT ppx: Heparin 5,000 units sq q8h Depression: continue home zoloft, consider adding ativan prn for anxiety Dispo: Complicated due to self-pay status and risk of falls. Once hypothyroidism medically stable, will ideally plan to go to SNF/Rehab in [place]. Patient and CM working to arrange. Will need transport to flight on discharge. Prior to DC will need documentation by PT that patient is safe to make it through flight with assistance. (Maude Harkins MD, R1) Problem Qualifiers (1) Diabetes mellitus: Qualified Codes: E11.42 - Type 2 diabetes mellitus with diabetic polyneuropathy ; Z79.4 - halfway (current) use of insulin (2) Hypertension: Qualified Codes: I10 - Essential (primary) hypertension (3) Hyperlipidemia: Qualified Codes: E78.00 - Pure hypercholesterolemia, unspecified Maude Harkins MD, R1 June 07, 2017 14:51 Palak Jefferson MD June 09, 2017 18:25
[2017-06-07] MEDS ORDERED: LORazepam 0.5 MG TAB PO PRN (15:00)
[2017-06-07 16:06] VITALS: BP 122/62; PULSE 63; RESP 18; TEMP 98.2; O2SAT 95
[2017-06-07 20:00] VITALS: BP 116/56; PULSE 66; RESP 18; TEMP 98.4; O2SAT 95
[2017-06-07] MEDS: CHOLECALCIFEROL (VIT D3) 400 UNIT TAB PO SCH (22:37)
[2017-06-07] MEDS: ASPIRIN EC 81 MG TABEC PO SCH (22:38)
[2017-06-07] MEDS: CLOPIDOGREL 75 MG TAB PO SCH (22:38)
[2017-06-08] VITALS: BP 133/82; PULSE 67; RESP 18; TEMP 97.7; O2SAT 96
[2017-06-08] MEDS: ACETAMINOPHEN/HYDROcodone 325 MG/10 MG TAB PO PRN ×2 (01:48→19:10)
[2017-06-08 04:00] VITALS: BP 133/74; PULSE 67; RESP 17; TEMP 98; O2SAT 96
[2017-06-08] MEDS: LEVOTHYROXINE SODIUM 25 MCG TAB PO SCH (05:09)
[2017-06-08] MEDS: LEVOTHYROXINE SODIUM 200 MCG TAB PO SCH (05:09)
[2017-06-08 08:06] VITALS: BP 127/69; PULSE 67; RESP 17; TEMP 98; O2SAT 96
[2017-06-08] MEDS: POLYETHYLENE GLYCOL 17 GM PKG PO SCH (08:11)
[2017-06-08] MEDS: INSULIN ASPART 1,000 UNITS/10 ML VIAL SQ SCH ×3 (08:11→18:22)
[2017-06-08] MEDS: INSULIN ASPART SUPPLEMENTAL SCALE SQ SCH ×4 (08:12→22:12)
[2017-06-08] MEDS: SODIUM CHLORIDE 0.9% FLUSH 10 ML FLUSH IV FLUSH SCH ×2 (08:12→22:13)
[2017-06-08] MEDS: CALCIUM CARBONATE 500 MG CHEWABLE TAB PO SCH ×2 (08:14→22:11)
[2017-06-08] MEDS: ATENOLOL 25 MG TAB PO SCH (08:14)
[2017-06-08] MEDS: PANTOPRAZOLE SOD 40 MG DELAYED RELEASE TAB PO SCH (08:14)
[2017-06-08] MEDS: SERTRALINE HCL 50 MG TAB PO SCH ×2 (08:14→22:11)
[2017-06-08] MEDS: LACTOBACILLUS ACIDOPHILUS TAB PO SCH ×2 (08:14→22:11)
[2017-06-08] MEDS: busPIRone HCL 5 MG TAB PO SCH ×3 (08:14→17:34)
[2017-06-08] MEDS: DOCUSATE SODIUM 50 MG/SENNA 8.6 MG TAB PO SCH ×2 (08:14→21:00)
[2017-06-08] MEDS: INSULIN DETEMIR 100 UNITS/ML VIAL SQ SCH ×2 (08:14→22:12)
[2017-06-08] MEDS: CLOTRIMAZOLE 1% CREAM 15 GM TOPICAL SCH ×2 (08:15→22:13)
--- NOTE | 2017-06-08 11:24 | HHI.FPPN ---
Subjective Remarks No acute events overnight. Working well with PT. Less fatigued. No CP/SOB. Mild back pain. No abdominal pain. (Satish Rojas MD R2) Objective Vitals Vital Signs Date Time Temp Pulse Resp B/P (MAP) Pulse Ox O2 Delivery O2 Flow Rate FiO2 06/08/17 08:59 Room Air 06/08/17 08:06 98.0 67 17 127/69 (88) 96 06/08/17 04:00 98.0 67 17 133/74 (93) 96 06/08/17 00:00 97.7 67 18 133/82 (99) 96 06/07/17 20:00 Room Air 06/07/17 20:00 98.4 66 18 116/56 (76) 95 06/07/17 16:06 98.2 63 18 122/62 (82) 95 06/07/17 12:06 98.4 79 18 105/56 (72) 94 06/07/17 12:00 Room Air I/O 06/07/17 06/07/17 06/07/17 06/08/17 06/08/17 06/08/17 06:59 14:59 22:59 06:59 14:59 22:59 Intake Total 680 ml 600 ml 240 ml Output Total 525 ml Balance 680 ml 600 ml -285 ml Intake Oral 680 ml 600 ml 240 ml Output Urine Total 525 ml # Voids 4 3 6 # Bowel Movements 1 1 (Satish Rojas MD R2) Result Diagram: 06/04/17 0435 06/07/17 0643 Imaging Last Impressions Hip X-Ray 05/26/17 0000 Signed Impressions: Service Date/Time: Friday, May 26, 2017 15:13 - CONCLUSION: Degenerative changes, no fracture Jermaine Gutierres MD FACR Liver Ultrasound 05/25/17 0000 Signed Impressions: Service Date/Time: May 16:28 - CONCLUSION: 1. Mild hepatomegaly. 2. Status post cholecystectomy. 3. No evidence of acute process or biliary obstructive disease. 4. Calcified granuloma in the spleen. Valerio Salcedo MD Lumbar Spine CT 05/22/17 0000 Signed Impressions: Service Date/Time: Sunday, May 21, 2017 14:36 - CONCLUSION: 1. Moderate stenosis at the L4-L5 level caused by combination of anterior subluxation/spondylolisthesis, disc bulge, and severe facet hypertrophy. 2. Moderate stenosis at the T11-T12 level by a central disc protrusion with osteophytes. 3. Moderate disc bulge and mild stenosis at the L5-S1 level. 4. Minimal bulging at the L1-L2 and L2-L3 levels. 1. Gurvinder Steinberg MD Chest X-Ray 05/21/17 1345 Signed Impressions: Service Date/Time: Sunday, May 21, 2017 13:57 - CONCLUSION: No acute disease. Gurvinedr Frazier MD Abdomen/Pelvis CT 05/21/17 1345 Signed Impressions: Service Date/Time: Sunday, May 21, 2017 14:36 - CONCLUSION: No acute CT findings in the abdomen or pelvis. Gurvinder Frazier MD Renal Ultrasound 05/21/17 0000 Signed Impressions: Service Date/Time: Sunday, May 21, 2017 18:12 - CONCLUSION: No acute disease. Gurvinder Steinberg MD Objective Remarks GENERAL: Well-nourished, morbidly obese white female patient, sitting up in bed , NAD. SKIN: Warm and dry. CARDIOVASCULAR: Normal s1 and s2. Regular rate and rhythm without murmurs, gallops, or rubs. RESPIRATORY: Breath sounds equal bilaterally and clear. No accessory muscle use. No crackles or wheezes. GASTROINTESTINAL: Abdomen soft, obese, NDNT EXTREMITIES: No cyanosis or edema. NEUROLOGICAL: Grossly non-focal. Medications and IVs Current Medications Medications (Trade) Dose Ordered Sig/Guillaume Route Start Time Stop Time Status Last Admin (NS Flush) 2 ml UNSCH PRN IV FLUSH 05/21/17 17:30 (NS Flush) 2 ml BID IV FLUSH 05/21/17 21:00 06/08/17 08:12 (Tylenol) 650 mg Q4H PRN PO 05/21/17 17:30 (Zofran Inj) 4 mg Q6H PRN IVP 05/21/17 17:30 06/04/17 01:55 (Milk Of Magnesia Liq) 30 ml Q12H PRN PO 05/21/17 17:30 (Dulcolax Supp) 10 mg DAILY PRN RECTAL 05/21/17 17:30 (Lotrimin 1% Cream) 1 applic BID TOPICAL 05/21/17 17:30 06/08/17 08:15 (Ecotrin Ec) 81 mg HS PO 05/21/17 21:00 06/07/17 22:38 (Buspar) 15 mg TID PO 05/22/17 09:00 06/08/17 08:14 (Plavix) 75 mg HS PO 05/21/17 21:00 06/07/17 22:38 (Zoloft) 50 mg BID PO 05/21/17 21:00 06/08/17 08:14 (Tums Chew) 500 mg BID PO 05/21/17 21:00 06/08/17 08:14 (Vitamin D3) 400 units HS PO 05/21/17 21:00 06/07/17 22:37 (Ferrous Sulfate) 325 mg BID PO 05/21/17 21:00 Future Hold 05/27/17 20:36 (Protonix) 40 mg DAILY PO 05/22/17 09:00 06/08/17 08:14 (Tylenol) 650 mg Q6H PRN PO 05/21/17 23:30 ([place] 5-325 Mg) 1 tab Q4H PRN PO 05/21/17 23:30 06/06/17 05:36 ([place] 10-325 Mg) 1 tab Q4H PRN PO 05/21/17 23:30 06/08/17 01:48 (Narcan Inj) 0.4 mg UNSCH PRN IV PUSH 05/21/17 23:30 Sodium Chloride 1,000 ml @ 185 mls/hr Q5H25M IV 05/23/17 09:00 Future Hold 05/26/17 09:42 (My-Colace) 2 tab BID PO 05/24/17 21:00 06/08/17 08:14 (Lactulose Liq) 30 ml BID PRN PO 05/27/17 12:30 05/27/17 20:35 (Miralax) 17 gm DAILY PO 05/28/17 10:00 06/07/17 08:50 (Tenormin) 25 mg DAILY PO 05/30/17 09:00 06/08/17 08:14 (Synthroid) 200 mcg DAILY@0600 PO 06/03/17 06:00 06/08/17 05:09 (Synthroid) 25 mcg DAILY@0600 PO 06/03/17 06:00 06/08/17 05:09 (Lactinex) 1 tab Q12HR PO 06/03/17 21:00 06/08/17 08:14 (D50w (Vial) Inj) 50 ml UNSCH PRN IV PUSH 06/04/17 15:15 (Glucagon Inj) 1 mg UNSCH PRN OTHER 06/04/17 15:15 (NovoLOG SUPPLEMENTAL SCALE) 1 ACHS SLIDING SCALE SQ 06/05/17 17:00 06/08/17 08:12 (Ativan) 0.5 mg Q6H PRN PO 06/07/17 15:00 (NovoLOG INJ) 7 units TIDAC SQ 06/08/17 08:00 06/08/17 08:11 (Levemir Inj) 32 units Q12HR SQ 06/07/17 21:00 06/08/17 08:14 (Satish Rojas MD R2) A/P Assessment and Plan 56 year old female presenting with: (Satish Rojas MD R2) Attending Attestation Patient seen and examined. Case reviewed and discussed. Agree with plan of care as discussed with me and documented in the resident note. (Palak Jefferson MD) Problem List: (1) Severe hypothyroidism ICD Codes: E03.8 - Other specified hypothyroidism Status: Acute Plan: Improving symptomatically T4 increasing appropriately TSH on admission greater than 100, Both free T4 and T3 were low Patient had not been taking her levothyroxine T4 supplementation over the past several months due to being out of this medication -Endocrinology consulted, appreciate recommendations -Continue levothyroxine 225 mcg daily -Recheck T4, TSH in 2 weeks -Signed off due to patient anticipated to be transferred this week, available as needed for continued input (2) Weakness ICD Codes: R53.1 - Weakness Status: Chronic Plan: The patient may have significant myopathy due to her severe hypothyroidism causing her weakness Continue PT -Upon assessment stated that falls likely due to a combination of weakness, but also poor lower extremity sensation. -Will need to use a bariatric wheeled walker for safe ambulation -Recommends PT at rehab -C/w PT BID while in the hospital for 7 days a week -Patient remain a high fall risk. Working on safe discharge plan which will require ability to transfer. Rehab medicine consulted, recs appreciated -Needs to be able to do self-transfers or min assist transfers in order to meet criteria for short-term daniel bed at [facility] (3) Urinary incontinence in female ICD Codes: R32 - Unspecified urinary incontinence Status: Resolved Plan: Abdomen/pelvis CT without any acute findings Consider etiology due to detrusor overactivity causing urgency incontinence, hypothyroid, NPH, medication adverse effect, constipation Vaginal atrophy and deconditioning causing the inability to get up and go to the bathroom quickly may be contributing to her incontinence Renal and bladder ultrasound on 05/22 showed no acute disease Bladder scan on 05/25 showed post void residual of 12ml. WNL -Advised patient to routinely urinate/empty her bladder when she receives her pain medications about every 4 hours -Treat hypothyroidism as above (4) Diabetes mellitus ICD Codes: E11.9 - Type 2 diabetes mellitus without complications Status: Chronic Plan: BS [id number] Hold home insulin glargine. She reported taking no short acting insulin at home for months only long acting HbA1c is 12.5 Accuchecks ACHS Continue levemir 30 units BID Novolog 5 units TIDAC medium-dose SSI (5) Hypertension ICD Codes: I10 - Essential (primary) hypertension Status: Chronic Plan: Stable, continue atenolol 25 mg daily (6) Chronic kidney disease ICD Codes: N18.9 - Chronic kidney disease, unspecified Status: Chronic Plan: Likely Cr now at baseline Cr 1.4 (7) Hyperlipidemia ICD Codes: E78.5 - Hyperlipidemia, unspecified Status: Chronic Plan: Hold home simvastatin (8) Depression ICD Codes: F32.9 - Major depressive disorder, single episode, unspecified Status: Chronic Plan: Depression: continue home zoloft, consider adding ativan prn for anxiety (9) Nutrition, metabolism, and development symptoms ICD Codes: R63.8 - Other symptoms and signs concerning food and fluid intake Status: Acute Plan: Fluids: tolerating po Electrolytes: continue to monitor Nutrition: 1800 ADA GI ppx: Protonix 40 mg po daily DVT ppx: Heparin 5,000 units sq q8h Depression: continue home zoloft, consider adding ativan prn for anxiety Dispo: Complicated due to self-pay status and risk of falls. Plan is to fly home to stay with son in [place]. Will need transport to flight on discharge. Prior to DC will need documentation by PT that patient is safe to make it through flight with min assist. (Satish Rojas MD R2) Problem Qualifiers (1) Diabetes mellitus: Qualified Codes: E11.42 - Type 2 diabetes mellitus with diabetic polyneuropathy ; Z79.4 - custodial (current) use of insulin (2) Hypertension: Qualified Codes: I10 - Essential (primary) hypertension (3) Hyperlipidemia: Qualified Codes: E78.00 - Pure hypercholesterolemia, unspecified Satish Rojas MD R2 June 08, 2017 11:24 Palak Jefferson MD June 09, 2017 18:11
[2017-06-08 12:22] VITALS: BP 103/50; PULSE 64; RESP 17; TEMP 98.2; O2SAT 96
[2017-06-08 16:06] VITALS: BP 129/64; PULSE 66; RESP 18; TEMP 98.3; O2SAT 94
[2017-06-08] MEDS: GABAPENTIN 300 MG CAP PO SCH ×2 (17:34→17:37)
[2017-06-08 20:00] VITALS: BP 130/63; PULSE 62; RESP 18; TEMP 97.6; O2SAT 94
[2017-06-08] MEDS: CLOPIDOGREL 75 MG TAB PO SCH (22:10)
[2017-06-08] MEDS: ASPIRIN EC 81 MG TABEC PO SCH (22:11)
[2017-06-08] MEDS: CHOLECALCIFEROL (VIT D3) 400 UNIT TAB PO SCH (22:11)
[2017-06-09] VITALS: BP 143/76; PULSE 62; RESP 18; TEMP 97.4; O2SAT 94
[2017-06-09] MEDS: ACETAMINOPHEN/HYDROcodone 325 MG/10 MG TAB PO PRN ×4 (00:49→18:01)
[2017-06-09 04:00] VITALS: BP 155/87; PULSE 66; RESP 18; TEMP 98; O2SAT 93
[2017-06-09] MEDS: LEVOTHYROXINE SODIUM 25 MCG TAB PO SCH (06:19)
[2017-06-09] MEDS: LEVOTHYROXINE SODIUM 200 MCG TAB PO SCH (06:19)
[2017-06-09 08:00] VITALS: BP 133/73; PULSE 66; RESP 18; TEMP 97.9; O2SAT 93
[2017-06-09 08:05] LABS: CREATININE 1.32 MG/DL (0.50-1.00)
[2017-06-09 08:08] LABS: FREE T4 1.07 NG/DL (0.76-1.46)
[2017-06-09] MEDS: GABAPENTIN 300 MG CAP PO SCH ×2 (09:00→12:16)
[2017-06-09] MEDS: POLYETHYLENE GLYCOL 17 GM PKG PO SCH (09:02)
[2017-06-09] MEDS: busPIRone HCL 5 MG TAB PO SCH ×3 (09:02→18:02)
[2017-06-09] MEDS: DOCUSATE SODIUM 50 MG/SENNA 8.6 MG TAB PO SCH ×2 (09:02→21:00)
[2017-06-09] MEDS: PANTOPRAZOLE SOD 40 MG DELAYED RELEASE TAB PO SCH (09:02)
[2017-06-09] MEDS: LACTOBACILLUS ACIDOPHILUS TAB PO SCH ×2 (09:02→21:18)
[2017-06-09] MEDS: CALCIUM CARBONATE 500 MG CHEWABLE TAB PO SCH ×2 (09:03→21:18)
[2017-06-09] MEDS: SODIUM CHLORIDE 0.9% FLUSH 10 ML FLUSH IV FLUSH SCH ×2 (09:03→21:18)
[2017-06-09] MEDS: ATENOLOL 25 MG TAB PO SCH (09:03)
[2017-06-09] MEDS: INSULIN ASPART SUPPLEMENTAL SCALE SQ SCH ×4 (09:03→21:19)
[2017-06-09] MEDS: SERTRALINE HCL 50 MG TAB PO SCH ×2 (09:03→21:17)
[2017-06-09] MEDS: INSULIN ASPART 1,000 UNITS/10 ML VIAL SQ SCH ×3 (09:04→18:02)
[2017-06-09] MEDS: CLOTRIMAZOLE 1% CREAM 15 GM TOPICAL SCH ×2 (09:05→21:20)
[2017-06-09] MEDS: INSULIN DETEMIR 100 UNITS/ML VIAL SQ SCH ×2 (09:05→21:19)
[2017-06-09 12:10] VITALS: BP 109/54; PULSE 63; RESP 20; TEMP 98; O2SAT 95
[2017-06-09 16:32] VITALS: BP 118/65; PULSE 61; RESP 18; TEMP 98; O2SAT 96
--- NOTE | 2017-06-09 17:06 | HHI.FPPN ---
Subjective Remarks Delayed entry Patient seen and examined this morning, she was ambulating on culture across the godwin. No acute events overnight. Pt stated she had a bowel movement. Lower extremity strength seems to be improving. (Maude Harkins MD, R1) Objective Vitals Vital Signs Date Time Temp Pulse Resp B/P (MAP) Pulse Ox O2 Delivery O2 Flow Rate FiO2 06/09/17 16:32 98.0 61 18 118/65 (82) 96 06/09/17 16:00 Nasal Cannula 1.00 06/09/17 14:30 Nasal Cannula 1.00 06/09/17 12:10 98.0 63 20 109/54 (72) 95 06/09/17 12:00 Room Air 06/09/17 08:00 97.9 66 18 133/73 (93) 93 06/09/17 08:00 Room Air 06/09/17 04:00 98.0 66 18 155/87 (109) 93 06/09/17 00:00 97.4 62 18 143/76 (98) 94 06/08/17 20:00 97.6 62 18 130/63 (85) 94 06/08/17 20:00 Room Air 06/08/17 18:09 Room Air I/O 06/08/17 06/08/17 06/08/17 06/09/17 06/09/17 06/09/17 07:00 15:00 23:00 07:00 15:00 23:00 Intake Total 240 ml 720 ml 240 ml Output Total 525 ml 900 ml Balance -285 ml 720 ml -660 ml Intake Oral 240 ml 720 ml 240 ml Output Urine Total 525 ml 900 ml # Voids 6 3 # Bowel Movements 1 1 (Maude Harkins MD, R1) Result Diagram: 06/09/17 07 Objective Remarks GENERAL: Well-nourished, morbidly obese white female patient, in wheelchair, NAD. SKIN: Warm and dry. CARDIOVASCULAR: Normal s1 and s2. Regular rate and rhythm without murmurs, gallops, or rubs. RESPIRATORY: Breath sounds equal bilaterally and clear. No accessory muscle use. No crackles or wheezes. GASTROINTESTINAL: Abdomen soft, obese, NDNT EXTREMITIES: No cyanosis or edema. NEUROLOGICAL: Grossly non-focal. (Maude Harkins MD, R1) A/P Assessment and Plan 56 year old female presenting with: (Maude Harkins MD, R1) Attending Attestation Patient seen and examined. Case reviewed and discussed Agree with plan of care as discussed with me and documented in the resident note. (Palak Jefferson MD) Problem List: (1) Severe hypothyroidism ICD Codes: E03.8 - Other specified hypothyroidism Status: Acute Plan: Improving symptomatically T4 increasing appropriately TSH on admission greater than 100, Both free T4 and T3 were low Patient had not been taking her levothyroxine T4 supplementation over the past several months due to being out of this medication -Endocrinology consulted, appreciate recommendations -Continue levothyroxine 225 mcg daily -Recheck T4, TSH in 2 weeks -Signed off due to patient anticipated to be transferred this week, available as needed for continued input (2) Weakness ICD Codes: R53.1 - Weakness Status: Chronic Plan: The patient may have significant myopathy due to her severe hypothyroidism causing her weakness Continue PT -Upon assessment stated that falls likely due to a combination of weakness, but also poor lower extremity sensation. -Will need to use a bariatric wheeled walker for safe ambulation -Recommends PT at rehab -C/w PT BID while in the hospital for 7 days a week -Patient remain a high fall risk. Working on safe discharge plan which will require ability to transfer. -Lower extremity strength much improved today. Rehab medicine consulted, recs appreciated -Needs to be able to do self-transfers or min assist transfers in order to meet criteria for short-term daniel bed at [facility] (3) Urinary incontinence in female ICD Codes: R32 - Unspecified urinary incontinence Status: Resolved Plan: Abdomen/pelvis CT without any acute findings Consider etiology due to detrusor overactivity causing urgency incontinence, hypothyroid, NPH, medication adverse effect, constipation Vaginal atrophy and deconditioning causing the inability to get up and go to the bathroom quickly may be contributing to her incontinence Renal and bladder ultrasound on 05/22 showed no acute disease Bladder scan on 05/25 showed post void residual of 12ml. WNL -Advised patient to routinely urinate/empty her bladder when she receives her pain medications about every 4 hours -Treat hypothyroidism as above (4) Diabetes mellitus ICD Codes: E11.9 - Type 2 diabetes mellitus without complications Status: Chronic Plan: BSG 177-255 Hold home insulin glargine. She reported taking no short acting insulin at home for months only long acting HbA1c is 12.5 Accuchecks ACHS levemir 35 units BID Novolog 9 units TIDAC medium-dose SSI (5) Hypertension ICD Codes: I10 - Essential (primary) hypertension Status: Chronic Plan: Stable, continue atenolol 25 mg daily (6) Chronic kidney disease ICD Codes: N18.9 - Chronic kidney disease, unspecified Status: Chronic Plan: Likely Cr now at baseline Cr 1.32 (7) Hyperlipidemia ICD Codes: E78.5 - Hyperlipidemia, unspecified Status: Chronic Plan: Hold home simvastatin (8) Depression ICD Codes: F32.9 - Major depressive disorder, single episode, unspecified Status: Chronic Plan: Depression: continue home zoloft, consider adding ativan prn for anxiety (9) Nutrition, metabolism, and development symptoms ICD Codes: R63.8 - Other symptoms and signs concerning food and fluid intake Status: Acute Plan: Fluids: tolerating po Electrolytes: continue to monitor Nutrition: 1800 ADA GI ppx: Protonix 40 mg po daily DVT ppx: Heparin 5,000 units sq q8h Dispo: Complicated due to self-pay status and risk of falls. Plan is to fly home to stay with son in [place]. Will need transport to flight on discharge. Prior to DC will need documentation by PT that patient is safe to make it through flight with min assist. 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
[2017-06-09] MEDS: HEPARIN SODIUM - SQ 10,000 UNITS/ML VIAL SQ SCH (18:02)
[2017-06-09 20:00] VITALS: BP 135/80; PULSE 63; RESP 20; TEMP 97.8; O2SAT 94
--- NOTE | 2017-06-09 20:05 | PD.CONS ---
HPI Service Rehabilitation Medicine Consult Requested By [facility] Reason for Consult Comprehensive rehabilitation evaluation. Primary Care Physician No Primary Care Physician History of Present Illness Elsie Vuong is a 56-year-old [id number] female admitted to [facility] 05/21/17 with generalized weakness and multiple falls. She was noted to have 5 falls in the previous 2-3 months prior to admission. TSH was 94.4 patient was noted to have severe hypothyroidism. She was treated with IV levofloxacin and transition to p.o. levofloxacin. She has been working with physical therapy and feels that her strength is slowly improving however she continues to require significant assistance for transfers and ADLs. She reports decreased sensation in the lower extremities distal to the mid calf level but no associated pain. Review of Systems Constitutional: COMPLAINS OF: Fatigue Eyes: DENIES: Diplopia Ears, nose, mouth, throat: DENIES: Hearing loss Respiratory: COMPLAINS OF: Shortness of breath (With exertion) Cardiovascular: DENIES: Chest pain Gastrointestinal: COMPLAINS OF: Constipation, DENIES: Abdominal pain Genitourinary: COMPLAINS OF: Urinary frequency, Urinary incontinence, Urgency Musculoskeletal: COMPLAINS OF: Back pain Integumentary: DENIES: Rash Hematologic/lymphatic: DENIES: Bruising Immunologic/allergic: DENIES: Urticaria Neurologic: COMPLAINS OF: Abnormal gait, Paresthesias, Poor Balance, DENIES: Headache, Localized weakness, Speech Problems Psychiatric: DENIES: Confusion Past Family Social History Allergies: Coded Allergies: penicillin G (Unverified Allergy, Severe, hives, 04/29/17) hydromorphone (Unverified Adverse Reaction, Unknown, vomiting, 04/29/17) Past Medical History Hypothyroidism Diabetes mellitus with neuropathy Coronary artery disease status post [place] Hypertension Chronic kidney disease Hyperlipidemia Depression Past Surgical History CABG Cardiac stent Cholecystectomy Current Medications Current Medications Medications (Trade) Dose Ordered Sig/Guillaume Route Start Time Stop Time Status Last Admin (NS Flush) 2 ml UNSCH PRN IV FLUSH 05/21/17 17:30 (NS Flush) 2 ml BID IV FLUSH 05/21/17 21:00 06/09/17 09:03 (Tylenol) 650 mg Q4H PRN PO 05/21/17 17:30 (Zofran Inj) 4 mg Q6H PRN IVP 05/21/17 17:30 06/04/17 01:55 (Milk Of Magnesia Liq) 30 ml Q12H PRN PO 05/21/17 17:30 (Dulcolax Supp) 10 mg DAILY PRN RECTAL 05/21/17 17:30 (Lotrimin 1% Cream) 1 applic BID TOPICAL 05/21/17 17:30 06/09/17 09:05 (Ecotrin Ec) 81 mg HS PO 05/21/17 21:00 06/08/17 22:11 (Buspar) 15 mg TID PO 05/22/17 09:00 06/09/17 18:02 (Plavix) 75 mg HS PO 05/21/17 21:00 Future Hold 06/08/17 22:10 (Zoloft) 50 mg BID PO 05/21/17 21:00 06/09/17 09:03 (Tums Chew) 500 mg BID PO 05/21/17 21:00 06/09/17 09:03 (Vitamin D3) 400 units HS PO 05/21/17 21:00 06/08/17 22:11 (Ferrous Sulfate) 325 mg BID PO 05/21/17 21:00 Future Hold 05/27/17 20:36 (Protonix) 40 mg DAILY PO 05/22/17 09:00 06/09/17 09:02 (Tylenol) 650 mg Q6H PRN PO 05/21/17 23:30 ([place] 5-325 Mg) 1 tab Q4H PRN PO 05/21/17 23:30 06/06/17 05:36 ([place] 10-325 Mg) 1 tab Q4H PRN PO 05/21/17 23:30 06/09/17 18:01 (Narcan Inj) 0.4 mg UNSCH PRN IV PUSH 05/21/17 23:30 Sodium Chloride 1,000 ml @ 185 mls/hr Q5H25M IV 05/23/17 09:00 Future Hold 05/26/17 09:42 (My-Colace) 2 tab BID PO 05/24/17 21:00 06/09/17 09:02 (Lactulose Liq) 30 ml BID PRN PO 05/27/17 12:30 05/27/17 20:35 (Miralax) 17 gm DAILY PO 05/28/17 10:00 06/09/17 09:02 (Tenormin) 25 mg DAILY PO 05/30/17 09:00 06/09/17 09:03 (Synthroid) 200 mcg DAILY@0600 PO 06/03/17 06:00 06/09/17 06:19 (Synthroid) 25 mcg DAILY@0600 PO 06/03/17 06:00 06/09/17 06:19 (Lactinex) 1 tab Q12HR PO 06/03/17 21:00 06/09/17 09:02 (D50w (Vial) Inj) 50 ml UNSCH PRN IV PUSH 06/04/17 15:15 (Glucagon Inj) 1 mg UNSCH PRN OTHER 06/04/17 15:15 (NovoLOG SUPPLEMENTAL SCALE) 1 ACHS SLIDING SCALE SQ 06/05/17 17:00 06/09/17 18:03 (NovoLOG INJ) 9 units TIDAC SQ 06/08/17 17:00 06/09/17 18:02 (Levemir Inj) 35 units Q12HR SQ 06/08/17 21:00 06/09/17 09:05 (Heparin Inj) 5,000 units Q8H SQ 06/09/17 18:00 06/09/17 18:02 Family History Hypothyroidism Social History Prior to admission patient lived in a single level home. She was using a cane to help ambulate prior to admission. She has family in [place] and at discharge plans to return to the [place], [place] area to be closer to her family. Exam I&O / VS 06/09/17 06/09/17 06/10/17 15:00 23:00 07:00 Intake Total 720 ml Balance 720 ml Intake Oral 720 ml # Voids 4 # Bowel Movements 0 Vital Signs Date Time Temp Pulse Resp B/P (MAP) Pulse Ox O2 Delivery O2 Flow Rate FiO2 06/09/17 16:32 98.0 61 18 118/65 (82) 96 06/09/17 16:00 Nasal Cannula 1.00 06/09/17 14:30 Nasal Cannula 1.00 06/09/17 12:10 98.0 63 20 109/54 (72) 95 06/09/17 12:00 Room Air 06/09/17 08:00 97.9 66 18 133/73 (93) 93 06/09/17 08:00 Room Air 5/4/18 04:00 98.0 66 18 155/87 (109) 93 06/09/17 00:00 97.4 62 18 143/76 (98) 94 General: No acute distress Respiratory: Lungs CTA, Non-labored respirations, BS equal Gastrointestinal: Positive Bowel Sounds, Non-Distended, Non-Tender, Other ( Obese) Cardiovascular: Normal rate, Regular Rhythm Musculoskeletal: Swelling (Trace edema at the ankles bilaterally), No calf tenderness Psychiatric: Cooperative, Appropriate mood & affect (Affect is slightly flat) Orientation: oriented to Self, oriented to Place, oriented to Time, oriented to Situation Neurologic: Cranial Nerves (Intact 2 through 12), Speech (Clear with no word finding difficulties or dysarthria) Motor: Right Upper Extremity (4/5), Left Upper Extremity (4/5), Right Lower Extremity (3/5), Left Lower Extremity (3/5) Sensory Sensation is intact in the upper extremities; present but diminished distal to the mid calf level bilaterally in the lower extremities Babinski: Negative Clonus: Negative Assessment and Plan Diagnosis: (1) Severe hypothyroidism ICD Codes: E03.8 - Other specified hypothyroidism Status: Acute (2) Generalized muscle weakness ICD Codes: M62.81 - Muscle weakness (generalized) (3) Impaired mobility and activities of daily living ICD Codes: Z74.09 - Other reduced mobility Assessment 1. Physical therapy is mobilizing and patient is moderate to maximal assistance of 2 for transfers. Patient is encouraged to be out of bed with nursing and with physical therapy. Progressed to gait with bariatric walker as feasible. Anticipate that patient strength should continue to improve and that her functional mobility should improve with physical therapy 2. Occupational therapy is addressing ADLs and now set up for grooming and maximal assistance for lower body dressing 3. Case management is addressing discharge planning including return to [place] to be closer to family. Referrals to rehab facilities have been made for ongoing care. Patient will be obtaining commercial air flight for travel. Continue to maximize independence with transfers to facilitate air travel 4. Currently on subcu heparin for DVT prophylaxis 5. Return to reposition every 2 hours and monitor skin carefully 6. Will continue to follow while hospitalized Thank you for this consult Amita Kay MD June 09, 2017 20:05
[2017-06-09] MEDS: CHOLECALCIFEROL (VIT D3) 400 UNIT TAB PO SCH (21:17)
[2017-06-09] MEDS: ASPIRIN EC 81 MG TABEC PO SCH (21:18)
[2017-06-10] VITALS: BP 139/76; PULSE 62; RESP 18; TEMP 97.9; O2SAT 95
[2017-06-10] MEDS: ACETAMINOPHEN/HYDROcodone 325 MG/10 MG TAB PO PRN ×6 (00:39→22:00)
[2017-06-10] MEDS: HEPARIN SODIUM - SQ 10,000 UNITS/ML VIAL SQ SCH ×3 (02:36→17:54)
[2017-06-10 04:00] VITALS: BP 132/66; PULSE 64; RESP 19; TEMP 98.1; O2SAT 94
[2017-06-10] MEDS: LEVOTHYROXINE SODIUM 200 MCG TAB PO SCH (04:46)
[2017-06-10] MEDS: LEVOTHYROXINE SODIUM 25 MCG TAB PO SCH (04:46)
[2017-06-10 08:00] VITALS: BP 120/76; PULSE 69; RESP 20; TEMP 97.9; O2SAT 93
[2017-06-10] MEDS: POLYETHYLENE GLYCOL 17 GM PKG PO SCH (09:00)
[2017-06-10] MEDS: CLOTRIMAZOLE 1% CREAM 15 GM TOPICAL SCH ×2 (09:00→20:30)
[2017-06-10] MEDS: DOCUSATE SODIUM 50 MG/SENNA 8.6 MG TAB PO SCH ×2 (09:00→20:27)
[2017-06-10] MEDS: SERTRALINE HCL 50 MG TAB PO SCH ×2 (09:10→20:27)
[2017-06-10] MEDS: CALCIUM CARBONATE 500 MG CHEWABLE TAB PO SCH ×2 (09:11→20:28)
[2017-06-10] MEDS: PANTOPRAZOLE SOD 40 MG DELAYED RELEASE TAB PO SCH (09:11)
[2017-06-10] MEDS: ATENOLOL 25 MG TAB PO SCH (09:11)
[2017-06-10] MEDS: LACTOBACILLUS ACIDOPHILUS TAB PO SCH ×2 (09:11→20:28)
[2017-06-10] MEDS: INSULIN ASPART 1,000 UNITS/10 ML VIAL SQ SCH ×3 (09:15→17:51)
[2017-06-10] MEDS: INSULIN ASPART SUPPLEMENTAL SCALE SQ SCH ×4 (09:15→20:28)
[2017-06-10] MEDS: INSULIN DETEMIR 100 UNITS/ML VIAL SQ SCH ×2 (09:15→20:28)
[2017-06-10] MEDS: SODIUM CHLORIDE 0.9% FLUSH 10 ML FLUSH IV FLUSH SCH ×2 (09:16→20:27)
[2017-06-10] MEDS: busPIRone HCL 5 MG TAB PO SCH ×3 (09:16→17:51)
[2017-06-10 09:25] LABS: BICARBONATE 27.5 MEQ/L (21.0-32.0); CALCIUM 9.8 MG/DL (8.5-10.1); CREATININE 1.32 MG/DL (0.50-1.00)
[2017-06-10 09:28] LABS: FREE T4 1.14 NG/DL (0.76-1.46)
[2017-06-10 12:00] VITALS: BP 105/56; PULSE 66; RESP 20; TEMP 98.4; O2SAT 95
[2017-06-10 16:00] VITALS: BP 124/64; PULSE 60; RESP 20; O2SAT 93
[2017-06-10 20:00] VITALS: BP 112/57; PULSE 60; RESP 20; TEMP 97.6; O2SAT 93
[2017-06-10] MEDS: CHOLECALCIFEROL (VIT D3) 400 UNIT TAB PO SCH (20:27)
[2017-06-10] MEDS: ASPIRIN EC 81 MG TABEC PO SCH (20:28)
--- NOTE | 2017-06-10 21:20 | HHI.FPPN ---
Subjective Remarks Delayed entry Patient seen and examined this morning, no acute events overnight. Patient was ambulating in the hallway on wheelchair, has no complaints. (Maude Harkins MD, R1) Objective Vitals Vital Signs Date Time Temp Pulse Resp B/P (MAP) Pulse Ox O2 Delivery O2 Flow Rate FiO2 06/10/17 20:00 97.6 60 20 112/57 (75) 93 06/10/17 16:00 60 20 124/64 (84) 93 06/10/17 12:00 98.4 66 20 105/56 (72) 95 06/10/17 08:00 97.9 69 20 120/76 (91) 93 06/10/17 07:00 Room Air 06/10/17 04:00 98.1 64 19 132/66 (88) 94 06/10/17 00:00 97.9 62 18 139/76 (97) 95 I/O 06/09/17 06/09/17 06/09/17 06/10/17 06/10/17 06/10/17 06:59 14:59 22:59 06:59 14:59 22:59 Intake Total 240 ml 720 ml 240 ml 600 ml Output Total 900 ml 900 ml Balance -660 ml 720 ml -660 ml 600 ml Intake Oral 240 ml 720 ml 240 ml 600 ml Output Urine Total 900 ml 900 ml # Voids 4 1 2 # Bowel Movements 1 0 1 0 (Maude Harkins MD, R1) Result Diagram: 06/10/17 0800 Objective Remarks GENERAL: Well-nourished, morbidly obese white female patient, in wheelchair, NAD. SKIN: Warm and dry/flaky. CARDIOVASCULAR: Heart sounds distant. Regular rate and rhythm without murmurs, gallops, or rubs. RESPIRATORY: Breath sounds equal bilaterally and clear. No accessory muscle use. No crackles or wheezes. GASTROINTESTINAL: Abdomen soft, obese, nondistended. Non-tender. EXTREMITIES: Trace edema of BLE. NEUROLOGICAL: Grossly non-focal. (Maude Harkins MD, R1) A/P Assessment and Plan 56 year old female presenting with: (Maude Harkins MD, R1) Attending Attestation Case reviewed and discussed with the resident team. Agree with plan of care as discussed with me and documented in the resident note. (Ilda Garcia MD) Problem List: (1) Severe hypothyroidism ICD Codes: E03.8 - Other specified hypothyroidism Status: Acute Plan: Improving symptomatically T4 increasing appropriately TSH on admission greater than 100, Both free T4 and T3 were low Patient had not been taking her levothyroxine T4 supplementation over the past several months due to being out of this medication -Endocrinology consulted, appreciate recommendations -Continue levothyroxine 225 mcg daily -Recheck T4, TSH in 2 weeks -Signed off due to patient anticipated to be transferred this week, available as needed for continued input (2) Weakness ICD Codes: R53.1 - Weakness Status: Chronic Plan: The patient may have significant myopathy due to her severe hypothyroidism causing her weakness Continue PT -Upon assessment stated that falls likely due to a combination of weakness, but also poor lower extremity sensation. -Will need to use a bariatric wheeled walker for safe ambulation -Recommends PT at rehab -C/w PT BID while in the hospital for 7 days a week -Patient remain a high fall risk. Working on safe discharge plan which will require ability to transfer. -Lower extremity strength much improved today. Rehab medicine consulted, recs appreciated -Needs to be able to do self-transfers or min assist transfers in order to meet criteria for short-term daniel bed at [facility] (3) Urinary incontinence in female ICD Codes: R32 - Unspecified urinary incontinence Status: Resolved Plan: Abdomen/pelvis CT without any acute findings Consider etiology due to detrusor overactivity causing urgency incontinence, hypothyroid, NPH, medication adverse effect, constipation Vaginal atrophy and deconditioning causing the inability to get up and go to the bathroom quickly may be contributing to her incontinence Renal and bladder ultrasound on 05/22 showed no acute disease Bladder scan on 05/25 showed post void residual of 12ml. WNL -Advised patient to routinely urinate/empty her bladder when she receives her pain medications about every 4 hours -Treat hypothyroidism as above (4) Diabetes mellitus ICD Codes: E11.9 - Type 2 diabetes mellitus without complications Status: Chronic Plan: BSG 177-321 Hold home insulin glargine. She reported taking no short acting insulin at home for months only long acting HbA1c is 12.5 Accuchecks ACHS increased levemir 40 units BID Novolog 9 units TIDAC medium-dose SSI (5) Hypertension ICD Codes: I10 - Essential (primary) hypertension Status: Chronic Plan: Stable, continue atenolol 25 mg daily (6) Chronic kidney disease ICD Codes: N18.9 - Chronic kidney disease, unspecified Status: Chronic Plan: Likely Cr now at baseline Cr 1.32 (7) Hyperlipidemia ICD Codes: E78.5 - Hyperlipidemia, unspecified Status: Chronic Plan: Hold home simvastatin (8) Depression ICD Codes: F32.9 - Major depressive disorder, single episode, unspecified Status: Chronic Plan: Depression: continue home zoloft, consider adding ativan prn for anxiety (9) Nutrition, metabolism, and development symptoms ICD Codes: R63.8 - Other symptoms and signs concerning food and fluid intake Status: Acute Plan: Fluids: tolerating po Electrolytes: continue to monitor Nutrition: 1800 ADA GI ppx: Protonix 40 mg po daily DVT ppx: Heparin 5,000 units sq q8h Dispo: Complicated due to self-pay status and risk of falls. Plan is to fly home to stay with son in [place]. Will need transport to flight on discharge. Prior to DC will need documentation by PT that patient is safe to make it through flight with min assist. 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
[2017-06-11] VITALS: BP 128/69; PULSE 61; RESP 20; TEMP 97.7; O2SAT 93
[2017-06-11] MEDS: HEPARIN SODIUM - SQ 10,000 UNITS/ML VIAL SQ SCH ×3 (02:48→17:57)
[2017-06-11] MEDS: ACETAMINOPHEN/HYDROcodone 325 MG/10 MG TAB PO PRN ×5 (03:55→21:59)
[2017-06-11 04:00] VITALS: BP 121/60; PULSE 64; RESP 21; TEMP 98; O2SAT 95
[2017-06-11] MEDS: LEVOTHYROXINE SODIUM 25 MCG TAB PO SCH (04:58)
[2017-06-11] MEDS: LEVOTHYROXINE SODIUM 200 MCG TAB PO SCH (04:58)
[2017-06-11 08:00] VITALS: BP 107/61; PULSE 62; RESP 20; TEMP 98.1; O2SAT 94
[2017-06-11] MEDS: INSULIN ASPART SUPPLEMENTAL SCALE SQ SCH ×4 (08:00→20:25)
[2017-06-11] MEDS: SERTRALINE HCL 50 MG TAB PO SCH ×2 (08:11→20:24)
[2017-06-11] MEDS: POLYETHYLENE GLYCOL 17 GM PKG PO SCH (08:11)
[2017-06-11] MEDS: LACTOBACILLUS ACIDOPHILUS TAB PO SCH ×2 (08:11→20:24)
[2017-06-11] MEDS: busPIRone HCL 5 MG TAB PO SCH ×3 (08:12→17:55)
[2017-06-11] MEDS: CALCIUM CARBONATE 500 MG CHEWABLE TAB PO SCH ×2 (08:12→20:22)
[2017-06-11] MEDS: DOCUSATE SODIUM 50 MG/SENNA 8.6 MG TAB PO SCH ×2 (08:12→20:24)
[2017-06-11] MEDS: PANTOPRAZOLE SOD 40 MG DELAYED RELEASE TAB PO SCH (08:12)
[2017-06-11] MEDS: ATENOLOL 25 MG TAB PO SCH (08:12)
[2017-06-11] MEDS: INSULIN DETEMIR 100 UNITS/ML VIAL SQ SCH ×2 (08:17→20:24)
[2017-06-11] MEDS: SODIUM CHLORIDE 0.9% FLUSH 10 ML FLUSH IV FLUSH SCH ×2 (08:19→20:25)
[2017-06-11] MEDS: INSULIN ASPART 1,000 UNITS/10 ML VIAL SQ SCH ×3 (08:19→17:57)
[2017-06-11] MEDS: CLOTRIMAZOLE 1% CREAM 15 GM TOPICAL SCH ×2 (09:00→20:25)
--- NOTE | 2017-06-11 10:51 | HHI.FPPN ---
Subjective Remarks No acute events overnight. Feeling very optimistic about PT progress. Has had some occasional chest tightness unrelated to exertion which resolves spontaneously. No SOB. (Satish Rojas MD R2) Objective Vitals Vital Signs Date Time Temp Pulse Resp B/P (MAP) Pulse Ox O2 Delivery O2 Flow Rate FiO2 06/11/17 08:00 98.1 62 20 107/61 (76) 94 06/11/17 07:00 Room Air 06/11/17 04:00 98.0 64 21 121/60 (80) 95 06/11/17 04:00 Room Air 06/11/17 00:00 Room Air 06/11/17 00:00 97.7 61 20 128/69 (88) 93 06/10/17 20:00 97.6 60 20 112/57 (75) 93 06/10/17 20:00 Room Air 06/10/17 16:00 60 20 124/64 (84) 93 06/10/17 12:00 98.4 66 20 105/56 (72) 95 I/O 06/10/17 06/10/17 06/10/17 06/11/17 06/11/17 06/11/17 07:00 15:00 23:00 07:00 15:00 23:00 Intake Total 240 ml 600 ml 120 ml Output Total 900 ml 700 ml Balance -660 ml 600 ml -580 ml Intake Oral 240 ml 600 ml 120 ml Output Urine Total 900 ml 700 ml # Voids 1 2 # Bowel Movements 1 0 0 (Satish Rojas MD R2) Result Diagram: 06/10/17 0800 Imaging Last Impressions Hip X-Ray 05/26/17 0000 Signed Impressions: Service Date/Time: Friday, May 26, 2017 15:13 - CONCLUSION: Degenerative changes, no fracture Jermaine Gutierres MD FACR Liver Ultrasound 05/25/17 0000 Signed Impressions: Service Date/Time: May 16:28 - CONCLUSION: 1. Mild hepatomegaly. 2. Status post cholecystectomy. 3. No evidence of acute process or biliary obstructive disease. 4. Calcified granuloma in the spleen. Valerio Salcedo MD Lumbar Spine CT 05/22/17 0000 Signed Impressions: Service Date/Time: Sunday, May 21, 2017 14:36 - CONCLUSION: 1. Moderate stenosis at the L4-L5 level caused by combination of anterior subluxation/spondylolisthesis, disc bulge, and severe facet hypertrophy. 2. Moderate stenosis at the T11-T12 level by a central disc protrusion with osteophytes. 3. Moderate disc bulge and mild stenosis at the L5-S1 level. 4. Minimal bulging at the L1-L2 and L2-L3 levels. 1. Gurvinder Steinberg MD Chest X-Ray 05/21/17 1345 Signed Impressions: Service Date/Time: Sunday, May 21, 2017 13:57 - CONCLUSION: No acute disease. Gurvinder Frazier MD Abdomen/Pelvis CT 05/21/17 1345 Signed Impressions: Service Date/Time: Sunday, May 21, 2017 14:36 - CONCLUSION: No acute CT findings in the abdomen or pelvis. Gurvinder Frazier MD Renal Ultrasound 05/21/17 0000 Signed Impressions: Service Date/Time: Sunday, May 21, 2017 18:12 - CONCLUSION: No acute disease. Gurvinder Steinberg MD Objective Remarks GENERAL: Well-nourished, morbidly obese white female patient, in bed, NAD. SKIN: Warm and dry/flaky. CARDIOVASCULAR: Heart sounds distant. Regular rate and rhythm without murmurs, gallops, or rubs. RESPIRATORY: Breath sounds equal bilaterally and clear. No accessory muscle use. No crackles or wheezes. GASTROINTESTINAL: Abdomen soft, obese, nondistended. Non-tender. EXTREMITIES: Trace edema of BLE. NEUROLOGICAL: Grossly non-focal. Medications and IVs Current Medications Medications (Trade) Dose Ordered Sig/Guillaume Route Start Time Stop Time Status Last Admin (NS Flush) 2 ml UNSCH PRN IV FLUSH 05/21/17 17:30 (NS Flush) 2 ml BID IV FLUSH 05/21/17 21:00 06/11/17 08:19 (Tylenol) 650 mg Q4H PRN PO 05/21/17 17:30 (Zofran Inj) 4 mg Q6H PRN IVP 05/21/17 17:30 06/04/17 01:55 (Milk Of Magnesia Liq) 30 ml Q12H PRN PO 05/21/17 17:30 (Dulcolax Supp) 10 mg DAILY PRN RECTAL 05/21/17 17:30 (Lotrimin 1% Cream) 1 applic BID TOPICAL 05/21/17 17:30 06/10/17 20:30 (Ecotrin Ec) 81 mg HS PO 05/21/17 21:00 06/10/17 20:28 (Buspar) 15 mg TID PO 05/22/17 09:00 06/11/17 08:12 (Plavix) 75 mg HS PO 05/21/17 21:00 Future Hold 06/08/17 22:10 (Zoloft) 50 mg BID PO 05/21/17 21:00 06/11/17 08:11 (Tums Chew) 500 mg BID PO 05/21/17 21:00 06/11/17 08:12 (Vitamin D3) 400 units HS PO 05/21/17 21:00 06/10/17 20:27 (Ferrous Sulfate) 325 mg BID PO 05/21/17 21:00 Future Hold 05/27/17 20:36 (Protonix) 40 mg DAILY PO 05/22/17 09:00 06/11/17 08:12 (Tylenol) 650 mg Q6H PRN PO 05/21/17 23:30 ([place] 5-325 Mg) 1 tab Q4H PRN PO 05/21/17 23:30 06/06/17 05:36 ([place] 10-325 Mg) 1 tab Q4H PRN PO 05/21/17 23:30 06/11/17 08:15 (Narcan Inj) 0.4 mg UNSCH PRN IV PUSH 05/21/17 23:30 Sodium Chloride 1,000 ml @ 185 mls/hr Q5H25M IV 05/23/17 09:00 Future Hold 05/26/17 09:42 (My-Colace) 2 tab BID PO 05/24/17 21:00 06/09/17 09:02 (Lactulose Liq) 30 ml BID PRN PO 05/27/17 12:30 05/27/17 20:35 (Miralax) 17 gm DAILY PO 05/28/17 10:00 06/09/17 09:02 (Tenormin) 25 mg DAILY PO 05/30/17 09:00 06/11/17 08:12 (Synthroid) 200 mcg DAILY@0600 PO 06/03/17 06:00 06/11/17 04:58 (Synthroid) 25 mcg DAILY@0600 PO 06/03/17 06:00 06/11/17 04:58 (Lactinex) 1 tab Q12HR PO 06/03/17 21:00 06/11/17 08:11 (D50w (Vial) Inj) 50 ml UNSCH PRN IV PUSH 06/04/17 15:15 (Glucagon Inj) 1 mg UNSCH PRN OTHER 06/04/17 15:15 (NovoLOG SUPPLEMENTAL SCALE) 1 ACHS SLIDING SCALE SQ 06/05/17 17:00 06/10/17 20:28 (NovoLOG INJ) 9 units TIDAC SQ 06/08/17 17:00 06/11/17 08:19 (Heparin Inj) 5,000 units Q8H SQ 06/09/17 18:00 06/11/17 08:13 (Levemir Inj) 40 units Q12HR SQ 06/10/17 21:00 06/11/17 08:17 (Satish Rojas MD R2) A/P Assessment and Plan 56 year old female presenting with: (Satish Rojas MD R2) Attending Attestation Patient seen and examined. Case reviewed and discussed with the resident team. Agree with plan of care as discussed with me and documented in the resident note. (Ilda Garcia MD) Problem List: (1) Severe hypothyroidism ICD Codes: E03.8 - Other specified hypothyroidism Status: Acute Plan: Improving symptomatically T4 now wnl TSH in detectable range -Endocrinology consulted, appreciate recommendations -Continue levothyroxine 225 mcg daily -Recheck T4, TSH in 2 weeks -Signed off due to patient anticipated to be transferred this week, available as needed for continued input (2) Weakness ICD Codes: R53.1 - Weakness Status: Chronic Plan: The patient may have significant myopathy due to her severe hypothyroidism causing her weakness Continue PT -Upon assessment stated that falls likely due to a combination of weakness, but also poor lower extremity sensation. -Will need to use a bariatric wheeled walker for safe ambulation -Recommends PT at rehab -C/w PT BID while in the hospital for 7 days a week -Patient remain a high fall risk. Working on safe discharge plan which will require ability to transfer. -Lower extremity strength much improved today. Rehab medicine consulted, recs appreciated -Needs to be able to do self-transfers or min assist transfers in order to meet criteria for short-term daniel bed at [facility] (3) Urinary incontinence in female ICD Codes: R32 - Unspecified urinary incontinence Status: Resolved Plan: Abdomen/pelvis CT without any acute findings Consider etiology due to detrusor overactivity causing urgency incontinence, hypothyroid, NPH, medication adverse effect, constipation Vaginal atrophy and deconditioning causing the inability to get up and go to the bathroom quickly may be contributing to her incontinence Renal and bladder ultrasound on 05/22 showed no acute disease Bladder scan on 05/25 showed post void residual of 12ml. WNL -Advised patient to routinely urinate/empty her bladder when she receives her pain medications about every 4 hours -Treat hypothyroidism as above (4) Diabetes mellitus ICD Codes: E11.9 - Type 2 diabetes mellitus without complications Status: Chronic Plan: BS 127-268 Hold home insulin glargine. She reported taking no short acting insulin at home for months only long acting HbA1c is 12.5 Accuchecks ACHS Continue levemir 40 units BID Novolog 9 units TIDAC medium-dose SSI (5) Hypertension ICD Codes: I10 - Essential (primary) hypertension Status: Chronic Plan: Stable, continue atenolol 25 mg daily (6) Chronic kidney disease ICD Codes: N18.9 - Chronic kidney disease, unspecified Status: Chronic Plan: Likely Cr now at baseline ~1.3 (7) Hyperlipidemia ICD Codes: E78.5 - Hyperlipidemia, unspecified Status: Chronic Plan: Hold home simvastatin (8) Depression ICD Codes: F32.9 - Major depressive disorder, single episode, unspecified Status: Chronic Plan: Depression: continue home zoloft, ativan prn for anxiety (9) Nutrition, metabolism, and development symptoms ICD Codes: R63.8 - Other symptoms and signs concerning food and fluid intake Status: Acute Plan: Fluids: tolerating po Electrolytes: continue to monitor Nutrition: 1800 ADA GI ppx: Protonix 40 mg po daily DVT ppx: Heparin 5,000 units sq q8h Dispo: Complicated due to self-pay status and risk of falls. Plan is to fly home to stay with son in [place]. Will need transport to flight on discharge. Prior to DC will need documentation by PT that patient is safe to make it through flight with min assist. 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
[2017-06-11 12:00] VITALS: BP 103/54; PULSE 62; RESP 20; TEMP 98.1; O2SAT 97
[2017-06-11 16:00] VITALS: BP 110/61; PULSE 68; RESP 20; TEMP 97.9; O2SAT 97
[2017-06-11 20:00] VITALS: BP 123/68; PULSE 68; RESP 20; TEMP 97.9; O2SAT 95
[2017-06-11] MEDS: CHOLECALCIFEROL (VIT D3) 400 UNIT TAB PO SCH (20:24)
[2017-06-11] MEDS: ASPIRIN EC 81 MG TABEC PO SCH (20:24)
[2017-06-12] VITALS (8 sets, daily range): BP systolic 102–145; BP diastolic 55–76; PULSE 59–67; RESP 16–20; TEMP 97.7–98.5; O2SAT 92–99
[2017-06-12] MEDS: HEPARIN SODIUM - SQ 10,000 UNITS/ML VIAL SQ SCH ×3 (01:40→18:34)
[2017-06-12] MEDS: ACETAMINOPHEN/HYDROcodone 325 MG/10 MG TAB PO PRN ×4 (01:59→22:39)
[2017-06-12] MEDS: LEVOTHYROXINE SODIUM 200 MCG TAB PO SCH (05:54)
[2017-06-12] MEDS: LEVOTHYROXINE SODIUM 25 MCG TAB PO SCH (05:54)
[2017-06-12] MEDS: DOCUSATE SODIUM 50 MG/SENNA 8.6 MG TAB PO SCH ×2 (09:07→21:12)
[2017-06-12] MEDS: SERTRALINE HCL 50 MG TAB PO SCH ×2 (09:07→21:11)
[2017-06-12] MEDS: POLYETHYLENE GLYCOL 17 GM PKG PO SCH (09:07)
[2017-06-12] MEDS: LACTOBACILLUS ACIDOPHILUS TAB PO SCH ×2 (09:07→21:11)
[2017-06-12] MEDS: PANTOPRAZOLE SOD 40 MG DELAYED RELEASE TAB PO SCH (09:07)
[2017-06-12] MEDS: busPIRone HCL 5 MG TAB PO SCH ×3 (09:07→18:33)
[2017-06-12] MEDS: CALCIUM CARBONATE 500 MG CHEWABLE TAB PO SCH ×2 (09:07→21:12)
[2017-06-12] MEDS: ATENOLOL 25 MG TAB PO SCH (09:08)
[2017-06-12] MEDS: INSULIN ASPART 1,000 UNITS/10 ML VIAL SQ SCH ×3 (09:13→18:34)
[2017-06-12] MEDS: INSULIN ASPART SUPPLEMENTAL SCALE SQ SCH ×2 (09:13→13:22)
[2017-06-12] MEDS: INSULIN DETEMIR 100 UNITS/ML VIAL SQ SCH ×2 (09:13→21:15)
[2017-06-12] MEDS: CLOTRIMAZOLE 1% CREAM 15 GM TOPICAL SCH ×2 (09:14→21:00)
[2017-06-12] MEDS: SODIUM CHLORIDE 0.9% FLUSH 10 ML FLUSH IV FLUSH SCH ×2 (09:14→21:14)
[2017-06-12] MEDS ORDERED: KETOROLAC TROMETHAMINE 60 MG/2 ML (IM) VIAL IM ONE (10:00)
--- NOTE | 2017-06-12 11:14 | HHI.FPPN ---
Subjective Remarks Patient seen and examined this morning. Patient reports that she has Left sided buttock pain that shoots down her leg, she attributes this to new physical therapy exercises she was doing yesterday. Last BM was 2 day ago. (Maude Harkins MD, R1) Objective Vitals Vital Signs Date Time Temp Pulse Resp B/P (MAP) Pulse Ox O2 Delivery O2 Flow Rate FiO2 06/12/17 08:00 Nasal Cannula 2.00 06/12/17 08:00 98.4 60 20 132/76 (94) 99 06/12/17 04:12 Nasal Cannula 2.00 06/12/17 04:00 98.0 61 19 145/65 (91) 97 06/12/17 00:00 97.9 59 20 115/57 (76) 98 06/12/17 00:00 Nasal Cannula 2.00 06/11/17 20:00 97.9 68 20 123/68 (86) 95 06/11/17 20:00 Nasal Cannula 2.00 06/11/17 16:00 97.9 68 20 110/61 (77) 97 06/11/17 12:00 98.1 62 20 103/54 (70) 97 I/O 06/11/17 06/11/17 06/11/17 06/12/17 06/12/17 06/12/17 07:00 15:00 23:00 07:00 15:00 23:00 Intake Total 120 ml 600 ml 120 ml Output Total 700 ml 450 ml 400 ml Balance -580 ml 150 ml -280 ml Intake Oral 120 ml 600 ml 120 ml Output Urine Total 700 ml 450 ml 400 ml # Bowel Movements 0 0 0 (Maude Harkins MD, R1) Result Diagram: 06/10/17 0800 Objective Remarks GENERAL: Well-nourished, morbidly obese white female patient, in bed, NAD. SKIN: Warm and dry/flaky. CARDIOVASCULAR: Heart sounds distant. Regular rate and rhythm without murmurs, gallops, or rubs. RESPIRATORY: Breath sounds equal bilaterally and clear. No accessory muscle use. No crackles or wheezes. GASTROINTESTINAL: Abdomen soft, obese, nondistended. Non-tender. EXTREMITIES: Trace edema of BLE. LE. non tender calves BL. Patient able to move LE against gravity, reduce strength on Left LE compared to Right LE. Pain behind left with straight leg test. NEUROLOGICAL: Grossly non-focal. (Maude Harkins MD, R1) A/P Assessment and Plan 56 year old female presenting with: (Maude Harkins MD, R1) Attending Attestation Patient seen and examined. Case reviewed and discussed with the resident team. Agree with plan of care as discussed with me and documented in the resident note. (Ilda Garcia MD) Problem List: (1) Severe hypothyroidism ICD Codes: E03.8 - Other specified hypothyroidism Status: Acute Plan: Improving symptomatically T4 now wnl TSH in detectable range -Endocrinology consulted, appreciate recommendations -Continue levothyroxine 225 mcg daily -Recheck T4, TSH in 2 weeks -Signed off due to patient anticipated to be transferred this week, available as needed for continued input (2) Weakness ICD Codes: R53.1 - Weakness Status: Chronic Plan: The patient may have significant myopathy due to her severe hypothyroidism causing her weakness Continue PT -Upon assessment stated that falls likely due to a combination of weakness, but also poor lower extremity sensation. -Will need to use a bariatric wheeled walker for safe ambulation -Recommends PT at rehab -C/w PT BID while in the hospital for 7 days a week -Patient remain a high fall risk. Working on safe discharge plan which will require ability to transfer. -Lower extremity strength much improved today. Rehab medicine consulted, recs appreciated -Needs to be able to do self-transfers or min assist transfers in order to meet criteria for short-term daniel bed at [facility] (3) Urinary incontinence in female ICD Codes: R32 - Unspecified urinary incontinence Status: Resolved Plan: Abdomen/pelvis CT without any acute findings Consider etiology due to detrusor overactivity causing urgency incontinence, hypothyroid, NPH, medication adverse effect, constipation Vaginal atrophy and deconditioning causing the inability to get up and go to the bathroom quickly may be contributing to her incontinence Renal and bladder ultrasound on 05/22 showed no acute disease Bladder scan on 05/25 showed post void residual of 12ml. WNL -Advised patient to routinely urinate/empty her bladder when she receives her pain medications about every 4 hours -Treat hypothyroidism as above (4) Diabetes mellitus ICD Codes: E11.9 - Type 2 diabetes mellitus without complications Status: Chronic Plan: BSG 127-196 Hold home insulin glargine. She reported taking no short acting insulin at home for months only long acting HbA1c is 12.5 Accuchecks ACHS Continue levemir 40 units BID Novolog 9 units TIDAC medium-dose SSI (5) Hypertension ICD Codes: I10 - Essential (primary) hypertension Status: Chronic Plan: Stable, continue atenolol 25 mg daily (6) Chronic kidney disease ICD Codes: N18.9 - Chronic kidney disease, unspecified Status: Chronic Plan: Likely Cr now at baseline ~1.3 (7) Hyperlipidemia ICD Codes: E78.5 - Hyperlipidemia, unspecified Status: Chronic Plan: Hold home simvastatin (8) Depression ICD Codes: F32.9 - Major depressive disorder, single episode, unspecified Status: Chronic Plan: Depression: continue home zoloft, ativan prn for anxiety (9) Nutrition, metabolism, and development symptoms ICD Codes: R63.8 - Other symptoms and signs concerning food and fluid intake Status: Acute Plan: Fluids: tolerating po Electrolytes: continue to monitor Nutrition: 1800 ADA GI ppx: Protonix 40 mg po daily DVT ppx: Heparin 5,000 units sq q8h Dispo: Complicated due to self-pay status and risk of falls. Plan is to fly home to stay with son in [place]. Will need transport to flight on discharge. Prior to DC will need documentation by PT that patient is safe to make it through flight with min assist. 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
[2017-06-12] MEDS ORDERED: PILL SPLITTER OTHER PRN (14:45)
[2017-06-12] MEDS: CHOLECALCIFEROL (VIT D3) 400 UNIT TAB PO SCH (21:11)
[2017-06-12] MEDS: LORazepam 0.5 MG TAB PO SCH (21:11)
[2017-06-12] MEDS: ASPIRIN EC 81 MG TABEC PO SCH (21:12)
[2017-06-13] MEDS: HEPARIN SODIUM - SQ 10,000 UNITS/ML VIAL SQ SCH ×3 (02:07→18:29)
[2017-06-13] MEDS: LORazepam 0.5 MG TAB PO SCH ×3 (02:07→20:19)
[2017-06-13 04:17] VITALS: BP 142/69; PULSE 75; RESP 16; TEMP 97.6; O2SAT 95
[2017-06-13] MEDS: ACETAMINOPHEN/HYDROcodone 325 MG/10 MG TAB PO PRN ×3 (05:29→20:25)
[2017-06-13] MEDS: LEVOTHYROXINE SODIUM 200 MCG TAB PO SCH (05:29)
[2017-06-13] MEDS: LEVOTHYROXINE SODIUM 25 MCG TAB PO SCH (05:29)
[2017-06-13 06:37] LABS: BICARBONATE 24.4 MEQ/L (21.0-32.0); CALCIUM 9.6 MG/DL (8.5-10.1); CREATININE 1.37 MG/DL (0.50-1.00)
[2017-06-13 06:41] LABS: FREE T4 1.17 NG/DL (0.76-1.46)
[2017-06-13 08:00] VITALS: BP 158/84; PULSE 78; RESP 20; TEMP 97.7; O2SAT 93
[2017-06-13] MEDS: busPIRone HCL 5 MG TAB PO SCH ×3 (09:07→18:29)
[2017-06-13] MEDS: POLYETHYLENE GLYCOL 17 GM PKG PO SCH (09:07)
[2017-06-13] MEDS: CALCIUM CARBONATE 500 MG CHEWABLE TAB PO SCH ×2 (09:07→20:20)
[2017-06-13] MEDS: DOCUSATE SODIUM 50 MG/SENNA 8.6 MG TAB PO SCH ×2 (09:07→20:20)
[2017-06-13] MEDS: PANTOPRAZOLE SOD 40 MG DELAYED RELEASE TAB PO SCH (09:09)
[2017-06-13] MEDS: SERTRALINE HCL 50 MG TAB PO SCH ×2 (09:09→20:20)
[2017-06-13] MEDS: INSULIN ASPART 1,000 UNITS/10 ML VIAL SQ SCH ×3 (09:09→18:28)
[2017-06-13] MEDS: ATENOLOL 25 MG TAB PO SCH (09:09)
[2017-06-13] MEDS: INSULIN DETEMIR 100 UNITS/ML VIAL SQ SCH ×2 (09:10→20:24)
[2017-06-13] MEDS: CLOTRIMAZOLE 1% CREAM 15 GM TOPICAL SCH ×2 (09:10→20:20)
[2017-06-13] MEDS: LACTOBACILLUS ACIDOPHILUS TAB PO SCH ×2 (09:10→20:19)
[2017-06-13] MEDS: SODIUM CHLORIDE 0.9% FLUSH 10 ML FLUSH IV FLUSH SCH ×2 (09:11→20:21)
--- NOTE | 2017-06-13 10:55 | HHI.FPPN ---
Subjective Remarks Patient seen and examined at bedside this morning. No acute events overnight. Patient reports that ativan helped her sleep better during the night. Denies left leg pain, however states left lower extremity feel a bit numb (Pt has chronic neuropathy). (Maude Harkins MD, R1) Objective Vitals Vital Signs Date Time Temp Pulse Resp B/P (MAP) Pulse Ox O2 Delivery O2 Flow Rate FiO2 06/13/17 08:00 97.7 78 20 158/84 (108) 93 06/13/17 06:19 18 06/13/17 04:17 97.6 75 16 142/69 (93) 95 06/12/17 23:47 97.7 63 16 134/63 (86) 97 06/12/17 21:15 Nasal Cannula 2.00 06/12/17 20:17 97.9 64 16 112/61 (78) 94 06/12/17 18:32 61 116/61 (79) 06/12/17 16:00 98.5 67 20 102/55 (71) 92 06/12/17 12:00 98.2 67 20 111/57 (75) 97 I/O 06/12/17 06/12/17 06/12/17 06/13/17 06/13/17 06/13/17 07:00 15:00 23:00 07:00 15:00 23:00 Intake Total 120 ml 0 ml Output Total 400 ml Balance -280 ml 0 ml Intake Oral 120 ml 0 ml Output Urine Total 400 ml # Voids 1 4 # Bowel Movements 0 0 (Maude Harkins MD, R1) Result Diagram: 06/13/17 0520 Objective Remarks GENERAL: Well-nourished, morbidly obese white female patient, in bed, NAD. SKIN: Warm and dry/flaky. CARDIOVASCULAR: Heart sounds distant. Regular rate and rhythm without murmurs, gallops, or rubs. RESPIRATORY: Breath sounds equal bilaterally and clear. No accessory muscle use. No crackles or wheezes. GASTROINTESTINAL: Abdomen soft, obese, nondistended. Non-tender. EXTREMITIES: Trace edema of BLE. LE. non tender calves BL. Patient able to move LE against gravity. Normal sensation. NEUROLOGICAL: Grossly non-focal. (Maude Harkins MD, R1) A/P Assessment and Plan 56 year old female presenting with: (Maude Harkins MD, R1) Attending Attestation Patient seen and examined. Case reviewed and discussed with the resident team. Agree with plan of care as discussed with me and documented in the resident note. (Ilda Garcia MD) Problem List: (1) Severe hypothyroidism ICD Codes: E03.8 - Other specified hypothyroidism Status: Acute Plan: Improving symptomatically T4 now wnl TSH in detectable range -Endocrinology consulted, appreciate recommendations -Continue levothyroxine 225 mcg daily -Recheck T4, TSH in 2 weeks -Signed off due to patient anticipated to be transferred this week, available as needed for continued input (2) Weakness ICD Codes: R53.1 - Weakness Status: Chronic Plan: The patient may have significant myopathy due to her severe hypothyroidism causing her weakness Continue PT -Upon assessment stated that falls likely due to a combination of weakness, but also poor lower extremity sensation. -Will need to use a bariatric wheeled walker for safe ambulation -Recommends PT at rehab -C/w PT BID while in the hospital for 7 days a week -Patient remain a high fall risk. Working on safe discharge plan which will require ability to transfer. Rehab medicine consulted, recs appreciated -Needs to be able to do self-transfers or min assist transfers in order to meet criteria for short-term daniel bed at [facility] (3) Urinary incontinence in female ICD Codes: R32 - Unspecified urinary incontinence Status: Resolved Plan: Abdomen/pelvis CT without any acute findings Consider etiology due to detrusor overactivity causing urgency incontinence, hypothyroid, NPH, medication adverse effect, constipation Vaginal atrophy and deconditioning causing the inability to get up and go to the bathroom quickly may be contributing to her incontinence Renal and bladder ultrasound on 05/22 showed no acute disease Bladder scan on 05/25 showed post void residual of 12ml. WNL -Advised patient to routinely urinate/empty her bladder when she receives her pain medications about every 4 hours -Treat hypothyroidism as above (4) Diabetes mellitus ICD Codes: E11.9 - Type 2 diabetes mellitus without complications Status: Chronic Plan: BSG 196-258 Hold home insulin glargine. She reported taking no short acting insulin at home for months only long acting HbA1c is 12.5 Accuchecks ACHS Continue levemir 40 units BID Novolog 9 units TIDAC (5) Hypertension ICD Codes: I10 - Essential (primary) hypertension Status: Chronic Plan: Stable, continue atenolol 25 mg daily continue to monitor (6) Chronic kidney disease ICD Codes: N18.9 - Chronic kidney disease, unspecified Status: Chronic Plan: Likely Cr now at baseline ~1.3 (7) Hyperlipidemia ICD Codes: E78.5 - Hyperlipidemia, unspecified Status: Chronic Plan: Hold home simvastatin (8) Depression ICD Codes: F32.9 - Major depressive disorder, single episode, unspecified Status: Chronic Plan: Depression: continue home zoloft, ativan prn for anxiety (9) Nutrition, metabolism, and development symptoms ICD Codes: R63.8 - Other symptoms and signs concerning food and fluid intake Status: Acute Plan: Fluids: tolerating po Electrolytes: continue to monitor Nutrition: 1800 ADA GI ppx: Protonix 40 mg po daily DVT ppx: Heparin 5,000 units sq q8h Dispo: Complicated due to self-pay status and risk of falls. Plan is to fly home to stay with son in [place]. Will need transport to flight on discharge. Prior to DC will need documentation by PT that patient is safe to make it through flight with min assist. (Maude Harkins MD, R1) Problem Qualifiers (1) Diabetes mellitus: Qualified Codes: E11.42 - Type 2 diabetes mellitus with diabetic polyneuropathy ; Z79.4 - [facility] (current) use of insulin (2) Hypertension: Qualified Codes: I10 - Essential (primary) hypertension (3) Hyperlipidemia: Qualified Codes: E78.00 - Pure hypercholesterolemia, unspecified Maude Harkins MD, R1 June 13, 2017 10:55 Ilda Garcia MD June 13, 2017 14:28
[2017-06-13 12:00] VITALS: BP 124/61; PULSE 76; RESP 20; TEMP 97.5; O2SAT 99
[2017-06-13] MEDS ORDERED: ACETAMINOPHEN/HYDROcodone 325 MG/5 MG TAB PO PRN (14:45)
[2017-06-13 16:00] VITALS: BP 116/56; PULSE 69; RESP 20; TEMP 98.1; O2SAT 98
[2017-06-13 20:03] VITALS: BP 114/62; PULSE 65; RESP 18; TEMP 97.4; O2SAT 95
[2017-06-13] MEDS: CHOLECALCIFEROL (VIT D3) 400 UNIT TAB PO SCH (20:19)
[2017-06-13] MEDS: ASPIRIN EC 81 MG TABEC PO SCH (20:19)
[2017-06-13 23:25] VITALS: BP 123/60; PULSE 67; RESP 18; TEMP 97.4; O2SAT 93
[2017-06-14] MEDS: ACETAMINOPHEN/HYDROcodone 325 MG/10 MG TAB PO PRN ×4 (02:09→23:27)
[2017-06-14] MEDS: HEPARIN SODIUM - SQ 10,000 UNITS/ML VIAL SQ SCH ×3 (02:10→17:36)
[2017-06-14 03:47] VITALS: BP 126/68; PULSE 68; RESP 18; TEMP 97.4; O2SAT 97
[2017-06-14] MEDS: LEVOTHYROXINE SODIUM 200 MCG TAB PO SCH (05:21)
[2017-06-14] MEDS: LEVOTHYROXINE SODIUM 25 MCG TAB PO SCH (05:21)
[2017-06-14 08:00] VITALS: BP 118/57; PULSE 73; RESP 19; TEMP 98.1; O2SAT 94
[2017-06-14] MEDS: INSULIN ASPART 1,000 UNITS/10 ML VIAL SQ SCH ×3 (08:00→17:00)
[2017-06-14] MEDS: INSULIN DETEMIR 100 UNITS/ML VIAL SQ SCH ×2 (09:00→21:00)
[2017-06-14] MEDS: ATENOLOL 25 MG TAB PO SCH (09:22)
[2017-06-14] MEDS: LACTOBACILLUS ACIDOPHILUS TAB PO SCH ×2 (09:22→21:00)
[2017-06-14] MEDS: PANTOPRAZOLE SOD 40 MG DELAYED RELEASE TAB PO SCH (09:22)
[2017-06-14] MEDS: SERTRALINE HCL 50 MG TAB PO SCH ×2 (09:22→21:00)
[2017-06-14] MEDS: busPIRone HCL 5 MG TAB PO SCH ×3 (09:22→17:35)
[2017-06-14] MEDS: CALCIUM CARBONATE 500 MG CHEWABLE TAB PO SCH ×2 (09:22→21:00)
[2017-06-14] MEDS: DOCUSATE SODIUM 50 MG/SENNA 8.6 MG TAB PO SCH ×2 (09:23→21:00)
[2017-06-14] MEDS: POLYETHYLENE GLYCOL 17 GM PKG PO SCH (09:27)
[2017-06-14] MEDS: SODIUM CHLORIDE 0.9% FLUSH 10 ML FLUSH IV FLUSH SCH ×2 (09:27→21:01)
[2017-06-14] MEDS ORDERED: KETOROLAC TROMETHAMINE 60 MG/2 ML (IM) VIAL IM PRN (10:00)
[2017-06-14 12:00] VITALS: BP 111/56; PULSE 69; RESP 18; TEMP 97.6; O2SAT 99
[2017-06-14 16:00] VITALS: BP 137/68; PULSE 65; RESP 17; TEMP 98; O2SAT 98
[2017-06-14] MEDS: CHOLECALCIFEROL (VIT D3) 400 UNIT TAB PO SCH (21:00)
[2017-06-14] MEDS: LORazepam 0.5 MG TAB PO SCH (21:01)
[2017-06-14] MEDS: ASPIRIN EC 81 MG TABEC PO SCH (21:01)
[2017-06-14] MEDS: CLOTRIMAZOLE 1% CREAM 15 GM TOPICAL SCH (21:02)
[2017-06-14 22:54] VITALS: BP 111/56; PULSE 65; RESP 16; TEMP 98; O2SAT 95
--- NOTE | 2017-06-14 22:57 | HHI.FPPN ---
Subjective Remarks Delayed entry Patient seen and examined at bedside. No acute events overnight. Patient stated she had a difficult time working with physical therapy yesterday due to her knees "giving out". No other concerns. She will try to coordinate disability insurance to obtain rehab placement in [place] with her disability health science specialist. (Maude Harkins MD, R1) Objective Vitals Vital Signs Date Time Temp Pulse Resp B/P (MAP) Pulse Ox O2 Delivery O2 Flow Rate FiO2 06/14/17 16:00 98.0 65 17 137/68 (91) 98 06/14/17 12:00 97.6 69 18 111/56 (74) 99 06/14/17 08:00 98.1 73 19 118/57 (77) 94 06/14/17 08:00 96 Room Air 21 06/14/17 04:00 Room Air 06/14/17 03:47 97.4 68 18 126/68 (87) 97 06/14/17 03:12 18 06/14/17 00:00 Room Air 06/13/17 23:25 97.4 67 18 123/60 (81) 93 I/O 06/13/17 06/13/17 06/13/17 06/14/17 06/14/17 06/14/17 07:00 15:00 23:00 07:00 15:00 23:00 Intake Total 0 ml 360 ml 0 ml 720 ml Output Total 375 ml Balance 0 ml 360 ml -375 ml 720 ml Intake Oral 0 ml 360 ml 0 ml 720 ml Output Urine Total 375 ml # Voids 4 2 2 5 # Bowel Movements 0 1 0 0 (Maude Harkins MD, R1) Result Diagram: 06/13/17 0520 Objective Remarks GENERAL: Well-nourished, morbidly obese white female patient, in chair, NAD. SKIN: Warm and dry/flaky. CARDIOVASCULAR: Heart sounds distant. Regular rate and rhythm without murmurs, gallops, or rubs. RESPIRATORY: Breath sounds equal bilaterally and clear. No accessory muscle use. No crackles or wheezes. GASTROINTESTINAL: Abdomen soft, obese, nondistended. Non-tender. EXTREMITIES: Trace edema of BLE. LE. non tender calves BL. Patient able to move LE against gravity. Normal sensation. NEUROLOGICAL: Grossly non-focal. (Maude Harkins MD, R1) A/P Assessment and Plan 56 year old female presenting with: (Maude Harkins MD, R1) Attending Attestation Patient seen and examined. Case reviewed and discussed with the resident team. Agree with plan of care as discussed with me and documented in the resident note. (Ilda Garcia MD) Problem List: (1) Severe hypothyroidism ICD Codes: E03.8 - Other specified hypothyroidism Status: Acute Plan: Improving symptomatically T4 now wnl TSH in detectable range -Endocrinology consulted, appreciate recommendations -Continue levothyroxine 225 mcg daily -Recheck T4, TSH in 2 weeks -Signed off due to patient anticipated to be transferred this week, available as needed for continued input (2) Weakness ICD Codes: R53.1 - Weakness Status: Chronic Plan: The patient may have significant myopathy due to her severe hypothyroidism causing her weakness Continue PT -Upon assessment stated that falls likely due to a combination of weakness, but also poor lower extremity sensation. -Will need to use a bariatric wheeled walker for safe ambulation -Recommends PT at rehab -C/w PT BID while in the hospital for 7 days a week -Patient remain a high fall risk. Working on safe discharge plan which will require ability to transfer. Rehab medicine consulted, recs appreciated -Needs to be able to do self-transfers or min assist transfers in order to meet criteria for short-term daniel bed at [facility] (3) Urinary incontinence in female ICD Codes: R32 - Unspecified urinary incontinence Status: Resolved Plan: Abdomen/pelvis CT without any acute findings Consider etiology due to detrusor overactivity causing urgency incontinence, hypothyroid, NPH, medication adverse effect, constipation Vaginal atrophy and deconditioning causing the inability to get up and go to the bathroom quickly may be contributing to her incontinence Renal and bladder ultrasound on 05/22 showed no acute disease Bladder scan on 05/25 showed post void residual of 12ml. WNL -Advised patient to routinely urinate/empty her bladder when she receives her pain medications about every 4 hours -Treat hypothyroidism as above (4) Diabetes mellitus ICD Codes: E11.9 - Type 2 diabetes mellitus without complications Status: Chronic Plan: BSG 186-258 Hold home insulin glargine. She reported taking no short acting insulin at home for months only long acting HbA1c is 12.5 Accuchecks ACHS Continue levemir 40 units BID Novolog 9 units TIDAC (5) Hypertension ICD Codes: I10 - Essential (primary) hypertension Status: Chronic Plan: Stable, continue atenolol 25 mg daily continue to monitor (6) Chronic kidney disease ICD Codes: N18.9 - Chronic kidney disease, unspecified Status: Chronic Plan: Likely Cr now at baseline ~1.3 (7) Hyperlipidemia ICD Codes: E78.5 - Hyperlipidemia, unspecified Status: Chronic Plan: Hold home simvastatin (8) Depression ICD Codes: F32.9 - Major depressive disorder, single episode, unspecified Status: Chronic Plan: Depression: continue home zoloft, ativan prn for anxiety (9) Nutrition, metabolism, and development symptoms ICD Codes: R63.8 - Other symptoms and signs concerning food and fluid intake Status: Acute Plan: Fluids: tolerating po Electrolytes: continue to monitor Nutrition: 1800 ADA GI ppx: Protonix 40 mg po daily DVT ppx: Heparin 5,000 units sq q8h Dispo: Complicated due to self-pay status and risk of falls. Plan is to fly home to stay with son in [place]. Will need transport to flight on discharge. Prior to DC will need documentation by PT that patient is safe to make it through flight with min assist. (Maude Harkins MD, R1) Problem Qualifiers (1) Diabetes mellitus: Qualified Codes: E11.42 - Type 2 diabetes mellitus with diabetic polyneuropathy ; Z79.4 - [employer] (current) use of insulin (2) Hypertension: Qualified Codes: I10 - Essential (primary) hypertension (3) Hyperlipidemia: Qualified Codes: E78.00 - Pure hypercholesterolemia, unspecified Maude Harkins MD, R1 June 14, 2017 22:57 Ilda Garcia MD June 15, 2017 12:00
[2017-06-15] MEDS: HEPARIN SODIUM - SQ 10,000 UNITS/ML VIAL SQ SCH ×3 (02:16→17:13)
[2017-06-15 04:00] VITALS: BP 126/65; PULSE 71; RESP 17; TEMP 98; O2SAT 98
[2017-06-15] MEDS: LEVOTHYROXINE SODIUM 200 MCG TAB PO SCH (05:02)
[2017-06-15] MEDS: LEVOTHYROXINE SODIUM 25 MCG TAB PO SCH (05:02)
[2017-06-15 05:49] LABS: BICARBONATE 26.9 MEQ/L (21.0-32.0); CALCIUM 9.9 MG/DL (8.5-10.1); CREATININE 1.24 MG/DL (0.50-1.00)
[2017-06-15] MEDS: ACETAMINOPHEN/HYDROcodone 325 MG/10 MG TAB PO PRN ×2 (06:09→21:20)
[2017-06-15 08:00] VITALS: BP 160/85; PULSE 79; RESP 18; TEMP 97.6; O2SAT 96
[2017-06-15] MEDS: INSULIN ASPART 1,000 UNITS/10 ML VIAL SQ SCH ×3 (08:00→17:00)
[2017-06-15] MEDS: LACTOBACILLUS ACIDOPHILUS TAB PO SCH ×2 (08:49→21:19)
[2017-06-15] MEDS: SODIUM CHLORIDE 0.9% FLUSH 10 ML FLUSH IV FLUSH SCH ×2 (08:49→21:20)
[2017-06-15] MEDS: CALCIUM CARBONATE 500 MG CHEWABLE TAB PO SCH ×2 (08:50→21:19)
[2017-06-15] MEDS: DOCUSATE SODIUM 50 MG/SENNA 8.6 MG TAB PO SCH ×2 (08:50→21:00)
[2017-06-15] MEDS: PANTOPRAZOLE SOD 40 MG DELAYED RELEASE TAB PO SCH (08:50)
[2017-06-15] MEDS: ATENOLOL 25 MG TAB PO SCH (08:50)
[2017-06-15] MEDS: busPIRone HCL 5 MG TAB PO SCH ×3 (08:50→17:12)
[2017-06-15] MEDS: SERTRALINE HCL 50 MG TAB PO SCH ×2 (08:50→21:19)
[2017-06-15] MEDS: CLOTRIMAZOLE 1% CREAM 15 GM TOPICAL SCH ×2 (09:00→21:00)
[2017-06-15] MEDS: INSULIN DETEMIR 100 UNITS/ML VIAL SQ SCH ×2 (09:00→21:20)
[2017-06-15] MEDS: POLYETHYLENE GLYCOL 17 GM PKG PO SCH (09:00)
--- NOTE | 2017-06-15 11:05 | HHI.FPPN ---
Subjective Remarks Patient is doing well this morning, interviewed in the [place] on her wheelchair. She did say she had some difficulty sleeping last night. Overall, no significant progress from yesterday. Denies chest pain, nausea, vomiting, fever , chills, headaches. (Escobar Rosales MD R3) Objective Vitals Vital Signs Date Time Temp Pulse Resp B/P (MAP) Pulse Ox O2 Delivery O2 Flow Rate FiO2 06/15/17 08:00 97.6 79 18 160/85 (110) 96 06/15/17 08:00 96 Nasal Cannula 2.00 06/15/17 04:00 98.0 71 17 126/65 (85) 98 06/14/17 22:54 98.0 65 16 111/56 (74) 95 06/14/17 16:00 98.0 65 17 137/68 (91) 98 06/14/17 12:00 97.6 69 18 111/56 (74) 99 I/O 06/14/17 06/14/17 06/14/17 06/15/17 06/15/17 06/15/17 07:00 15:00 23:00 07:00 15:00 23:00 Intake Total 0 ml 720 ml 0 ml Output Total 375 ml Balance -375 ml 720 ml 0 ml Intake Oral 0 ml 720 ml 0 ml Output Urine Total 375 ml # Voids 2 5 1 # Bowel Movements 0 0 1 (Escobar Rosales MD R3) Result Diagram: 06/15/17 0446 Objective Remarks GENERAL: Well-nourished, morbidly obese white female patient, in chair, NAD. SKIN: Warm and dry/flaky. CARDIOVASCULAR: Heart sounds distant. Regular rate and rhythm without murmurs, gallops, or rubs. RESPIRATORY: Breath sounds equal bilaterally and clear. No accessory muscle use. No crackles or wheezes. GASTROINTESTINAL: Abdomen soft, obese, nondistended. Non-tender. EXTREMITIES: Trace edema of BLE. LE. non tender calves BL. Patient able to move LE against gravity. Normal sensation. NEUROLOGICAL: Grossly non-focal. (Escobar Rosales MD R3) A/P Assessment and Plan 56 year old female presenting with: (Escobar Rosales MD R3) Attending Attestation Patient seen and examined. Case reviewed and discussed with the resident team. Agree with plan of care as discussed with me and documented in the resident note. Patient in good spirits today. She states PT noticed some improvement. She is continuing to work with them twice daily. (Ilda Garcia MD) Problem List: (1) Severe hypothyroidism ICD Codes: E03.8 - Other specified hypothyroidism Status: Acute Plan: Improving symptomatically T4 now wnl TSH in detectable range -Endocrinology consulted, appreciate recommendations -Continue levothyroxine 225 mcg daily -Recheck T4, TSH in 2 weeks -Signed off due to patient anticipated to be transferred this week, available as needed for continued input (2) Weakness ICD Codes: R53.1 - Weakness Status: Chronic Plan: The patient may have significant myopathy due to her severe hypothyroidism causing her weakness Continue PT -Upon assessment stated that falls likely due to a combination of weakness, but also poor lower extremity sensation. -Will need to use a bariatric wheeled walker for safe ambulation -Recommends PT at rehab -C/w PT BID while in the hospital for 7 days a week -Patient remain a high fall risk. Working on safe discharge plan which will require ability to transfer. Rehab medicine consulted, recs appreciated -Needs to be able to do self-transfers or min assist transfers in order to meet criteria for short-term daniel bed at [facility] (3) Urinary incontinence in female ICD Codes: R32 - Unspecified urinary incontinence Status: Resolved Plan: Abdomen/pelvis CT without any acute findings Consider etiology due to detrusor overactivity causing urgency incontinence, hypothyroid, NPH, medication adverse effect, constipation Vaginal atrophy and deconditioning causing the inability to get up and go to the bathroom quickly may be contributing to her incontinence Renal and bladder ultrasound on 05/22 showed no acute disease Bladder scan on 05/25 showed post void residual of 12ml. WNL -Advised patient to routinely urinate/empty her bladder when she receives her pain medications about every 4 hours -Treat hypothyroidism as above (4) Diabetes mellitus ICD Codes: E11.9 - Type 2 diabetes mellitus without complications Status: Chronic Plan: BSG 186-258 Hold home insulin glargine. She reported taking no short acting insulin at home for months only long acting HbA1c is 12.5 Accuchecks ACHS Continue levemir 40 units BID Novolog 9 units TIDAC (5) Hypertension ICD Codes: I10 - Essential (primary) hypertension Status: Chronic Plan: Stable, continue atenolol 25 mg daily continue to monitor (6) Chronic kidney disease ICD Codes: N18.9 - Chronic kidney disease, unspecified Status: Chronic Plan: Likely Cr now at baseline ~1.3 (7) Hyperlipidemia ICD Codes: E78.5 - Hyperlipidemia, unspecified Status: Chronic Plan: Hold home simvastatin (8) Depression ICD Codes: F32.9 - Major depressive disorder, single episode, unspecified Status: Chronic Plan: Depression: continue home zoloft, ativan prn for anxiety (9) Nutrition, metabolism, and development symptoms ICD Codes: R63.8 - Other symptoms and signs concerning food and fluid intake Status: Acute Plan: Fluids: tolerating po Electrolytes: continue to monitor Nutrition: 1800 ADA GI ppx: Protonix 40 mg po daily DVT ppx: Heparin 5,000 units sq q8h Dispo: Complicated due to self-pay status and risk of falls. Plan is to fly home to stay with son in [place]. Will need transport to flight on discharge. Prior to DC will need documentation by PT that patient is safe to make it through flight with min assist. (Escobar Rosales MD R3) Problem Qualifiers (1) Diabetes mellitus: Qualified Codes: E11.42 - Type 2 diabetes mellitus with diabetic polyneuropathy ; Z79.4 - [facility] (current) use of insulin (2) Hypertension: Qualified Codes: I10 - Essential (primary) hypertension (3) Hyperlipidemia: Qualified Codes: E78.00 - Pure hypercholesterolemia, unspecified Escobar Rosales MD R3 June 15, 2017 11:05 Ilda Garcia MD June 15, 2017 12:05
[2017-06-15 12:00] VITALS: BP 101/56; PULSE 70; RESP 18; TEMP 98.3; O2SAT 97
[2017-06-15 16:00] VITALS: BP 123/68; PULSE 71; RESP 18; TEMP 97.6; O2SAT 93
[2017-06-15 20:00] VITALS: BP 109/56; PULSE 76; RESP 19; TEMP 98; O2SAT 74
[2017-06-15] MEDS: ASPIRIN EC 81 MG TABEC PO SCH (21:19)
[2017-06-15] MEDS: CHOLECALCIFEROL (VIT D3) 400 UNIT TAB PO SCH (21:19)
[2017-06-15] MEDS: LORazepam 0.5 MG TAB PO SCH (21:20)
[2017-06-16] VITALS: BP 140/55; PULSE 69; RESP 18; TEMP 97.4; O2SAT 94
[2017-06-16] MEDS: HEPARIN SODIUM - SQ 10,000 UNITS/ML VIAL SQ SCH ×3 (03:09→17:39)
[2017-06-16] MEDS: ACETAMINOPHEN/HYDROcodone 325 MG/10 MG TAB PO PRN ×4 (03:09→22:52)
[2017-06-16 04:00] VITALS: BP 129/60; PULSE 70; RESP 18; TEMP 97.4; O2SAT 94
[2017-06-16] MEDS: LEVOTHYROXINE SODIUM 25 MCG TAB PO SCH (05:40)
[2017-06-16] MEDS: LEVOTHYROXINE SODIUM 200 MCG TAB PO SCH (05:40)
[2017-06-16 08:00] VITALS: BP 146/78; PULSE 74; RESP 16; TEMP 98.2; O2SAT 95
[2017-06-16] MEDS: INSULIN ASPART 1,000 UNITS/10 ML VIAL SQ SCH ×3 (08:00→17:00)
[2017-06-16] MEDS: CALCIUM CARBONATE 500 MG CHEWABLE TAB PO SCH ×2 (08:52→22:51)
[2017-06-16] MEDS: SERTRALINE HCL 50 MG TAB PO SCH ×2 (08:52→22:52)
[2017-06-16] MEDS: ATENOLOL 25 MG TAB PO SCH (08:52)
[2017-06-16] MEDS: busPIRone HCL 5 MG TAB PO SCH ×3 (08:53→17:39)
[2017-06-16] MEDS: LACTOBACILLUS ACIDOPHILUS TAB PO SCH ×2 (08:53→22:51)
[2017-06-16] MEDS: PANTOPRAZOLE SOD 40 MG DELAYED RELEASE TAB PO SCH (08:53)
[2017-06-16] MEDS: DOCUSATE SODIUM 50 MG/SENNA 8.6 MG TAB PO SCH ×2 (08:53→21:00)
[2017-06-16] MEDS: POLYETHYLENE GLYCOL 17 GM PKG PO SCH (08:53)
[2017-06-16] MEDS: SODIUM CHLORIDE 0.9% FLUSH 10 ML FLUSH IV FLUSH SCH ×2 (08:53→22:50)
[2017-06-16] MEDS: INSULIN DETEMIR 100 UNITS/ML VIAL SQ SCH ×2 (08:54→22:53)
[2017-06-16] MEDS: CLOTRIMAZOLE 1% CREAM 15 GM TOPICAL SCH ×2 (08:54→21:00)
--- NOTE | 2017-06-16 11:47 | HHI.FPPN ---
Subjective Remarks No acute events overnight. Mood better today. No CP/SOB. Weakness stable but overall improving. (Satish Rojas MD R2) Objective Vitals Vital Signs Date Time Temp Pulse Resp B/P (MAP) Pulse Ox O2 Delivery O2 Flow Rate FiO2 06/16/17 10:11 95 Room Air 06/16/17 08:00 98.2 74 16 146/78 (100) 95 06/16/17 04:00 97.4 70 18 129/60 (83) 94 06/16/17 00:00 97.4 69 18 140/55 (83) 94 06/15/17 20:00 Room Air 06/15/17 20:00 98.0 76 19 109/56 (73) 74 06/15/17 18:22 93 Room Air 06/15/17 16:00 97.6 71 18 123/68 (86) 93 06/15/17 13:11 97 Room Air 06/15/17 12:00 98.3 70 18 101/56 (71) 97 I/O 06/15/17 06/15/17 06/15/17 06/16/17 06/16/17 06/16/17 07:00 15:00 23:00 07:00 15:00 23:00 Intake Total 0 ml 2410 ml 120 ml Output Total 400 ml Balance 0 ml 2410 ml -280 ml Intake Oral 0 ml 2410 ml 120 ml Output Urine Total 400 ml # Voids 1 3 3 # Bowel Movements 1 1 1 (Satish Rojas MD R2) Result Diagram: 06/15/17 0446 Imaging Last Impressions Hip X-Ray 05/26/17 0000 Signed Impressions: Service Date/Time: Friday, May 26, 2017 15:13 - CONCLUSION: Degenerative changes, no fracture Jermaine Gutierres MD FACR Liver Ultrasound 05/25/17 0000 Signed Impressions: Service Date/Time: May 16:28 - CONCLUSION: 1. Mild hepatomegaly. 2. Status post cholecystectomy. 3. No evidence of acute process or biliary obstructive disease. 4. Calcified granuloma in the spleen. Valerio Salcedo MD Lumbar Spine CT 05/22/17 0000 Signed Impressions: Service Date/Time: Sunday, May 21, 2017 14:36 - CONCLUSION: 1. Moderate stenosis at the L4-L5 level caused by combination of anterior subluxation/spondylolisthesis, disc bulge, and severe facet hypertrophy. 2. Moderate stenosis at the T11-T12 level by a central disc protrusion with osteophytes. 3. Moderate disc bulge and mild stenosis at the L5-S1 level. 4. Minimal bulging at the L1-L2 and L2-L3 levels. 1. Gurvinder Steinberg MD Chest X-Ray 05/21/17 1345 Signed Impressions: Service Date/Time: Sunday, May 21, 2017 13:57 - CONCLUSION: No acute disease. Gurvinder Frazier MD Abdomen/Pelvis CT 05/21/17 1345 Signed Impressions: Service Date/Time: Sunday, May 21, 2017 14:36 - CONCLUSION: No acute CT findings in the abdomen or pelvis. Gurvinder Frazier MD Renal Ultrasound 05/21/17 0000 Signed Impressions: Service Date/Time: Sunday, May 21, 2017 18:12 - CONCLUSION: No acute disease. Gurvinder Steinberg MD Objective Remarks GENERAL: Well-nourished, morbidly obese white female patient, in wheelchair, NAD. SKIN: Warm and dry/flaky. CARDIOVASCULAR: Heart sounds distant. Regular rate and rhythm without murmurs, gallops, or rubs. RESPIRATORY: Breath sounds equal bilaterally and clear. No accessory muscle use. No crackles or wheezes. GASTROINTESTINAL: Abdomen soft, obese, nondistended. Non-tender. EXTREMITIES: Trace edema of BLE. LE. non tender calves BL. Normal sensation. NEUROLOGICAL: Grossly non-focal. Medications and IVs Current Medications Medications (Trade) Dose Ordered Sig/Guillaume Route Start Time Stop Time Status Last Admin (NS Flush) 2 ml UNSCH PRN IV FLUSH 05/21/17 17:30 (NS Flush) 2 ml BID IV FLUSH 05/21/17 21:00 06/16/17 08:53 (Tylenol) 650 mg Q4H PRN PO 05/21/17 17:30 (Zofran Inj) 4 mg Q6H PRN IVP 05/21/17 17:30 06/04/17 01:55 (Milk Of Magnesia Liq) 30 ml Q12H PRN PO 05/21/17 17:30 (Dulcolax Supp) 10 mg DAILY PRN RECTAL 05/21/17 17:30 (Lotrimin 1% Cream) 1 applic BID TOPICAL 05/21/17 17:30 06/16/17 08:54 (Ecotrin Ec) 81 mg HS PO 05/21/17 21:00 06/15/17 21:19 (Buspar) 15 mg TID PO 05/22/17 09:00 06/16/17 08:53 (Plavix) 75 mg HS PO 05/21/17 21:00 Future Hold 06/08/17 22:10 (Zoloft) 50 mg BID PO 05/21/17 21:00 06/16/17 08:52 (Tums Chew) 500 mg BID PO 05/21/17 21:00 06/16/17 08:52 (Vitamin D3) 400 units HS PO 05/21/17 21:00 06/15/17 21:19 (Ferrous Sulfate) 325 mg BID PO 05/21/17 21:00 Future Hold 05/27/17 20:36 (Protonix) 40 mg DAILY PO 05/22/17 09:00 06/16/17 08:53 (Tylenol) 650 mg Q6H PRN PO 05/21/17 23:30 (Narcan Inj) 0.4 mg UNSCH PRN IV PUSH 05/21/17 23:30 Sodium Chloride 1,000 ml @ 185 mls/hr Q5H25M IV 05/23/17 09:00 Future Hold 05/26/17 09:42 (My-Colace) 2 tab BID PO 05/24/17 21:00 06/15/17 08:50 (Lactulose Liq) 30 ml BID PRN PO 05/27/17 12:30 05/27/17 20:35 (Miralax) 17 gm DAILY PO 05/28/17 10:00 06/15/17 09:00 (Tenormin) 25 mg DAILY PO 05/30/17 09:00 06/16/17 08:52 (Synthroid) 200 mcg DAILY@0600 PO 06/03/17 06:00 06/16/17 05:40 (Synthroid) 25 mcg DAILY@0600 PO 06/03/17 06:00 06/16/17 05:40 (Lactinex) 1 tab Q12HR PO 06/03/17 21:00 06/16/17 08:53 (D50w (Vial) Inj) 50 ml UNSCH PRN IV PUSH 06/04/17 15:15 (Glucagon Inj) 1 mg UNSCH PRN OTHER 06/04/17 15:15 (NovoLOG INJ) 9 units TIDAC SQ 06/08/17 17:00 06/16/17 08:00 (Heparin Inj) 5,000 units Q8H SQ 06/09/17 18:00 06/16/17 09:10 (Levemir Inj) 40 units Q12HR SQ 06/10/17 21:00 06/16/17 08:54 (Pill Splitter) 1 ea UNSCH PRN OTHER 06/12/17 14:45 ([facility] 10-325 Mg) 1 tab Q6H PRN PO 06/13/17 14:45 06/16/17 09:11 ([facility] 5-325 Mg) 1 tab Q6H PRN PO 06/13/17 14:45 (Ativan) 0.25 mg HS PO 06/13/17 21:00 06/15/17 21:20 (Satish Rojas MD R2) A/P Assessment and Plan 56 year old female presenting with: (Satish Rojas MD R2) Attending Attestation Patient seen and examined. Case reviewed and discussed with the resident team. Agree with plan of care as discussed with me and documented in the resident note. (Ilda Garcia MD) Problem List: (1) Severe hypothyroidism ICD Codes: E03.8 - Other specified hypothyroidism Status: Acute Plan: Improving symptomatically with meds as listed T4 now wnl TSH in detectable range -Endocrinology consulted, appreciate recommendations -Continue levothyroxine 225 mcg daily -Recheck T4, TSH in 2 weeks -Signed off due to patient anticipated to be transferred this week, available as needed for continued input (2) Weakness ICD Codes: R53.1 - Weakness Status: Chronic Plan: The patient may have significant myopathy due to her severe hypothyroidism causing her weakness Continue PT -Upon assessment stated that falls likely due to a combination of weakness, but also poor lower extremity sensation. -Will need to use a bariatric wheeled walker for safe ambulation -Recommends PT at rehab -C/w PT BID while in the hospital for 7 days a week -Patient remain a high fall risk. Working on safe discharge plan which will require ability to transfer. Rehab medicine consulted, recs appreciated -Needs to be able to do self-transfers or min assist transfers in order to meet criteria for short-term daniel bed at [facility] Will call rehab today and see if now would qualify for daniel [facility] bed now that transfers are better (3) Urinary incontinence in female ICD Codes: R32 - Unspecified urinary incontinence Status: Resolved Plan: Abdomen/pelvis CT without any acute findings Consider etiology due to detrusor overactivity causing urgency incontinence, hypothyroid, NPH, medication adverse effect, constipation Vaginal atrophy and deconditioning causing the inability to get up and go to the bathroom quickly may be contributing to her incontinence Renal and bladder ultrasound on 05/22 showed no acute disease Bladder scan on 05/25 showed post void residual of 12ml. WNL -Advised patient to routinely urinate/empty her bladder when she receives her pain medications about every 4 hours -Treat hypothyroidism as above (4) Diabetes mellitus ICD Codes: E11.9 - Type 2 diabetes mellitus without complications Status: Chronic Plan: BSG 172-238 Hold home insulin glargine. She reported taking no short acting insulin at home for months only long acting HbA1c is 12.5 Accuchecks ACHS Continue levemir 40 units BID Novolog 9 units TIDAC (5) Hypertension ICD Codes: I10 - Essential (primary) hypertension Status: Chronic Plan: Stable, continue atenolol 25 mg daily continue to monitor (6) Chronic kidney disease ICD Codes: N18.9 - Chronic kidney disease, unspecified Status: Chronic Plan: Likely Cr now at baseline ~1.3 (7) Hyperlipidemia ICD Codes: E78.5 - Hyperlipidemia, unspecified Status: Chronic Plan: Hold home simvastatin (8) Depression ICD Codes: F32.9 - Major depressive disorder, single episode, unspecified Status: Chronic Plan: Depression: continue home zoloft, ativan prn for anxiety (9) Nutrition, metabolism, and development symptoms ICD Codes: R63.8 - Other symptoms and signs concerning food and fluid intake Status: Acute Plan: Fluids: tolerating po Electrolytes: continue to monitor Nutrition: 1800 ADA GI ppx: Protonix 40 mg po daily DVT ppx: Heparin 5,000 units sq q8h Dispo: Complicated due to self-pay status and risk of falls. Plan is to fly home to stay with son in [place]. Will need transport to flight on discharge. Prior to DC will need documentation by PT that patient is safe to make it through flight with min assist. Now that transfers improving may qualify for [facility] bed. Will contact CIR telehealth case manager to see. (Satish Rojas MD R2) Problem Qualifiers (1) Diabetes mellitus: Qualified Codes: E11.42 - Type 2 diabetes mellitus with diabetic polyneuropathy ; Z79.4 - care home (current) use of insulin (2) Hypertension: Qualified Codes: I10 - Essential (primary) hypertension (3) Hyperlipidemia: Qualified Codes: E78.00 - Pure hypercholesterolemia, unspecified Satish Rojas MD R2 June 16, 2017 11:47 Ilda Garcia MD June 16, 2017 13:39
[2017-06-16 12:00] VITALS: BP 118/61; PULSE 64; RESP 16; TEMP 98.4; O2SAT 94
[2017-06-16 16:00] VITALS: BP 118/67; PULSE 70; RESP 16; TEMP 98.1; O2SAT 95
[2017-06-16 20:21] VITALS: BP 110/59; PULSE 67; RESP 20; TEMP 98.3; O2SAT 95
[2017-06-16] MEDS: ASPIRIN EC 81 MG TABEC PO SCH (22:51)
[2017-06-16] MEDS: CHOLECALCIFEROL (VIT D3) 400 UNIT TAB PO SCH (22:52)
[2017-06-16] MEDS: LORazepam 0.5 MG TAB PO SCH (22:52)
[2017-06-17] VITALS: BP 111/60; PULSE 67; RESP 18; TEMP 98.5; O2SAT 95
[2017-06-17] MEDS: HEPARIN SODIUM - SQ 10,000 UNITS/ML VIAL SQ SCH ×3 (02:00→17:31)
[2017-06-17 04:00] VITALS: BP 123/72; PULSE 69; RESP 18; TEMP 98.2; O2SAT 94
[2017-06-17] MEDS: ACETAMINOPHEN/HYDROcodone 325 MG/10 MG TAB PO PRN ×4 (04:32→23:38)
[2017-06-17] MEDS: LEVOTHYROXINE SODIUM 200 MCG TAB PO SCH (05:32)
[2017-06-17] MEDS: LEVOTHYROXINE SODIUM 25 MCG TAB PO SCH (05:32)
[2017-06-17 08:00] VITALS: BP 108/68; PULSE 72; RESP 20; TEMP 97.7; O2SAT 96
[2017-06-17] MEDS: POLYETHYLENE GLYCOL 17 GM PKG PO SCH (09:00)
[2017-06-17] MEDS: DOCUSATE SODIUM 50 MG/SENNA 8.6 MG TAB PO SCH ×2 (09:00→21:12)
[2017-06-17] MEDS: SERTRALINE HCL 50 MG TAB PO SCH ×2 (09:22→21:12)
[2017-06-17] MEDS: LACTOBACILLUS ACIDOPHILUS TAB PO SCH ×2 (09:22→21:12)
[2017-06-17] MEDS: PANTOPRAZOLE SOD 40 MG DELAYED RELEASE TAB PO SCH (09:22)
[2017-06-17] MEDS: busPIRone HCL 5 MG TAB PO SCH ×3 (09:22→17:31)
[2017-06-17] MEDS: ATENOLOL 25 MG TAB PO SCH (09:22)
[2017-06-17] MEDS: CALCIUM CARBONATE 500 MG CHEWABLE TAB PO SCH ×2 (09:22→21:12)
[2017-06-17] MEDS: INSULIN ASPART 1,000 UNITS/10 ML VIAL SQ SCH ×3 (09:23→17:31)
[2017-06-17] MEDS: SODIUM CHLORIDE 0.9% FLUSH 10 ML FLUSH IV FLUSH SCH ×2 (09:23→21:12)
[2017-06-17] MEDS: INSULIN DETEMIR 100 UNITS/ML VIAL SQ SCH ×2 (09:23→21:13)
[2017-06-17] MEDS: CLOTRIMAZOLE 1% CREAM 15 GM TOPICAL SCH ×2 (09:23→21:13)
[2017-06-17 12:00] VITALS: BP 106/59; PULSE 67; RESP 20; TEMP 98.1; O2SAT 94
--- NOTE | 2017-06-17 13:39 | HHI.FPPN ---
Subjective Remarks Patient seen and examined at bedside this morning. Patient reports that she had lower back pain and left leg pain controlled with pain medication but pt reports pain relief is not sustained for long. no other complains. (Maude Harkins MD, R1) Objective Vitals Vital Signs Date Time Temp Pulse Resp B/P (MAP) Pulse Ox O2 Delivery O2 Flow Rate FiO2 06/17/17 12:00 98.1 67 20 106/59 (75) 94 06/17/17 08:00 Room Air 06/17/17 08:00 97.7 72 20 108/68 (81) 96 06/17/17 04:00 98.2 69 18 123/72 (89) 94 06/17/17 04:00 Room Air 06/17/17 00:00 98.5 67 18 111/60 (77) 95 06/17/17 00:00 Room Air 06/16/17 20:21 98.3 06/16/17 20:21 98.3 67 20 110/59 (76) 95 06/16/17 20:21 Room Air 06/16/17 18:14 95 Room Air 06/16/17 16:00 98.1 70 16 118/67 (84) 95 06/16/17 14:03 95 Room Air I/O 06/16/17 06/16/17 06/16/17 06/17/17 06/17/17 06/17/17 07:00 15:00 23:00 07:00 15:00 23:00 Intake Total 120 ml 480 ml 640 ml Output Total 400 ml Balance -280 ml 480 ml 640 ml Intake Oral 120 ml 480 ml 640 ml Output Urine Total 400 ml # Voids 3 2 3 # Bowel Movements 1 2 (Maude Harkins MD, R1) Result Diagram: 06/15/17 0446 Objective Remarks GENERAL: Well-nourished, morbidly obese white female patient, laying in bed, in NAD. SKIN: Warm and dry/flaky. CARDIOVASCULAR: Heart sounds distant. Regular rate and rhythm without murmurs, gallops, or rubs. RESPIRATORY: Breath sounds equal bilaterally and clear. No accessory muscle use. No crackles or wheezes. GASTROINTESTINAL: Abdomen soft, obese, nondistended. Non-tender. EXTREMITIES: Trace edema of BLE. LE. non tender calves BL. Normal sensation. NEUROLOGICAL: Grossly non-focal. (Maude Harkins MD, R1) A/P Assessment and Plan 56 year old female presenting with: (Maude Harkins MD, R1) Attending Attestation Patient seen and examined. Case reviewed and discussed with the resident team. Agree with plan of care as discussed with me and documented in the resident note. (Ilda Garcia MD) Problem List: (1) Severe hypothyroidism ICD Codes: E03.8 - Other specified hypothyroidism Status: Acute Plan: Improving symptomatically with meds as listed T4 now wnl TSH in detectable range -Endocrinology consulted, appreciate recommendations -Continue levothyroxine 225 mcg daily -Recheck T4, TSH in 2 weeks -Signed off due to patient anticipated to be transferred this week, available as needed for continued input (2) Weakness ICD Codes: R53.1 - Weakness Status: Chronic Plan: The patient may have significant myopathy due to her severe hypothyroidism causing her weakness Continue PT -Upon assessment stated that falls likely due to a combination of weakness, but also poor lower extremity sensation. -Will need to use a bariatric wheeled walker for safe ambulation -Recommends PT at rehab -C/w PT BID while in the hospital for 7 days a week -Patient remain a high fall risk. Working on safe discharge plan which will require ability to transfer. Rehab medicine consulted, recs appreciated -Needs to be able to do self-transfers or min assist transfers in order to meet criteria for short-term daniel bed at [facility] Will call rehab today and see if now would qualify for daniel [facility] bed now that transfers are better (3) Diabetes mellitus ICD Codes: E11.9 - Type 2 diabetes mellitus without complications Status: Chronic Plan: BSG 216-270 Hold home insulin glargine. She reported taking no short acting insulin at home for months only long acting HbA1c is 12.5 Accuchecks ACHS increased to levemir 42 units BID Novolog 9 units TIDAC (4) Hypertension ICD Codes: I10 - Essential (primary) hypertension Status: Chronic Plan: Stable, continue atenolol 25 mg daily continue to monitor (5) Chronic kidney disease ICD Codes: N18.9 - Chronic kidney disease, unspecified Status: Chronic Plan: Baseline ~1.3 Cr-1.24 on 06/15 f/u bmp tomorrow (6) Hyperlipidemia ICD Codes: E78.5 - Hyperlipidemia, unspecified Status: Chronic Plan: Hold home simvastatin (7) Depression ICD Codes: F32.9 - Major depressive disorder, single episode, unspecified Status: Chronic Plan: Depression: continue home zoloft, ativan prn for anxiety (8) Nutrition, metabolism, and development symptoms ICD Codes: R63.8 - Other symptoms and signs concerning food and fluid intake Status: Acute Plan: Fluids: tolerating po Electrolytes: continue to monitor Nutrition: 1800 ADA GI ppx: Protonix 40 mg po daily DVT ppx: Heparin 5,000 units sq q8h Dispo: Complicated due to self-pay status and risk of falls. Plan is to fly home to stay with son in [place]. Will need transport to flight on discharge. Prior to DC will need documentation by PT that patient is safe to make it through flight with min assist. Now that transfers improving may qualify for [facility] bed. Will contact [facility] shelter case manager to see. (Maude Harkins MD, R1) Problem Qualifiers (1) Diabetes mellitus: Qualified Codes: E11.42 - Type 2 diabetes mellitus with diabetic polyneuropathy ; Z79.4 - [employer] (current) use of insulin (2) Hypertension: Qualified Codes: I10 - Essential (primary) hypertension (3) Hyperlipidemia: Qualified Codes: E78.00 - Pure hypercholesterolemia, unspecified Maude Harkins MD, R1 June 17, 2017 13:39 Ilda Garcia MD June 19, 2017 12:08
[2017-06-17 16:00] VITALS: BP 108/56; PULSE 68; RESP 20; TEMP 98.2; O2SAT 94
[2017-06-17 20:00] VITALS: BP 110/64; PULSE 68; RESP 20; TEMP 98; O2SAT 95
[2017-06-17] MEDS: CHOLECALCIFEROL (VIT D3) 400 UNIT TAB PO SCH (21:12)
[2017-06-17] MEDS: LORazepam 0.5 MG TAB PO SCH (21:12)
[2017-06-17] MEDS: ASPIRIN EC 81 MG TABEC PO SCH (21:12)
[2017-06-18] VITALS: BP 151/81; PULSE 72; RESP 18; TEMP 97.8; O2SAT 96
[2017-06-18] MEDS: HEPARIN SODIUM - SQ 10,000 UNITS/ML VIAL SQ SCH ×3 (02:31→18:45)
[2017-06-18 04:00] VITALS: BP 130/64; PULSE 71; RESP 17; TEMP 98; O2SAT 94
[2017-06-18] MEDS: LEVOTHYROXINE SODIUM 200 MCG TAB PO SCH (05:36)
[2017-06-18] MEDS: ACETAMINOPHEN/HYDROcodone 325 MG/10 MG TAB PO PRN ×3 (05:37→22:50)
[2017-06-18] MEDS: LEVOTHYROXINE SODIUM 25 MCG TAB PO SCH (05:37)
[2017-06-18 05:58] LABS: BICARBONATE 26.9 MEQ/L (21.0-32.0); CALCIUM 9.3 MG/DL (8.5-10.1); CREATININE 1.31 MG/DL (0.50-1.00)
[2017-06-18 06:08] LABS: FREE T4 1.22 NG/DL (0.76-1.46)
[2017-06-18 08:00] VITALS: BP 136/75; PULSE 75; RESP 16; TEMP 98.1; O2SAT 93
--- NOTE | 2017-06-18 08:25 | HHI.PR ---
Addendum to Inpatient Note Addendum Reason: Additional Documentation Additional Information OFF SERVICE NOTE 56 yo female with obesity, hypothyroid, and T2DM admitted for severe weakness with urinary incontinence. Found to have severe hypothyroidism without myxedema coma and physical deconditioning. She was treated with IV Synthroid and later transitioned to oral dosing per endocrinology. Her weakness is attributed to hypothyroidism and immobility secondary to poor motivation. Urinary incontinence worked up and is not neurologic but rather related to poor motivation to get herself up and go to the bathroom. After titration of her thyroid medication she was held for continued physical therapy due to being an unsafe discharge but unable to find placement in rehab due to self-pay status. Kyle REYNA is working with the medical team to determine whether she may now qualify for daniel bed. Contact at [facility] = Shiela Cassidy, cell # [phone] who will review case Monday and confer with new medical team. Satish Rojas MD R2 June 18, 2017 8:25 am
[2017-06-18] MEDS: busPIRone HCL 5 MG TAB PO SCH ×3 (09:24→18:45)
[2017-06-18] MEDS: ATENOLOL 25 MG TAB PO SCH (09:24)
[2017-06-18] MEDS: DOCUSATE SODIUM 50 MG/SENNA 8.6 MG TAB PO SCH ×2 (09:24→21:00)
[2017-06-18] MEDS: CALCIUM CARBONATE 500 MG CHEWABLE TAB PO SCH ×2 (09:24→21:38)
[2017-06-18] MEDS: LACTOBACILLUS ACIDOPHILUS TAB PO SCH ×2 (09:25→21:37)
[2017-06-18] MEDS: PANTOPRAZOLE SOD 40 MG DELAYED RELEASE TAB PO SCH (09:25)
[2017-06-18] MEDS: SODIUM CHLORIDE 0.9% FLUSH 10 ML FLUSH IV FLUSH SCH ×2 (09:25→21:37)
[2017-06-18] MEDS: POLYETHYLENE GLYCOL 17 GM PKG PO SCH (09:25)
[2017-06-18] MEDS: INSULIN ASPART 1,000 UNITS/10 ML VIAL SQ SCH ×3 (09:25→18:46)
[2017-06-18] MEDS: INSULIN DETEMIR 100 UNITS/ML VIAL SQ SCH ×2 (09:25→21:00)
[2017-06-18] MEDS: SERTRALINE HCL 50 MG TAB PO SCH ×2 (09:26→21:38)
[2017-06-18] MEDS: CLOTRIMAZOLE 1% CREAM 15 GM TOPICAL SCH ×2 (09:26→21:44)
--- NOTE | 2017-06-18 10:25 | HHI.FPPN ---
Subjective Remarks Afebrile and vital signs stable overnight. Patient reports feeling well except for an acute exacerbation of her chronic back pain, weakness of her left leg, pain under her left lower quadrant pannus, where there is a rash that seems to be improving. (Danile Trejo MD R2) Objective Vitals Vital Signs Date Time Temp Pulse Resp B/P (MAP) Pulse Ox O2 Delivery O2 Flow Rate FiO2 06/18/17 08:00 98.1 75 16 136/75 (95) 93 06/18/17 04:00 Room Air 06/18/17 04:00 98.0 71 17 130/64 (86) 94 06/18/17 00:00 97.8 72 18 151/81 (104) 96 06/18/17 00:00 Room Air 06/17/17 20:00 Room Air 06/17/17 20:00 98.0 68 20 110/64 (79) 95 06/17/17 16:00 98.2 68 20 108/56 (73) 94 06/17/17 12:00 98.1 67 20 106/59 (75) 94 I/O 06/17/17 06/17/17 06/17/17 06/18/17 06/18/17 06/18/17 07:00 15:00 23:00 07:00 15:00 23:00 Intake Total 640 ml 600 ml 240 ml Balance 640 ml 600 ml 240 ml Intake Oral 640 ml 600 ml 240 ml # Voids 3 4 3 # Bowel Movements 0 (Daniel Trejo MD R2) Result Diagram: 06/18/17 0458 Imaging Last Impressions Hip X-Ray 05/26/17 0000 Signed Impressions: Service Date/Time: Friday, May 26, 2017 15:13 - CONCLUSION: Degenerative changes, no fracture Jermaine Gutierres MD FACR Liver Ultrasound 05/25/17 0000 Signed Impressions: Service Date/Time: May 16:28 - CONCLUSION: 1. Mild hepatomegaly. 2. Status post cholecystectomy. 3. No evidence of acute process or biliary obstructive disease. 4. Calcified granuloma in the spleen. Valerio Salcedo MD Lumbar Spine CT 05/22/17 0000 Signed Impressions: Service Date/Time: Sunday, May 21, 2017 14:36 - CONCLUSION: 1. Moderate stenosis at the L4-L5 level caused by combination of anterior subluxation/spondylolisthesis, disc bulge, and severe facet hypertrophy. 2. Moderate stenosis at the T11-T12 level by a central disc protrusion with osteophytes. 3. Moderate disc bulge and mild stenosis at the L5-S1 level. 4. Minimal bulging at the L1-L2 and L2-L3 levels. 1. Gurvinder Steinberg MD Chest X-Ray 05/21/17 1345 Signed Impressions: Service Date/Time: Sunday, May 21, 2017 13:57 - CONCLUSION: No acute disease. Gurvinder Frazier MD Abdomen/Pelvis CT 05/21/17 1345 Signed Impressions: Service Date/Time: Sunday, May 21, 2017 14:36 - CONCLUSION: No acute CT findings in the abdomen or pelvis. Gurvinder Frazier MD Renal Ultrasound 05/21/17 0000 Signed Impressions: Service Date/Time: Sunday, May 21, 2017 18:12 - CONCLUSION: No acute disease. Gurvinder Steinberg MD Objective Remarks GENERAL: Well-nourished, morbidly obese white female patient, laying in bed, in NAD. SKIN: Warm and dry/flaky. Some mild skin irritation in left inguinal/ panniculus fold. There is a bruise along the inferior portion of her pannus where she has been receiving subcutaneous heparin. CARDIOVASCULAR: Heart sounds distant. Regular rate and rhythm without murmurs, gallops, or rubs. RESPIRATORY: Breath sounds equal bilaterally and clear. No accessory muscle use. No crackles or wheezes. GASTROINTESTINAL: Abdomen soft, obese, nondistended. Non-tender. EXTREMITIES: Trace edema of BLE. non tender calves BL. Normal sensation. NEUROLOGICAL: Grossly non-focal. (Daniel Trejo MD R2) A/P Assessment and Plan 56 year old female with hypertension, hypothyroidism presenting with severely uncontrolled hypothyroidism, deconditioning, multiple falls. Discharge Planning Pending case management placement at rehab facility, likely tomorrow. (Daniel Trejo MD R2) Attending Attestation Case reviewed and discussed with the resident team. Agree with plan of care as discussed with me and documented in the resident note. (Ilda Garcia MD) Problem List: (1) Severe hypothyroidism ICD Codes: E03.8 - Other specified hypothyroidism Status: Acute Plan: Improving symptomatically with meds as listed T4 now wnl TSH in detectable range -Endocrinology consulted, appreciate recommendations -Continue levothyroxine 225 mcg daily -Recheck T4, TSH in 2 weeks -Signed off due to patient anticipated to be transferred this week, available as needed for continued input (2) Weakness ICD Codes: R53.1 - Weakness Status: Chronic Plan: Likely multifactorial with a large component of deconditioning. The patient may have significant myopathy due to her severe hypothyroidism causing her weakness Continue PT -Assessment stated that falls likely due to a combination of weakness, but also poor lower extremity sensation. -Will need to use a bariatric wheeled walker for safe ambulation -Recommended PT at rehab -C/w PT BID while in the hospital for 7 days a week -Patient remain a high fall risk. Working on safe discharge plan which will require ability to transfer. Rehab medicine consulted, recs appreciated -Needs to be able to do self-transfers or min assist transfers in order to meet criteria for short-term daniel bed at [facility] Will call rehab tomorrow and see if now would qualify for daniel [facility] bed now that transfers are better (3) Diabetes mellitus ICD Codes: E11.9 - Type 2 diabetes mellitus without complications Status: Chronic Plan: BSG 216-270 Hold home insulin glargine. She reported taking no short acting insulin at home for months only long acting. HbA1c is 12.5 -Accuchecks ACHS -Levemir 42 units BID -Novolog 9 units TIDAC (4) Hypertension ICD Codes: I10 - Essential (primary) hypertension Status: Chronic Plan: Stable, continue atenolol 25 mg daily continue to monitor (5) Chronic kidney disease ICD Codes: N18.9 - Chronic kidney disease, unspecified Status: Chronic Plan: Baseline ~1.3. Creatinine stable. -f/u bmp daily (6) Hyperlipidemia ICD Codes: E78.5 - Hyperlipidemia, unspecified Status: Chronic Plan: -Hold home simvastatin (7) Depression ICD Codes: F32.9 - Major depressive disorder, single episode, unspecified Status: Chronic Plan: -continue home Zoloft -Ativan prn for anxiety (8) Nutrition, metabolism, and development symptoms ICD Codes: R63.8 - Other symptoms and signs concerning food and fluid intake Status: Acute Plan: Fluids: tolerating po Electrolytes: continue to monitor Nutrition: 1800 ADA GI ppx: Protonix 40 mg po daily DVT ppx: Heparin 5,000 units sq q8h Dispo: Complicated due to self-pay status and risk of falls. Plan is to fly home to stay with son in [place]. Will need transport to flight on discharge. Prior to DC will need documentation by PT that patient is safe to make it through flight with min assist. Now that transfers improving may qualify for [facility] bed. Will contact [facility] telephonic case manager to see. (Daniel Trejo MD R2) Problem Qualifiers (1) Diabetes mellitus: Qualified Codes: E11.42 - Type 2 diabetes mellitus with diabetic polyneuropathy ; Z79.4 - long-term (current) use of insulin (2) Hypertension: Qualified Codes: I10 - Essential (primary) hypertension (3) Hyperlipidemia: Qualified Codes: E78.00 - Pure hypercholesterolemia, unspecified Daniel Trejo MD R2 June 18, 2017 10:24 Ilda Garcia MD June 19, 2017 12:16
[2017-06-18 12:00] VITALS: BP 107/57; PULSE 78; RESP 16; TEMP 97.9; O2SAT 96
[2017-06-18 16:00] VITALS: BP 120/63; PULSE 80; RESP 16; TEMP 98.4; O2SAT 97
[2017-06-18 20:00] VITALS: BP 107/58; PULSE 78; RESP 20; TEMP 98.8; O2SAT 95
[2017-06-18] MEDS: CHOLECALCIFEROL (VIT D3) 400 UNIT TAB PO SCH (21:38)
[2017-06-18] MEDS: ASPIRIN EC 81 MG TABEC PO SCH (21:38)
[2017-06-18] MEDS: LORazepam 0.5 MG TAB PO SCH (21:38)
[2017-06-19] VITALS: BP 114/66; PULSE 72; RESP 18; TEMP 97.2; O2SAT 94
[2017-06-19] MEDS: HEPARIN SODIUM - SQ 10,000 UNITS/ML VIAL SQ SCH ×3 (02:55→17:21)
[2017-06-19 04:00] VITALS: BP 104/58; PULSE 68; RESP 18; TEMP 98.6; O2SAT 92
[2017-06-19] MEDS: ACETAMINOPHEN/HYDROcodone 325 MG/10 MG TAB PO PRN ×4 (04:44→21:58)
[2017-06-19] MEDS: LEVOTHYROXINE SODIUM 200 MCG TAB PO SCH (04:45)
[2017-06-19] MEDS: LEVOTHYROXINE SODIUM 25 MCG TAB PO SCH (04:45)
[2017-06-19 08:00] VITALS: BP 106/58; PULSE 76; RESP 20; TEMP 98; O2SAT 97
[2017-06-19] MEDS: CALCIUM CARBONATE 500 MG CHEWABLE TAB PO SCH ×2 (08:29→21:57)
[2017-06-19] MEDS: PANTOPRAZOLE SOD 40 MG DELAYED RELEASE TAB PO SCH (08:29)
[2017-06-19] MEDS: busPIRone HCL 5 MG TAB PO SCH ×3 (08:30→17:21)
[2017-06-19] MEDS: DOCUSATE SODIUM 50 MG/SENNA 8.6 MG TAB PO SCH ×2 (08:31→21:57)
[2017-06-19] MEDS: LACTOBACILLUS ACIDOPHILUS TAB PO SCH ×2 (08:31→21:57)
[2017-06-19] MEDS: SERTRALINE HCL 50 MG TAB PO SCH ×2 (08:31→21:57)
[2017-06-19] MEDS: ATENOLOL 25 MG TAB PO SCH (08:31)
[2017-06-19] MEDS: CLOTRIMAZOLE 1% CREAM 15 GM TOPICAL SCH ×2 (08:32→21:58)
[2017-06-19] MEDS: SODIUM CHLORIDE 0.9% FLUSH 10 ML FLUSH IV FLUSH SCH ×2 (08:32→21:56)
[2017-06-19] MEDS: INSULIN ASPART 1,000 UNITS/10 ML VIAL SQ SCH ×3 (08:32→17:22)
[2017-06-19] MEDS: POLYETHYLENE GLYCOL 17 GM PKG PO SCH (08:32)
[2017-06-19] MEDS: INSULIN DETEMIR 100 UNITS/ML VIAL SQ SCH ×2 (08:33→21:58)
--- NOTE | 2017-06-19 11:48 | HHI.FPPN ---
Subjective Remarks Patient seen and examined this morning. No acute complaints. Symptoms unchanged from yesterday. No acute events overnight. Reports she is improving with physical therapy and Occupational Therapy. No other complaints today. (Daniel Butcher MD R1) Objective Vitals Vital Signs Date Time Temp Pulse Resp B/P (MAP) Pulse Ox O2 Delivery O2 Flow Rate FiO2 06/19/17 08:00 98.0 76 20 106/58 (74) 97 06/19/17 08:00 Room Air 06/19/17 04:00 Room Air 06/19/17 04:00 98.6 68 18 104/58 (73) 92 06/19/17 00:00 97.2 72 18 114/66 (82) 94 06/19/17 00:00 Room Air 06/18/17 20:00 Room Air 06/18/17 20:00 98.8 78 20 107/58 (74) 95 06/18/17 16:00 98.4 80 16 120/63 (82) 97 06/18/17 16:00 Room Air 06/18/17 12:00 Room Air 06/18/17 12:00 97.9 78 16 107/57 (74) 96 I/O 06/18/17 06/18/17 06/18/17 06/19/17 06/19/17 06/19/17 06:59 14:59 22:59 06:59 14:59 22:59 Intake Total 240 ml 480 ml 360 ml Balance 240 ml 480 ml 360 ml Intake Oral 240 ml 480 ml 360 ml # Voids 3 4 4 # Bowel Movements 0 1 (Daniel Butcher MD R1) Result Diagram: 06/18/17 0458 Objective Remarks GENERAL: Well-nourished, morbidly obese white female patient, laying in bed, in NAD. SKIN: Warm and dry/flaky. Some mild skin irritation in left inguinal/ panniculus fold. There is a bruise along the inferior portion of her pannus where she has been receiving subcutaneous heparin. CARDIOVASCULAR: Heart sounds distant. Regular rate and rhythm without murmurs, gallops, or rubs. RESPIRATORY: Breath sounds equal bilaterally and clear. No accessory muscle use. No crackles or wheezes. GASTROINTESTINAL: Abdomen soft, obese, nondistended. Non-tender. EXTREMITIES: Trace edema of BLE. non tender calves BL. Normal sensation. NEUROLOGICAL: Grossly non-focal. (Daniel Butcher MD R1) A/P Assessment and Plan 56 year old female with hypertension, hypothyroidism presenting with severely uncontrolled hypothyroidism, deconditioning, multiple falls. Discharge Planning Pending case management placement at rehab facility, likely tomorrow. (Daniel Butcher MD R1) Attending Attestation Patient seen and examined. Case reviewed and discussed with the resident team. Agree with plan of care as discussed with me and documented in the resident note. (Ilda Garcia MD) Problem List: (1) Severe hypothyroidism ICD Codes: E03.8 - Other specified hypothyroidism Status: Acute Plan: Improving symptomatically with meds as listed T4 now wnl TSH in detectable range -Endocrinology consulted, appreciate recommendations -Continue levothyroxine 225 mcg daily -Recheck T4, TSH in 2 weeks -Signed off due to patient anticipated to be transferred this week, available as needed for continued input (2) Weakness ICD Codes: R53.1 - Weakness Status: Chronic Plan: Likely multifactorial with a large component of deconditioning. The patient may have significant myopathy due to her severe hypothyroidism causing her weakness Continue PT -Assessment stated that falls likely due to a combination of weakness, but also poor lower extremity sensation. -Will need to use a bariatric wheeled walker for safe ambulation -Recommended PT at rehab -C/w PT BID while in the hospital for 7 days a week -Patient remain a high fall risk. Working on safe discharge plan which will require ability to transfer. Rehab medicine consulted, recs appreciated -Needs to be able to do self-transfers or min assist transfers in order to meet criteria for short-term daniel bed at [facility] Will call rehab tomorrow and see if now would qualify for daniel [facility] bed now that transfers are better (3) Diabetes mellitus ICD Codes: E11.9 - Type 2 diabetes mellitus without complications Status: Chronic Plan: BSG 216-270 Hold home insulin glargine. She reported taking no short acting insulin at home for months only long acting. HbA1c is 12.5 -Accuchecks ACHS -Levemir 42 units BID -Novolog 9 units TIDAC (4) Hypertension ICD Codes: I10 - Essential (primary) hypertension Status: Chronic Plan: Stable, continue atenolol 25 mg daily continue to monitor (5) Chronic kidney disease ICD Codes: N18.9 - Chronic kidney disease, unspecified Status: Chronic Plan: Baseline ~1.3. Creatinine stable. (6) Hyperlipidemia ICD Codes: E78.5 - Hyperlipidemia, unspecified Status: Chronic Plan: -Hold home simvastatin (7) Depression ICD Codes: F32.9 - Major depressive disorder, single episode, unspecified Status: Chronic Plan: -continue home Zoloft -Ativan prn for anxiety (8) Nutrition, metabolism, and development symptoms ICD Codes: R63.8 - Other symptoms and signs concerning food and fluid intake Status: Acute Plan: Fluids: tolerating po Electrolytes: continue to monitor Nutrition: 1800 ADA GI ppx: Protonix 40 mg po daily DVT ppx: Heparin 5,000 units sq q8h Dispo: Complicated due to self-pay status and risk of falls. Plan is to fly home to stay with son in [place]. Will need transport to flight on discharge. Prior to DC will need documentation by PT that patient is safe to make it through flight with min assist. Now that transfers improving may qualify for [facility] bed. Will contact [facility] manager case to see. (Daniel Butcher MD R1) Problem Qualifiers (1) Diabetes mellitus: Qualified Codes: E11.42 - Type 2 diabetes mellitus with diabetic polyneuropathy ; Z79.4 - halfway (current) use of insulin (2) Hypertension: Qualified Codes: I10 - Essential (primary) hypertension (3) Hyperlipidemia: Qualified Codes: E78.00 - Pure hypercholesterolemia, unspecified Daniel Butcher MD R1 June 19, 2017 11:48 Ilda Garcia MD June 19, 2017 16:08
[2017-06-19 12:00] VITALS: BP 120/58; PULSE 69; RESP 20; TEMP 98.4; O2SAT 94
[2017-06-19 16:00] VITALS: BP 117/66; PULSE 70; RESP 20; TEMP 98.1; O2SAT 95
[2017-06-19 20:00] VITALS: BP 114/67; PULSE 79; RESP 18; TEMP 98.4; O2SAT 93
[2017-06-19] MEDS: ASPIRIN EC 81 MG TABEC PO SCH (21:57)
[2017-06-19] MEDS: CHOLECALCIFEROL (VIT D3) 400 UNIT TAB PO SCH (21:57)
[2017-06-19] MEDS: LORazepam 0.5 MG TAB PO SCH (21:57)
[2017-06-20] VITALS (7 sets, daily range): BP systolic 105–136; BP diastolic 57–73; PULSE 67–98; RESP 16–20; TEMP 96.6–98.5; O2SAT 92–96
[2017-06-20] MEDS: HEPARIN SODIUM - SQ 10,000 UNITS/ML VIAL SQ SCH ×3 (02:55→17:02)
[2017-06-20] MEDS: ACETAMINOPHEN/HYDROcodone 325 MG/10 MG TAB PO PRN ×4 (04:12→23:28)
[2017-06-20] MEDS: LEVOTHYROXINE SODIUM 200 MCG TAB PO SCH (05:54)
[2017-06-20] MEDS: LEVOTHYROXINE SODIUM 25 MCG TAB PO SCH (05:54)
[2017-06-20] MEDS: SODIUM CHLORIDE 0.9% FLUSH 10 ML FLUSH IV FLUSH SCH ×2 (07:29→20:35)
[2017-06-20] MEDS: POLYETHYLENE GLYCOL 17 GM PKG PO SCH (08:32)
[2017-06-20] MEDS: DOCUSATE SODIUM 50 MG/SENNA 8.6 MG TAB PO SCH ×2 (08:32→20:35)
[2017-06-20] MEDS: CALCIUM CARBONATE 500 MG CHEWABLE TAB PO SCH ×2 (08:32→20:35)
[2017-06-20] MEDS: LACTOBACILLUS ACIDOPHILUS TAB PO SCH ×2 (08:32→20:34)
[2017-06-20] MEDS: SERTRALINE HCL 50 MG TAB PO SCH ×2 (08:33→20:35)
[2017-06-20] MEDS: CLOTRIMAZOLE 1% CREAM 15 GM TOPICAL SCH ×2 (08:33→20:35)
[2017-06-20] MEDS: PANTOPRAZOLE SOD 40 MG DELAYED RELEASE TAB PO SCH (08:33)
[2017-06-20] MEDS: busPIRone HCL 5 MG TAB PO SCH ×3 (08:33→17:02)
[2017-06-20] MEDS: ATENOLOL 25 MG TAB PO SCH (08:33)
[2017-06-20] MEDS: INSULIN DETEMIR 100 UNITS/ML VIAL SQ SCH ×2 (08:34→21:46)
[2017-06-20] MEDS: INSULIN ASPART 1,000 UNITS/10 ML VIAL SQ SCH ×3 (08:34→18:25)
--- NOTE | 2017-06-20 10:04 | HHI.FPPN ---
Subjective Remarks Patient seen and examined this morning. Denies any significant change in signs or symptoms from yesterday. She reports that she is attempting to contact an acquaintance she knows at a rehab facility to possibly get in. No acute events overnight. Otherwise no complaint. (Daniel Butcher MD R1) Objective Vitals Vital Signs Date Time Temp Pulse Resp B/P (MAP) Pulse Ox O2 Delivery O2 Flow Rate FiO2 06/20/17 08:31 96.6 98 17 136/73 (94) 92 06/20/17 04:00 98.5 73 20 119/65 (83) 94 06/20/17 04:00 Room Air 06/20/17 00:01 98.4 74 19 118/68 (85) 96 06/20/17 00:00 Room Air 06/19/17 20:00 Room Air 06/19/17 20:00 98.4 79 18 114/67 (83) 93 06/19/17 16:12 20 06/19/17 16:00 98.1 70 20 117/66 (83) 95 06/19/17 12:00 98.4 69 20 120/58 (78) 94 I/O 06/19/17 06/19/17 06/19/17 06/20/17 06/20/17 06/20/17 07:00 15:00 23:00 07:00 15:00 23:00 Intake Total 360 ml 840 ml Balance 360 ml 840 ml Intake Oral 360 ml 840 ml # Voids 4 3 # Bowel Movements 1 (Daniel Butcher MD R1) Result Diagram: 06/18/17 0458 Objective Remarks GENERAL: Well-nourished, morbidly obese white female patient, laying in bed, in NAD. SKIN: Warm and dry/flaky. Some mild skin irritation in left inguinal/ panniculus fold, improving. There is a bruise along the inferior portion of her pannus where she has been receiving subcutaneous heparin. CARDIOVASCULAR: Heart sounds distant. Regular rate and rhythm without murmurs, gallops, or rubs. RESPIRATORY: Breath sounds equal bilaterally and clear. No accessory muscle use. No crackles or wheezes. GASTROINTESTINAL: Abdomen soft, obese, nondistended. Non-tender. EXTREMITIES: Trace edema of BLE. non tender calves BL. Normal sensation. NEUROLOGICAL: Grossly non-focal. (Daniel Butcher MD R1) A/P Assessment and Plan 56 year old female with hypertension, hypothyroidism presenting with severely uncontrolled hypothyroidism, deconditioning, multiple falls. Discharge Planning Pending case management placement at rehab facility, likely tomorrow. (Daniel Butcher MD R1) Attending Attestation Patient seen and examined. Case reviewed and discussed with the resident team. Agree with plan of care as discussed with me and documented in the resident note. (Ilda Garcia MD) Problem List: (1) Severe hypothyroidism ICD Codes: E03.8 - Other specified hypothyroidism Status: Acute Plan: Improving symptomatically with meds as listed T4 now wnl TSH in detectable range -Endocrinology consulted, appreciate recommendations -Continue levothyroxine 225 mcg daily -Recommended recheck T4, TSH in 2 weeks, follow-up TSH was 52.1 T4 1.22. Improved from before. -Signed off due to patient anticipated to be transferred this week, available as needed for continued input (2) Weakness ICD Codes: R53.1 - Weakness Status: Chronic Plan: Likely multifactorial with a large component of deconditioning. The patient may have significant myopathy due to her severe hypothyroidism causing her weakness Continue PT -Assessment stated that falls likely due to a combination of weakness, but also poor lower extremity sensation. -Sofcare bed -Will need to use a bariatric wheeled walker for safe ambulation -Recommended PT at rehab -C/w PT BID while in the hospital for 7 days a week -Patient remain a high fall risk. Working on safe discharge plan which will require ability to transfer. Rehab medicine consulted, recs appreciated -Needs to be able to do self-transfers or min assist transfers in order to meet criteria for short-term daniel bed at [facility] Rehab facility denied transfer patient as they report that she needs to have a concrete discharge plan following rehab prior to acceptance and her sons have not made a commitment. (3) Diabetes mellitus ICD Codes: E11.9 - Type 2 diabetes mellitus without complications Status: Chronic Plan: BSG 216-270 Hold home insulin glargine. She reported taking no short acting insulin at home for months only long acting. HbA1c is 12.5 -Accuchecks ACHS -Levemir 42 units BID -Novolog 9 units TIDAC -Blood pressure well controlled, however should consider starting an reji-I for renal protection (4) Hypertension ICD Codes: I10 - Essential (primary) hypertension Status: Chronic Plan: Stable, continue atenolol 25 mg daily continue to monitor (5) Chronic kidney disease ICD Codes: N18.9 - Chronic kidney disease, unspecified Status: Chronic Plan: Baseline ~1.3. Creatinine stable. (6) Hyperlipidemia ICD Codes: E78.5 - Hyperlipidemia, unspecified Status: Chronic Plan: Held simvastatin on admission for elevated CK. CK elevated possibly secondary to muscle muscle wasting and not due to simvastatin. Consider restarting atorvastatin to avoid potential side effect. -Follow-up CK -consider starting atorvastatin (7) Depression ICD Codes: F32.9 - Major depressive disorder, single episode, unspecified Status: Chronic Plan: -continue home Zoloft -Ativan prn for anxiety (8) Nutrition, metabolism, and development symptoms ICD Codes: R63.8 - Other symptoms and signs concerning food and fluid intake Status: Acute Plan: Fluids: tolerating po Electrolytes: continue to monitor Nutrition: 1800 ADA GI ppx: Protonix 40 mg po daily DVT ppx: Heparin 5,000 units sq q8h Dispo: Complicated due to self-pay status and risk of falls. Plan is to fly home to stay with son in [place]. Will need transport to flight on discharge. Prior to DC will need documentation by PT that patient is safe to make it through flight with min assist. Now that transfers improving may qualify for [facility] bed. Will contact [facility] catalytic case operator to see. (Daniel Butcher MD R1) Problem Qualifiers (1) Diabetes mellitus: Qualified Codes: E11.42 - Type 2 diabetes mellitus with diabetic polyneuropathy ; Z79.4 - skilled nursing (current) use of insulin (2) Hypertension: Qualified Codes: I10 - Essential (primary) hypertension (3) Hyperlipidemia: Qualified Codes: E78.00 - Pure hypercholesterolemia, unspecified Daniel Butcher MD R1 June 20, 2017 10:04 Ilda Garcia MD June 20, 2017 16:46
[2017-06-20] MEDS: LORazepam 0.5 MG TAB PO SCH (20:34)
[2017-06-20] MEDS: CHOLECALCIFEROL (VIT D3) 400 UNIT TAB PO SCH (20:34)
[2017-06-20] MEDS: ASPIRIN EC 81 MG TABEC PO SCH (20:35)
[2017-06-21] MEDS: HEPARIN SODIUM - SQ 10,000 UNITS/ML VIAL SQ SCH ×3 (01:17→17:50)
[2017-06-21 03:32] VITALS: BP 134/77; PULSE 72; RESP 16; TEMP 97.8; O2SAT 96
[2017-06-21] MEDS: ACETAMINOPHEN/HYDROcodone 325 MG/10 MG TAB PO PRN ×3 (05:25→18:36)
[2017-06-21] MEDS: LEVOTHYROXINE SODIUM 25 MCG TAB PO SCH (05:25)
[2017-06-21] MEDS: LEVOTHYROXINE SODIUM 200 MCG TAB PO SCH (05:25)
[2017-06-21] MEDS: SODIUM CHLORIDE 0.9% FLUSH 10 ML FLUSH IV FLUSH SCH ×2 (07:50→19:57)
[2017-06-21 08:00] VITALS: BP 130/68; PULSE 83; RESP 17; TEMP 97.5; O2SAT 96
[2017-06-21] MEDS: CALCIUM CARBONATE 500 MG CHEWABLE TAB PO SCH ×2 (08:35→19:56)
[2017-06-21] MEDS: ATENOLOL 25 MG TAB PO SCH (08:35)
[2017-06-21] MEDS: busPIRone HCL 5 MG TAB PO SCH ×3 (08:35→17:50)
[2017-06-21] MEDS: PANTOPRAZOLE SOD 40 MG DELAYED RELEASE TAB PO SCH (08:35)
[2017-06-21] MEDS: LACTOBACILLUS ACIDOPHILUS TAB PO SCH ×2 (08:35→19:56)
[2017-06-21] MEDS: SERTRALINE HCL 50 MG TAB PO SCH ×2 (08:35→19:56)
[2017-06-21] MEDS: DOCUSATE SODIUM 50 MG/SENNA 8.6 MG TAB PO SCH ×2 (08:35→19:57)
[2017-06-21] MEDS: INSULIN DETEMIR 100 UNITS/ML VIAL SQ SCH ×2 (08:36→21:00)
[2017-06-21] MEDS: POLYETHYLENE GLYCOL 17 GM PKG PO SCH (08:36)
[2017-06-21] MEDS: CLOTRIMAZOLE 1% CREAM 15 GM TOPICAL SCH ×2 (08:36→19:57)
[2017-06-21] MEDS: INSULIN ASPART 1,000 UNITS/10 ML VIAL SQ SCH ×3 (09:15→18:36)
--- NOTE | 2017-06-21 10:30 | HHI.FPPN ---
Subjective Remarks When I came to the patient's room this morning, patient was in a wheelchair. She reports that she needed her walker and to physical therapist to transfer from bed to wheelchair. Last night, nursing staff tried to get her to transfer from wheelchair to toilet, but it was extremely painful for her. Discussed patient with case management. Case management reported that the patient either needs to get up and move more or get the family to participate. I asked the patient about both of these prospects. She reported that her family members all have jobs and families and cannot afford to miss any work. When I asked about the prospect of her getting up to move more, she became tearful. We then discussed her cycle of anxiety, depression, pain. (Daniel Trejo MD R2) Objective Vitals Vital Signs Date Time Temp Pulse Resp B/P (MAP) Pulse Ox O2 Delivery O2 Flow Rate FiO2 06/21/17 08:00 97.5 83 17 130/68 (88) 96 06/21/17 04:00 Room Air 06/21/17 03:32 97.8 72 16 134/77 (96) 96 06/21/17 00:00 Room Air 06/20/17 23:58 97.7 67 16 110/58 (75) 94 06/20/17 20:00 97.8 70 16 126/73 (90) 94 06/20/17 20:00 Room Air 06/20/17 16:00 97.8 69 18 128/63 (84) 96 06/20/17 12:00 98.4 67 18 105/57 (73) 94 I/O 06/20/17 06/20/17 06/20/17 06/21/17 06/21/17 06/21/17 07:00 15:00 23:00 07:00 15:00 23:00 Intake Total 1200 ml 240 ml Balance 1200 ml 240 ml Intake Oral 1200 ml 240 ml # Voids 3 3 # Bowel Movements 1 0 (Daniel Trejo MD R2) Result Diagram: 06/18/17 0458 Imaging Last Impressions Hip X-Ray 05/26/17 0000 Signed Impressions: Service Date/Time: Friday, May 26, 2017 15:13 - CONCLUSION: Degenerative changes, no fracture Jermaine Gutierres MD FACR Liver Ultrasound 05/25/17 0000 Signed Impressions: Service Date/Time: May 16:28 - CONCLUSION: 1. Mild hepatomegaly. 2. Status post cholecystectomy. 3. No evidence of acute process or biliary obstructive disease. 4. Calcified granuloma in the spleen. Valerio Salcedo MD Lumbar Spine CT 05/22/17 0000 Signed Impressions: Service Date/Time: Sunday, May 21, 2017 14:36 - CONCLUSION: 1. Moderate stenosis at the L4-L5 level caused by combination of anterior subluxation/spondylolisthesis, disc bulge, and severe facet hypertrophy. 2. Moderate stenosis at the T11-T12 level by a central disc protrusion with osteophytes. 3. Moderate disc bulge and mild stenosis at the L5-S1 level. 4. Minimal bulging at the L1-L2 and L2-L3 levels. 1. Gurvinder Steinberg MD Chest X-Ray 05/21/17 1345 Signed Impressions: Service Date/Time: Sunday, May 21, 2017 13:57 - CONCLUSION: No acute disease. Gurvinder Frazier MD Abdomen/Pelvis CT 05/21/17 1345 Signed Impressions: Service Date/Time: Sunday, May 21, 2017 14:36 - CONCLUSION: No acute CT findings in the abdomen or pelvis. Gurvinder Frazier MD Renal Ultrasound 05/21/17 0000 Signed Impressions: Service Date/Time: Sunday, May 21, 2017 18:12 - CONCLUSION: No acute disease. Gurvinder Steinberg MD Objective Remarks GENERAL: Well-nourished, morbidly obese white female patient, laying in bed, in NAD. SKIN: Warm and dry/flaky. CARDIOVASCULAR: Heart sounds distant. Regular rate and rhythm without murmurs, gallops, or rubs. RESPIRATORY: Breath sounds equal bilaterally and clear. No accessory muscle use. No crackles or wheezes. GASTROINTESTINAL: Abdomen soft, obese, nondistended. EXTREMITIES: Trace edema of BLE. non tender calves BL. Normal sensation. NEUROLOGICAL: Grossly non-focal. PSYCH: tearful (Daniel Trejo MD R2) A/P Assessment and Plan 56 year old female with hypertension, hypothyroidism presenting with severely uncontrolled hypothyroidism, deconditioning, multiple falls. Discharge Planning Pending case management placement at rehab facility, which is extremely difficult given her lack of insurance/self-pay status, her current functional disability, lack of social support. Per conversation with case management, patient either needs improved mobility or family participation. (Daniel Trejo MD R2) Attending Attestation Case reviewed and discussed with the resident team. Agree with plan of care as discussed with me and documented in the resident note. (Ilda Garcia MD) Problem List: (1) Severe hypothyroidism ICD Codes: E03.8 - Other specified hypothyroidism Status: Acute Plan: Improving symptomatically with meds as listed T4 now wnl TSH in detectable range -Endocrinology consulted, appreciate recommendations -Continue levothyroxine 225 mcg daily -Recommended recheck T4, TSH in 2 weeks, follow-up TSH was 52.1, T4 was 1.22. Improved from before. -Signed off due to patient anticipated to be transferred, available as needed for continued input (2) Weakness ICD Codes: R53.1 - Weakness Status: Chronic Plan: Likely multifactorial with a large component of deconditioning. Continue PT -Assessment stated that falls likely due to a combination of weakness, but also poor lower extremity sensation. -PT recommended against [facility] bed -Will need to use a bariatric wheeled walker for safe ambulation -Recommended PT at rehab -C/w PT BID while in the hospital for 7 days a week -Patient remain a high fall risk. Working on safe discharge plan which will require ability to transfer. Rehab medicine consulted, recs appreciated -Needs to be able to do self-transfers or min assist transfers in order to meet criteria for short-term daniel bed at [facility] Rehab facility denied transfer patient as they report that she needs to have a concrete discharge plan following rehab prior to acceptance and her sons have not made a commitment. (3) Depression ICD Codes: F32.9 - Major depressive disorder, single episode, unspecified Status: Chronic Plan: -continue home Zoloft, BuSpar -Ativan prn for anxiety -Psychiatry consult (4) Diabetes mellitus ICD Codes: E11.9 - Type 2 diabetes mellitus without complications Status: Chronic Plan: BSG 164-288 Hold home insulin glargine. She reported taking no short acting insulin at home for months only long acting. HbA1c is 12.5 -Accuchecks ACHS -Levemir 42 units BID -Novolog 9 units TIDAC -Blood pressure well controlled, however should consider starting an reji-I for renal protection (5) Hypertension ICD Codes: I10 - Essential (primary) hypertension Status: Chronic Plan: Stable, continue atenolol 25 mg daily continue to monitor (6) Chronic kidney disease ICD Codes: N18.9 - Chronic kidney disease, unspecified Status: Chronic Plan: Baseline ~1.3. Creatinine stable. (7) Hyperlipidemia ICD Codes: E78.5 - Hyperlipidemia, unspecified Status: Chronic Plan: CK wnl -starting atorvastatin today (8) Nutrition, metabolism, and development symptoms ICD Codes: R63.8 - Other symptoms and signs concerning food and fluid intake Status: Acute Plan: Fluids: tolerating po Electrolytes: continue to monitor Nutrition: 1800 ADA GI ppx: Protonix 40 mg po daily DVT ppx: Heparin 5,000 units sq q8h Dispo: Complicated due to self-pay status and risk of falls. (Daniel Trejo MD R2) Problem Qualifiers (1) Diabetes mellitus: Qualified Codes: E11.42 - Type 2 diabetes mellitus with diabetic polyneuropathy ; Z79.4 - alf (current) use of insulin (2) Hypertension: Qualified Codes: I10 - Essential (primary) hypertension (3) Hyperlipidemia: Qualified Codes: E78.00 - Pure hypercholesterolemia, unspecified Daniel Trejo MD R2 June 21, 2017 10:30 Ilda Garcia MD June 21, 2017 11:47
[2017-06-21 12:00] VITALS: BP 119/58; PULSE 73; RESP 18; TEMP 98; O2SAT 95
[2017-06-21 16:00] VITALS: BP 126/62; PULSE 71; RESP 18; TEMP 97.7; O2SAT 94
[2017-06-21 19:52] VITALS: BP 116/59; PULSE 69; RESP 16; TEMP 98; O2SAT 95
[2017-06-21] MEDS: CHOLECALCIFEROL (VIT D3) 400 UNIT TAB PO SCH (19:56)
[2017-06-21] MEDS: LORazepam 0.5 MG TAB PO SCH (19:57)
[2017-06-21] MEDS: ASPIRIN EC 81 MG TABEC PO SCH (19:57)
[2017-06-21] MEDS ORDERED: ATORVASTATIN 10 MG TAB PO SCH (21:00)
[2017-06-21 23:10] VITALS: BP 110/66; PULSE 65; RESP 16; TEMP 98; O2SAT 98
[2017-06-22] MEDS: HEPARIN SODIUM - SQ 10,000 UNITS/ML VIAL SQ SCH ×3 (00:38→17:01)
[2017-06-22] MEDS: ACETAMINOPHEN/HYDROcodone 325 MG/10 MG TAB PO PRN ×4 (00:39→22:15)
[2017-06-22 05:43] VITALS: BP 137/70; PULSE 71; RESP 16; TEMP 97.8; O2SAT 99
[2017-06-22 05:48] LABS: AUTOMATED NEUTROPHIL # 4.5 TH/MM3 (1.8-7.7); BASOPHIL # 0.1 TH/MM3 (0-0.2); BASOPHIL % 0.9 % (0.0-2.0); EOSINOPHIL # 0.3 TH/MM3 (0-0.4); EOSINOPHIL % 3.6 % (0.0-4.0); HEMATOCRIT 40.9 % (35.0-46.0); HEMOGLOBIN 14.1 GM/DL (11.6-15.3); LYMPH % 31.4 % (9.0-44.0); LYMPHOCYTE # 2.6 TH/MM3 (1.0-4.8); MEAN CORPUSCULAR HEMOGLOBIN 34.1 PG (27.0-34.0); MEAN CORPUSCULAR HGB CONC 34.4 % (32.0-36.0); MEAN PLATELET VOLUME 8.2 FL (7.0-11.0); MONO % 9.4 % (0.0-8.0); MONOCYTE # 0.8 TH/MM3 (0-0.9); NEUT % 54.7 % (16.0-70.0); PLATELET COUNT 225 TH/MM3 (150-450); RED BLOOD COUNT 4.13 MIL/MM3 (4.00-5.30); RED CELL DISTRIBUTION WIDTH 13.1 % (11.6-17.2); WHITE BLOOD COUNT 8.2 TH/MM3 (4.0-11.0)
[2017-06-22 06:08] LABS: ALBUMIN 3.6 GM/DL (3.4-5.0); ALT (GPT) 26 U/L (10-53); AST (GOT) 19 U/L (15-37); BLOOD UREA NITROGEN 35 MG/DL (7-18); CALCIUM 9.7 MG/DL (8.5-10.1); CHLORIDE 99 MEQ/L (98-107); GLOMERULAR FILTRATION RATE 36 ML/MIN (>89); GLUCOSE,RANDOM 161 MG/DL (74-106); SODIUM (NA) 137 MEQ/L (136-145)
[2017-06-22 06:11] LABS: ALKALINE PHOSPHATASE 77 U/L (45-117); TOTAL BILIRUBIN ADULT 0.4 MG/DL (0.2-1.0); TOTAL PROTEIN 7.7 GM/DL (6.4-8.2)
[2017-06-22] MEDS: LEVOTHYROXINE SODIUM 200 MCG TAB PO SCH (06:16)
[2017-06-22] MEDS: LEVOTHYROXINE SODIUM 25 MCG TAB PO SCH (06:17)
[2017-06-22 08:00] VITALS: BP 110/73; PULSE 79; RESP 16; TEMP 97.2; O2SAT 99
[2017-06-22] MEDS: POLYETHYLENE GLYCOL 17 GM PKG PO SCH ×2 (09:00→09:07)
[2017-06-22] MEDS: SODIUM CHLORIDE 0.9% FLUSH 10 ML FLUSH IV FLUSH SCH ×2 (09:00→20:25)
[2017-06-22] MEDS: CLOTRIMAZOLE 1% CREAM 15 GM TOPICAL SCH ×2 (09:00→21:33)
[2017-06-22] MEDS: CALCIUM CARBONATE 500 MG CHEWABLE TAB PO SCH ×2 (09:04→20:24)
[2017-06-22] MEDS: SERTRALINE HCL 50 MG TAB PO SCH (09:04)
[2017-06-22] MEDS: PANTOPRAZOLE SOD 40 MG DELAYED RELEASE TAB PO SCH (09:05)
[2017-06-22] MEDS: DOCUSATE SODIUM 50 MG/SENNA 8.6 MG TAB PO SCH ×2 (09:05→20:24)
[2017-06-22] MEDS: busPIRone HCL 5 MG TAB PO SCH ×3 (09:05→17:00)
[2017-06-22] MEDS: LACTOBACILLUS ACIDOPHILUS TAB PO SCH ×2 (09:05→20:24)
[2017-06-22] MEDS: ATENOLOL 25 MG TAB PO SCH (09:05)
[2017-06-22] MEDS: INSULIN DETEMIR 100 UNITS/ML VIAL SQ SCH ×2 (09:34→21:32)
[2017-06-22] MEDS: INSULIN ASPART 1,000 UNITS/10 ML VIAL SQ SCH ×3 (09:34→17:01)
--- NOTE | 2017-06-22 10:09 | HHI.FPPN ---
Subjective Remarks Patient complained of some muscle fasciculations before falling asleep last night. Reassured patient. No other complaints at this time. Discussed discharge planning with patient. Is that she is getting stronger and more able to transfer from bed to wheelchair, but she still requires assistance. She reports that her family members in [place] are too busy to help her. She does not want us to contact her family members here in [place] because she feels neglected by them. However, I requested that she consider letting us contact them. (Daniel Trejo MD R2) Objective Vitals Vital Signs Date Time Temp Pulse Resp B/P (MAP) Pulse Ox O2 Delivery O2 Flow Rate FiO2 06/22/17 05:43 97.8 71 16 137/70 (92) 99 06/22/17 04:00 Room Air 06/22/17 00:00 Nasal Cannula 2.00 06/21/17 23:10 98.0 65 16 110/66 (81) 98 06/21/17 20:00 Nasal Cannula 2.00 06/21/17 19:52 98.0 69 16 116/59 (78) 95 06/21/17 16:00 97.7 71 18 126/62 (83) 94 06/21/17 12:00 98.0 73 18 119/58 (78) 95 I/O 06/21/17 06/21/17 06/21/17 06/22/17 06/22/17 06/22/17 07:00 15:00 23:00 07:00 15:00 23:00 Intake Total 240 ml 1200 ml 200 ml Output Total 600 ml Balance 240 ml 600 ml 200 ml Intake Oral 240 ml 1200 ml 200 ml Output Urine Total 600 ml # Voids 3 2 4 # Bowel Movements 0 1 0 (Daniel Trejo MD R2) Result Diagram: 06/22/17 0520 06/22/17 0451 Imaging Last Impressions Hip X-Ray 05/26/17 0000 Signed Impressions: Service Date/Time: Friday, May 26, 2017 15:13 - CONCLUSION: Degenerative changes, no fracture Jermaine Gutierres MD FACR Liver Ultrasound 05/25/17 0000 Signed Impressions: Service Date/Time: May 16:28 - CONCLUSION: 1. Mild hepatomegaly. 2. Status post cholecystectomy. 3. No evidence of acute process or biliary obstructive disease. 4. Calcified granuloma in the spleen. Valerio Salcedo MD Lumbar Spine CT 05/22/17 0000 Signed Impressions: Service Date/Time: Sunday, May 21, 2017 14:36 - CONCLUSION: 1. Moderate stenosis at the L4-L5 level caused by combination of anterior subluxation/spondylolisthesis, disc bulge, and severe facet hypertrophy. 2. Moderate stenosis at the T11-T12 level by a central disc protrusion with osteophytes. 3. Moderate disc bulge and mild stenosis at the L5-S1 level. 4. Minimal bulging at the L1-L2 and L2-L3 levels. 1. Gurvinder Steinberg MD Chest X-Ray 05/21/17 1345 Signed Impressions: Service Date/Time: Sunday, May 21, 2017 13:57 - CONCLUSION: No acute disease. Gurvinder Frazier MD Abdomen/Pelvis CT 05/21/17 1345 Signed Impressions: Service Date/Time: Sunday, May 21, 2017 14:36 - CONCLUSION: No acute CT findings in the abdomen or pelvis. Gurvinder Frazier MD Renal Ultrasound 05/21/17 0000 Signed Impressions: Service Date/Time: Sunday, May 21, 2017 18:12 - CONCLUSION: No acute disease. Gurvinder Steinberg MD Objective Remarks GENERAL: Well-nourished, morbidly obese white female patient, laying in bed, in NAD. SKIN: Warm and dry/flaky. CARDIOVASCULAR: Heart sounds distant. Regular rate and rhythm without murmurs, gallops, or rubs. RESPIRATORY: Breath sounds equal bilaterally and clear. No accessory muscle use. No crackles or wheezes. GASTROINTESTINAL: Abdomen soft, obese, nondistended. EXTREMITIES: Trace edema of BLE. non tender calves BL. NEUROLOGICAL: Grossly non-focal. PSYCH: tearful (Daniel Trejo MD R2) A/P Assessment and Plan 56 year old female with hypertension, hypothyroidism presenting with severely uncontrolled hypothyroidism, deconditioning, multiple falls. Discharge Planning Pending case management placement at rehab facility, which is extremely difficult given her lack of insurance/self-pay status, her current functional disability, lack of social support. Per conversation with case management, patient either needs improved mobility or family participation. (Daniel Trejo MD R2) Attending Attestation Patient seen and examined. Case reviewed and discussed with the resident team. Agree with plan of care as discussed with me and documented in the resident note. (Ilda Garcia MD) Problem List: (1) Severe hypothyroidism ICD Codes: E03.8 - Other specified hypothyroidism Status: Acute Plan: Improving symptomatically with meds as listed T4 now wnl TSH in detectable range -Endocrinology consulted, appreciate recommendations -Continue levothyroxine 225 mcg daily -Recommended recheck of T4, TSH in 2 weeks; follow-up TSH was 52.1, T4 was 1.22. Improved from before. -Signed off due to patient anticipated to be transferred, available as needed for continued input (2) Weakness ICD Codes: R53.1 - Weakness Status: Chronic Plan: Likely multifactorial with a large component of deconditioning. Continue PT -Assessment stated that falls likely due to a combination of weakness, but also poor lower extremity sensation. -PT recommended against Sofcare bed -Will need to use a bariatric wheeled walker for safe ambulation -Recommended PT at rehab -C/w PT BID while in the hospital for 7 days a week -Patient remain a high fall risk. Working on safe discharge plan which will require ability to transfer. Rehab medicine consulted, recs appreciated -Needs to be able to do self-transfers or min assist transfers in order to meet criteria for short-term daniel bed at [facility] Rehab facility denied transfer patient as they report that she needs to have a concrete discharge plan following rehab prior to acceptance and her sons have not made a commitment. (3) Depression ICD Codes: F32.9 - Major depressive disorder, single episode, unspecified Status: Chronic Plan: -continue home Zoloft, BuSpar -Ativan prn for anxiety -Psychiatry consult (4) Diabetes mellitus ICD Codes: E11.9 - Type 2 diabetes mellitus without complications Status: Chronic Plan: BSG 164-288 Hold home insulin glargine. She reported taking no short acting insulin at home for months only long acting. HbA1c is 12.5 -Accuchecks ACHS -Levemir 42 units BID -Novolog 9 units TIDAC -Blood pressure well controlled, however should consider starting an reji-I for renal protection (5) Hypertension ICD Codes: I10 - Essential (primary) hypertension Status: Chronic Plan: Stable, continue atenolol 25 mg daily continue to monitor (6) Chronic kidney disease ICD Codes: N18.9 - Chronic kidney disease, unspecified Status: Chronic Plan: Baseline ~1.3. Creatinine stable. (7) Hyperlipidemia ICD Codes: E78.5 - Hyperlipidemia, unspecified Status: Chronic Plan: CK wnl -starting atorvastatin today (8) Nutrition, metabolism, and development symptoms ICD Codes: R63.8 - Other symptoms and signs concerning food and fluid intake Status: Acute Plan: Fluids: tolerating po Electrolytes: continue to monitor Nutrition: 1800 ADA GI ppx: Protonix 40 mg po daily DVT ppx: Heparin 5,000 units sq q8h Dispo: Complicated due to self-pay status and risk of falls. (Daniel Trejo MD R2) Problem Qualifiers (1) Diabetes mellitus: Qualified Codes: E11.42 - Type 2 diabetes mellitus with diabetic polyneuropathy ; Z79.4 - shelter (current) use of insulin (2) Hypertension: Qualified Codes: I10 - Essential (primary) hypertension (3) Hyperlipidemia: Qualified Codes: E78.00 - Pure hypercholesterolemia, unspecified Daniel Trejo MD R2 June 22, 2017 10:09 Ilda Garcia MD June 23, 2017 07:02
[2017-06-22 12:00] VITALS: BP 104/70; PULSE 73; RESP 16; TEMP 97.8; O2SAT 99
--- NOTE | 2017-06-22 14:25 | PD.PSY.CON ---
Provisional Diagnosis Admission Date May 21, 2017 at 16:01 Universal I. Adjustment disorder with depression, major depressive disorder, panic disorder Universal II. Unspecified personality disorder History of Present Illness Service Psychiatry Consult Requested By Medicine Reason for Consult depression Primary Care Physician No Primary Care Physician HPI The patient is 56 year-old woman, domiciled alone in [facility], , she has 4 kids, with psychiatric history of depression, anxiety, no previous psychiatric hospitalization, no previous suicide attempts, she is in BuSpar 50 mg 3 times daily, Zoloft 50 mg daily, Ativan 0.5 mg 3 times daily, with medical hypertension, hypothyroidism presenting with severely uncontrolled hypothyroidism, deconditioning, multiple falls. Consulted to psychiatry due to depressive symptoms. Psychiatric evaluation today the patient is calm, cooperative, very circumstantial and talkative. The patient reports that she has been feeling depressed because many people that she has been counting on have failed to her "including my own kid". Patient reports that she has been living in [place] for about 3 months, she came down from [place] motivated by her causing and other family members "who now does not even care about me, they know that I am here in the hospital and did not even come to visit me". However, the patient tells me that her plan is to get better and go back to [place] to live with her youngest son. Patient denies anhedonia, she denies hopelessness, she denies helplessness, she denies suicidal and homicidal ideation, she denies visual and auditory hallucinations. The patient reports poor sleep at night, some anxiety during the day. She is oriented 3, no attention deficit, no fluctuation of consciousness. Review of Systems Constitutional: DENIES: Diaphoretic episodes, Fatigue, Fever, Weight gain, Weight loss, Chills, Dizziness, Change in appetite, Night Sweats Endocrine: DENIES: Abnorml menstrual pattern, Heat/cold intolerance, Polydipsia , Polyuria, Polyphagia Eyes: DENIES: Blurred vision, Diplopia, Eye inflammation, Eye pain, Vision loss , Photosensitivity, Double Vision Ears, nose, mouth, throat: DENIES: Tinnitus, Hearing loss, Vertigo, Nasal discharge, Oral lesions, Throat pain, Hoarseness, Ear Pain, Running Nose, Epistaxis, Sinus Pain, Toothache, Odynophagia Respiratory: DENIES: Apneas, Cough, Snoring, Wheezing, Hemoptysis, Sputum production, Shortness of breath Cardiovascular: DENIES: Chest pain, Palpitations, Syncope, Dyspnea on Exertion , PND, Lower Extremity Edema, Orthopnea, Claudication Gastrointestinal: DENIES: Abdominal pain, Black stools, Bloody stools, Constipation, Diarrhea, Nausea, Vomiting, Difficulty Swallowing, Anorexia Genitourinary: DENIES: Abnormal vaginal bleeding, Dysmenorrhea, Dyspareunia, Sexual dysfunction, Urinary frequency, Urinary incontinence, Urgency, Hematuria , Dysuria, Nocturia, Vaginal discharge Musculoskeletal: DENIES: Joint pain, Muscle aches, Stiffness, Joint Swelling, Back pain, Neck pain Integumentary: DENIES: Abnormal pigmentation, Pruritus, Rash, Nail changes, Breast masses, Breast skin changes, Nipple discharge Hematologic/lymphatic: DENIES: Bruising, Lymphadenopathy Immunologic/allergic: DENIES: Eczema, Urticaria Neurologic: DENIES: Abnormal gait, Headache, Localized weakness, Paresthesias, Seizures, Speech Problems, Tremor, Poor Balance Psychiatric: COMPLAINS OF: Anxiety, Depression, DENIES: Confusion, Mood changes , Hallucinations, Agitation, Suicidal Ideation, Homicidal Ideation, Delusions Past Family Social History Coded Allergies: penicillin G (Unverified Allergy, Severe, hives, 04/29/17) hydromorphone (Unverified Adverse Reaction, Unknown, vomiting, 04/29/17) Active Scripts Walker/Extended Frame (Walker/Extended Frame) 1 Mis Mis, EA .XX DIRECTED, #1 Prov:Satish Rojas MD R2 05/29/17 Famotidine (Famotidine) 20 Mg Tab, 10 MG PO BID for Reflux, #30 TAB Prov:Luis Nelson 09/09/16 Reported Medications Insulin Glargine (Basaglar Kwikpen) 100 Unit/Ml Pen, 30 UNITS SQ BID for Blood Sugar Management, #5 PEN 0 Refills IN THE AM & HS 05/21/17 Insulin Human Regular Inj (Novolin R Inj) 1,000 Unit/10 Ml Vial, 0 SQ DIRECTED for Blood Sugar Management, #10 ML 0 Refills Sliding Scale As Directed. 05/21/17 Buspirone (Buspirone) 15 Mg Tab, 15 MG PO TID for Anxiety, TAB 0 Refills 09/07/16 Sertraline (Zoloft) 50 Mg Tab, 50 MG PO BID, #30 TAB 0 Refills 09/07/16 Probiotic Product (Acidophilus Probiotic) 1 Tab Tab, 1 TAB PO TID 09/07/[address] (Ferrous Sulfate ) 325 Mg Tabdr, 325 MG PO BID for ANEMIA 09/07/16 Cholecalciferol (Vitamin D3 400) 400 Unit Cap, 400 UNITS PO HS 09/07/16 Calcium Carbonate (Calcium) 600 Mg Tab, 600 MG PO BID 09/07/16 [place]-3 Fatty Acids (Fish Oil 1000 mg) 1 Cap Cap, 2000 MG PO HS 09/07/16 Cinnamon (Hm Cinnamon) Unknown Strength Cap, 1 CAP PO HS 09/07/16 Furosemide (Lasix) 20 Mg Tab, 10 MG PO DAILY, #60 TAB 0 Refills 09/07/16 Atenolol (Atenolol) 25 Mg Tab, 25 MG PO BID for Blood Pressure Management, #60 TAB 0 Refills 09/07/[address] (Aspirin ) 81 Mg Tabdr, 81 MG PO HS, TAB 0 Refills 09/07/16 Clopidogrel (Plavix) 75 Mg Tab, 75 MG PO HS for Blood Clot Prevention, #30 TAB 0 Refills 09/07/16 Levothyroxine (Levothyroxine) 75 Mcg Tab, 275 MCG PO DAILY for Thyroid, #30 TAB 0 Refills Take 1 tablet (75mcg) with 200mcg tablet for a total dose of 275mcg 09/07/16 Levothyroxine (Levothyroxine) 200 Mcg Tab, 275 MCG PO DAILY for Thyroid, #30 TAB 0 Refills Take 1 tablet (200mcg) with 75mcg tablet for a total dose of 275mcg 09/07/16 Biotin (Biotin) 5 Mg Tab, 5 MG PO HS, #1 BOTTLE 09/07/16 Simvastatin (Zocor) 40 Mg Tab, 40 MG PO HS for Cholesterol Management, #30 TAB 0 Refills 09/07/16 Gabapentin (Gabapentin) 600 Mg Tab, 600 MG PO TID for NEUROPATHY, #90 TAB 0 Refills 09/07/16 Current Medications Medications (Trade) Dose Ordered Sig/Guillaume Route Start Time Stop Time Status Last Admin (NS Flush) 2 ml UNSCH PRN IV FLUSH 05/21/17 17:30 (NS Flush) 2 ml BID IV FLUSH 05/21/17 21:00 06/22/17 09:00 (Tylenol) 650 mg Q4H PRN PO 05/21/17 17:30 (Zofran Inj) 4 mg Q6H PRN IVP 05/21/17 17:30 06/04/17 01:55 (Milk Of Magnesia Liq) 30 ml Q12H PRN PO 05/21/17 17:30 (Dulcolax Supp) 10 mg DAILY PRN RECTAL 05/21/17 17:30 (Lotrimin 1% Cream) 1 applic BID TOPICAL 05/21/17 17:30 06/22/17 09:00 (Ecotrin Ec) 81 mg HS PO 05/21/17 21:00 06/21/17 19:57 (Buspar) 15 mg TID PO 05/22/17 09:00 06/22/17 12:09 (Plavix) 75 mg HS PO 05/21/17 21:00 Future Hold 06/08/17 22:10 (Zoloft) 50 mg BID PO 05/21/17 21:00 06/22/17 09:04 (Tums Chew) 500 mg BID PO 05/21/17 21:00 06/22/17 09:04 (Vitamin D3) 400 units HS PO 05/21/17 21:00 06/21/17 19:56 (Ferrous Sulfate) 325 mg BID PO 05/21/17 21:00 Future Hold 05/27/17 20:36 (Protonix) 40 mg DAILY PO 05/22/17 09:00 06/22/17 09:05 (Tylenol) 650 mg Q6H PRN PO 05/21/17 23:30 (Narcan Inj) 0.4 mg UNSCH PRN IV PUSH 05/21/17 23:30 Sodium Chloride 1,000 ml @ 185 mls/hr Q5H25M IV 05/23/17 09:00 Future Hold 05/26/17 09:42 (My-Colace) 2 tab BID PO 05/24/17 21:00 06/22/17 09:05 (Lactulose Liq) 30 ml BID PRN PO 05/27/17 12:30 05/27/17 20:35 (Miralax) 17 gm DAILY PO 05/28/17 10:00 06/21/17 08:36 (Tenormin) 25 mg DAILY PO 05/30/17 09:00 06/22/17 09:05 (Synthroid) 200 mcg DAILY@0600 PO 06/03/17 06:00 06/22/17 06:16 (Synthroid) 25 mcg DAILY@0600 PO 06/03/17 06:00 06/22/17 06:17 (Lactinex) 1 tab Q12HR PO 06/03/17 21:00 06/22/17 09:05 (D50w (Vial) Inj) 50 ml UNSCH PRN IV PUSH 06/04/17 15:15 (Glucagon Inj) 1 mg UNSCH PRN OTHER 06/04/17 15:15 (NovoLOG INJ) 9 units TIDAC SQ 06/08/17 17:00 06/22/17 12:40 (Heparin Inj) 5,000 units Q8H SQ 06/09/17 18:00 06/22/17 09:37 (Pill Splitter) 1 ea UNSCH PRN OTHER 06/12/17 14:45 ([place] 10-325 Mg) 1 tab Q6H PRN PO 06/13/17 14:45 06/22/17 06:17 ([place] 5-325 Mg) 1 tab Q6H PRN PO 06/13/17 14:45 (Ativan) 0.25 mg HS PO 06/13/17 21:00 06/21/17 19:57 (Levemir Inj) 42 units Q12HR SQ 06/17/17 21:00 06/22/17 09:34 Family Psych History No family psychiatric history Social History Patient was born and raised in [place], she lives alone, she is , has 4 kids Patient's Strengths (min. 2) verbal communication Physical Exam Vital Signs Vital Signs Date Time Temp Pulse Resp B/P (MAP) Pulse Ox O2 Delivery O2 Flow Rate FiO2 06/22/17 08:00 97.2 79 16 110/73 (85) 99 06/22/17 07:00 Room Air 06/22/17 00:00 2.00 06/20/17 10:25 21 I/O 06/22/17 06/22/17 06/23/17 08:00 16:00 00:00 Intake Total 200 ml Balance 200 ml Lab Results Test 06/22/17 04:51 06/22/17 05:20 Blood Urea Nitrogen 35 MG/DL Creatinine 1.50 MG/DL Random Glucose 161 MG/DL Total Protein 7.7 GM/DL Albumin 3.6 GM/DL Calcium Level 9.7 MG/DL Alkaline Phosphatase 77 U/L Aspartate Amino Transf (AST/SGOT) 19 U/L Alanine Aminotransferase (ALT/SGPT) 26 U/L Total Bilirubin 0.4 MG/DL Sodium Level 137 MEQ/L Potassium Level 4.2 MEQ/L Chloride Level 99 MEQ/L Carbon Dioxide Level 29.0 MEQ/L Anion Gap 9 MEQ/L Estimat Glomerular Filtration Rate 36 ML/MIN White Blood Count 8.2 TH/MM3 Red Blood Count 4.13 MIL/MM3 Hemoglobin 14.1 GM/DL Hematocrit 40.9 % Mean Corpuscular Volume 99.0 FL Mean Corpuscular Hemoglobin 34.1 PG Mean Corpuscular Hemoglobin Concent 34.4 % Red Cell Distribution Width 13.1 % Platelet Count 225 TH/MM3 Mean Platelet Volume 8.2 FL Neutrophils (%) (Auto) 54.7 % Lymphocytes (%) (Auto) 31.4 % Monocytes (%) (Auto) 9.4 % Eosinophils (%) (Auto) 3.6 % Basophils (%) (Auto) 0.9 % Neutrophils # (Auto) 4.5 TH/MM3 Lymphocytes # (Auto) 2.6 TH/MM3 Monocytes # (Auto) 0.8 TH/MM3 Eosinophils # (Auto) 0.3 TH/MM3 Basophils # (Auto) 0.1 TH/MM3 CBC Comment DIFF FINAL Differential Comment Date/Time Source Procedure Growth Status 05/21/17 14:21 Blood Peripheral Aerobic Blood Culture - Final NO GROWTH IN 5 DAYS Complete 05/21/17 14:21 Blood Peripheral Anaerobic Blood Culture - Final NO GROWTH IN 5 DAYS Complete 05/24/17 18:50 Urine Clean Catch Urine Culture - Final 10-50,000 CFU/ML MIXED GRAM POSITIVE ... Complete Mental Status Examination Appearance: Appropriate Consciousness: Alert Orientation: x4 Motor Activity: Normal gait Speech: Unremarkable Language: Adequate Fund of Knowledge: Adequate Attention and Concentration: Adequate Memory: Unremarkable Mood: Appropriate Affect: Appropriate Thought Process & Associations: Intact Thought Content: Appropriate Hallucination Type: None Delusion Type: None Suicidal Ideation: No Suicidal Plan: No Suicidal Intention: No Homicidal Ideation: No Homicidal Plan: No Homicidal Intention: No Insight: Adequate Judgment: Adequate Assessment & Plan Problem List: (1) Adjustment disorder with mixed anxiety and depressed mood ICD Codes: F43.23 - Adjustment disorder with mixed anxiety and depressed mood Assessment & Plan: A psychiatric evaluation today the patient reports feeling sad and anxious in the context of hospitalization and underlying medical conditions. The patient also has a persistent sense of abandonment by family and friends with an increased sensitivity to rejection and frustration. She denies hopelessness, denies helplessness, denies anhedonia, denies suicidal enemas ideation, denies visual and auditory hallucinations. He does report difficulty sleeping at night and increased anxiety. Patient plans is to get better and go back to [place] to live with her youngest son. She is fully oriented 3, no gross cognitive impairment present. I will increase the Zoloft 100 mg. Will put the patient in a low dose of clonazepam, 0.5 mg twice daily for anxiety. Brief supportive psychotherapy provided. Assessment & Plan Estimated LOS: Marcelo Sotelo MD June 22, 2017 14:25
[2017-06-22 16:00] VITALS: BP 130/73; PULSE 74; RESP 18; TEMP 97.3; O2SAT 97
[2017-06-22] MEDS: LORazepam 0.5 MG TAB PO SCH (20:24)
[2017-06-22] MEDS: CHOLECALCIFEROL (VIT D3) 400 UNIT TAB PO SCH (20:24)
[2017-06-22] MEDS: ASPIRIN EC 81 MG TABEC PO SCH (20:24)
[2017-06-22 23:45] VITALS: BP 117/63; PULSE 74; RESP 16; TEMP 98.4; O2SAT 95
[2017-06-23] MEDS: HEPARIN SODIUM - SQ 10,000 UNITS/ML VIAL SQ SCH ×3 (02:53→17:13)
[2017-06-23] MEDS: ACETAMINOPHEN/HYDROcodone 325 MG/10 MG TAB PO PRN ×4 (03:51→22:23)
[2017-06-23 03:55] VITALS: BP 124/68; PULSE 69; RESP 16; TEMP 97.5; O2SAT 98
[2017-06-23] MEDS: LEVOTHYROXINE SODIUM 200 MCG TAB PO SCH (05:00)
[2017-06-23] MEDS: LEVOTHYROXINE SODIUM 25 MCG TAB PO SCH (05:00)
[2017-06-23 08:00] VITALS: BP 124/75; PULSE 75; RESP 16; TEMP 97.9; O2SAT 99
[2017-06-23] MEDS: SERTRALINE HCL 50 MG TAB PO SCH (08:24)
[2017-06-23] MEDS: PANTOPRAZOLE SOD 40 MG DELAYED RELEASE TAB PO SCH (08:24)
[2017-06-23] MEDS: POLYETHYLENE GLYCOL 17 GM PKG PO SCH (08:25)
[2017-06-23] MEDS: busPIRone HCL 5 MG TAB PO SCH ×3 (08:25→17:13)
[2017-06-23] MEDS: LACTOBACILLUS ACIDOPHILUS TAB PO SCH ×2 (08:25→21:34)
[2017-06-23] MEDS: DOCUSATE SODIUM 50 MG/SENNA 8.6 MG TAB PO SCH ×2 (08:25→21:00)
[2017-06-23] MEDS: INSULIN ASPART 1,000 UNITS/10 ML VIAL SQ SCH ×3 (08:26→17:14)
[2017-06-23] MEDS: ATENOLOL 25 MG TAB PO SCH (08:26)
[2017-06-23] MEDS: CALCIUM CARBONATE 500 MG CHEWABLE TAB PO SCH ×2 (08:26→21:35)
[2017-06-23] MEDS: SODIUM CHLORIDE 0.9% FLUSH 10 ML FLUSH IV FLUSH SCH ×2 (08:26→21:38)
[2017-06-23] MEDS: CLOTRIMAZOLE 1% CREAM 15 GM TOPICAL SCH ×2 (08:27→21:00)
[2017-06-23] MEDS: INSULIN DETEMIR 100 UNITS/ML VIAL SQ SCH ×2 (08:27→21:35)
--- NOTE | 2017-06-23 10:48 | HHI.FPPN ---
Subjective Remarks Patient seen and examined today. Denies any significant change from yesterday. Patient reports she has been calling nursing facilities to see if she could gain admission. She has been unsuccessful. No other acute changes today. (Daniel Butcher MD R1) Objective Vitals Vital Signs Date Time Temp Pulse Resp B/P (MAP) Pulse Ox O2 Delivery O2 Flow Rate FiO2 06/23/17 08:00 97.9 75 16 124/75 (91) 99 06/23/17 03:55 97.5 69 16 124/68 (86) 98 06/22/17 23:45 98.4 74 16 117/63 (81) 95 06/22/17 23:45 98.4 74 16 117/63 (81) 95 06/22/17 20:25 Room Air 06/22/17 16:00 97.3 74 18 130/73 (92) 97 06/22/17 12:00 97.8 73 16 104/70 (81) 99 I/O 06/22/17 06/22/17 06/22/17 06/23/17 06/23/17 06/23/17 07:00 15:00 23:00 07:00 15:00 23:00 Intake Total 200 ml 840 ml 240 ml Output Total 350 ml Balance 200 ml 490 ml 240 ml Intake Oral 200 ml 840 ml 240 ml Output Urine Total 350 ml # Voids 4 4 # Bowel Movements 0 1 1 (Daniel Butcher MD R1) Result Diagram: 06/22/17 0520 06/22/17 0451 Objective Remarks GENERAL: Well-nourished, morbidly obese white female patient, laying in bed, in NAD. SKIN: Warm and dry/flaky. CARDIOVASCULAR: Heart sounds distant. Regular rate and rhythm without murmurs, gallops, or rubs. RESPIRATORY: Breath sounds equal bilaterally and clear. No accessory muscle use. No crackles or wheezes. GASTROINTESTINAL: Abdomen soft, obese, nondistended. EXTREMITIES: Trace edema of BLE. non tender calves BL. NEUROLOGICAL: Grossly non-focal. PSYCH: tearful (Daniel Butcher MD R1) A/P Assessment and Plan 56 year old female with hypertension, hypothyroidism presenting with severely uncontrolled hypothyroidism, deconditioning, multiple falls. Discharge Planning Pending case management placement at rehab facility, which is extremely difficult given her lack of insurance/self-pay status, her current functional disability, lack of social support. Per conversation with case management, patient either needs improved mobility or family participation. (Daniel Butcher MD R1) Attending Attestation Patient seen and examined. Case reviewed and discussed with the resident team. Agree with plan of care as discussed with me and documented in the resident note. (Ilda Garcia MD) Problem List: (1) Severe hypothyroidism ICD Codes: E03.8 - Other specified hypothyroidism Status: Acute Plan: Improving symptomatically with meds as listed T4 now wnl TSH in detectable range -Endocrinology consulted, appreciate recommendations -Continue levothyroxine 225 mcg daily -Recommended recheck of T4, TSH in 2 weeks; follow-up TSH was 52.1, T4 was 1.22. Improved from before. -Signed off due to patient anticipated to be transferred, available as needed for continued input (2) Weakness ICD Codes: R53.1 - Weakness Status: Chronic Plan: Likely multifactorial with a large component of deconditioning. Continue PT -Assessment stated that falls likely due to a combination of weakness, but also poor lower extremity sensation. -PT recommended against Sofcare bed -Will need to use a bariatric wheeled walker for safe ambulation -Recommended PT at rehab -C/w PT BID while in the hospital for 7 days a week -Patient remain a high fall risk. Working on safe discharge plan which will require ability to transfer. Rehab medicine consulted, recs appreciated -Needs to be able to do self-transfers or min assist transfers in order to meet criteria for short-term daniel bed at [facility] Rehab facility denied transfer patient as they report that she needs to have a concrete discharge plan following rehab prior to acceptance and her sons have not made a commitment. (3) Depression ICD Codes: F32.9 - Major depressive disorder, single episode, unspecified Status: Chronic Plan: -continue home Zoloft, BuSpar -Ativan prn for anxiety -Psychiatry consult (4) Diabetes mellitus ICD Codes: E11.9 - Type 2 diabetes mellitus without complications Status: Chronic Plan: BSG 164-288 Hold home insulin glargine. She reported taking no short acting insulin at home for months only long acting. HbA1c is 12.5 -Accuchecks ACHS -Levemir 42 units BID -Novolog 9 units TIDAC -Blood pressure well controlled, however should consider starting an reji-I for renal protection (5) Hypertension ICD Codes: I10 - Essential (primary) hypertension Status: Chronic Plan: Stable, continue atenolol 25 mg daily continue to monitor (6) Chronic kidney disease ICD Codes: N18.9 - Chronic kidney disease, unspecified Status: Chronic Plan: Baseline ~1.3. Creatinine stable. (7) Hyperlipidemia ICD Codes: E78.5 - Hyperlipidemia, unspecified Status: Chronic Plan: CK wnl -starting atorvastatin today (8) Nutrition, metabolism, and development symptoms ICD Codes: R63.8 - Other symptoms and signs concerning food and fluid intake Status: Acute Plan: Fluids: tolerating po Electrolytes: continue to monitor Nutrition: 1800 ADA GI ppx: Protonix 40 mg po daily DVT ppx: Heparin 5,000 units sq q8h Dispo: Complicated due to self-pay status and risk of falls. 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
[2017-06-23 12:00] VITALS: BP 97/57; PULSE 72; RESP 16; TEMP 97.8; O2SAT 97
[2017-06-23 16:00] VITALS: BP 116/62; PULSE 67; RESP 16; TEMP 97.7; O2SAT 97
[2017-06-23 19:55] VITALS: BP 114/56; PULSE 74; RESP 18; TEMP 98.2; O2SAT 95
[2017-06-23] MEDS: CHOLECALCIFEROL (VIT D3) 400 UNIT TAB PO SCH (21:34)
[2017-06-23] MEDS: ASPIRIN EC 81 MG TABEC PO SCH (21:35)
[2017-06-23] MEDS: LORazepam 0.5 MG TAB PO SCH (21:35)
[2017-06-23 23:18] VITALS: BP 120/63; PULSE 70; RESP 20; TEMP 97.8; O2SAT 98
[2017-06-24] MEDS: HEPARIN SODIUM - SQ 10,000 UNITS/ML VIAL SQ SCH ×3 (02:00→17:18)
[2017-06-24 04:10] VITALS: BP 126/60; PULSE 74; RESP 18; TEMP 98; O2SAT 95
[2017-06-24] MEDS: ACETAMINOPHEN/HYDROcodone 325 MG/10 MG TAB PO PRN ×4 (04:29→23:15)
[2017-06-24] MEDS: LEVOTHYROXINE SODIUM 25 MCG TAB PO SCH (05:05)
[2017-06-24] MEDS: LEVOTHYROXINE SODIUM 200 MCG TAB PO SCH (05:05)
[2017-06-24 08:00] VITALS: BP 138/73; PULSE 77; RESP 22; TEMP 97.9; O2SAT 97
[2017-06-24] MEDS: INSULIN ASPART 1,000 UNITS/10 ML VIAL SQ SCH ×3 (08:00→17:17)
[2017-06-24] MEDS: POLYETHYLENE GLYCOL 17 GM PKG PO SCH (09:00)
[2017-06-24] MEDS: ATENOLOL 25 MG TAB PO SCH (09:21)
[2017-06-24] MEDS: DOCUSATE SODIUM 50 MG/SENNA 8.6 MG TAB PO SCH ×2 (09:21→21:00)
[2017-06-24] MEDS: LACTOBACILLUS ACIDOPHILUS TAB PO SCH ×2 (09:21→21:47)
[2017-06-24] MEDS: PANTOPRAZOLE SOD 40 MG DELAYED RELEASE TAB PO SCH (09:21)
[2017-06-24] MEDS: CALCIUM CARBONATE 500 MG CHEWABLE TAB PO SCH ×2 (09:21→21:47)
[2017-06-24] MEDS: busPIRone HCL 5 MG TAB PO SCH ×3 (09:22→17:17)
[2017-06-24] MEDS: SERTRALINE HCL 50 MG TAB PO SCH (09:22)
[2017-06-24] MEDS: INSULIN DETEMIR 100 UNITS/ML VIAL SQ SCH ×2 (09:23→21:00)
[2017-06-24] MEDS: CLOTRIMAZOLE 1% CREAM 15 GM TOPICAL SCH ×2 (09:23→21:00)
[2017-06-24] MEDS: SODIUM CHLORIDE 0.9% FLUSH 10 ML FLUSH IV FLUSH SCH ×2 (09:24→21:47)
--- NOTE | 2017-06-24 10:10 | HHI.FPPN ---
Subjective Remarks No acute events overnight. Afebrile vital signs stable overnight. Patient complains of acute on chronic back and left leg pain. She reports that the bed is horrible. She is requesting a new bed. Discussed with nursing. She is also complaining of left shoulder and arm pain. She reports that when she fell she fell on outstretched hand and think she hurt her rotator cuff of her left shoulder. She reports that she is not sleeping well secondary to pain. We discussed discharge planning. She requested that I no longer ask her ever again about contacting her family members in [place]. She was unwilling to discuss why. She also reported that she is attempting to file for disability in [place]. She reported that she wants to file for Medicaid. Discussed with case management rn. The case management rn said that she is applying for disability in [place], she is also applying for Medicaid there. Patient reported that she was told by her structural layout worker that disability and Medicaid are 2 separate things. I instructed her to call her structural layout worker to clarify because as far as we know, she is following for Medicaid in [place]. (Daniel Trejo MD R2) Objective Vitals Vital Signs Date Time Temp Pulse Resp B/P (MAP) Pulse Ox O2 Delivery O2 Flow Rate FiO2 06/24/17 08:00 97.9 77 22 138/73 (94) 97 06/24/17 05:42 18 06/24/17 04:10 98.0 74 18 126/60 (82) 95 06/24/17 04:00 Nasal Cannula 2.00 06/24/17 00:00 Nasal Cannula 2.00 06/23/17 23:18 97.8 70 20 120/63 (82) 98 06/23/17 21:40 Room Air 06/23/17 19:55 98.2 74 18 114/56 (75) 95 06/23/17 16:00 97.7 67 16 116/62 (80) 97 06/23/17 12:00 97.8 72 16 97/57 (70) 97 I/O 06/23/17 06/23/17 06/23/17 06/24/17 06/24/17 06/24/17 07:00 15:00 23:00 07:00 15:00 23:00 Intake Total 240 ml 600 ml 120 ml Balance 240 ml 600 ml 120 ml Intake Oral 240 ml 600 ml 120 ml # Voids 4 2 4 # Bowel Movements 1 1 0 (Daniel Trejo MD R2) Result Diagram: 06/22/17 0520 06/22/17 0451 Imaging Last Impressions Hip X-Ray 05/26/17 0000 Signed Impressions: Service Date/Time: Friday, May 26, 2017 15:13 - CONCLUSION: Degenerative changes, no fracture Jermaine Gutierres MD FACR Liver Ultrasound 05/25/17 0000 Signed Impressions: Service Date/Time: May 16:28 - CONCLUSION: 1. Mild hepatomegaly. 2. Status post cholecystectomy. 3. No evidence of acute process or biliary obstructive disease. 4. Calcified granuloma in the spleen. Valerio Salcedo MD Lumbar Spine CT 05/22/17 0000 Signed Impressions: Service Date/Time: Sunday, May 21, 2017 14:36 - CONCLUSION: 1. Moderate stenosis at the L4-L5 level caused by combination of anterior subluxation/spondylolisthesis, disc bulge, and severe facet hypertrophy. 2. Moderate stenosis at the T11-T12 level by a central disc protrusion with osteophytes. 3. Moderate disc bulge and mild stenosis at the L5-S1 level. 4. Minimal bulging at the L1-L2 and L2-L3 levels. 1. Gurvinder Steinberg MD Chest X-Ray 05/21/17 1345 Signed Impressions: Service Date/Time: Sunday, May 21, 2017 13:57 - CONCLUSION: No acute disease. Gurvinder Frazier MD Abdomen/Pelvis CT 05/21/17 1345 Signed Impressions: Service Date/Time: Sunday, May 21, 2017 14:36 - CONCLUSION: No acute CT findings in the abdomen or pelvis. Gurvinder Frazier MD Renal Ultrasound 05/21/17 0000 Signed Impressions: Service Date/Time: Sunday, May 21, 2017 18:12 - CONCLUSION: No acute disease. Gurvinder Steinberg MD Objective Remarks GENERAL: Well-nourished, morbidly obese white female patient, laying in bed, tearful secondary to pain. SKIN: Warm and dry/flaky. CARDIOVASCULAR: Heart sounds distant. Regular rate and rhythm without murmurs, gallops, or rubs. RESPIRATORY: Breath sounds equal bilaterally and clear. No accessory muscle use. No crackles or wheezes. GASTROINTESTINAL: Abdomen soft, obese, nontender, nondistended. EXTREMITIES: Patient is unable to extend/abduct her arm even 90. Trace edema of BLE. non tender calves BL. BACK: Tenderness to palpation over left SI joint. Patient reports that pain radiates laterally from there. NEUROLOGICAL: Grossly non-focal. PSYCH: tearful (Daniel Trejo MD R2) A/P Assessment and Plan 56 year old female with hypertension, hypothyroidism presenting with severely uncontrolled hypothyroidism, deconditioning, multiple falls. Discharge Planning Pending case management placement at rehab facility, which is extremely difficult given her lack of insurance/self-pay status, her current functional disability, lack of social support. Per conversation with case management, patient either needs improved mobility or family participation or Medicaid. (Daniel Trejo MD R2) Attending Attestation Case reviewed and discussed with the resident team. Agree with plan of care as discussed with me and documented in the resident note. (Ilad Garcia MD) Problem List: (1) Pain ICD Codes: R52 - Pain, unspecified Status: Acute Plan: -Hydrocodone acetaminophen as needed for pain, breakthrough pain -Ambien as needed to help her sleep (2) Severe hypothyroidism ICD Codes: E03.8 - Other specified hypothyroidism Status: Acute Plan: Improving symptomatically with meds as listed T4 now wnl TSH in detectable range -Endocrinology consulted, appreciate recommendations -Continue levothyroxine 225 mcg daily -Recommended recheck of T4, TSH in 2 weeks; follow-up TSH was 52.1, T4 was 1.22. Improved from before. -Signed off due to patient anticipated to be transferred, available as needed for continued input (3) Weakness ICD Codes: R53.1 - Weakness Status: Chronic Plan: Likely multifactorial with a large component of deconditioning. Continue PT -Assessment stated that falls likely due to a combination of weakness, but also poor lower extremity sensation. -PT recommended against Sofcare bed -Will need to use a bariatric wheeled walker for safe ambulation -Recommended PT at rehab -C/w PT BID while in the hospital for 7 days a week -Patient remain a high fall risk. Working on safe discharge plan which will require ability to transfer. Rehab medicine consulted, recs appreciated -Needs to be able to do self-transfers or min assist transfers in order to meet criteria for short-term daniel bed at [facility] Rehab facility denied transfer patient as they report that she needs to have a concrete discharge plan following rehab prior to acceptance and her sons have not made a commitment. (4) Depression ICD Codes: F32.9 - Major depressive disorder, single episode, unspecified Status: Chronic Plan: -Zoloft increased per psychiatry -continue home BuSpar -Ativan prn for anxiety -Psychiatry consult appreciated (5) Diabetes mellitus ICD Codes: E11.9 - Type 2 diabetes mellitus without complications Status: Chronic Plan: BSG 164-288 Hold home insulin glargine. She reported taking no short acting insulin at home for months only long acting. HbA1c is 12.5 -Accuchecks ACHS -Levemir 42 units BID -Novolog 9 units TIDAC -Blood pressure well controlled, however should consider starting an reji-I for renal protection (6) Hypertension ICD Codes: I10 - Essential (primary) hypertension Status: Chronic Plan: Stable, continue atenolol 25 mg daily continue to monitor (7) Chronic kidney disease ICD Codes: N18.9 - Chronic kidney disease, unspecified Status: Chronic Plan: Baseline ~1.3. Creatinine stable. (8) Hyperlipidemia ICD Codes: E78.5 - Hyperlipidemia, unspecified Status: Chronic Plan: CK wnl -starting atorvastatin today (9) Nutrition, metabolism, and development symptoms ICD Codes: R63.8 - Other symptoms and signs concerning food and fluid intake Status: Acute Plan: Fluids: tolerating po Electrolytes: continue to monitor Nutrition: 1800 ADA GI ppx: Protonix 40 mg po daily DVT ppx: Heparin 5,000 units sq q8h Dispo: Complicated due to self-pay status and risk of falls. (Daniel Trejo MD R2) Problem Qualifiers (1) Diabetes mellitus: Qualified Codes: E11.42 - Type 2 diabetes mellitus with diabetic polyneuropathy ; Z79.4 - jail (current) use of insulin (2) Hypertension: Qualified Codes: I10 - Essential (primary) hypertension (3) Hyperlipidemia: Qualified Codes: E78.00 - Pure hypercholesterolemia, unspecified Daniel Trejo MD R2 June 24, 2017 10:10 Ilda Garcia MD June 25, 2017 07:07
[2017-06-24] MEDS ORDERED: ZOLPIDEM TARTRATE 5 MG TAB PO PRN (10:15)
[2017-06-24 12:00] VITALS: BP 101/59; PULSE 69; RESP 21; TEMP 98.2; O2SAT 96
[2017-06-24] MEDS: ACETAMINOPHEN/HYDROcodone 325 MG/5 MG TAB PO PRN (12:28)
[2017-06-24 16:00] VITALS: BP 152/79; PULSE 64; RESP 20; TEMP 97.9; O2SAT 93
[2017-06-24 20:00] VITALS: BP 151/65; PULSE 71; RESP 18; TEMP 98; O2SAT 96
[2017-06-24] MEDS: LORazepam 0.5 MG TAB PO SCH (21:47)
[2017-06-24] MEDS: ASPIRIN EC 81 MG TABEC PO SCH (21:47)
[2017-06-24] MEDS: CHOLECALCIFEROL (VIT D3) 400 UNIT TAB PO SCH (21:47)
[2017-06-25] VITALS: BP 112/62; PULSE 66; RESP 18; TEMP 98; O2SAT 95
[2017-06-25] MEDS: HEPARIN SODIUM - SQ 10,000 UNITS/ML VIAL SQ SCH ×3 (00:50→17:55)
[2017-06-25 04:00] VITALS: BP 114/57; PULSE 82; RESP 18; TEMP 97.7; O2SAT 97
[2017-06-25] MEDS: ACETAMINOPHEN/HYDROcodone 325 MG/5 MG TAB PO PRN ×4 (04:06→23:30)
[2017-06-25] MEDS: LEVOTHYROXINE SODIUM 200 MCG TAB PO SCH (06:27)
[2017-06-25] MEDS: LEVOTHYROXINE SODIUM 25 MCG TAB PO SCH (06:27)
[2017-06-25] MEDS: ACETAMINOPHEN/HYDROcodone 325 MG/10 MG TAB PO PRN ×3 (06:27→19:42)
[2017-06-25 08:00] VITALS: BP 147/81; PULSE 75; RESP 16; TEMP 97.5; O2SAT 97
[2017-06-25] MEDS: POLYETHYLENE GLYCOL 17 GM PKG PO SCH (08:41)
[2017-06-25] MEDS: LACTOBACILLUS ACIDOPHILUS TAB PO SCH ×2 (08:42→19:43)
[2017-06-25] MEDS: ATENOLOL 25 MG TAB PO SCH (08:42)
[2017-06-25] MEDS: SERTRALINE HCL 50 MG TAB PO SCH (08:43)
[2017-06-25] MEDS: busPIRone HCL 5 MG TAB PO SCH ×3 (08:43→17:54)
[2017-06-25] MEDS: PANTOPRAZOLE SOD 40 MG DELAYED RELEASE TAB PO SCH (08:43)
[2017-06-25] MEDS: CALCIUM CARBONATE 500 MG CHEWABLE TAB PO SCH ×2 (08:43→19:42)
[2017-06-25] MEDS: SODIUM CHLORIDE 0.9% FLUSH 10 ML FLUSH IV FLUSH SCH ×2 (08:44→19:43)
[2017-06-25] MEDS: CLOTRIMAZOLE 1% CREAM 15 GM TOPICAL SCH ×2 (08:44→19:43)
[2017-06-25] MEDS: DOCUSATE SODIUM 50 MG/SENNA 8.6 MG TAB PO SCH ×2 (08:44→19:43)
[2017-06-25] MEDS: INSULIN DETEMIR 100 UNITS/ML VIAL SQ SCH ×2 (08:44→21:15)
[2017-06-25] MEDS: INSULIN ASPART 1,000 UNITS/10 ML VIAL SQ SCH ×3 (08:45→17:00)
--- NOTE | 2017-06-25 10:39 | HHI.FPPN ---
Subjective Remarks No acute events overnight. Afebrile and vital signs stable overnight. Patient reports using oxygen by nasal cannula helps with anxiety/panic attacks. She continues to complain of back pain, left leg weakness. She is requesting a new bed. She also reports that she worked with physical therapist who at one point had straps underneath her arms, so she is complaining of skin irritation under her left axilla. Patient will call her superannuation clerk tomorrow to clarify Medicaid application status. (Daniel Trejo MD R2) Objective Vitals Vital Signs Date Time Temp Pulse Resp B/P (MAP) Pulse Ox O2 Delivery O2 Flow Rate FiO2 06/25/17 10:38 Room Air 06/25/17 08:00 97.5 75 16 147/81 (103) 97 06/25/17 07:00 Nasal Cannula 2.00 06/25/17 04:53 Nasal Cannula 2.00 06/25/17 04:00 97.7 82 18 114/57 (76) 97 06/25/17 00:01 Room Air 06/25/17 00:00 98.0 66 18 112/62 (79) 95 06/24/17 20:00 Room Air 06/24/17 20:00 98.0 71 18 151/65 (93) 96 06/24/17 16:00 97.9 64 20 152/79 (103) 93 06/24/17 12:00 98.2 69 21 101/59 (73) 96 I/O 06/24/17 06/24/17 06/24/17 06/25/17 06/25/17 06/25/17 07:00 15:00 23:00 07:00 15:00 23:00 Intake Total 120 ml 880 ml 120 ml Balance 120 ml 880 ml 120 ml Intake Oral 120 ml 880 ml 120 ml # Voids 4 2 4 # Bowel Movements 0 0 (Daniel Trejo MD R2) Result Diagram: 06/22/17 0520 06/22/17 0451 Imaging Last Impressions Hip X-Ray 05/26/17 0000 Signed Impressions: Service Date/Time: Friday, May 26, 2017 15:13 - CONCLUSION: Degenerative changes, no fracture Jermaine Gutierres MD FACR Liver Ultrasound 05/25/17 0000 Signed Impressions: Service Date/Time: May 16:28 - CONCLUSION: 1. Mild hepatomegaly. 2. Status post cholecystectomy. 3. No evidence of acute process or biliary obstructive disease. 4. Calcified granuloma in the spleen. Valerio Salcedo MD Lumbar Spine CT 05/22/17 0000 Signed Impressions: Service Date/Time: Sunday, May 21, 2017 14:36 - CONCLUSION: 1. Moderate stenosis at the L4-L5 level caused by combination of anterior subluxation/spondylolisthesis, disc bulge, and severe facet hypertrophy. 2. Moderate stenosis at the T11-T12 level by a central disc protrusion with osteophytes. 3. Moderate disc bulge and mild stenosis at the L5-S1 level. 4. Minimal bulging at the L1-L2 and L2-L3 levels. 1. Gurvinder Steinberg MD Chest X-Ray 05/21/17 1345 Signed Impressions: Service Date/Time: Sunday, May 21, 2017 13:57 - CONCLUSION: No acute disease. Gurvinder Frazier MD Abdomen/Pelvis CT 05/21/17 1345 Signed Impressions: Service Date/Time: Sunday, May 21, 2017 14:36 - CONCLUSION: No acute CT findings in the abdomen or pelvis. Gurvinder Frazier MD Renal Ultrasound 05/21/17 0000 Signed Impressions: Service Date/Time: Sunday, May 21, 2017 18:12 - CONCLUSION: No acute disease. Gurvinder Steinberg MD Objective Remarks GENERAL: Well-nourished, morbidly obese white female patient, laying in bed in no acute distress SKIN: Warm and dry/flaky. Skin breakdown in her left axilla with patches of mildly ulcerated erythema with minimal white discharge. CARDIOVASCULAR: Heart sounds distant. Regular rate and rhythm without murmurs, gallops, or rubs. RESPIRATORY: Breath sounds equal bilaterally and clear. No accessory muscle use. No crackles or wheezes. GASTROINTESTINAL: Abdomen soft, obese, nontender, nondistended. EXTREMITIES: Patient is unable to extend/abduct her arm even 90. 3 out of 5 strength of left hip flexor. 4 out of 5 strength in right hip flexor. Trace edema of BLE. non tender calves BL. BACK: Tenderness to palpation over left SI joint. NEUROLOGICAL: Grossly non-focal. PSYCH: tearful (Daniel Trejo MD R2) A/P Assessment and Plan 56 year old female with hypertension, hypothyroidism presenting with severely uncontrolled hypothyroidism, deconditioning, multiple falls. Discharge Planning Pending case management placement at rehab facility, which is extremely difficult given her lack of insurance/self-pay status, her current functional disability, lack of social support. Per conversation with case management, patient either needs improved mobility or family participation or Medicaid. (Daniel Trejo MD R2) Attending Attestation Case reviewed and discussed with the resident team. Agree with plan of care as discussed with me and documented in the resident note. (Ilda Garcia MD) Problem List: (1) Pain ICD Codes: R52 - Pain, unspecified Status: Acute Plan: -Hydrocodone acetaminophen as needed for pain, breakthrough pain -Ambien as needed to help her sleep -Requesting change of bed (2) Severe hypothyroidism ICD Codes: E03.8 - Other specified hypothyroidism Status: Acute Plan: Improving symptomatically with meds as listed T4 now wnl TSH in detectable range -Endocrinology consulted, appreciate recommendations -Continue levothyroxine 225 mcg daily -Recommended recheck of T4, TSH in 2 weeks; follow-up TSH was 52.1, T4 was 1.22. Improved from before. -Signed off due to patient anticipated to be transferred, available as needed for continued input (3) Weakness ICD Codes: R53.1 - Weakness Status: Chronic Plan: Likely multifactorial with a large component of deconditioning. Continue PT -Assessment stated that falls likely due to a combination of weakness, but also poor lower extremity sensation. -PT recommended against Sofcare bed -Will need to use a bariatric wheeled walker for safe ambulation -Recommended PT at rehab -C/w PT BID while in the hospital for 7 days a week -Patient remain a high fall risk. Working on safe discharge plan which will require ability to transfer. Rehab medicine consulted, recs appreciated -Needs to be able to do self-transfers or min assist transfers in order to meet criteria for short-term daniel bed at [facility] Rehab facility denied transfer patient as they report that she needs to have a concrete discharge plan following rehab prior to acceptance and her sons have not made a commitment. (4) Depression ICD Codes: F32.9 - Major depressive disorder, single episode, unspecified Status: Chronic Plan: -Zoloft increased per psychiatry -continue home BuSpar -Ativan prn for anxiety -Psychiatry consult appreciated (5) Diabetes mellitus ICD Codes: E11.9 - Type 2 diabetes mellitus without complications Status: Chronic Plan: BSG 164-288 Hold home insulin glargine. She reported taking no short acting insulin at home for months only long acting. HbA1c is 12.5 -Accuchecks ACHS -Levemir 42 units BID -Novolog 9 units TIDAC -Blood pressure well controlled, however should consider starting an reji-I for renal protection (6) Hypertension ICD Codes: I10 - Essential (primary) hypertension Status: Chronic Plan: Stable, continue atenolol 25 mg daily continue to monitor (7) Chronic kidney disease ICD Codes: N18.9 - Chronic kidney disease, unspecified Status: Chronic Plan: Baseline ~1.3. Creatinine stable. (8) Skin breakdown ICD Codes: L90.9 - Atrophic disorder of skin, unspecified Plan: At left axilla. -Petroleum jelly as needed (9) Hyperlipidemia ICD Codes: E78.5 - Hyperlipidemia, unspecified Status: Chronic Plan: CK wnl -starting atorvastatin today (10) Nutrition, metabolism, and development symptoms ICD Codes: R63.8 - Other symptoms and signs concerning food and fluid intake Status: Acute Plan: Fluids: tolerating po Electrolytes: continue to monitor Nutrition: 1800 ADA GI ppx: Protonix 40 mg po daily DVT ppx: Heparin 5,000 units sq q8h Dispo: Complicated due to self-pay status and risk of falls. (Daniel Trejo MD R2) Problem Qualifiers (1) Diabetes mellitus: Qualified Codes: E11.42 - Type 2 diabetes mellitus with diabetic polyneuropathy ; Z79.4 - longterm (current) use of insulin (2) Hypertension: Qualified Codes: I10 - Essential (primary) hypertension (3) Hyperlipidemia: Qualified Codes: E78.00 - Pure hypercholesterolemia, unspecified Daniel Trejo MD R2 June 25, 2017 10:39 Ilda Garcia MD June 25, 2017 21:33
[2017-06-25] MEDS ORDERED: PETROLATUM 30 GM TUBE TOPICAL PRN (10:45)
[2017-06-25 12:00] VITALS: BP 103/58; PULSE 75; RESP 17; TEMP 98; O2SAT 98
[2017-06-25 16:00] VITALS: BP 119/66; PULSE 74; RESP 16; TEMP 98.8; O2SAT 94
[2017-06-25] MEDS: LORazepam 0.5 MG TAB PO SCH (19:42)
[2017-06-25] MEDS: CHOLECALCIFEROL (VIT D3) 400 UNIT TAB PO SCH (19:42)
[2017-06-25] MEDS: ASPIRIN EC 81 MG TABEC PO SCH (19:43)
[2017-06-25 20:00] VITALS: BP 113/58; PULSE 80; RESP 17; TEMP 99; O2SAT 92
[2017-06-26] VITALS: BP 116/59; PULSE 69; RESP 17; TEMP 97.8; O2SAT 97
[2017-06-26] MEDS: HEPARIN SODIUM - SQ 10,000 UNITS/ML VIAL SQ SCH ×3 (01:24→16:23)
[2017-06-26] MEDS: ACETAMINOPHEN/HYDROcodone 325 MG/10 MG TAB PO PRN ×4 (02:43→22:12)
[2017-06-26 04:00] VITALS: BP 124/72; PULSE 84; RESP 17; TEMP 97.7; O2SAT 94
[2017-06-26 05:22] LABS: HEMATOCRIT 38.7 % (35.0-46.0); HEMOGLOBIN 13.4 GM/DL (11.6-15.3); MEAN CELL VOLUME 97.1 FL (80.0-100.0); MEAN CORPUSCULAR HEMOGLOBIN 33.7 PG (27.0-34.0); MEAN CORPUSCULAR HGB CONC 34.7 % (32.0-36.0); MEAN PLATELET VOLUME 8.1 FL (7.0-11.0); PLATELET COUNT 197 TH/MM3 (150-450); RED BLOOD COUNT 3.99 MIL/MM3 (4.00-5.30); RED CELL DISTRIBUTION WIDTH 12.9 % (11.6-17.2); WHITE BLOOD COUNT 7.1 TH/MM3 (4.0-11.0)
[2017-06-26 05:57] LABS: BICARBONATE 25.3 MEQ/L (21.0-32.0); CALCIUM 9.4 MG/DL (8.5-10.1); CREATININE 1.26 MG/DL (0.50-1.00)
[2017-06-26] MEDS: LEVOTHYROXINE SODIUM 200 MCG TAB PO SCH (06:16)
[2017-06-26] MEDS: ACETAMINOPHEN/HYDROcodone 325 MG/5 MG TAB PO PRN ×2 (06:16→11:59)
[2017-06-26] MEDS: LEVOTHYROXINE SODIUM 25 MCG TAB PO SCH (06:16)
[2017-06-26 08:00] VITALS: BP 130/75; PULSE 90; RESP 18; TEMP 97.5; O2SAT 93
[2017-06-26] MEDS: ATENOLOL 25 MG TAB PO SCH (09:00)
[2017-06-26] MEDS: PANTOPRAZOLE SOD 40 MG DELAYED RELEASE TAB PO SCH (09:06)
[2017-06-26] MEDS: POLYETHYLENE GLYCOL 17 GM PKG PO SCH (09:06)
[2017-06-26] MEDS: SERTRALINE HCL 50 MG TAB PO SCH (09:06)
[2017-06-26] MEDS: CALCIUM CARBONATE 500 MG CHEWABLE TAB PO SCH ×2 (09:06→20:42)
[2017-06-26] MEDS: busPIRone HCL 5 MG TAB PO SCH ×3 (09:06→16:21)
[2017-06-26] MEDS: LACTOBACILLUS ACIDOPHILUS TAB PO SCH ×2 (09:06→20:42)
[2017-06-26] MEDS: CLOTRIMAZOLE 1% CREAM 15 GM TOPICAL SCH ×2 (09:06→20:44)
[2017-06-26] MEDS: DOCUSATE SODIUM 50 MG/SENNA 8.6 MG TAB PO SCH ×2 (09:07→20:43)
[2017-06-26] MEDS: SODIUM CHLORIDE 0.9% FLUSH 10 ML FLUSH IV FLUSH SCH ×2 (09:08→20:43)
[2017-06-26] MEDS: INSULIN ASPART 1,000 UNITS/10 ML VIAL SQ SCH ×3 (09:08→16:02)
[2017-06-26] MEDS: INSULIN DETEMIR 100 UNITS/ML VIAL SQ SCH ×2 (09:10→20:43)
--- NOTE | 2017-06-26 09:15 | HHI.FPPN ---
Subjective Remarks Patient switched beds yesterday. She reports a little improvement. She still complains of back pain and left lower extremity weakness. She plans to speak with her water/wastewater project engineer today regarding her Medicaid application. (Daniel Trejo MD R2) Objective Vitals Vital Signs Date Time Temp Pulse Resp B/P (MAP) Pulse Ox O2 Delivery O2 Flow Rate FiO2 06/26/17 08:00 Nasal Cannula 2.00 21 06/26/17 08:00 97.5 90 18 130/75 (93) 93 06/26/17 07:25 16 06/26/17 04:00 Nasal Cannula 2.00 06/26/17 04:00 97.7 84 17 124/72 (89) 94 06/26/17 00:00 97.8 69 17 116/59 (78) 97 06/26/17 00:00 Room Air 06/25/17 20:00 99.0 80 17 113/58 (76) 92 06/25/17 20:00 Room Air 06/25/17 16:00 98.8 74 16 119/66 (83) 94 06/25/17 15:14 Room Air 06/25/17 12:00 98.0 75 17 103/58 (73) 98 06/25/17 10:38 Room Air I/O 06/25/17 06/25/17 06/25/17 06/26/17 06/26/17 06/26/17 07:00 15:00 23:00 07:00 15:00 23:00 Intake Total 120 ml 720 ml 120 ml Output Total 475 ml Balance 120 ml 720 ml -355 ml Intake Oral 120 ml 720 ml 120 ml Output Urine Total 475 ml # Voids 4 2 # Bowel Movements 0 0 0 (Daniel Trejo MD R2) Result Diagram: 06/26/17 0442 06/26/17 0442 Imaging Last Impressions Hip X-Ray 05/26/17 0000 Signed Impressions: Service Date/Time: Friday, May 26, 2017 15:13 - CONCLUSION: Degenerative changes, no fracture Jermaine Gutierres MD FACR Liver Ultrasound 05/25/17 0000 Signed Impressions: Service Date/Time: May 16:28 - CONCLUSION: 1. Mild hepatomegaly. 2. Status post cholecystectomy. 3. No evidence of acute process or biliary obstructive disease. 4. Calcified granuloma in the spleen. Valerio Salcedo MD Lumbar Spine CT 05/22/17 0000 Signed Impressions: Service Date/Time: Sunday, May 21, 2017 14:36 - CONCLUSION: 1. Moderate stenosis at the L4-L5 level caused by combination of anterior subluxation/spondylolisthesis, disc bulge, and severe facet hypertrophy. 2. Moderate stenosis at the T11-T12 level by a central disc protrusion with osteophytes. 3. Moderate disc bulge and mild stenosis at the L5-S1 level. 4. Minimal bulging at the L1-L2 and L2-L3 levels. 1. Gurvinder Steinberg MD Chest X-Ray 05/21/17 1345 Signed Impressions: Service Date/Time: Sunday, May 21, 2017 13:57 - CONCLUSION: No acute disease. Gurvinder Frazier MD Abdomen/Pelvis CT 05/21/17 1345 Signed Impressions: Service Date/Time: Sunday, May 21, 2017 14:36 - CONCLUSION: No acute CT findings in the abdomen or pelvis. Gurvinder Frazier MD Renal Ultrasound 05/21/17 0000 Signed Impressions: Service Date/Time: Sunday, May 21, 2017 18:12 - CONCLUSION: No acute disease. Gurvinder Steinberg MD Objective Remarks GENERAL: Well-nourished, morbidly obese white female patient, laying in bed in no acute distress SKIN: Warm and dry/flaky. Skin breakdown in her left axilla with patches of pink ulceration without any discharge, significantly improved since yesterday. CARDIOVASCULAR: Heart sounds distant. Regular rate and rhythm without murmurs, gallops, or rubs. RESPIRATORY: Breath sounds equal bilaterally and clear. No accessory muscle use. No crackles or wheezes. GASTROINTESTINAL: Abdomen soft, obese, nontender, nondistended. EXTREMITIES: Patient is able to extend/abduct her arm well beyond 90 when not asked to do so. 3 out of 5 strength of left hip flexor. 4 out of 5 strength in right hip flexor. Trace edema of BLE. non tender calves BL. BACK: Tenderness to palpation over left SI joint. NEUROLOGICAL: Grossly non-focal. PSYCH: tearful (Daniel Trejo MD R2) A/P Assessment and Plan 56 year old female with hypertension, hypothyroidism presenting with severely uncontrolled hypothyroidism, deconditioning, multiple falls. Discharge Planning Pending case management placement at rehab facility, which is extremely difficult given her lack of insurance/self-pay status, her current functional disability, lack of social support. Per conversation with case management, patient either needs improved mobility or family participation or Medicaid. (Daniel Trejo MD R2) Attending Attestation Patient seen and examined, discussed with resident team. I agree with assessment and management as documented and discussed with me. Encouraged pt to work with PT. Discussed with case management that patient needs to be able to transfer from bed to wheelchair safely prior to discharge (either independently or if family is willing to assist). Increase PT to BID. (Judy Taylor MD) Problem List: (1) Pain ICD Codes: R52 - Pain, unspecified Status: Acute Plan: -Hydrocodone acetaminophen as needed for pain, breakthrough pain -Ambien as needed to help her sleep -bed changed -Air bed contraindicated, per PT (2) Severe hypothyroidism ICD Codes: E03.8 - Other specified hypothyroidism Status: Acute Plan: Improving symptomatically with meds as listed T4 now wnl TSH in detectable range -Endocrinology consulted, appreciate recommendations -Continue levothyroxine 225 mcg daily -Recommended recheck of T4, TSH in 2 weeks; follow-up TSH was 52.1, T4 was 1.22. Improved from before. -Signed off due to patient anticipated to be transferred, available as needed for continued input (3) Weakness ICD Codes: R53.1 - Weakness Status: Chronic Plan: Likely multifactorial with a large component of deconditioning. Continue PT -Assessment stated that falls likely due to a combination of weakness, but also poor lower extremity sensation. -PT recommended against Sofcare bed -Will need to use a bariatric wheeled walker for safe ambulation -Recommended PT at rehab -C/w PT BID while in the hospital for 7 days a week -Patient remain a high fall risk. Working on safe discharge plan which will require ability to transfer. Rehab medicine consulted, recs appreciated -Needs to be able to do self-transfers or min assist transfers in order to meet criteria for short-term daniel bed at [facility] Rehab facility denied transfer patient as they report that she needs to have a concrete discharge plan following rehab prior to acceptance and her sons have not made a commitment. (4) Depression ICD Codes: F32.9 - Major depressive disorder, single episode, unspecified Status: Chronic Plan: -Zoloft increased per psychiatry -continue home BuSpar -Start Effexor today -Ativan prn for anxiety -Psychiatry consult appreciated (5) Diabetes mellitus ICD Codes: E11.9 - Type 2 diabetes mellitus without complications Status: Chronic Plan: BSG 164-288 Hold home insulin glargine. She reported taking no short acting insulin at home for months only long acting. HbA1c is 12.5 -Accuchecks ACHS -Levemir 42 units BID -Novolog 9 units TIDAC -Blood pressure well controlled, however should consider starting an reji-I for renal protection (6) Hypertension ICD Codes: I10 - Essential (primary) hypertension Status: Chronic Plan: Stable, continue atenolol 25 mg daily continue to monitor (7) Chronic kidney disease ICD Codes: N18.9 - Chronic kidney disease, unspecified Status: Chronic Plan: Baseline ~1.3. Creatinine stable. (8) Skin breakdown ICD Codes: L90.9 - Atrophic disorder of skin, unspecified Plan: At left axilla. -Petroleum jelly as needed (9) Hyperlipidemia ICD Codes: E78.5 - Hyperlipidemia, unspecified Status: Chronic Plan: CK wnl -starting atorvastatin today (10) Nutrition, metabolism, and development symptoms ICD Codes: R63.8 - Other symptoms and signs concerning food and fluid intake Status: Acute Plan: Fluids: tolerating po Electrolytes: continue to monitor Nutrition: 1800 ADA GI ppx: Protonix 40 mg po daily DVT ppx: Heparin 5,000 units sq q8h Dispo: Complicated due to self-pay status and risk of falls. (Daniel Trejo MD R2) Problem Qualifiers (1) Diabetes mellitus: Qualified Codes: E11.42 - Type 2 diabetes mellitus with diabetic polyneuropathy ; Z79.4 - termite inspector (current) use of insulin (2) Hypertension: Qualified Codes: I10 - Essential (primary) hypertension (3) Hyperlipidemia: Qualified Codes: E78.00 - Pure hypercholesterolemia, unspecified Daniel Trejo MD R2 June 26, 2017 09:14 Judy Taylor MD June 26, 2017 16:34
[2017-06-26 12:00] VITALS: BP 92/54; PULSE 80; RESP 18; TEMP 98.2; O2SAT 95
[2017-06-26] MEDS: VENLAFAXINE HCL XR 37.5 MG CAP PO SCH (12:30)
[2017-06-26 16:00] VITALS: BP 122/63; PULSE 74; RESP 20; TEMP 97.9; O2SAT 93
[2017-06-26 20:00] VITALS: BP 123/78; PULSE 72; RESP 19; TEMP 97.9; O2SAT 95
[2017-06-26] MEDS: CHOLECALCIFEROL (VIT D3) 400 UNIT TAB PO SCH (20:43)
[2017-06-26] MEDS: LORazepam 0.5 MG TAB PO SCH (20:43)
[2017-06-26] MEDS: ASPIRIN EC 81 MG TABEC PO SCH (20:43)
[2017-06-27] VITALS: BP 121/77; PULSE 76; RESP 17; TEMP 97.8; O2SAT 98
[2017-06-27] MEDS: ACETAMINOPHEN/HYDROcodone 325 MG/5 MG TAB PO PRN ×4 (02:38→20:51)
[2017-06-27] MEDS: HEPARIN SODIUM - SQ 10,000 UNITS/ML VIAL SQ SCH ×3 (02:38→17:43)
[2017-06-27 04:00] VITALS: BP 116/71; PULSE 76; RESP 18; TEMP 97.8; O2SAT 95
[2017-06-27] MEDS: ACETAMINOPHEN/HYDROcodone 325 MG/10 MG TAB PO PRN ×3 (04:30→17:43)
[2017-06-27] MEDS: LEVOTHYROXINE SODIUM 25 MCG TAB PO SCH (05:12)
[2017-06-27] MEDS: LEVOTHYROXINE SODIUM 200 MCG TAB PO SCH (05:12)
[2017-06-27 08:00] VITALS: BP 110/59; PULSE 80; RESP 16; TEMP 97.9; O2SAT 96
[2017-06-27] MEDS: CALCIUM CARBONATE 500 MG CHEWABLE TAB PO SCH ×2 (08:20→20:51)
[2017-06-27] MEDS: LACTOBACILLUS ACIDOPHILUS TAB PO SCH ×2 (08:20→20:51)
[2017-06-27] MEDS: SODIUM CHLORIDE 0.9% FLUSH 10 ML FLUSH IV FLUSH SCH ×2 (08:20→20:51)
[2017-06-27] MEDS: VENLAFAXINE HCL XR 37.5 MG CAP PO SCH (08:20)
[2017-06-27] MEDS: ATENOLOL 25 MG TAB PO SCH (08:21)
[2017-06-27] MEDS: PANTOPRAZOLE SOD 40 MG DELAYED RELEASE TAB PO SCH (08:21)
[2017-06-27] MEDS: busPIRone HCL 5 MG TAB PO SCH ×3 (08:21→17:43)
[2017-06-27] MEDS: POLYETHYLENE GLYCOL 17 GM PKG PO SCH (08:21)
[2017-06-27] MEDS: DOCUSATE SODIUM 50 MG/SENNA 8.6 MG TAB PO SCH ×2 (08:21→20:51)
[2017-06-27] MEDS: SERTRALINE HCL 50 MG TAB PO SCH (08:22)
[2017-06-27] MEDS: INSULIN ASPART 1,000 UNITS/10 ML VIAL SQ SCH ×3 (08:22→17:44)
[2017-06-27] MEDS: INSULIN DETEMIR 100 UNITS/ML VIAL SQ SCH ×2 (08:22→20:51)
[2017-06-27] MEDS: CLOTRIMAZOLE 1% CREAM 15 GM TOPICAL SCH ×2 (08:40→20:51)
--- NOTE | 2017-06-27 11:23 | HHI.FPPN ---
Subjective Remarks Per PT, patient still needs two people to help her transfer from bed to wheelchair, but she can now stand and pivot, which is a significant improvement. She still c/o left leg weakness. Patient plans to discuss her Medicaid application with her caustic room attendant. Per CM, the plan is for her son to come here to help with transportation. However, patient is not willing to give her son's phone number. She would prefer to give her son our phone number so he can call at his convenience. (Daniel Trejo MD R2) Objective Vitals Vital Signs Date Time Temp Pulse Resp B/P (MAP) Pulse Ox O2 Delivery O2 Flow Rate FiO2 06/27/17 08:00 Nasal Cannula 2.00 21 06/27/17 08:00 97.9 80 16 110/59 (76) 96 06/27/17 04:00 Nasal Cannula 2.00 06/27/17 04:00 97.8 76 18 116/71 (86) 95 06/27/17 00:00 97.8 76 17 121/77 (92) 98 06/27/17 00:00 Nasal Cannula 2.00 06/26/17 20:00 Room Air 06/26/17 20:00 97.9 72 19 123/78 (93) 95 06/26/17 16:34 16 06/26/17 16:00 97.9 74 20 122/63 (82) 93 06/26/17 12:37 20 06/26/17 12:00 98.2 80 18 92/54 (67) 95 I/O 06/26/17 06/26/17 06/26/17 06/27/17 06/27/17 06/27/17 07:00 15:00 23:00 07:00 15:00 23:00 Intake Total 120 ml 480 ml 240 ml Output Total 475 ml Balance -355 ml 480 ml 240 ml Intake Oral 120 ml 480 ml 240 ml Output Urine Total 475 ml # Voids 3 4 # Bowel Movements 0 0 0 (Daniel Trejo MD R2) Result Diagram: 06/26/17 0442 06/26/17 0442 Imaging Last Impressions Hip X-Ray 05/26/17 0000 Signed Impressions: Service Date/Time: Friday, May 26, 2017 15:13 - CONCLUSION: Degenerative changes, no fracture Jermaine Gutierres MD FACR Liver Ultrasound 05/25/17 0000 Signed Impressions: Service Date/Time: May 16:28 - CONCLUSION: 1. Mild hepatomegaly. 2. Status post cholecystectomy. 3. No evidence of acute process or biliary obstructive disease. 4. Calcified granuloma in the spleen. Valerio Salcedo MD Lumbar Spine CT 05/22/17 0000 Signed Impressions: Service Date/Time: Sunday, May 21, 2017 14:36 - CONCLUSION: 1. Moderate stenosis at the L4-L5 level caused by combination of anterior subluxation/spondylolisthesis, disc bulge, and severe facet hypertrophy. 2. Moderate stenosis at the T11-T12 level by a central disc protrusion with osteophytes. 3. Moderate disc bulge and mild stenosis at the L5-S1 level. 4. Minimal bulging at the L1-L2 and L2-L3 levels. 1. Gurvinder Steinberg MD Chest X-Ray 05/21/17 1345 Signed Impressions: Service Date/Time: Sunday, May 21, 2017 13:57 - CONCLUSION: No acute disease. Gurvinder Frazier MD Abdomen/Pelvis CT 05/21/17 1345 Signed Impressions: Service Date/Time: Sunday, May 21, 2017 14:36 - CONCLUSION: No acute CT findings in the abdomen or pelvis. Gurvinder Frazier MD Renal Ultrasound 05/21/17 0000 Signed Impressions: Service Date/Time: Sunday, May 21, 2017 18:12 - CONCLUSION: No acute disease. Gurvinder Steinberg MD Objective Remarks GENERAL: Well-nourished, morbidly obese white female patient, laying in bed in no acute distress SKIN: Warm and dry/flaky. Skin breakdown in her left axilla with patches of pink ulceration without any discharge, significantly improved since yesterday. CARDIOVASCULAR: Heart sounds distant. Regular rate and rhythm without murmurs, gallops, or rubs. RESPIRATORY: Breath sounds equal bilaterally and clear. No accessory muscle use. No crackles or wheezes. GASTROINTESTINAL: Abdomen soft, obese, nontender, nondistended. EXTREMITIES: 3 out of 5 strength of left leg extension. 5 out of 5 strength of right leg extension. Trace edema of BLE. non tender calves BL. BACK: Tenderness to palpation over left SI joint. NEUROLOGICAL: Grossly non-focal. PSYCH: tangential (Daniel Trejo MD R2) A/P Assessment and Plan 56 year old female with hypertension, hypothyroidism presenting with severely uncontrolled hypothyroidism, deconditioning, multiple falls. Discharge Planning Pending case management placement at rehab facility, which is extremely difficult given her lack of insurance/self-pay status, her current functional disability, lack of social support. Per conversation with case management, patient either needs improved mobility or family participation or Medicaid. (Daniel Trejo MD R2) Attending Attestation Patient seen and examined, discussed with resident team. I agree with assessment and management as documented and discussed with me. Pt slowly improving with PT; PT has been ordered BID. Pt seen sitting at bedside, in wheelchair. (Judy Taylor MD) Problem List: (1) Pain ICD Codes: R52 - Pain, unspecified Status: Acute Plan: -Hydrocodone acetaminophen as needed for pain, breakthrough pain -Ambien as needed to help her sleep -bed changed -Air bed contraindicated, per PT (2) Severe hypothyroidism ICD Codes: E03.8 - Other specified hypothyroidism Status: Acute Plan: Improving symptomatically with meds as listed T4 now wnl TSH in detectable range -Endocrinology consulted, appreciate recommendations -Continue levothyroxine 225 mcg daily -Recommended recheck of T4, TSH in 2 weeks; follow-up TSH was 52.1, then 49.5 , T4 was 1.22. Improved from before. -Signed off due to patient anticipated to be transferred, available as needed for continued input (3) Weakness ICD Codes: R53.1 - Weakness Status: Chronic Plan: Likely multifactorial with a large component of deconditioning. Continue PT -Assessment stated that falls likely due to a combination of weakness, but also poor lower extremity sensation. -PT recommended against Sofcare bed -Will need to use a bariatric wheeled walker for safe ambulation -Recommended PT at rehab -C/w PT BID while in the hospital for 7 days a week -Patient remain a high fall risk. Working on safe discharge plan which will require ability to transfer. Rehab medicine consulted, recs appreciated -Needs to be able to do self-transfers or min assist transfers in order to meet criteria for short-term daniel bed at [facility] Rehab facility denied transfer patient as they report that she needs to have a concrete discharge plan following rehab prior to acceptance and her sons have not made a commitment. (4) Depression ICD Codes: F32.9 - Major depressive disorder, single episode, unspecified Status: Chronic Plan: -Zoloft increased per psychiatry -continue home BuSpar -Continue Effexor; consider titrating up -Ativan prn for anxiety -Psychiatry consult appreciated (5) Diabetes mellitus ICD Codes: E11.9 - Type 2 diabetes mellitus without complications Status: Chronic Plan: BS 164-288 Hold home insulin glargine. She reported taking no short acting insulin at home for months only long acting. HbA1c is 12.5 -Accuchecks ACHS -Levemir 42 units BID -Novolog 9 units TIDAC -Blood pressure well controlled, however should consider starting an reji-I for renal protection (6) Hypertension ICD Codes: I10 - Essential (primary) hypertension Status: Chronic Plan: Stable, continue atenolol 25 mg daily continue to monitor (7) Chronic kidney disease ICD Codes: N18.9 - Chronic kidney disease, unspecified Status: Chronic Plan: Baseline ~1.3. Creatinine stable. (8) Skin breakdown ICD Codes: L90.9 - Atrophic disorder of skin, unspecified Plan: At left axilla. -Petroleum jelly as needed (9) Hyperlipidemia ICD Codes: E78.5 - Hyperlipidemia, unspecified Status: Chronic Plan: CK wnl -Continue atorvastatin (10) Nutrition, metabolism, and development symptoms ICD Codes: R63.8 - Other symptoms and signs concerning food and fluid intake Status: Acute Plan: Fluids: tolerating po Electrolytes: continue to monitor Nutrition: 1800 ADA GI ppx: Protonix 40 mg po daily DVT ppx: Heparin 5,000 units sq q8h Dispo: Complicated due to self-pay status and risk of falls. (Daniel Trejo MD R2) Problem Qualifiers (1) Diabetes mellitus: Qualified Codes: E11.42 - Type 2 diabetes mellitus with diabetic polyneuropathy ; Z79.4 - intermodal dispatcher (current) use of insulin (2) Hypertension: Qualified Codes: I10 - Essential (primary) hypertension (3) Hyperlipidemia: Qualified Codes: E78.00 - Pure hypercholesterolemia, unspecified Daniel Trejo MD R2 June 27, 2017 11:23 Judy Taylor MD June 27, 2017 20:42
[2017-06-27 12:00] VITALS: BP 103/57; PULSE 78; RESP 16; TEMP 98.4; O2SAT 92
[2017-06-27 16:00] VITALS: BP 105/55; PULSE 81; RESP 16; TEMP 98.4; O2SAT 94
[2017-06-27 20:00] VITALS: BP 123/64; PULSE 87; RESP 17; TEMP 98.3; O2SAT 96
[2017-06-27] MEDS: LORazepam 0.5 MG TAB PO SCH (20:50)
[2017-06-27] MEDS: ASPIRIN EC 81 MG TABEC PO SCH (20:51)
[2017-06-27] MEDS: CHOLECALCIFEROL (VIT D3) 400 UNIT TAB PO SCH (20:51)
[2017-06-28] VITALS: BP 142/82; PULSE 82; RESP 19; TEMP 98; O2SAT 98
[2017-06-28] MEDS: ACETAMINOPHEN/HYDROcodone 325 MG/10 MG TAB PO PRN ×3 (00:53→17:11)
[2017-06-28] MEDS: ACETAMINOPHEN/HYDROcodone 325 MG/5 MG TAB PO PRN ×3 (03:18→22:08)
[2017-06-28] MEDS: HEPARIN SODIUM - SQ 10,000 UNITS/ML VIAL SQ SCH ×3 (03:22→17:09)
[2017-06-28 04:00] VITALS: BP 128/66; PULSE 88; RESP 16; TEMP 97.9; O2SAT 95
[2017-06-28] MEDS: LEVOTHYROXINE SODIUM 200 MCG TAB PO SCH (06:19)
[2017-06-28] MEDS: LEVOTHYROXINE SODIUM 25 MCG TAB PO SCH (06:19)
[2017-06-28] MEDS: LACTOBACILLUS ACIDOPHILUS TAB PO SCH ×2 (08:02→22:07)
[2017-06-28] MEDS: PANTOPRAZOLE SOD 40 MG DELAYED RELEASE TAB PO SCH (08:02)
[2017-06-28] MEDS: SERTRALINE HCL 50 MG TAB PO SCH (08:03)
[2017-06-28] MEDS: VENLAFAXINE HCL XR 37.5 MG CAP PO SCH (08:03)
[2017-06-28] MEDS: busPIRone HCL 5 MG TAB PO SCH ×3 (08:03→17:09)
[2017-06-28] MEDS: DOCUSATE SODIUM 50 MG/SENNA 8.6 MG TAB PO SCH ×2 (08:03→22:07)
[2017-06-28] MEDS: ATENOLOL 25 MG TAB PO SCH (08:03)
[2017-06-28] MEDS: CALCIUM CARBONATE 500 MG CHEWABLE TAB PO SCH ×2 (08:03→22:08)
[2017-06-28] MEDS: POLYETHYLENE GLYCOL 17 GM PKG PO SCH (08:05)
[2017-06-28] MEDS: SODIUM CHLORIDE 0.9% FLUSH 10 ML FLUSH IV FLUSH SCH ×2 (08:06→22:06)
[2017-06-28] MEDS: INSULIN DETEMIR 100 UNITS/ML VIAL SQ SCH ×2 (08:06→22:08)
[2017-06-28] MEDS: INSULIN ASPART 1,000 UNITS/10 ML VIAL SQ SCH ×3 (08:06→17:08)
[2017-06-28] MEDS: CLOTRIMAZOLE 1% CREAM 15 GM TOPICAL SCH ×2 (08:08→22:09)
[2017-06-28 08:09] VITALS: BP 122/56; PULSE 84; RESP 17; TEMP 97.5; O2SAT 96
--- NOTE | 2017-06-28 09:24 | HHI.FPPN ---
Subjective Remarks No acute events overnight. Afebrile and vital signs stable overnight. Patient complaint continues to complain of acute on chronic back pain. She also reports that she wants her toenails clipped. She reports that she called her supervisor braiding's office to ask about whether her disability application in [place] would interfere with the Medicaid application here in [place]. They said they would call her back with more information. She reports that PT showed nursing how to help her transfer from bed to wheelchair. (Daniel Trejo MD R2) Objective Vitals Vital Signs Date Time Temp Pulse Resp B/P (MAP) Pulse Ox O2 Delivery O2 Flow Rate FiO2 06/28/17 08:09 97.5 84 17 122/56 (78) 96 06/28/17 04:00 Room Air 06/28/17 04:00 97.9 88 16 128/66 (86) 95 06/28/17 00:00 Room Air 06/28/17 00:00 98.0 82 19 142/82 (102) 98 06/27/17 20:00 Room Air 06/27/17 20:00 98.3 87 17 123/64 (83) 96 06/27/17 16:00 98.4 81 16 105/55 (72) 94 06/27/17 12:00 98.4 78 16 103/57 (72) 92 I/O 06/27/17 06/27/17 06/27/17 06/28/17 06/28/17 06/28/17 07:00 15:00 23:00 07:00 15:00 23:00 Intake Total 240 ml 480 ml 240 ml Output Total 400 ml Balance 240 ml 80 ml 240 ml Intake Oral 240 ml 480 ml 240 ml Output Urine Total 400 ml # Voids 4 1 4 # Bowel Movements 0 0 (Daniel Trejo MD R2) Result Diagram: 06/26/1744106/26/17441 Objective Remarks GENERAL: Well-nourished, morbidly obese white female patient, laying in bed in no acute distress SKIN: Warm and dry/flaky. Skin breakdown in her left axilla with patches of pink ulceration without any discharge. CARDIOVASCULAR: Heart sounds distant. Regular rate and rhythm without murmurs, gallops, or rubs. RESPIRATORY: Breath sounds equal bilaterally and clear. No accessory muscle use. No crackles or wheezes. GASTROINTESTINAL: Abdomen soft, obese, nontender, nondistended. EXTREMITIES: Trace edema of BLE. non tender calves BL. BACK: Tenderness to palpation over left SI joint. NEUROLOGICAL: Grossly non-focal. (Daniel Trejo MD R2) A/P Assessment and Plan 56 year old female with hypertension, hypothyroidism presenting with severely uncontrolled hypothyroidism, deconditioning, multiple falls. Discharge Planning Pending case management placement at rehab facility, which is extremely difficult given her lack of insurance/self-pay status, her current functional disability, lack of social support. Per conversation with case management, patient either needs improved mobility or family participation or Medicaid. (Daniel Trejo MD R2) Attending Attestation Patient seen and examined, and discussed with resident team. I agree with assessment and management as documented and discussed with me. Pt seen with nurse and nurse order manager, after patient self-propelled wheelchair to the patient computer area. Discussed with patient that she will need to make arrangements to leave the hospital on 07/05/17. Pt encouraged to contact her son, who will be travelling with her. Case management made aware, so that they can assist with any plans as needed in anticipation of patient discharge. Of note, patient has been complaining of left lower extremity weakness. However , today, was noted to be rocking wheelchair back and forth with her left leg. Pt voiced no questions regarding planning for her upcoming discharge. (Judy Taylor MD) Problem List: (1) Pain ICD Codes: R52 - Pain, unspecified Status: Acute Plan: -Hydrocodone acetaminophen as needed for pain, breakthrough pain -Ambien as needed to help her sleep (2) Severe hypothyroidism ICD Codes: E03.8 - Other specified hypothyroidism Status: Acute Plan: Improving symptomatically with meds as listed T4 now wnl TSH in detectable range -Endocrinology consulted, appreciate recommendations -Continue levothyroxine 225 mcg daily -Recommended recheck of T4, TSH in 2 weeks; follow-up TSH was 52.1, then 49.5 , T4 was 1.22. Improved from before. -Signed off due to patient anticipated to be transferred, available as needed for continued input (3) Weakness ICD Codes: R53.1 - Weakness Status: Chronic Plan: Likely multifactorial with a large component of deconditioning. Continue PT -Assessment stated that falls likely due to a combination of weakness, but also poor lower extremity sensation. -Will need to use a bariatric wheeled walker for safe ambulation -Recommended PT at rehab -C/w PT BID while in the hospital for 7 days a week -Patient remains a high fall risk. Working on safe discharge plan which will require ability to transfer. Rehab medicine consulted, recs appreciated -Needs to be able to do self-transfers or min assist transfers in order to meet criteria for short-term daniel bed at [facility] Rehab facility denied transfer patient as they report that she needs to have a concrete discharge plan following rehab prior to acceptance and her sons have not made a commitment. (4) Depression ICD Codes: F32.9 - Major depressive disorder, single episode, unspecified Status: Chronic Plan: -Zoloft increased per psychiatry -continue home BuSpar -Continue Effexor; consider titrating up -Ativan prn for anxiety -Psychiatry consult appreciated (5) Diabetes mellitus ICD Codes: E11.9 - Type 2 diabetes mellitus without complications Status: Chronic Plan: BSG 164-288 Hold home insulin glargine. She reported taking no short acting insulin at home for months only long acting. HbA1c is 12.5 -Accuchecks ACHS -Levemir 42 units BID -Novolog 9 units TIDAC -Blood pressure well controlled, however should consider starting an reji-I for renal protection (6) Hypertension ICD Codes: I10 - Essential (primary) hypertension Status: Chronic Plan: Stable, continue atenolol 25 mg daily continue to monitor (7) Chronic kidney disease ICD Codes: N18.9 - Chronic kidney disease, unspecified Status: Chronic Plan: Baseline ~1.3. Creatinine stable. (8) Skin breakdown ICD Codes: L90.9 - Atrophic disorder of skin, unspecified Plan: At left axilla. -Petroleum jelly as needed (9) Hyperlipidemia ICD Codes: E78.5 - Hyperlipidemia, unspecified Status: Chronic Plan: CK wnl -Continue atorvastatin (10) Nutrition, metabolism, and development symptoms ICD Codes: R63.8 - Other symptoms and signs concerning food and fluid intake Status: Acute Plan: Fluids: tolerating po Electrolytes: continue to monitor Nutrition: 1800 ADA GI ppx: Protonix 40 mg po daily DVT ppx: Heparin 5,000 units sq q8h Dispo: Complicated due to self-pay status and risk of falls. (Daniel Trejo MD R2) Problem Qualifiers (1) Diabetes mellitus: Qualified Codes: E11.42 - Type 2 diabetes mellitus with diabetic polyneuropathy ; Z79.4 - [facility] (current) use of insulin (2) Hypertension: Qualified Codes: I10 - Essential (primary) hypertension (3) Hyperlipidemia: Qualified Codes: E78.00 - Pure hypercholesterolemia, unspecified Daniel Trejo MD R2 June 28, 2017 09:24 Judy Taylor MD June 28, 2017 21:19
[2017-06-28 12:09] VITALS: BP 118/71; PULSE 82; RESP 18; TEMP 98.2; O2SAT 96
[2017-06-28 16:00] VITALS: BP 122/66; PULSE 78; RESP 18; TEMP 98; O2SAT 94
[2017-06-28 20:00] VITALS: BP 108/60; PULSE 76; RESP 22; TEMP 97.8; O2SAT 96
[2017-06-28] MEDS: CHOLECALCIFEROL (VIT D3) 400 UNIT TAB PO SCH (22:07)
[2017-06-28] MEDS: LORazepam 0.5 MG TAB PO SCH (22:07)
[2017-06-28] MEDS: ASPIRIN EC 81 MG TABEC PO SCH (22:07)
[2017-06-29] VITALS: BP 111/59; PULSE 73; RESP 20; TEMP 97.6; O2SAT 95
[2017-06-29] MEDS: ACETAMINOPHEN/HYDROcodone 325 MG/10 MG TAB PO PRN ×3 (02:02→20:32)
[2017-06-29] MEDS: HEPARIN SODIUM - SQ 10,000 UNITS/ML VIAL SQ SCH ×3 (02:58→18:00)
[2017-06-29 04:00] VITALS: BP 105/63; PULSE 73; RESP 19; TEMP 97.7; O2SAT 96
[2017-06-29 05:06] LABS: HEMATOCRIT 36.9 % (35.0-46.0); MEAN CELL VOLUME 96.6 FL (80.0-100.0); MEAN CORPUSCULAR HEMOGLOBIN 34.1 PG (27.0-34.0); MEAN CORPUSCULAR HGB CONC 35.3 % (32.0-36.0); MEAN PLATELET VOLUME 8.1 FL (7.0-11.0); PLATELET COUNT 192 TH/MM3 (150-450); RED BLOOD COUNT 3.82 MIL/MM3 (4.00-5.30); WHITE BLOOD COUNT 7.4 TH/MM3 (4.0-11.0)
[2017-06-29 05:25] LABS: BICARBONATE 24.7 MEQ/L (21.0-32.0); CALCIUM 9.4 MG/DL (8.5-10.1); CREATININE 1.37 MG/DL (0.50-1.00)
[2017-06-29] MEDS: LEVOTHYROXINE SODIUM 200 MCG TAB PO SCH (06:16)
[2017-06-29] MEDS: LEVOTHYROXINE SODIUM 25 MCG TAB PO SCH (06:16)
[2017-06-29] MEDS: ACETAMINOPHEN/HYDROcodone 325 MG/5 MG TAB PO PRN ×3 (06:17→23:21)
[2017-06-29 08:06] VITALS: BP 121/65; PULSE 88; RESP 17; TEMP 98.1; O2SAT 97
[2017-06-29] MEDS: POLYETHYLENE GLYCOL 17 GM PKG PO SCH (09:00)
--- NOTE | 2017-06-29 10:08 | HHI.FPPN ---
Subjective Remarks Patient seen and examined today. Patient reports last night during transition from wheelchair to bed she almost fell. She reports she did not fall, nursing was assisting at the time. Spoke with nursing staff, they report that they received signout that the patient had some weakness last night, and did not completely fall to the ground during transition. No other acute changes in patient's status at this time. (Daniel Butcher MD R1) Objective Vitals Vital Signs Date Time Temp Pulse Resp B/P (MAP) Pulse Ox O2 Delivery O2 Flow Rate FiO2 06/29/17 08:06 98.1 88 17 121/65 (83) 97 06/29/17 04:00 97.7 73 19 105/63 (77) 96 06/29/17 00:00 97.6 73 20 111/59 (76) 95 06/28/17 20:00 97.8 76 22 108/60 (76) 96 06/28/17 20:00 Nasal Cannula 2.00 06/28/17 16:00 98.0 78 18 122/66 (84) 94 06/28/17 12:09 98.2 82 18 118/71 (87) 96 I/O 06/28/17 06/28/17 06/28/17 06/29/17 06/29/17 06/29/17 06:59 14:59 22:59 06:59 14:59 22:59 Intake Total 240 ml 800 ml 120 ml Balance 240 ml 800 ml 120 ml Intake Oral 240 ml 800 ml 120 ml # Voids 4 1 2 # Bowel Movements 0 0 0 (Daniel Butcher MD R1) Result Diagram: 06/29/17 0439 06/29/17438 Objective Remarks GENERAL: Well-nourished, morbidly obese white female patient, laying in bed in no acute distress SKIN: Warm and dry/flaky. Skin breakdown in her left axilla with patches of pink ulceration without any discharge. CARDIOVASCULAR: Heart sounds distant. Regular rate and rhythm without murmurs, gallops, or rubs. RESPIRATORY: Breath sounds equal bilaterally and clear. No accessory muscle use. No crackles or wheezes. GASTROINTESTINAL: Abdomen soft, obese, nontender, nondistended. EXTREMITIES: Trace edema of BLE. non tender calves BL. BACK: Tenderness to palpation over left SI joint. NEUROLOGICAL: Grossly non-focal. (Daniel Butcher MD R1) A/P Assessment and Plan 56 year old female with hypertension, hypothyroidism presenting with severely uncontrolled hypothyroidism, deconditioning, multiple falls. Discharge Planning Likely to be discharge 07/05 (Daniel Butcher MD R1) Attending Attestation Patient seen and examined, discussed with Dr Butcher. I agree with assessment and management as documented and discussed with me. No new concerns. Continue PT BID and plan for discharge 07/05/17. (Judy Taylor MD) Problem List: (1) Pain ICD Codes: R52 - Pain, unspecified Status: Acute Plan: -Hydrocodone acetaminophen as needed for pain, breakthrough pain -Ambien as needed to help her sleep (2) Severe hypothyroidism ICD Codes: E03.8 - Other specified hypothyroidism Status: Acute Plan: Improving symptomatically with meds as listed T4 now wnl TSH in detectable range -Endocrinology consulted, appreciate recommendations -Continue levothyroxine 225 mcg daily -Recommended recheck of T4, TSH in 2 weeks; follow-up TSH was 52.1, then 49.5 , T4 was 1.22. Improved from before. -Signed off due to patient anticipated to be transferred, available as needed for continued input (3) Weakness ICD Codes: R53.1 - Weakness Status: Chronic Plan: Likely multifactorial with a large component of deconditioning. Continue PT -Assessment stated that falls likely due to a combination of weakness, but also poor lower extremity sensation. -Will need to use a bariatric wheeled walker for safe ambulation -Recommended PT at rehab -C/w PT BID while in the hospital for 7 days a week -Patient remains a high fall risk. Working on safe discharge plan which will require ability to transfer. Rehab medicine consulted, recs appreciated -Needs to be able to do self-transfers or min assist transfers in order to meet criteria for short-term daniel bed at [facility] Rehab facility denied transfer patient as they report that she needs to have a concrete discharge plan following rehab prior to acceptance and her sons have not made a commitment. (4) Depression ICD Codes: F32.9 - Major depressive disorder, single episode, unspecified Status: Chronic Plan: -Zoloft increased per psychiatry -continue home BuSpar -Continue Effexor; consider titrating up -Ativan prn for anxiety -Psychiatry consult appreciated (5) Diabetes mellitus ICD Codes: E11.9 - Type 2 diabetes mellitus without complications Status: Chronic Plan: BSG 164-288 Hold home insulin glargine. She reported taking no short acting insulin at home for months only long acting. HbA1c is 12.5 -Accuchecks ACHS -Levemir 42 units BID -Novolog 9 units TIDAC -Blood pressure well controlled, however should consider starting an reji-I for renal protection (6) Hypertension ICD Codes: I10 - Essential (primary) hypertension Status: Chronic Plan: Stable, continue atenolol 25 mg daily continue to monitor (7) Chronic kidney disease ICD Codes: N18.9 - Chronic kidney disease, unspecified Status: Chronic Plan: Baseline ~1.3. Creatinine stable. (8) Skin breakdown ICD Codes: L90.9 - Atrophic disorder of skin, unspecified Plan: At left axilla. -Petroleum jelly as needed (9) Hyperlipidemia ICD Codes: E78.5 - Hyperlipidemia, unspecified Status: Chronic Plan: CK wnl -Continue atorvastatin (10) Nutrition, metabolism, and development symptoms ICD Codes: R63.8 - Other symptoms and signs concerning food and fluid intake Status: Acute Plan: Fluids: tolerating po Electrolytes: continue to monitor Nutrition: 1800 ADA GI ppx: Protonix 40 mg po daily DVT ppx: Heparin 5,000 units sq q8h Dispo: Complicated due to self-pay status and risk of falls. (Daniel Butcher MD R1) Problem Qualifiers (1) Diabetes mellitus: Qualified Codes: E11.42 - Type 2 diabetes mellitus with diabetic polyneuropathy ; Z79.4 - nursing home (current) use of insulin (2) Hypertension: Qualified Codes: I10 - Essential (primary) hypertension (3) Hyperlipidemia: Qualified Codes: E78.00 - Pure hypercholesterolemia, unspecified Daniel Butcher MD R1 June 29, 2017 10:08 Judy Taylor MD June 29, 2017 21:06
[2017-06-29] MEDS: CALCIUM CARBONATE 500 MG CHEWABLE TAB PO SCH ×2 (10:36→21:05)
[2017-06-29] MEDS: DOCUSATE SODIUM 50 MG/SENNA 8.6 MG TAB PO SCH ×2 (10:36→21:05)
[2017-06-29] MEDS: LACTOBACILLUS ACIDOPHILUS TAB PO SCH ×2 (10:37→21:04)
[2017-06-29] MEDS: INSULIN ASPART 1,000 UNITS/10 ML VIAL SQ SCH ×3 (10:37→17:00)
[2017-06-29] MEDS: ATENOLOL 25 MG TAB PO SCH (10:37)
[2017-06-29] MEDS: PANTOPRAZOLE SOD 40 MG DELAYED RELEASE TAB PO SCH (10:37)
[2017-06-29] MEDS: SODIUM CHLORIDE 0.9% FLUSH 10 ML FLUSH IV FLUSH SCH ×2 (10:37→21:17)
[2017-06-29] MEDS: busPIRone HCL 5 MG TAB PO SCH ×3 (10:37→18:00)
[2017-06-29] MEDS: VENLAFAXINE HCL XR 37.5 MG CAP PO SCH (10:37)
[2017-06-29] MEDS: SERTRALINE HCL 50 MG TAB PO SCH (10:37)
[2017-06-29] MEDS: INSULIN DETEMIR 100 UNITS/ML VIAL SQ SCH ×2 (10:38→21:06)
[2017-06-29] MEDS: CLOTRIMAZOLE 1% CREAM 15 GM TOPICAL SCH ×2 (10:38→21:06)
[2017-06-29 12:06] VITALS: BP 133/77; PULSE 97; RESP 17; TEMP 98.3; O2SAT 93
[2017-06-29 16:26] VITALS: BP 110/68; PULSE 80; RESP 18; TEMP 98; O2SAT 96
[2017-06-29 20:00] VITALS: BP 113/63; PULSE 80; RESP 20; TEMP 98; O2SAT 93
[2017-06-29] MEDS: LORazepam 0.5 MG TAB PO SCH (21:04)
[2017-06-29] MEDS: CHOLECALCIFEROL (VIT D3) 400 UNIT TAB PO SCH (21:04)
[2017-06-29] MEDS: ASPIRIN EC 81 MG TABEC PO SCH (21:05)
[2017-06-30] VITALS: BP 111/63; PULSE 76; RESP 20; TEMP 97.9; O2SAT 96
[2017-06-30] MEDS: HEPARIN SODIUM - SQ 10,000 UNITS/ML VIAL SQ SCH ×3 (02:51→18:00)
[2017-06-30] MEDS: ACETAMINOPHEN/HYDROcodone 325 MG/10 MG TAB PO PRN ×2 (02:51→09:25)
[2017-06-30 04:00] VITALS: BP 130/72; PULSE 92; RESP 20; TEMP 98.2; O2SAT 97
[2017-06-30] MEDS: LEVOTHYROXINE SODIUM 200 MCG TAB PO SCH (05:45)
[2017-06-30] MEDS: LEVOTHYROXINE SODIUM 25 MCG TAB PO SCH (05:45)
[2017-06-30] MEDS: ACETAMINOPHEN/HYDROcodone 325 MG/5 MG TAB PO PRN (05:46)
[2017-06-30] MEDS: MAGNESIUM HYDROXIDE SUSP 30 ML CUP PO PRN (05:47)
[2017-06-30 08:06] VITALS: BP 127/72; PULSE 95; RESP 18; TEMP 98.1; O2SAT 93
[2017-06-30] MEDS: VENLAFAXINE HCL XR 37.5 MG CAP PO SCH (09:00)
[2017-06-30] MEDS: ATENOLOL 25 MG TAB PO SCH (09:00)
[2017-06-30] MEDS: busPIRone HCL 5 MG TAB PO SCH ×3 (09:00→18:00)
[2017-06-30] MEDS: DOCUSATE SODIUM 50 MG/SENNA 8.6 MG TAB PO SCH (09:24)
[2017-06-30] MEDS: CALCIUM CARBONATE 500 MG CHEWABLE TAB PO SCH (09:24)
[2017-06-30] MEDS: SERTRALINE HCL 50 MG TAB PO SCH (09:25)
[2017-06-30] MEDS: LACTOBACILLUS ACIDOPHILUS TAB PO SCH (09:25)
[2017-06-30] MEDS: PANTOPRAZOLE SOD 40 MG DELAYED RELEASE TAB PO SCH (09:25)
[2017-06-30] MEDS: INSULIN DETEMIR 100 UNITS/ML VIAL SQ SCH (09:26)
[2017-06-30] MEDS: POLYETHYLENE GLYCOL 17 GM PKG PO SCH (09:26)
[2017-06-30] MEDS: CLOTRIMAZOLE 1% CREAM 15 GM TOPICAL SCH (09:26)
[2017-06-30] MEDS: INSULIN ASPART 1,000 UNITS/10 ML VIAL SQ SCH ×3 (09:27→17:00)
[2017-06-30] MEDS: SODIUM CHLORIDE 0.9% FLUSH 10 ML FLUSH IV FLUSH SCH (09:30)
--- NOTE | 2017-06-30 09:58 | HHI.FPPN ---
Subjective Remarks Patient reports feeling tired and weak. She reports that she did not get much sleep secondary to pain. She reports acute on chronic back pain. She also reports that it feels like her left leg is been asleep for the past 3 days with associated numbness and shooting pain down the back of her leg. She requests that I change her pain medication. (Daniel Trejo MD R2) Objective Vitals Vital Signs Date Time Temp Pulse Resp B/P (MAP) Pulse Ox O2 Delivery O2 Flow Rate FiO2 06/30/17 08:06 98.1 95 18 127/72 (90) 93 06/30/17 04:00 98.2 92 20 130/72 (91) 97 06/30/17 00:00 97.9 76 20 111/63 (79) 96 06/29/17 20:00 98.0 80 20 113/63 (80) 93 06/29/17 20:00 Nasal Cannula 2.00 06/29/17 16:26 98.0 80 18 110/68 (82) 96 06/29/17 12:06 98.3 97 17 133/77 (95) 93 I/O 06/29/17 06/29/17 06/29/17 06/30/17 06/30/17 06/30/17 07:00 15:00 23:00 07:00 15:00 23:00 Intake Total 120 ml 600 ml 240 ml Output Total 800 ml 175 ml Balance 120 ml -200 ml 65 ml Intake Oral 120 ml 600 ml 240 ml Output Urine Total 800 ml 175 ml # Voids 2 # Bowel Movements 0 0 (Daniel Trejo MD R2) Result Diagram: 06/29/17 0439 06/29/17 0439 Imaging Last Impressions Hip X-Ray 05/26/17 0000 Signed Impressions: Service Date/Time: Friday, May 26, 2017 15:13 - CONCLUSION: Degenerative changes, no fracture Jermaine Gutierres MD FACR Liver Ultrasound 05/25/17 0000 Signed Impressions: Service Date/Time: May 16:28 - CONCLUSION: 1. Mild hepatomegaly. 2. Status post cholecystectomy. 3. No evidence of acute process or biliary obstructive disease. 4. Calcified granuloma in the spleen. Valerio Salcedo MD Lumbar Spine CT 05/22/17 0000 Signed Impressions: Service Date/Time: Sunday, May 21, 2017 14:36 - CONCLUSION: 1. Moderate stenosis at the L4-L5 level caused by combination of anterior subluxation/spondylolisthesis, disc bulge, and severe facet hypertrophy. 2. Moderate stenosis at the T11-T12 level by a central disc protrusion with osteophytes. 3. Moderate disc bulge and mild stenosis at the L5-S1 level. 4. Minimal bulging at the L1-L2 and L2-L3 levels. 1. Gurvinder Steinberg MD Chest X-Ray 05/21/17 1345 Signed Impressions: Service Date/Time: Sunday, May 21, 2017 13:57 - CONCLUSION: No acute disease. Gurvinder Frazier MD Abdomen/Pelvis CT 05/21/17 1345 Signed Impressions: Service Date/Time: Sunday, May 21, 2017 14:36 - CONCLUSION: No acute CT findings in the abdomen or pelvis. Gurvinder Frazier MD Renal Ultrasound 05/21/17 0000 Signed Impressions: Service Date/Time: Sunday, May 21, 2017 18:12 - CONCLUSION: No acute disease. Gurvinder Steinberg MD Objective Remarks GENERAL: Well-nourished, morbidly obese white female patient, laying in bed in no acute distress SKIN: Warm and dry/flaky. CARDIOVASCULAR: Heart sounds distant. Regular rate and rhythm without murmurs, gallops, or rubs. RESPIRATORY: Breath sounds equal bilaterally and clear. No accessory muscle use. No crackles or wheezes. GASTROINTESTINAL: Abdomen soft, obese, nontender, nondistended. EXTREMITIES: Trace edema of BLE. non tender calves BL. BACK: Tenderness to palpation of skin around sacrum. There is patches of erosion of epidermis but not through the epidermis. NEUROLOGICAL: Grossly non-focal. Sensation of legs equal bilaterally. (Daniel Trejo MD R2) A/P Assessment and Plan 56 year old female with hypertension, hypothyroidism presenting with severely uncontrolled hypothyroidism, deconditioning, multiple falls. Discharge Planning Likely to discharge on 07/05 (Daniel Trejo MD R2) Attending Attestation Patient seen, examined, and discussed with Garrick Trejo and Guadalupe. I agree with assessment and management as documented and discussed with me. Pt crying in her bed, when discussing her constipation. She has not had a BM since 05/24. Discussed importance of moving and getting out of bed, to facilitate BMs. Pt would likely benefit from PRN constipation medication administration today. (Judy Taylor MD) Problem List: (1) Pain ICD Codes: R52 - Pain, unspecified Status: Acute Plan: -Changed from hydrocodone acetaminophen to tramadol as needed for pain, hydrocodone-acetaminophen as needed for breakthrough pain -Ambien as needed to help her sleep (2) Skin breakdown ICD Codes: L90.9 - Atrophic disorder of skin, unspecified Plan: Skin breakdown at sacrum -Wound care consult ordered. Discussed with wound care. Appearance consistent with diaper rash. Recommended antifungal powder as needed. Also recommend use of this powder in her inguinal regions and under her pannus At left axilla. -Petroleum jelly as needed (3) Severe hypothyroidism ICD Codes: E03.8 - Other specified hypothyroidism Status: Acute Plan: Improving symptomatically with meds as listed T4 now wnl TSH in detectable range -Endocrinology consulted, appreciate recommendations -Continue levothyroxine 225 mcg daily -Recommended recheck of T4, TSH in 2 weeks; follow-up TSH was 52.1, then 49.5 , T4 was 1.22. Improved from before. -Signed off due to patient anticipated to be transferred, available as needed for continued input (4) Weakness ICD Codes: R53.1 - Weakness Status: Chronic Plan: Likely multifactorial with a large component of deconditioning. Continue PT -Assessment stated that falls likely due to a combination of weakness, but also poor lower extremity sensation. -Will need to use a bariatric wheeled walker for safe ambulation -Recommended PT at rehab -C/w PT BID while in the hospital for 7 days a week -Patient remains a high fall risk. Working on safe discharge plan which will require ability to transfer. Rehab medicine consulted, recs appreciated -Needs to be able to do self-transfers or min assist transfers in order to meet criteria for short-term daniel bed at [facility] Rehab facility denied transfer patient as they report that she needs to have a concrete discharge plan following rehab prior to acceptance and her sons have not made a commitment. (5) Depression ICD Codes: F32.9 - Major depressive disorder, single episode, unspecified Status: Chronic Plan: -Zoloft increased per psychiatry -continue home BuSpar -Continue Effexor; consider titrating up -Ativan prn for anxiety -Psychiatry consult appreciated (6) Diabetes mellitus ICD Codes: E11.9 - Type 2 diabetes mellitus without complications Status: Chronic Plan: BSG 164-288 Hold home insulin glargine. She reported taking no short acting insulin at home for months only long acting. HbA1c is 12.5 -Accuchecks ACHS -Levemir 42 units BID -Novolog 9 units TIDAC -Blood pressure well controlled, however should consider starting an reji-I for renal protection (7) Hypertension ICD Codes: I10 - Essential (primary) hypertension Status: Chronic Plan: Stable, continue atenolol 25 mg daily continue to monitor (8) Chronic kidney disease ICD Codes: N18.9 - Chronic kidney disease, unspecified Status: Chronic Plan: Baseline ~1.3. Creatinine stable. (9) Hyperlipidemia ICD Codes: E78.5 - Hyperlipidemia, unspecified Status: Chronic Plan: CK wnl -Continue atorvastatin (10) Nutrition, metabolism, and development symptoms ICD Codes: R63.8 - Other symptoms and signs concerning food and fluid intake Status: Acute Plan: Fluids: tolerating po Electrolytes: continue to monitor Nutrition: 1800 ADA GI ppx: Protonix 40 mg po daily DVT ppx: Heparin 5,000 units sq q8h Dispo: Complicated due to self-pay status and risk of falls. (Daniel Trejo MD R2) Problem Qualifiers (1) Diabetes mellitus: Qualified Codes: E11.42 - Type 2 diabetes mellitus with diabetic polyneuropathy ; Z79.4 - [employer] (current) use of insulin (2) Hypertension: Qualified Codes: I10 - Essential (primary) hypertension (3) Hyperlipidemia: Qualified Codes: E78.00 - Pure hypercholesterolemia, unspecified Daniel Trejo MD R2 June 30, 2017 09:58 Judy Taylor MD June 30, 2017 20:52
[2017-06-30] MEDS ORDERED: traMADol HCL 50 MG TAB PO PRN (10:00)
[2017-06-30 12:16] VITALS: BP 130/60; PULSE 82; RESP 18; TEMP 98.1; O2SAT 96
[2017-06-30 16:06] VITALS: BP 123/59; PULSE 73; RESP 18; TEMP 98.4; O2SAT 92
--- NOTE | 2017-06-30 16:10 | PD.WCN.NOT ---
Wound Consult Description: Consult for PRESSURE ULCER sacral to help prevent progression per Maya MDR2 Communicated with: Patient MARK Miner Recommendation: Encourage patient to lay on her sides to allow her bilateral buttocks/mabel area to be open to air. Use only disposable ultrasorb pad instead of both ultrasorb and cotton draw sheet as patient is independently repositioning herself in bed. Cotton underpads hold in heat and moisture that help create moist fungal environment for skin. Apply Calazime skin protectant paste to bilateral buttocks and mabel areas BID. Apply antifungal powder to intertriginous areas of abdomen and groin BID. Additional Information: Patient seen on [address] for sacral area. Patient repositioned herself to her right side for assessment. Sacrum was visualized and noted with peeling denuded skin without erythema. No open areas noted. Visualization of bilateral buttocks show classic signs of moisture related peeling bright red intact skin that appears to be the beginnings of a fungal rash. Moist cotton underpad was removed and skin was gently cleansed and covered in Calazime skin protectant paste with an ultrasorb moisture wicking underpad placed underneath patient. It was explained to her that the cotton underpads hold in moisture and do not wick it away from the skin leaving the skin moist and eventually leads to a diaper rash like appearance with discomfort. Patient states that she is experiencing this now and c/o this on her abdominal folds as well. Recommend to apply Calazime skin protectant BID to her bilateral buttocks and mabel area which is visualized and noted with intact skin with erythema, and stay on her sides whenever possible to keep these areas open to air. Recommend to apply antifungal powder to abdominal and groin folds BID and wipe away excess to keep from accumulating chunks of product. [facility] Gutierrez [facility] June 30, 2017 16:10
[2017-06-30 20:00] VITALS: BP 110/54; PULSE 73; RESP 22; TEMP 98.4; O2SAT 95
[2017-07-01] VITALS: BP 116/61; PULSE 72; RESP 22; TEMP 98.2; O2SAT 96
[2017-07-01] MEDS: ASPIRIN EC 81 MG TABEC PO SCH ×2 (00:26→21:52)
[2017-07-01] MEDS: LACTOBACILLUS ACIDOPHILUS TAB PO SCH ×3 (00:26→21:52)
[2017-07-01] MEDS: CHOLECALCIFEROL (VIT D3) 400 UNIT TAB PO SCH ×2 (00:26→21:52)
[2017-07-01] MEDS: LORazepam 0.5 MG TAB PO SCH ×2 (00:26→21:52)
[2017-07-01] MEDS: ACETAMINOPHEN/HYDROcodone 325 MG/7.5 MG TAB PO PRN ×5 (00:26→22:44)
[2017-07-01] MEDS: DOCUSATE SODIUM 50 MG/SENNA 8.6 MG TAB PO SCH ×3 (00:26→21:52)
[2017-07-01] MEDS: CALCIUM CARBONATE 500 MG CHEWABLE TAB PO SCH ×3 (00:27→21:52)
[2017-07-01] MEDS: CLOTRIMAZOLE 1% CREAM 15 GM TOPICAL SCH ×3 (00:27→21:56)
[2017-07-01] MEDS: MAGNESIUM HYDROXIDE SUSP 30 ML CUP PO PRN (00:27)
[2017-07-01] MEDS: INSULIN DETEMIR 100 UNITS/ML VIAL SQ SCH ×3 (00:27→21:52)
[2017-07-01] MEDS: SODIUM CHLORIDE 0.9% FLUSH 10 ML FLUSH IV FLUSH SCH ×3 (00:28→21:00)
[2017-07-01] MEDS: traMADol HCL 50 MG TAB PO PRN ×2 (02:36→21:53)
[2017-07-01] MEDS: HEPARIN SODIUM - SQ 10,000 UNITS/ML VIAL SQ SCH ×3 (02:37→18:29)
[2017-07-01 04:00] VITALS: BP 110/63; PULSE 80; RESP 22; TEMP 98.6; O2SAT 95
[2017-07-01] MEDS: LEVOTHYROXINE SODIUM 25 MCG TAB PO SCH (04:37)
[2017-07-01] MEDS: LEVOTHYROXINE SODIUM 200 MCG TAB PO SCH (04:37)
[2017-07-01 08:00] VITALS: BP 107/64; PULSE 82; RESP 17; TEMP 97.7; O2SAT 95
[2017-07-01] MEDS: VENLAFAXINE HCL XR 37.5 MG CAP PO SCH (09:00)
[2017-07-01] MEDS: SERTRALINE HCL 50 MG TAB PO SCH (09:00)
[2017-07-01] MEDS: PANTOPRAZOLE SOD 40 MG DELAYED RELEASE TAB PO SCH (09:00)
[2017-07-01] MEDS: ATENOLOL 25 MG TAB PO SCH (09:00)
[2017-07-01] MEDS: POLYETHYLENE GLYCOL 17 GM PKG PO SCH (09:01)
[2017-07-01] MEDS: busPIRone HCL 5 MG TAB PO SCH ×3 (11:07→18:40)
[2017-07-01] MEDS: INSULIN ASPART 1,000 UNITS/10 ML VIAL SQ SCH ×4 (11:08→18:49)
[2017-07-01 12:00] VITALS: BP 112/76; PULSE 78; RESP 17; TEMP 97.8; O2SAT 94
--- NOTE | 2017-07-01 12:24 | HHI.FPPN ---
Subjective Remarks Patient seen and examined today. One reported bowel movement since last seen. No new complaints today. Thoroughly discussed discharge planning with patient. As had been discussed prior, it was stated that the patient will be discharged to this upcoming Monday and travel arrangements should be completed. Patient continues to state that we are not allowed to contact any local friends or family members for assistance, or her son Mayco who should be coming down to help her in transit. It was encouraged she finalize any travel plans including plane tickets, and arranging whoever will be available to help her travel prior to discharge. We will continue to offer support in aiding her in reaching out to friends or family members, however at this time she will be responsible to do so as she is actively denying us access to these individuals. She expressed understanding of the conversation. (Daniel Butcher MD R1) Objective Vitals Vital Signs Date Time Temp Pulse Resp B/P (MAP) Pulse Ox O2 Delivery O2 Flow Rate FiO2 07/01/17 04:00 98.6 80 22 110/63 (79) 95 07/01/17 00:00 98.2 72 22 116/61 (79) 96 06/30/17 20:00 98.4 73 22 110/54 (72) 95 06/30/17 20:00 Nasal Cannula 2.00 06/30/17 16:06 98.4 73 18 123/59 (80) 92 06/30/17 12:16 98.1 82 18 130/60 (83) 96 I/O 06/30/17 06/30/17 06/30/17 07/01/17 07/01/17 07/01/17 07:00 15:00 23:00 07:00 15:00 23:00 Intake Total 240 ml 600 ml Output Total 175 ml 600 ml Balance 65 ml 0 ml Intake Oral 240 ml 600 ml Output Urine Total 175 ml 600 ml # Voids 3 # Bowel Movements 0 1 (Daniel Butcher MD R1) Result Diagram: 06/29/17 0439 06/29/17438 Objective Remarks GENERAL: Well-nourished, morbidly obese white female patient, laying in bed in no acute distress SKIN: Warm and dry/flaky. CARDIOVASCULAR: Heart sounds distant. Regular rate and rhythm without murmurs, gallops, or rubs. RESPIRATORY: Breath sounds equal bilaterally and clear. No accessory muscle use. No crackles or wheezes. GASTROINTESTINAL: Abdomen soft, obese, nontender, nondistended. EXTREMITIES: Trace edema of BLE. non tender calves BL. BACK: Tenderness to palpation of skin around sacrum. There is patches of erosion of epidermis but not through the epidermis. NEUROLOGICAL: Grossly non-focal. Sensation of legs equal bilaterally. (Daniel Butcher MD R1) A/P Assessment and Plan 56 year old female with hypertension, hypothyroidism presenting with severely uncontrolled hypothyroidism, deconditioning, multiple falls. Discharge Planning Likely to discharge on 07/05 From 07/01 HPI: "As had been discussed prior, it was stated that the patient will be discharged to this upcoming Monday and travel arrangements should be completed. Patient continues to state that we are not allowed to contact any local friends or family members for assistance, or her son Mayco who should be coming down to help her in transit. It was encouraged she finalize any travel plans including plane tickets, and arranging whoever will be available to help her travel prior to discharge. We will continue to offer support in aiding her in reaching out to friends or family members, however at this time she will be responsible to do so as she is actively denying us access to these individuals. She expressed understanding of the conversation." (Daniel Butcher MD R1) Attending Attestation Patient seen, examined, and discussed with Dr Butcher. I agree with assessment and management as documented and discussed with me. No new concerns. Pt has had a BM. Discussed with patient that she will be discharged on 07/05/17, and that she needs to purchase plane tickets if she plans to return to [place] at discharge. Pt refuses to provide phone number for friends or family, despite encouragement that it is important to contact her son Mayco so there is full communication about her care. (Judy Taylor MD) Problem List: (1) Pain ICD Codes: R52 - Pain, unspecified Status: Acute Plan: -Changed from hydrocodone acetaminophen to tramadol as needed for pain, hydrocodone-acetaminophen as needed for breakthrough pain -Ambien as needed to help her sleep (2) Skin breakdown ICD Codes: L90.9 - Atrophic disorder of skin, unspecified Plan: Skin breakdown at sacrum -Wound care consult ordered. Discussed with wound care. Appearance consistent with diaper rash. Recommended antifungal powder as needed. Also recommend use of this powder in her inguinal regions and under her pannus At left axilla. -Petroleum jelly as needed (3) Severe hypothyroidism ICD Codes: E03.8 - Other specified hypothyroidism Status: Acute Plan: Improving symptomatically with meds as listed T4 now wnl TSH in detectable range -Endocrinology consulted, appreciate recommendations -Continue levothyroxine 225 mcg daily -Recommended recheck of T4, TSH in 2 weeks; follow-up TSH was 52.1, then 49.5 , T4 was 1.22. Improved from before. -Signed off due to patient anticipated to be transferred, available as needed for continued input (4) Weakness ICD Codes: R53.1 - Weakness Status: Chronic Plan: Likely multifactorial with a large component of deconditioning. Continue PT -Assessment stated that falls likely due to a combination of weakness, but also poor lower extremity sensation. -Will need to use a bariatric wheeled walker for safe ambulation -Recommended PT at rehab -C/w PT BID while in the hospital for 7 days a week -Patient remains a high fall risk. Working on safe discharge plan which will require ability to transfer. Rehab medicine consulted, recs appreciated -Needs to be able to do self-transfers or min assist transfers in order to meet criteria for short-term daniel bed at [facility] Rehab facility denied transfer patient as they report that she needs to have a concrete discharge plan following rehab prior to acceptance and her sons have not made a commitment. (5) Depression ICD Codes: F32.9 - Major depressive disorder, single episode, unspecified Status: Chronic Plan: -Zoloft increased per psychiatry -continue home BuSpar -Continue Effexor; consider titrating up -Ativan prn for anxiety -Psychiatry consult appreciated (6) Diabetes mellitus ICD Codes: E11.9 - Type 2 diabetes mellitus without complications Status: Chronic Plan: BSG 164-288 Hold home insulin glargine. She reported taking no short acting insulin at home for months only long acting. HbA1c is 12.5 -Accuchecks ACHS -Levemir 42 units BID -Novolog 9 units TIDAC -Blood pressure well controlled, however should consider starting an reji-I for renal protection (7) Hypertension ICD Codes: I10 - Essential (primary) hypertension Status: Chronic Plan: Stable, continue atenolol 25 mg daily continue to monitor (8) Chronic kidney disease ICD Codes: N18.9 - Chronic kidney disease, unspecified Status: Chronic Plan: Baseline ~1.3. Creatinine stable. (9) Hyperlipidemia ICD Codes: E78.5 - Hyperlipidemia, unspecified Status: Chronic Plan: CK wnl -Continue atorvastatin (10) Nutrition, metabolism, and development symptoms ICD Codes: R63.8 - Other symptoms and signs concerning food and fluid intake Status: Acute Plan: Fluids: tolerating po Electrolytes: continue to monitor Nutrition: 1800 ADA GI ppx: Protonix 40 mg po daily DVT ppx: Heparin 5,000 units sq q8h Dispo: Complicated due to self-pay status and risk of falls. (Daniel Butcher MD R1) Problem Qualifiers (1) Diabetes mellitus: Qualified Codes: E11.42 - Type 2 diabetes mellitus with diabetic polyneuropathy ; Z79.4 - [facility] (current) use of insulin (2) Hypertension: Qualified Codes: I10 - Essential (primary) hypertension (3) Hyperlipidemia: Qualified Codes: E78.00 - Pure hypercholesterolemia, unspecified Daniel Butcher MD R1 July 01, 2017 12:24 Judy Taylor MD July 01, 2017 19:52
[2017-07-01 16:00] VITALS: BP 110/74; PULSE 71; RESP 17; TEMP 97.8; O2SAT 98
[2017-07-01 20:00] VITALS: BP 102/75; PULSE 74; RESP 17; TEMP 97.7; O2SAT 97
[2017-07-02] VITALS: BP 105/77; PULSE 74; RESP 16; TEMP 97.8; O2SAT 95
[2017-07-02] MEDS: HEPARIN SODIUM - SQ 10,000 UNITS/ML VIAL SQ SCH ×3 (01:54→18:48)
[2017-07-02] MEDS: traMADol HCL 50 MG TAB PO PRN ×3 (01:55→22:46)
[2017-07-02 04:00] VITALS: BP 124/78; PULSE 72; RESP 18; TEMP 97.8; O2SAT 97
[2017-07-02] MEDS: LEVOTHYROXINE SODIUM 25 MCG TAB PO SCH (05:01)
[2017-07-02] MEDS: LEVOTHYROXINE SODIUM 200 MCG TAB PO SCH (05:01)
[2017-07-02] MEDS: ACETAMINOPHEN/HYDROcodone 325 MG/7.5 MG TAB PO PRN ×3 (05:02→19:25)
[2017-07-02 08:46] VITALS: BP 111/63; PULSE 70; RESP 18; TEMP 98; O2SAT 98
[2017-07-02] MEDS: SODIUM CHLORIDE 0.9% FLUSH 10 ML FLUSH IV FLUSH SCH ×2 (09:00→21:00)
[2017-07-02] MEDS: CLOTRIMAZOLE 1% CREAM 15 GM TOPICAL SCH ×2 (09:00→21:00)
[2017-07-02] MEDS: POLYETHYLENE GLYCOL 17 GM PKG PO SCH (09:38)
[2017-07-02] MEDS: VENLAFAXINE HCL XR 37.5 MG CAP PO SCH (09:38)
[2017-07-02] MEDS: busPIRone HCL 5 MG TAB PO SCH ×3 (09:39→18:48)
[2017-07-02] MEDS: PANTOPRAZOLE SOD 40 MG DELAYED RELEASE TAB PO SCH (09:39)
[2017-07-02] MEDS: CALCIUM CARBONATE 500 MG CHEWABLE TAB PO SCH ×2 (09:39→21:00)
[2017-07-02] MEDS: LACTOBACILLUS ACIDOPHILUS TAB PO SCH ×2 (09:39→21:00)
[2017-07-02] MEDS: DOCUSATE SODIUM 50 MG/SENNA 8.6 MG TAB PO SCH ×2 (09:39→21:00)
[2017-07-02] MEDS: ATENOLOL 25 MG TAB PO SCH (09:39)
[2017-07-02] MEDS: SERTRALINE HCL 50 MG TAB PO SCH (09:39)
--- NOTE | 2017-07-02 09:49 | HHI.FPPN ---
Subjective Remarks Patient seen and examined this morning. States she is tired. Reviewed current discharge plan, she states she has not gotten in contact with her son Mayco yet and still has not arranged a flight at this time. It was further encouraged that she continue making arrangements, and we will be willing to help if given the opportunity to. Otherwise we have not been given further permission to contact people. No other acute changes. (Daniel Butcher MD R1) Objective Vitals Vital Signs Date Time Temp Pulse Resp B/P (MAP) Pulse Ox O2 Delivery O2 Flow Rate FiO2 07/02/17 08:46 98.0 70 18 111/63 (79) 98 07/02/17 04:00 97.8 72 18 124/78 (93) 97 07/02/17 02:08 Nasal Cannula 2.00 07/02/17 00:00 97.8 74 16 105/77 (86) 95 07/01/17 20:00 97.7 74 17 102/75 (84) 97 07/01/17 16:00 97.8 71 17 110/74 (86) 98 07/01/17 12:00 97.8 78 17 112/76 (88) 94 I/O 07/01/17 07/01/17 07/01/17 07/02/17 07/02/17 07/02/17 07:00 15:00 23:00 07:00 15:00 23:00 Intake Total 1080 ml 240 ml Output Total 600 ml Balance 1080 ml -360 ml Intake Oral 1080 ml 240 ml Output Urine Total 600 ml # Voids 3 2 2 # Bowel Movements 1 0 (Daniel Butcher MD R1) Result Diagram: 06/29/17 0439 06/29/17 043 Objective Remarks GENERAL: Well-nourished, morbidly obese white female patient, laying in bed in no acute distress SKIN: Warm and dry/flaky. CARDIOVASCULAR: Heart sounds distant. Regular rate and rhythm without murmurs, gallops, or rubs. RESPIRATORY: Breath sounds equal bilaterally and clear. No accessory muscle use. No crackles or wheezes. GASTROINTESTINAL: Abdomen soft, obese, nontender, nondistended. EXTREMITIES: Trace edema of BLE. non tender calves BL. BACK: Tenderness to palpation of skin around sacrum. There is patches of erosion of epidermis but not through the epidermis. NEUROLOGICAL: Grossly non-focal. Sensation of legs equal bilaterally. (Daniel Butcher MD R1) A/P Assessment and Plan 56 year old female with hypertension, hypothyroidism presenting with severely uncontrolled hypothyroidism, deconditioning, multiple falls. Discharge Planning Likely to discharge on 07/05 From 07/01 HPI: "As had been discussed prior, it was stated that the patient will be discharged to this upcoming Monday and travel arrangements should be completed. Patient continues to state that we are not allowed to contact any local friends or family members for assistance, or her son Mayco who should be coming down to help her in transit. It was encouraged she finalize any travel plans including plane tickets, and arranging whoever will be available to help her travel prior to discharge. We will continue to offer support in aiding her in reaching out to friends or family members, however at this time she will be responsible to do so as she is actively denying us access to these individuals. She expressed understanding of the conversation. (Daniel Butcher MD R1) Attending Attestation Patient seen and examined, discussed with Dr Butcher. I agree with assessment and management as documented and discussed with me. No new concerns. Pt is not making arrangements for travel/discharge, despite being informed of discharge on 07/05/17. Yesterday, required minimal assist with PT - a significant improvement from prior. (Judy Taylor MD) Problem List: (1) Pain ICD Codes: R52 - Pain, unspecified Status: Acute Plan: -Changed from hydrocodone acetaminophen to tramadol as needed for pain, hydrocodone-acetaminophen as needed for breakthrough pain -Ambien as needed to help her sleep (2) Skin breakdown ICD Codes: L90.9 - Atrophic disorder of skin, unspecified Plan: Skin breakdown at sacrum -Wound care consult ordered. Discussed with wound care. Appearance consistent with diaper rash. Recommended antifungal powder as needed. Also recommend use of this powder in her inguinal regions and under her pannus At left axilla. -Petroleum jelly as needed (3) Severe hypothyroidism ICD Codes: E03.8 - Other specified hypothyroidism Status: Acute Plan: Improving symptomatically with meds as listed T4 now wnl TSH in detectable range -Endocrinology consulted, appreciate recommendations -Continue levothyroxine 225 mcg daily -Recommended recheck of T4, TSH in 2 weeks; follow-up TSH was 52.1, then 49.5 , T4 was 1.22. Improved from before. -Signed off due to patient anticipated to be transferred, available as needed for continued input (4) Weakness ICD Codes: R53.1 - Weakness Status: Chronic Plan: Likely multifactorial with a large component of deconditioning. Continue PT -Assessment stated that falls likely due to a combination of weakness, but also poor lower extremity sensation. -Will need to use a bariatric wheeled walker for safe ambulation -Recommended PT at rehab -C/w PT BID while in the hospital for 7 days a week -Patient remains a high fall risk. Working on safe discharge plan which will require ability to transfer. Rehab medicine consulted, recs appreciated -Needs to be able to do self-transfers or min assist transfers in order to meet criteria for short-term daniel bed at [facility] Rehab facility denied transfer patient as they report that she needs to have a concrete discharge plan following rehab prior to acceptance and her sons have not made a commitment. (5) Depression ICD Codes: F32.9 - Major depressive disorder, single episode, unspecified Status: Chronic Plan: -Zoloft increased per psychiatry -continue home BuSpar -Continue Effexor; consider titrating up -Ativan prn for anxiety -Psychiatry consult appreciated (6) Diabetes mellitus ICD Codes: E11.9 - Type 2 diabetes mellitus without complications Status: Chronic Plan: BSG 164-288 Hold home insulin glargine. She reported taking no short acting insulin at home for months only long acting. HbA1c is 12.5 -Accuchecks ACHS -Levemir 42 units BID -Novolog 9 units TIDAC -Blood pressure well controlled, however should consider starting an reji-I for renal protection (7) Hypertension ICD Codes: I10 - Essential (primary) hypertension Status: Chronic Plan: Stable, continue atenolol 25 mg daily continue to monitor (8) Chronic kidney disease ICD Codes: N18.9 - Chronic kidney disease, unspecified Status: Chronic Plan: Baseline ~1.3. Creatinine stable. (9) Hyperlipidemia ICD Codes: E78.5 - Hyperlipidemia, unspecified Status: Chronic Plan: CK wnl -Continue atorvastatin (10) Nutrition, metabolism, and development symptoms ICD Codes: R63.8 - Other symptoms and signs concerning food and fluid intake Status: Acute Plan: Fluids: tolerating po Electrolytes: continue to monitor Nutrition: 1800 ADA GI ppx: Protonix 40 mg po daily DVT ppx: Heparin 5,000 units sq q8h Dispo: Complicated due to self-pay status and risk of falls. (Daniel Butcher MD R1) Problem Qualifiers (1) Diabetes mellitus: Qualified Codes: E11.42 - Type 2 diabetes mellitus with diabetic polyneuropathy ; Z79.4 - intermodal customer service (current) use of insulin (2) Hypertension: Qualified Codes: I10 - Essential (primary) hypertension (3) Hyperlipidemia: Qualified Codes: E78.00 - Pure hypercholesterolemia, unspecified Daniel Butcher MD R1 July 02, 2017 09:49 Judy Taylor MD July 02, 2017 13:44
[2017-07-02] MEDS: INSULIN DETEMIR 100 UNITS/ML VIAL SQ SCH ×2 (11:08→21:00)
[2017-07-02] MEDS: INSULIN ASPART 1,000 UNITS/10 ML VIAL SQ SCH ×2 (11:09→19:21)
[2017-07-02 12:00] VITALS: BP 119/56; PULSE 70; RESP 18; TEMP 97.9; O2SAT 97
[2017-07-02 16:50] VITALS: BP 109/64; PULSE 55; RESP 20; TEMP 97.8; O2SAT 94
[2017-07-02] MEDS: ASPIRIN EC 81 MG TABEC PO SCH (21:00)
[2017-07-02] MEDS: LORazepam 0.5 MG TAB PO SCH (21:00)
[2017-07-02] MEDS: CHOLECALCIFEROL (VIT D3) 400 UNIT TAB PO SCH (21:00)
[2017-07-03] MEDS: HEPARIN SODIUM - SQ 10,000 UNITS/ML VIAL SQ SCH ×3 (02:00→18:26)
[2017-07-03] MEDS: traMADol HCL 50 MG TAB PO PRN ×4 (02:38→20:21)
[2017-07-03] MEDS: ACETAMINOPHEN/HYDROcodone 325 MG/7.5 MG TAB PO PRN ×4 (02:42→18:43)
[2017-07-03 04:23] VITALS: BP 111/61; PULSE 81; RESP 14; O2SAT 96
[2017-07-03] MEDS: LEVOTHYROXINE SODIUM 200 MCG TAB PO SCH (05:23)
[2017-07-03] MEDS: LEVOTHYROXINE SODIUM 25 MCG TAB PO SCH (05:24)
[2017-07-03] MEDS: INSULIN ASPART 1,000 UNITS/10 ML VIAL SQ SCH ×3 (08:00→18:26)
[2017-07-03 08:05] VITALS: BP 98/73; PULSE 86; RESP 18; TEMP 97.8; O2SAT 96
--- NOTE | 2017-07-03 08:50 | HHI.FPPN ---
Subjective Remarks Patient seen and examined today. No new acute complaints. No acute events overnight. States she is still arranged blankets at this time, however she has spoken with her son Mayco and he is aware that she will be discharged on Monday. (Daniel Butcher MD R1) Objective Vitals Vital Signs Date Time Temp Pulse Resp B/P (MAP) Pulse Ox O2 Delivery O2 Flow Rate FiO2 07/03/17 04:23 Nasal Cannula 2.00 07/03/17 04:23 81 14 111/61 (78) 96 07/02/17 23:53 Nasal Cannula 2.00 07/02/17 16:50 97.8 55 20 109/64 (79) 94 07/02/17 12:00 97.9 70 18 119/56 (77) 97 07/02/17 08:46 98.0 70 18 111/63 (79) 98 I/O 07/02/17 07/02/17 07/02/17 07/03/17 07/03/17 07/03/17 07:00 15:00 23:00 07:00 15:00 23:00 Intake Total 240 ml Output Total 600 ml 501 ml Balance -360 ml -501 ml Intake Oral 240 ml Output Urine Total 600 ml 500 ml Stool Total 1 ml # Voids 2 3 1 # Bowel Movements 1 (Daniel Butcher MD R1) Result Diagram: 06/29/1743806/29/17438 Objective Remarks GENERAL: Well-nourished, morbidly obese white female patient, laying in bed in no acute distress SKIN: Warm and dry/flaky. CARDIOVASCULAR: Heart sounds distant. Regular rate and rhythm without murmurs, gallops, or rubs. RESPIRATORY: Breath sounds equal bilaterally and clear. No accessory muscle use. No crackles or wheezes. GASTROINTESTINAL: Abdomen soft, obese, nontender, nondistended. EXTREMITIES: Trace edema of BLE. non tender calves BL. BACK: Tenderness to palpation of skin around sacrum. There is patches of erosion of epidermis but not through the epidermis. NEUROLOGICAL: Grossly non-focal. Sensation of legs equal bilaterally. (Daniel Butcher MD R1) A/P Assessment and Plan 56 year old female with hypertension, hypothyroidism presenting with severely uncontrolled hypothyroidism, deconditioning, multiple falls. Discharge Planning Likely to discharge on 07/05 From 07/01 HPI: "As had been discussed prior, it was stated that the patient will be discharged to this upcoming Monday and travel arrangements should be completed. Patient continues to state that we are not allowed to contact any local friends or family members for assistance, or her son Mayco who should be coming down to help her in transit. It was encouraged she finalize any travel plans including plane tickets, and arranging whoever will be available to help her travel prior to discharge. We will continue to offer support in aiding her in reaching out to friends or family members, however at this time she will be responsible to do so as she is actively denying us access to these individuals. She expressed understanding of the conversation. (Daniel Butcher MD R1) Attending Attestation Patient seen and examined, discussed with Dr Butcher. I agree with assessment and management as documented and discussed with me. No new complaints or concerns. She continues to work with PT, although had to be encouraged by PT to get out of bed. She has not arranged plane tickets yet. She does state that her son is aware she will be discharged on Monday. Again, it was offered to patient that we contact family or friends and it was stated again that we are willing to help her make travel arrangements. Pt continues to decline assistance in this regard. (Judy Taylor MD) Problem List: (1) Pain ICD Codes: R52 - Pain, unspecified Status: Acute Plan: -Changed from hydrocodone acetaminophen to tramadol as needed for pain, hydrocodone-acetaminophen as needed for breakthrough pain -Ambien as needed to help her sleep (2) Skin breakdown ICD Codes: L90.9 - Atrophic disorder of skin, unspecified Plan: Skin breakdown at sacrum -Wound care consult ordered. Discussed with wound care. Appearance consistent with diaper rash. Recommended antifungal powder as needed. Also recommend use of this powder in her inguinal regions and under her pannus At left axilla. -Petroleum jelly as needed (3) Severe hypothyroidism ICD Codes: E03.8 - Other specified hypothyroidism Status: Acute Plan: Improving symptomatically with meds as listed T4 now wnl TSH in detectable range -Endocrinology consulted, appreciate recommendations -Continue levothyroxine 225 mcg daily -Recommended recheck of T4, TSH in 2 weeks; follow-up TSH was 52.1, then 49.5 , T4 was 1.22. Improved from before. -Signed off due to patient anticipated to be transferred, available as needed for continued input (4) Weakness ICD Codes: R53.1 - Weakness Status: Chronic Plan: Likely multifactorial with a large component of deconditioning. Continue PT -Assessment stated that falls likely due to a combination of weakness, but also poor lower extremity sensation. -Will need to use a bariatric wheeled walker for safe ambulation -Recommended PT at rehab -C/w PT BID while in the hospital for 7 days a week -Patient remains a high fall risk. Working on safe discharge plan which will require ability to transfer. Rehab medicine consulted, recs appreciated -Needs to be able to do self-transfers or min assist transfers in order to meet criteria for short-term daniel bed at [facility] Rehab facility denied transfer patient as they report that she needs to have a concrete discharge plan following rehab prior to acceptance and her sons have not made a commitment. (5) Depression ICD Codes: F32.9 - Major depressive disorder, single episode, unspecified Status: Chronic Plan: -Zoloft increased per psychiatry -continue home BuSpar -Continue Effexor; consider titrating up -Ativan prn for anxiety -Psychiatry consult appreciated (6) Diabetes mellitus ICD Codes: E11.9 - Type 2 diabetes mellitus without complications Status: Chronic Plan: BSG 164-288 Hold home insulin glargine. She reported taking no short acting insulin at home for months only long acting. HbA1c is 12.5 -Accuchecks ACHS -Levemir 42 units BID -Novolog 9 units TIDAC -Blood pressure well controlled, however should consider starting an reji-I for renal protection (7) Hypertension ICD Codes: I10 - Essential (primary) hypertension Status: Chronic Plan: Stable, continue atenolol 25 mg daily continue to monitor (8) Chronic kidney disease ICD Codes: N18.9 - Chronic kidney disease, unspecified Status: Chronic Plan: Baseline ~1.3. Creatinine stable. (9) Hyperlipidemia ICD Codes: E78.5 - Hyperlipidemia, unspecified Status: Chronic Plan: CK wnl -Continue atorvastatin (10) Nutrition, metabolism, and development symptoms ICD Codes: R63.8 - Other symptoms and signs concerning food and fluid intake Status: Acute Plan: Fluids: tolerating po Electrolytes: continue to monitor Nutrition: 1800 ADA GI ppx: Protonix 40 mg po daily DVT ppx: Heparin 5,000 units sq q8h Dispo: Complicated due to self-pay status and risk of falls. (Daniel Butcher MD R1) Problem Qualifiers (1) Diabetes mellitus: Qualified Codes: E11.42 - Type 2 diabetes mellitus with diabetic polyneuropathy ; Z79.4 - correction (current) use of insulin (2) Hypertension: Qualified Codes: I10 - Essential (primary) hypertension (3) Hyperlipidemia: Qualified Codes: E78.00 - Pure hypercholesterolemia, unspecified Daniel Butcher MD R1 July 03, 2017 08:50 Judy Taylor MD July 03, 2017 10:52
[2017-07-03] MEDS: POLYETHYLENE GLYCOL 17 GM PKG PO SCH (09:00)
[2017-07-03] MEDS: CLOTRIMAZOLE 1% CREAM 15 GM TOPICAL SCH ×2 (09:00→20:16)
[2017-07-03] MEDS: ATENOLOL 25 MG TAB PO SCH (09:00)
[2017-07-03] MEDS: INSULIN DETEMIR 100 UNITS/ML VIAL SQ SCH ×2 (09:21→20:16)
[2017-07-03] MEDS: LACTOBACILLUS ACIDOPHILUS TAB PO SCH ×2 (09:36→20:16)
[2017-07-03] MEDS: CALCIUM CARBONATE 500 MG CHEWABLE TAB PO SCH ×2 (09:36→20:16)
[2017-07-03] MEDS: VENLAFAXINE HCL XR 37.5 MG CAP PO SCH (09:36)
[2017-07-03] MEDS: busPIRone HCL 5 MG TAB PO SCH ×3 (09:38→18:26)
[2017-07-03] MEDS: SERTRALINE HCL 50 MG TAB PO SCH (09:38)
[2017-07-03] MEDS: PANTOPRAZOLE SOD 40 MG DELAYED RELEASE TAB PO SCH (09:38)
[2017-07-03] MEDS: DOCUSATE SODIUM 50 MG/SENNA 8.6 MG TAB PO SCH ×2 (09:39→20:16)
[2017-07-03] MEDS: SODIUM CHLORIDE 0.9% FLUSH 10 ML FLUSH IV FLUSH SCH ×2 (09:41→20:16)
[2017-07-03 12:05] VITALS: BP 101/69; PULSE 85; RESP 18; TEMP 97.9; O2SAT 95
[2017-07-03 16:05] VITALS: BP 102/68; PULSE 84; RESP 18; TEMP 97.7; O2SAT 97
[2017-07-03 20:00] VITALS: BP 113/71; PULSE 81; RESP 18; TEMP 98; O2SAT 95
[2017-07-03] MEDS: CHOLECALCIFEROL (VIT D3) 400 UNIT TAB PO SCH (20:16)
[2017-07-03] MEDS: LORazepam 0.5 MG TAB PO SCH (20:16)
[2017-07-03] MEDS: ASPIRIN EC 81 MG TABEC PO SCH (20:16)
[2017-07-04] VITALS: BP 143/86; PULSE 85; RESP 17; TEMP 97.4; O2SAT 95
[2017-07-04] MEDS: traMADol HCL 50 MG TAB PO PRN ×3 (00:25→20:51)
[2017-07-04] MEDS: HEPARIN SODIUM - SQ 10,000 UNITS/ML VIAL SQ SCH ×3 (03:20→18:16)
[2017-07-04] MEDS: ACETAMINOPHEN/HYDROcodone 325 MG/7.5 MG TAB PO PRN ×3 (03:21→14:38)
[2017-07-04 04:00] VITALS: BP 101/75; PULSE 89; RESP 17; TEMP 98.1; O2SAT 96
[2017-07-04] MEDS: LEVOTHYROXINE SODIUM 25 MCG TAB PO SCH (05:52)
[2017-07-04] MEDS: LEVOTHYROXINE SODIUM 200 MCG TAB PO SCH (05:52)
[2017-07-04 08:00] VITALS: BP 133/67; PULSE 88; RESP 20; TEMP 97.9; O2SAT 95
[2017-07-04] MEDS: POLYETHYLENE GLYCOL 17 GM PKG PO SCH (08:46)
--- NOTE | 2017-07-04 08:47 | HHI.FPPN ---
Subjective Remarks Afebrile and vital signs stable overnight. Patient reports that she did not sleep well, is complaining of leg pain. She reports that she worked with physical therapy yesterday and they stretched her left leg too much, causing left leg pain, which she reports has immobilized her left leg to the extent that she can only move her left great toe. She reports that her son is planning on arriving in the area by plane. The plan is for him to help her move to [place]. (Daniel Trejo MD R2) Objective Vitals Vital Signs Date Time Temp Pulse Resp B/P (MAP) Pulse Ox O2 Delivery O2 Flow Rate FiO2 07/04/17 07:00 Nasal Cannula 2.00 07/04/17 04:00 98.1 89 17 101/75 (84) 96 07/04/17 04:00 Room Air 07/04/17 00:00 Room Air 07/04/17 00:00 97.4 85 17 143/86 (105) 95 07/03/17 20:00 98.0 81 18 113/71 (85) 95 07/03/17 20:00 Room Air 07/03/17 16:05 97.7 84 18 102/68 (79) 97 07/03/17 12:05 97.9 85 18 101/69 (80) 95 I/O 07/03/17 07/03/17 07/03/17 07/04/17 07/04/17 07/04/17 07:00 15:00 23:00 07:00 15:00 23:00 Intake Total 460 ml 120 ml Output Total 501 ml 300 ml Balance -501 ml 460 ml -180 ml Intake Oral 460 ml 120 ml Output Urine Total 500 ml 300 ml Stool Total 1 ml # Voids 6 1 # Bowel Movements 0 0 (Daniel Trejo MD R2) Objective Remarks GENERAL: Well-nourished, morbidly obese white female patient, laying in bed holding the right handrail to rotate herself off her back, which is normal for her. SKIN: Warm and dry/flaky. CARDIOVASCULAR: Heart sounds distant. Regular rate and rhythm without murmurs, gallops, or rubs. RESPIRATORY: Breath sounds equal bilaterally and clear. No accessory muscle use. No crackles or wheezes. GASTROINTESTINAL: Abdomen soft, obese, nondistended. EXTREMITIES: No edema of BLE. non tender calves BL. Tenderness to light palpation of left [place]. 2+ posterior tibial pulse. When I ask her to lift her right leg, she pushes down with her left leg. BACK: Grossly normal. NEUROLOGICAL: Grossly non-focal. Sensation of legs equal bilaterally. (Daniel Trejo MD R2) A/P Assessment and Plan 56 year old female with hypertension, hypothyroidism presenting with severely uncontrolled hypothyroidism, deconditioning, multiple falls. Discharge Planning Likely to discharge on 07/05 From 07/01 HPI: "As had been discussed prior, it was stated that the patient will be discharged to this upcoming Monday and travel arrangements should be completed. Patient continues to state that we are not allowed to contact any local friends or family members for assistance, or her son Mayco who should be coming down to help her in transit. It was encouraged she finalize any travel plans including plane tickets, and arranging whoever will be available to help her travel prior to discharge. We will continue to offer support in aiding her in reaching out to friends or family members, however at this time she will be responsible to do so as she is actively denying us access to these individuals. She expressed understanding of the conversation. (Daniel Trejo MD R2) Attending Attestation Patient seen and examined, discussed with resident team. I agree with assessment and management as documented and discussed with me. Pt seen self-propelling her wheelchair in the hallway. She reports that her son has not purchased a plane ticket yet, but her daughter in law is working on it. Discussed with patient that we plan to discharge her tomorrow. (Judy Taylor MD) Problem List: (1) Weakness ICD Codes: R53.1 - Weakness Status: Chronic Plan: Likely multifactorial with a large component of deconditioning. Continue PT -Assessment stated that falls likely due to a combination of weakness, but also poor lower extremity sensation. -Will need to use a bariatric wheeled walker for safe ambulation -Recommended PT at rehab -C/w PT BID while in the hospital for 7 days a week -Patient remains a high fall risk. Working on safe discharge plan which will require ability to transfer. Rehab medicine consulted, recs appreciated -Needs to be able to do self-transfers or min assist transfers in order to meet criteria for short-term daniel bed at [facility] Rehab facility denied patient transfer as they report that she needs to have a concrete discharge plan following rehab prior to acceptance and her sons have not made a commitment. (2) Severe hypothyroidism ICD Codes: E03.8 - Other specified hypothyroidism Status: Acute Plan: Improving symptomatically with meds as listed T4 now wnl TSH in detectable range -Endocrinology consulted, appreciate recommendations -Continue levothyroxine 225 mcg daily -Recommended recheck of T4, TSH in 2 weeks; follow-up TSH was 52.1, then 49.5 , T4 was 1.22. Improved from before. -Signed off due to patient anticipated to be transferred, available as needed for continued input (3) Pain ICD Codes: R52 - Pain, unspecified Status: Acute Plan: -Tramadol as needed for pain, hydrocodone-acetaminophen as needed for breakthrough pain -Ambien as needed to help her sleep (4) Depression ICD Codes: F32.9 - Major depressive disorder, single episode, unspecified Status: Chronic Plan: -Zoloft increased per psychiatry -continue home BuSpar -Continue Effexor; consider titrating up -Ativan prn for anxiety -Psychiatry consult appreciated (5) Skin breakdown ICD Codes: L90.9 - Atrophic disorder of skin, unspecified Status: Resolved Plan: Skin breakdown at sacrum -Wound care consult ordered. Discussed with wound care. Appearance consistent with diaper rash. Recommended antifungal powder as needed. Also recommend use of this powder in her inguinal regions and under her pannus At left axilla. -Petroleum jelly as needed (6) Diabetes mellitus ICD Codes: E11.9 - Type 2 diabetes mellitus without complications Status: Chronic Plan: BSG 164-288 Hold home insulin glargine. She reported taking no short acting insulin at home for months only long acting. HbA1c was 12.5 -Accuchecks ACHS -Levemir 42 units BID -Novolog 9 units TIDAC -Blood pressure well controlled, however should consider starting an reji-I for renal protection (7) Hypertension ICD Codes: I10 - Essential (primary) hypertension Status: Chronic Plan: Stable, continue atenolol 25 mg daily continue to monitor (8) Chronic kidney disease ICD Codes: N18.9 - Chronic kidney disease, unspecified Status: Chronic Plan: Baseline ~1.3. Creatinine stable. (9) Hyperlipidemia ICD Codes: E78.5 - Hyperlipidemia, unspecified Status: Chronic Plan: CK wnl -Continue atorvastatin (10) Nutrition, metabolism, and development symptoms ICD Codes: R63.8 - Other symptoms and signs concerning food and fluid intake Status: Acute Plan: Fluids: tolerating po Electrolytes: continue to monitor Nutrition: 1800 ADA GI ppx: Protonix 40 mg po daily DVT ppx: Heparin 5,000 units sq q8h Dispo: Complicated due to self-pay status and risk of falls. (Daniel Trejo MD R2) Problem Qualifiers (1) Diabetes mellitus: Qualified Codes: E11.42 - Type 2 diabetes mellitus with diabetic polyneuropathy ; Z79.4 - termination clerk (current) use of insulin (2) Hypertension: Qualified Codes: I10 - Essential (primary) hypertension (3) Hyperlipidemia: Qualified Codes: E78.00 - Pure hypercholesterolemia, unspecified Daniel Trejo MD R2 July 04, 2017 08:47 Judy Taylor MD July 04, 2017 20:12
[2017-07-04] MEDS: LACTOBACILLUS ACIDOPHILUS TAB PO SCH ×2 (08:48→20:51)
[2017-07-04] MEDS: DOCUSATE SODIUM 50 MG/SENNA 8.6 MG TAB PO SCH ×2 (08:48→20:51)
[2017-07-04] MEDS: SERTRALINE HCL 50 MG TAB PO SCH (08:48)
[2017-07-04] MEDS: CALCIUM CARBONATE 500 MG CHEWABLE TAB PO SCH ×2 (08:48→20:51)
[2017-07-04] MEDS: busPIRone HCL 5 MG TAB PO SCH ×3 (08:48→18:17)
[2017-07-04] MEDS: ATENOLOL 25 MG TAB PO SCH (08:48)
[2017-07-04] MEDS: PANTOPRAZOLE SOD 40 MG DELAYED RELEASE TAB PO SCH (08:48)
[2017-07-04] MEDS: VENLAFAXINE HCL XR 37.5 MG CAP PO SCH (08:49)
[2017-07-04] MEDS: INSULIN ASPART 1,000 UNITS/10 ML VIAL SQ SCH ×3 (08:49→18:16)
[2017-07-04] MEDS: SODIUM CHLORIDE 0.9% FLUSH 10 ML FLUSH IV FLUSH SCH ×2 (08:49→20:50)
[2017-07-04] MEDS: INSULIN DETEMIR 100 UNITS/ML VIAL SQ SCH ×2 (08:50→20:50)
[2017-07-04] MEDS: CLOTRIMAZOLE 1% CREAM 15 GM TOPICAL SCH ×2 (08:53→20:52)
[2017-07-04 12:00] VITALS: BP 116/59; PULSE 74; RESP 20; TEMP 97.6; O2SAT 95
[2017-07-04 15:51] VITALS: BP 103/59; PULSE 75; RESP 20; TEMP 97.8; O2SAT 95
[2017-07-04 20:00] VITALS: BP 122/67; PULSE 76; RESP 18; TEMP 98.4; O2SAT 96
[2017-07-04] MEDS: CHOLECALCIFEROL (VIT D3) 400 UNIT TAB PO SCH (20:51)
[2017-07-04] MEDS: ASPIRIN EC 81 MG TABEC PO SCH (20:51)
[2017-07-04] MEDS: LORazepam 0.5 MG TAB PO SCH (20:52)
[2017-07-05] VITALS: BP 117/56; PULSE 84; RESP 18; TEMP 97.8; O2SAT 93
[2017-07-05] MEDS: ACETAMINOPHEN/HYDROcodone 325 MG/7.5 MG TAB PO PRN ×3 (00:37→21:08)
[2017-07-05] MEDS: HEPARIN SODIUM - SQ 10,000 UNITS/ML VIAL SQ SCH ×3 (00:37→18:09)
[2017-07-05] MEDS: traMADol HCL 50 MG TAB PO PRN (02:40)
[2017-07-05 04:00] VITALS: BP 113/71; PULSE 85; RESP 18; TEMP 98; O2SAT 92
[2017-07-05] MEDS: LEVOTHYROXINE SODIUM 200 MCG TAB PO SCH (04:12)
[2017-07-05] MEDS: LEVOTHYROXINE SODIUM 25 MCG TAB PO SCH (04:12)
[2017-07-05 08:00] VITALS: BP 126/75; PULSE 82; RESP 18; TEMP 97.8; O2SAT 95
[2017-07-05] MEDS: INSULIN ASPART 1,000 UNITS/10 ML VIAL SQ SCH ×3 (08:00→17:00)
[2017-07-05] MEDS: SODIUM CHLORIDE 0.9% FLUSH 10 ML FLUSH IV FLUSH SCH ×2 (09:00→21:07)
[2017-07-05] MEDS: INSULIN DETEMIR 100 UNITS/ML VIAL SQ SCH ×2 (09:00→21:24)
[2017-07-05] MEDS: POLYETHYLENE GLYCOL 17 GM PKG PO SCH (09:00)
[2017-07-05] MEDS: CLOTRIMAZOLE 1% CREAM 15 GM TOPICAL SCH ×2 (09:00→21:06)
[2017-07-05] MEDS: LACTOBACILLUS ACIDOPHILUS TAB PO SCH ×2 (09:00→21:06)
[2017-07-05] MEDS: DOCUSATE SODIUM 50 MG/SENNA 8.6 MG TAB PO SCH ×2 (09:00→21:06)
[2017-07-05] MEDS: VENLAFAXINE HCL XR 37.5 MG CAP PO SCH (09:00)
[2017-07-05] MEDS ORDERED: LEVO25TA4 PO (09:24)
[2017-07-05] MEDS ORDERED: PROB1TAB4 PO (09:24)
[2017-07-05] MEDS ORDERED: LEVO.2 PO (09:24)
[2017-07-05] MEDS ORDERED: FERR325T2 PO (09:24)
[2017-07-05] MEDS ORDERED: NOVOLOGP2 SQ (09:24)
[2017-07-05] MEDS ORDERED: ATEN25TA PO (09:24)
[2017-07-05] MEDS ORDERED: ZOCO40TA PO (09:24)
[2017-07-05] MEDS ORDERED: PLAV75TA29 PO (09:24)
[2017-07-05] MEDS ORDERED: FAMO20TA2 PO (09:24)
[2017-07-05] MEDS ORDERED: FISH100020 PO (09:24)
[2017-07-05] MEDS ORDERED: LEVEMIR SQ (09:24)
[2017-07-05] MEDS ORDERED: ZOLO50TA PO (09:24)
[2017-07-05] MEDS ORDERED: VENL1CAP38 PO (09:24)
[2017-07-05] MEDS ORDERED: ECASA81 PO (09:24)
[2017-07-05] MEDS ORDERED: GABA600T PO (09:24)
[2017-07-05] MEDS ORDERED: CALC600T5 PO (09:24)
[2017-07-05] MEDS ORDERED: BUSP15TA PO (09:24)
--- NOTE | 2017-07-05 09:25 | HHI.DCPOC ---
Discharge Care Plan Diagnosis: (1) Severe hypothyroidism Goals to Promote Your Health * To prevent worsening of your condition and complications * To maintain your health at the optimal level Directions to Meet Your Goals Take your medications as prescribed Follow your dietary instruction Follow activity as directed Keep your appointments as scheduled Take your immunizations and boosters as scheduled If your symptoms worsen call your PCP, if no PCP go to Urgent Care Center or Emergency Room Smoking is Dangerous to Your Health. Avoid second hand smoke Call the 24-hour hour crisis hotline for domestic abuse at Marie Mars MD R3 July 05, 2017 09:25
[2017-07-05] MEDS: busPIRone HCL 5 MG TAB PO SCH ×3 (09:55→18:09)
[2017-07-05] MEDS: PANTOPRAZOLE SOD 40 MG DELAYED RELEASE TAB PO SCH (09:56)
[2017-07-05] MEDS: CALCIUM CARBONATE 500 MG CHEWABLE TAB PO SCH ×2 (09:57→21:06)
[2017-07-05] MEDS: ATENOLOL 25 MG TAB PO SCH (09:57)
[2017-07-05] MEDS: SERTRALINE HCL 50 MG TAB PO SCH (09:57)
[2017-07-05 12:00] VITALS: BP 125/63; PULSE 70; RESP 16; TEMP 98.2; O2SAT 92
--- NOTE | 2017-07-05 12:54 | HHI.FPPN ---
Subjective Remarks Patient seen and examined this morning. No acute changes in symptoms. Witnessed the end of patients physical therapy session, noted in objective section. Patient reports that her son was unable to fly in to assist her with transportation today because of lack of transportation to the airport. Patients current medical status was reviewed with her as well as current discharge planning. Although previously the patient had refused to allow the primary team to contact most of her family, today the patient provided the primary team with a phone list of her sons and daughter in law who could be contacted. Resident team contacted patient's son Mayco. He expressed frustration with not having been updated sooner. It was explained that until today the team had not been allowed to contact him. The patient's medical care to this point and current discharge plan was reviewed with the son. He reports that it is highly unlikely he will be able to fly down to assist his mother due to various personal reasons. Attempted to contact Jake and Rhona, they did not flower picker. List Provided: Jake Cedric Mayco Jean Pierre Rhona (Daniel Butcher MD R1) Objective Vitals Vital Signs Date Time Temp Pulse Resp B/P (MAP) Pulse Ox O2 Delivery O2 Flow Rate FiO2 07/05/17 10:00 92 Room Air 07/05/17 04:00 98.0 85 18 113/71 (85) 92 07/05/17 00:00 97.8 84 18 117/56 (76) 93 07/05/17 00:00 Room Air 07/04/17 20:00 98.4 76 18 122/67 (85) 96 07/04/17 20:00 Room Air 07/04/17 15:51 97.8 75 20 103/59 (74) 95 07/04/17 15:00 Room Air I/O 07/04/17 07/04/17 07/04/17 07/05/17 07/05/17 07/05/17 07:00 15:00 23:00 07:00 15:00 23:00 Intake Total 120 ml 360 ml 222 ml Output Total 300 ml 50 ml Balance -180 ml 360 ml 172 ml Intake Oral 120 ml 360 ml 222 ml Output Urine Total 300 ml 50 ml # Voids 1 3 3 # Bowel Movements 0 0 0 (Daniel Butcher MD R1) Objective Remarks GENERAL: Well-nourished, morbidly obese white female patient, laying in bed holding the right handrail to rotate herself off her back, which is normal for her. SKIN: Warm and dry/flaky. CARDIOVASCULAR: Heart sounds distant. Regular rate and rhythm without murmurs, gallops, or rubs. RESPIRATORY: Breath sounds equal bilaterally and clear. No accessory muscle use. No crackles or wheezes. GASTROINTESTINAL: Abdomen soft, obese, nondistended. EXTREMITIES: No edema of BLE. non tender calves BL. Tenderness to light palpation of left [place]. 2+ posterior tibial pulse. BACK: Grossly normal. NEUROLOGICAL: Grossly non-focal. Sensation of legs equal bilaterally. 07/05/17 additional observations: Witnessed patient at the end of her physical therapy. When assisted with standing she stated "my knees do not work" needed full support of the PT staff. No obvious contraction of her exposed lower leg muscles during attempt at standing. It was noted prior when the wheel chair was being moved with her in it she had little effort to raise her legs to avoid her feet dragging on the ground. (Daniel Butcher MD R1) A/P Assessment and Plan 56 year old female with hypertension, hypothyroidism presenting with severely uncontrolled hypothyroidism, deconditioning, multiple falls. Discharge Planning Pending discharge arrangements. Patient gave access to direct family members on 07/05/17. Phone numbers listed below. List Provided: Jake Cedric Mayco Jean Pierre Rhona (Daniel Butcher MD R1) Attending Attestation Attending note: Patient seen, examined, and discussed with resident team. I agree with assessment and management as documented and discussed with me. probation manager present for discussion as well. Pt seen working with PT. Inconsistencies in her effort and strength noted by physicians and PT. Pt unable to move legs with PT, but then when wheeled in wheelchair, she is able to lift legs to avoid them being dragged on the floor. Discussed with patient that she is medically cleared for discharge, and that discharge arrangements need to be made. Discussed with patient that she will need to make every effort to work with PT. (Judy Taylor MD) Problem List: (1) Weakness ICD Codes: R53.1 - Weakness Status: Chronic Plan: Likely multifactorial with a large component of deconditioning. Continue PT -Assessment stated that falls likely due to a combination of weakness, but also poor lower extremity sensation. -Will need to use a bariatric wheeled walker for safe ambulation -Recommended PT at rehab -C/w PT BID while in the hospital for 7 days a week -Patient remains a high fall risk. Working on safe discharge plan which will require ability to transfer. Rehab medicine consulted, recs appreciated -Needs to be able to do self-transfers or min assist transfers in order to meet criteria for short-term daniel bed at [facility] Rehab facility denied patient transfer as they report that she needs to have a concrete discharge plan following rehab prior to acceptance and her sons have not made a commitment. (2) Severe hypothyroidism ICD Codes: E03.8 - Other specified hypothyroidism Status: Acute Plan: Improving symptomatically with meds as listed T4 now wnl TSH in detectable range -Endocrinology consulted, appreciate recommendations -Continue levothyroxine 225 mcg daily -Recommended recheck of T4, TSH in 2 weeks; follow-up TSH was 52.1, then 49.5 , T4 was 1.22. Improved from before. -Signed off due to patient anticipated to be transferred, available as needed for continued input (3) Pain ICD Codes: R52 - Pain, unspecified Status: Acute Plan: Staff reports patient is visibly sedated following medication administration, may be negatively impacting patient's physical therapy. -Will discontinue tramadol for now -Mathews PRN pain -Ambien as needed to help her sleep (4) Depression ICD Codes: F32.9 - Major depressive disorder, single episode, unspecified Status: Chronic Plan: -Zoloft increased per psychiatry -continue home BuSpar -Continue Effexor; consider titrating up -Ativan prn for anxiety -Psychiatry consult appreciated (5) Skin breakdown ICD Codes: L90.9 - Atrophic disorder of skin, unspecified Status: Resolved Plan: Skin breakdown at sacrum -Wound care consult ordered. Discussed with wound care. Appearance consistent with diaper rash. Recommended antifungal powder as needed. Also recommend use of this powder in her inguinal regions and under her pannus At left axilla. -Petroleum jelly as needed (6) Diabetes mellitus ICD Codes: E11.9 - Type 2 diabetes mellitus without complications Status: Chronic Plan: BSG 164-288 Hold home insulin glargine. She reported taking no short acting insulin at home for months only long acting. HbA1c was 12.5 -Accuchecks ACHS -Levemir 42 units BID -Novolog 9 units TIDAC -Blood pressure well controlled, however should consider starting an reji-I for renal protection (7) Hypertension ICD Codes: I10 - Essential (primary) hypertension Status: Chronic Plan: Stable, continue atenolol 25 mg daily continue to monitor (8) Chronic kidney disease ICD Codes: N18.9 - Chronic kidney disease, unspecified Status: Chronic Plan: Baseline ~1.3. Creatinine stable. (9) Hyperlipidemia ICD Codes: E78.5 - Hyperlipidemia, unspecified Status: Chronic Plan: CK wnl -Continue atorvastatin (10) Nutrition, metabolism, and development symptoms ICD Codes: R63.8 - Other symptoms and signs concerning food and fluid intake Status: Acute Plan: Fluids: tolerating po Electrolytes: continue to monitor Nutrition: 1800 ADA GI ppx: Protonix 40 mg po daily DVT ppx: Heparin 5,000 units sq q8h Dispo: Complicated due to self-pay status and risk of falls. (Daniel Butcher MD R1) Problem Qualifiers (1) Diabetes mellitus: Qualified Codes: E11.42 - Type 2 diabetes mellitus with diabetic polyneuropathy ; Z79.4 - residential (current) use of insulin (2) Hypertension: Qualified Codes: I10 - Essential (primary) hypertension (3) Hyperlipidemia: Qualified Codes: E78.00 - Pure hypercholesterolemia, unspecified Daniel Butcher MD R1 July 05, 2017 12:54 Judy Taylor MD July 06, 2017 21:07
[2017-07-05] MEDS: ACETAMINOPHEN 325 MG TAB PO PRN (18:10)
[2017-07-05 21:01] VITALS: BP 111/58; PULSE 75; RESP 14; TEMP 98; O2SAT 96
[2017-07-05] MEDS: CHOLECALCIFEROL (VIT D3) 400 UNIT TAB PO SCH (21:05)
[2017-07-05] MEDS: ASPIRIN EC 81 MG TABEC PO SCH (21:06)
[2017-07-05] MEDS: LORazepam 0.5 MG TAB PO SCH (21:06)
[2017-07-06] VITALS: BP 114/72; PULSE 78; RESP 24; TEMP 97.5; O2SAT 96
[2017-07-06] MEDS: ACETAMINOPHEN 325 MG TAB PO PRN (01:16)
[2017-07-06] MEDS: HEPARIN SODIUM - SQ 10,000 UNITS/ML VIAL SQ SCH ×3 (01:16→18:34)
[2017-07-06 05:00] VITALS: BP 136/86; PULSE 79; RESP 26; TEMP 97.5; O2SAT 98
[2017-07-06] MEDS: LEVOTHYROXINE SODIUM 25 MCG TAB PO SCH (05:07)
[2017-07-06] MEDS: LEVOTHYROXINE SODIUM 200 MCG TAB PO SCH (05:07)
[2017-07-06] MEDS: ACETAMINOPHEN/HYDROcodone 325 MG/7.5 MG TAB PO PRN ×3 (05:08→21:24)
[2017-07-06 08:06] VITALS: BP 128/82; PULSE 79; RESP 17; TEMP 97.7; O2SAT 95
[2017-07-06] MEDS: busPIRone HCL 5 MG TAB PO SCH ×3 (08:51→18:34)
[2017-07-06] MEDS: ATENOLOL 25 MG TAB PO SCH (08:52)
[2017-07-06] MEDS: VENLAFAXINE HCL XR 37.5 MG CAP PO SCH (08:52)
[2017-07-06] MEDS: LACTOBACILLUS ACIDOPHILUS TAB PO SCH ×2 (08:52→21:23)
[2017-07-06] MEDS: PANTOPRAZOLE SOD 40 MG DELAYED RELEASE TAB PO SCH (08:53)
[2017-07-06] MEDS: DOCUSATE SODIUM 50 MG/SENNA 8.6 MG TAB PO SCH ×2 (08:53→21:23)
[2017-07-06] MEDS: SERTRALINE HCL 50 MG TAB PO SCH (08:53)
[2017-07-06] MEDS: POLYETHYLENE GLYCOL 17 GM PKG PO SCH ×2 (08:54→09:00)
[2017-07-06] MEDS: SODIUM CHLORIDE 0.9% FLUSH 10 ML FLUSH IV FLUSH SCH ×2 (09:00→21:24)
[2017-07-06] MEDS: CLOTRIMAZOLE 1% CREAM 15 GM TOPICAL SCH ×2 (09:00→21:00)
[2017-07-06] MEDS: CALCIUM CARBONATE 500 MG CHEWABLE TAB PO SCH ×2 (09:44→21:22)
[2017-07-06] MEDS: INSULIN ASPART 1,000 UNITS/10 ML VIAL SQ SCH ×3 (09:45→18:35)
[2017-07-06] MEDS: INSULIN DETEMIR 100 UNITS/ML VIAL SQ SCH ×2 (09:45→21:24)
--- NOTE | 2017-07-06 10:05 | HHI.FPPN ---
Subjective Remarks Patient complains of pain, especially in the context of all of her pain medications being changed to just Tylenol without any narcotics. We discussed why this was good for her in the long run. She also complained about being changed to basic care without TV or menu options. She continues to complain about her discomfort from the metal bars in the bed. She reports that she does not want to be here and is continuing to work on discharge planning. Discussed case with case picker who said that she is anticipating a conversation with the patient's [id number] to discuss discharge planning. (Daniel Trejo MD R2) Objective Vitals Vital Signs Date Time Temp Pulse Resp B/P (MAP) Pulse Ox O2 Delivery O2 Flow Rate FiO2 07/06/17 08:06 97.7 79 17 128/82 (97) 95 07/06/17 06:08 15 07/06/17 05:00 97.5 79 26 136/86 (103) 98 07/06/17 02:16 15 07/06/17 00:00 97.5 78 24 114/72 (86) 96 07/05/17 21:30 Room Air 07/05/17 21:01 98.0 75 14 111/58 (75) 96 07/05/17 18:46 92 Room Air 07/05/17 12:00 98.2 70 16 125/63 (83) 92 I/O 07/05/17 07/05/17 07/05/17 07/06/17 07/06/17 07/06/17 07:00 15:00 23:00 07:00 15:00 23:00 Intake Total 222 ml 840 ml Output Total 50 ml Balance 172 ml 840 ml Intake Oral 222 ml 840 ml Output Urine Total 50 ml # Voids 3 4 2 # Bowel Movements 0 4 (Daniel Trejo MD R2) Objective Remarks GENERAL: Well-nourished, obese white female patient, sitting in her wheelchair, shaking/bouncing her right leg. SKIN: Warm and dry/flaky. CARDIOVASCULAR: Heart sounds distant. Regular rate and rhythm without murmurs, gallops, or rubs. RESPIRATORY: Breath sounds equal bilaterally and clear. No accessory muscle use. No crackles or wheezes. GASTROINTESTINAL: Abdomen soft, obese, nondistended. EXTREMITIES: No edema of BLE. non tender calves BL. BACK: Grossly normal. NEUROLOGICAL: Grossly non-focal. Sensation of legs equal bilaterally. (Daniel Trejo MD R2) A/P Assessment and Plan 56 year old female with hypertension, hypothyroidism presenting with severely uncontrolled hypothyroidism, deconditioning, multiple falls. Discharge Planning Pending discharge arrangements. Patient gave access to direct family members on 07/05/17. Phone numbers listed below. List Provided: Jake Cedric Mayco Jean Pierre Rhona (Daniel Trejo MD R2) Attending Attestation Patient seen and examined, discussed with resident team. I agree with assessment and management as documented and discussed with me. No new concerns. Continue to work on discharge planning. (Judy Taylor MD) Problem List: (1) Weakness ICD Codes: R53.1 - Weakness Status: Chronic Plan: Likely multifactorial with a large component of deconditioning. Continue PT -Assessment stated that falls likely due to a combination of weakness, but also poor lower extremity sensation. -Will need to use a bariatric wheeled walker for safe ambulation -Recommended PT at rehab -C/w PT BID while in the hospital for 7 days a week -Patient remains a high fall risk. Working on safe discharge plan which will require ability to transfer. Rehab medicine consulted, recs appreciated -Needs to be able to do self-transfers or min assist transfers in order to meet criteria for short-term daniel bed at [facility] Rehab facility denied patient transfer as they report that she needs to have a concrete discharge plan following rehab prior to acceptance and her sons have not made a commitment. (2) Pain ICD Codes: R52 - Pain, unspecified Status: Acute Plan: -Discontinued opiates/narcotics because they may be interfering with PT and her pain is all chronic or from laying in bed; Tylenol as needed for pain -Ambien as needed to help her sleep (3) Severe hypothyroidism ICD Codes: E03.8 - Other specified hypothyroidism Status: Acute Plan: Improving symptomatically with meds as listed T4 now wnl TSH in detectable range -Endocrinology consulted, appreciate recommendations -Continue levothyroxine 225 mcg daily -Recommended recheck of T4, TSH in 2 weeks; follow-up TSH was 52.1, then 49.5 , T4 was 1.22. Improved from before. -Signed off due to patient anticipated to be transferred, available as needed for continued input (4) Depression ICD Codes: F32.9 - Major depressive disorder, single episode, unspecified Status: Chronic Plan: -Zoloft increased per psychiatry -continue home BuSpar -Continue Effexor; consider titrating up -Ativan prn for anxiety -Psychiatry consult appreciated (5) Diabetes mellitus ICD Codes: E11.9 - Type 2 diabetes mellitus without complications Status: Chronic Plan: BSG 164-288 Hold home insulin glargine. She reported taking no short acting insulin at home for months only long acting. HbA1c was 12.5 -Accuchecks ACHS -Levemir 42 units BID -Novolog 9 units TIDAC -Blood pressure well controlled, however should consider starting an reji-I for renal protection (6) Hypertension ICD Codes: I10 - Essential (primary) hypertension Status: Chronic Plan: Stable, continue atenolol 25 mg daily continue to monitor (7) Chronic kidney disease ICD Codes: N18.9 - Chronic kidney disease, unspecified Status: Chronic Plan: Baseline ~1.3. Creatinine stable. (8) Hyperlipidemia ICD Codes: E78.5 - Hyperlipidemia, unspecified Status: Chronic Plan: CK wnl -Continue atorvastatin (9) Nutrition, metabolism, and development symptoms ICD Codes: R63.8 - Other symptoms and signs concerning food and fluid intake Status: Acute Plan: Fluids: tolerating po Electrolytes: continue to monitor Nutrition: 1800 ADA GI ppx: Protonix 40 mg po daily DVT ppx: Heparin 5,000 units sq q8h Dispo: Complicated due to self-pay status and risk of falls. (Daniel Trejo MD R2) Problem Qualifiers (1) Diabetes mellitus: Qualified Codes: E11.42 - Type 2 diabetes mellitus with diabetic polyneuropathy ; Z79.4 - physical therapy assistant (current) use of insulin (2) Hypertension: Qualified Codes: I10 - Essential (primary) hypertension (3) Hyperlipidemia: Qualified Codes: E78.00 - Pure hypercholesterolemia, unspecified Daniel Trejo MD R2 July 06, 2017 10:05 Judy Taylor MD July 06, 2017 21:08
[2017-07-06 12:06] VITALS: BP 107/72; PULSE 76; RESP 17; TEMP 98; O2SAT 95
[2017-07-06 16:06] VITALS: BP 107/73; PULSE 83; RESP 17; TEMP 98; O2SAT 99
[2017-07-06 20:00] VITALS: BP 117/71; PULSE 76; RESP 20; TEMP 97.9; O2SAT 94
[2017-07-06] MEDS: LORazepam 0.5 MG TAB PO SCH (21:23)
[2017-07-06] MEDS: CHOLECALCIFEROL (VIT D3) 400 UNIT TAB PO SCH (21:23)
[2017-07-06] MEDS: ASPIRIN EC 81 MG TABEC PO SCH (21:24)
[2017-07-07 00:12] VITALS: BP 102/62; PULSE 77; RESP 20; TEMP 98.7; O2SAT 95
[2017-07-07] MEDS: HEPARIN SODIUM - SQ 10,000 UNITS/ML VIAL SQ SCH ×3 (01:09→17:23)
[2017-07-07 04:00] VITALS: BP 123/72; PULSE 77; RESP 20; TEMP 98.1; O2SAT 97
[2017-07-07] MEDS: LEVOTHYROXINE SODIUM 200 MCG TAB PO SCH (04:59)
[2017-07-07] MEDS: LEVOTHYROXINE SODIUM 25 MCG TAB PO SCH (04:59)
[2017-07-07] MEDS: ACETAMINOPHEN/HYDROcodone 325 MG/7.5 MG TAB PO PRN ×2 (05:00→15:31)
[2017-07-07 08:10] VITALS: BP 122/72; PULSE 81; RESP 20; TEMP 97.7; O2SAT 98
[2017-07-07] MEDS: busPIRone HCL 5 MG TAB PO SCH ×3 (09:14→17:23)
[2017-07-07] MEDS: DOCUSATE SODIUM 50 MG/SENNA 8.6 MG TAB PO SCH ×2 (09:14→21:21)
[2017-07-07] MEDS: PANTOPRAZOLE SOD 40 MG DELAYED RELEASE TAB PO SCH (09:14)
[2017-07-07] MEDS: SERTRALINE HCL 50 MG TAB PO SCH (09:14)
[2017-07-07] MEDS: SODIUM CHLORIDE 0.9% FLUSH 10 ML FLUSH IV FLUSH SCH ×2 (09:14→21:00)
[2017-07-07] MEDS: POLYETHYLENE GLYCOL 17 GM PKG PO SCH (09:14)
[2017-07-07] MEDS: ATENOLOL 25 MG TAB PO SCH (09:14)
[2017-07-07] MEDS: INSULIN DETEMIR 100 UNITS/ML VIAL SQ SCH ×2 (09:14→21:23)
[2017-07-07] MEDS: VENLAFAXINE HCL XR 37.5 MG CAP PO SCH (09:14)
[2017-07-07] MEDS: CALCIUM CARBONATE 500 MG CHEWABLE TAB PO SCH ×2 (09:14→21:22)
[2017-07-07] MEDS: LACTOBACILLUS ACIDOPHILUS TAB PO SCH ×2 (09:14→21:22)
[2017-07-07] MEDS: INSULIN ASPART 1,000 UNITS/10 ML VIAL SQ SCH ×3 (09:15→19:39)
[2017-07-07] MEDS: CLOTRIMAZOLE 1% CREAM 15 GM TOPICAL SCH ×2 (09:15→21:00)
--- NOTE | 2017-07-07 09:19 | HHI.FPPN ---
Subjective Remarks Patient reports feeling tired today but otherwise denies any new or different complaints. We reviewed her conversation with human services case manager yesterday. Apparently, the human services case manager had encouraged her to reach out to other friends and family who could help with discharge. She reports that there are no other friends or family who may be able to help in [place]. However, she reported that her local bindery machine setter here might be willing to fly to [place] with her and then turn around and come back. Objective Vitals Vital Signs Date Time Temp Pulse Resp B/P (MAP) Pulse Ox O2 Delivery O2 Flow Rate FiO2 07/07/17 08:10 97.7 81 20 122/72 (89) 98 07/07/17 04:00 98.1 77 20 123/72 (89) 97 07/07/17 00:12 98.7 77 20 102/62 (75) 95 07/06/17 20:00 97.9 76 20 117/71 (86) 94 07/06/17 20:00 Room Air 07/06/17 16:06 98.0 83 17 107/73 (84) 99 07/06/17 12:06 98.0 76 17 107/72 (84) 95 I/O 07/06/17 07/06/17 07/06/17 07/07/17 07/07/17 07/07/17 07:00 15:00 23:00 07:00 15:00 23:00 Intake Total 720 ml 240 ml Output Total 600 ml 300 ml Balance 120 ml -60 ml Intake Oral 720 ml 240 ml Output Urine Total 600 ml 300 ml # Voids 2 3 # Bowel Movements 1 2 Objective Remarks GENERAL: Well-nourished, obese white female patient, lying in bed, sleepy, leaning to the right SKIN: Warm and dry/flaky. CARDIOVASCULAR: Heart sounds distant. Regular rate and rhythm without murmurs, gallops, or rubs. RESPIRATORY: Breath sounds equal bilaterally and clear. No accessory muscle use. No crackles or wheezes. GASTROINTESTINAL: Abdomen soft, obese, nondistended. EXTREMITIES: No edema of BLE. non tender calves BL. BACK: Grossly normal. NEUROLOGICAL: Grossly non-focal. Sensation of legs reportedly unequal: She reports less sensation in the left leg than the right. However she is able to move her toes bilaterally and has pulses intact bilaterally. Motor, sensation, capillary refill intact in toes bilaterally. A/P Assessment and Plan 56 year old female with hypertension, hypothyroidism presenting with severely uncontrolled hypothyroidism, deconditioning, multiple falls. Discharge Planning Pending discharge arrangements. Patient gave access to direct family members on 07/05/17. Phone numbers listed below. List Provided: Jake Cedric Mayco Jean Pierre Rhona Problem List: (1) Weakness ICD Codes: R53.1 - Weakness Status: Chronic Plan: Likely multifactorial with a large component of deconditioning. Continue PT -Assessment stated that falls likely due to a combination of weakness, but also poor lower extremity sensation. -Will need to use a bariatric wheeled walker for safe ambulation -Recommended PT at rehab -C/w PT BID while in the hospital for 7 days a week -Patient remains a high fall risk. Working on safe discharge plan which will require ability to transfer. Rehab medicine consulted, recs appreciated -Needs to be able to do self-transfers or min assist transfers in order to meet criteria for short-term daniel bed at [facility] Rehab facility denied patient transfer as they report that she needs to have a concrete discharge plan following rehab prior to acceptance and her sons have not made a commitment. (2) Pain ICD Codes: R52 - Pain, unspecified Status: Acute Plan: -Discontinued opiates/narcotics because they may be interfering with PT and her pain is all chronic or from laying in bed; Tylenol as needed for pain -Ambien as needed to help her sleep (3) Severe hypothyroidism ICD Codes: E03.8 - Other specified hypothyroidism Status: Acute Plan: Improving symptomatically with meds as listed T4 now wnl TSH in detectable range -Endocrinology consulted, appreciate recommendations -Continue levothyroxine 225 mcg daily -Recommended recheck of T4, TSH in 2 weeks; follow-up TSH was 52.1, then 49.5 , T4 was 1.22. Improved from before. -Signed off due to patient anticipated to be transferred, available as needed for continued input (4) Depression ICD Codes: F32.9 - Major depressive disorder, single episode, unspecified Status: Chronic Plan: -Zoloft increased per psychiatry -continue home BuSpar -Continue Effexor; consider titrating up -Ativan prn for anxiety -Psychiatry consult appreciated (5) Diabetes mellitus ICD Codes: E11.9 - Type 2 diabetes mellitus without complications Status: Chronic Plan: BSG 164-288 Hold home insulin glargine. She reported taking no short acting insulin at home for months only long acting. HbA1c was 12.5 -Accuchecks ACHS -Levemir 42 units BID -Novolog 9 units TIDAC -Blood pressure well controlled, however should consider starting an reji-I for renal protection (6) Hypertension ICD Codes: I10 - Essential (primary) hypertension Status: Chronic Plan: Stable, continue atenolol 25 mg daily continue to monitor (7) Chronic kidney disease ICD Codes: N18.9 - Chronic kidney disease, unspecified Status: Chronic Plan: Baseline ~1.3. Creatinine stable. (8) Hyperlipidemia ICD Codes: E78.5 - Hyperlipidemia, unspecified Status: Chronic Plan: CK wnl -Continue atorvastatin (9) Nutrition, metabolism, and development symptoms ICD Codes: R63.8 - Other symptoms and signs concerning food and fluid intake Status: Acute Plan: Fluids: tolerating po Electrolytes: continue to monitor Nutrition: 1800 ADA GI ppx: Protonix 40 mg po daily DVT ppx: Heparin 5,000 units sq q8h Dispo: Complicated due to self-pay status and risk of falls. Problem Qualifiers (1) Diabetes mellitus: Qualified Codes: E11.42 - Type 2 diabetes mellitus with diabetic polyneuropathy ; Z79.4 - group home (current) use of insulin (2) Hypertension: Qualified Codes: I10 - Essential (primary) hypertension (3) Hyperlipidemia: Qualified Codes: E78.00 - Pure hypercholesterolemia, unspecified Daniel Trejo MD R2 Jul 07, 2017 09:19
[2017-07-07 11:37] VITALS: BP 122/57; PULSE 85; RESP 17; TEMP 98.1; O2SAT 96
[2017-07-07 16:00] VITALS: BP 123/82; PULSE 82; RESP 20; TEMP 98; O2SAT 95
[2017-07-07] MEDS ORDERED: LEVO25TA4 PO (17:14)
[2017-07-07] MEDS ORDERED: VENL37.595 PO (17:14)
[2017-07-07] MEDS ORDERED: LACTCAP8 PO (17:14)
[2017-07-07] MEDS ORDERED: NOVOLOGP2 SQ (17:14)
[2017-07-07] MEDS ORDERED: GABA600T PO (17:14)
[2017-07-07] MEDS ORDERED: LEVO200T4 PO (17:14)
[2017-07-07] MEDS ORDERED: SERT-129 PO (17:14)
[2017-07-07] MEDS ORDERED: FERR325T18 PO (17:14)
[2017-07-07] MEDS ORDERED: ASPI-516 CHEW (17:14)
[2017-07-07] MEDS ORDERED: CLOP75TA PO (17:14)
[2017-07-07] MEDS ORDERED: BUSP15TA PO (17:14)
[2017-07-07] MEDS ORDERED: FAMO20TA2 PO (17:14)
[2017-07-07] MEDS ORDERED: CALC500C16 CHEW (17:14)
[2017-07-07] MEDS ORDERED: LEVEMIR SQ (17:14)
[2017-07-07] MEDS ORDERED: OMEGCAP PO (17:14)
[2017-07-07] MEDS ORDERED: ATEN25TA PO (17:14)
[2017-07-07] MEDS ORDERED: WALKER/EXTENDED1 MIS (17:14)
[2017-07-07] MEDS ORDERED: SIMV40TA PO (17:14)
[2017-07-07 20:00] VITALS: BP 116/74; PULSE 74; RESP 19; TEMP 98.7; O2SAT 98
[2017-07-07] MEDS: ASPIRIN EC 81 MG TABEC PO SCH (21:21)
[2017-07-07] MEDS: CHOLECALCIFEROL (VIT D3) 400 UNIT TAB PO SCH (21:22)
[2017-07-07] MEDS: LORazepam 0.5 MG TAB PO SCH (21:22)
[2017-07-08] VITALS: BP 142/79; PULSE 77; RESP 19; TEMP 98.2; O2SAT 97
[2017-07-08] MEDS: ACETAMINOPHEN 325 MG TAB PO PRN (01:01)
[2017-07-08] MEDS: HEPARIN SODIUM - SQ 10,000 UNITS/ML VIAL SQ SCH (01:02)
[2017-07-08] MEDS: ACETAMINOPHEN/HYDROcodone 325 MG/7.5 MG TAB PO PRN (03:26)
[2017-07-08 04:00] VITALS: BP 142/70; PULSE 82; RESP 20; TEMP 98; O2SAT 98
== END 2017-07-08 05:58 | disposition home or self-care (01) | DRG 644 ==
LOC: NEPE 11:25 → NEDA 16:01 → N04B 18:36
PROVIDERS: ADMIT Family Medicine; ATTEND Family Medicine
PROC: 0T9B70Z Drainage of Bladder with Drainage Device, Via Natural or Artificial Opening (ICD-10-PCS; principal; 2017-05-25)
DX: E03.8 Other specified hypothyroidism (principal); I13.0 Hypertensive heart and chronic kidney disease with heart failure and stage 1 through stage 4 chronic kidney disease, or unspecified chronic kidney disease; N17.9 Acute kidney failure, unspecified; E10.22 Type 1 diabetes mellitus with diabetic chronic kidney disease; I50.9 Heart failure, unspecified; E66.01 Morbid (severe) obesity due to excess calories; M51.24 Other intervertebral disc displacement, thoracic region; E10.65 Type 1 diabetes mellitus with hyperglycemia; E10.42 Type 1 diabetes mellitus with diabetic polyneuropathy; I25.2 Old myocardial infarction; B37.2 Candidiasis of skin and nail; Z79.4 Long term (current) use of insulin; N18.9 Chronic kidney disease, unspecified; E78.5 Hyperlipidemia, unspecified; I25.10 Atherosclerotic heart disease of native coronary artery without angina pectoris; R32 Unspecified urinary incontinence; R29.6 Repeated falls; Z95.5 Presence of coronary angioplasty implant and graft; Z95.1 Presence of aortocoronary bypass graft; Z59.9 Problem related to housing and economic circumstances, unspecified; Z87.891 Personal history of nicotine dependence; Z83.3 Family history of diabetes mellitus; Z82.49 Family history of ischemic heart disease and other diseases of the circulatory system; Z91.128 Patient's intentional underdosing of medication regimen for other reason; R30.0 Dysuria; E86.0 Dehydration; F43.23 Adjustment disorder with mixed anxiety and depressed mood; Z68.35 Body mass index [BMI] 35.0-35.9, adult; K76.0 Fatty (change of) liver, not elsewhere classified; Z90.49 Acquired absence of other specified parts of digestive tract; Z74.09 Other reduced mobility; F40.240 Claustrophobia; Z53.20 Procedure and treatment not carried out because of patient's decision for unspecified reasons; M51.26 Other intervertebral disc displacement, lumbar region; M51.27 Other intervertebral disc displacement, lumbosacral region; Z79.899 Other long term (current) drug therapy; Z91.81 History of falling; N95.2 Postmenopausal atrophic vaginitis; K59.00 Constipation, unspecified; G89.29 Other chronic pain; J45.909 Unspecified asthma, uncomplicated; L22 Diaper dermatitis; Z23 Encounter for immunization
CPT/HCPCS: 71045; 72131; 73502; 74176; 76705; 76775; 76937; 80048; 80053; 80074; 81001; 82550; 82552; 82565; 82607; 82746; 82948; 83036; 83605; 83690; 83735; 84439; 84443; 84481; 84484; 84520; 85025; 85027; 85610; 85652; 85730; 87040; 87086; 90686; 93005; 94150; J1644; J1815; J1885; J2270; J2405; J7030; Q2038